=== PATIENT | female | born 1945 | race Caucasian/White ===

== ENCOUNTER 2016-10-07 12:41 | Outpatient (RCR) | payer MEDICARE, OTHER, MEDICAID ==
--- OUTSIDE RECORDS SUMMARY | 2016-07-22 09:06 | XMS REPORT | Continuity of Care Document ---
Author Author [facility] Organization [facility] Address Unknown Phone Unavailable Care Team Providers Care [place] Name Role Phone Jacques Abbasi PCP [phone] Source Comments Some departments are not documenting in the electronic medical record. If you do not see the information that you expected, contact Release of Information in the Health Information Management department at [phone] for further assistance in locating additional records.[facility] Active Allergies and Adverse Reactions Allergen Noted Date Severity Reactions Comments Sotalol 03/29/2015 Low UNKNOWN Current Medications Prescription Sig. Disp. Refills Start End Date Status Date ketoconazole (NIZORAL) 2 Apply to affected area Active % topical cream twice daily. Apply to coccyx and left upper thigh twice daily until both areas healed insulin aspart (NOVOLOG) Inject 0-12 Units into Active 100 unit/mL flexPEN area(s) as directed three times daily with meals. Inject as per sliding scale:60-150=0 [id number]=2 -049=8 -029=2 [id number]=31 [id number]=25 unitsAbove 400, call physician Menthol 5.8 mg lozg 1 Lozenge by Mucous Active Membrane route every 2 hours as needed (cough). loperamide (IMODIUM) 2 mg Take 2 mg by mouth four Active capsule times daily as needed for Diarrhea. calcium carbonate (TUMS) Take 1,000 mg by mouth as Active 500 mg (200 mg elemental Needed (indigestion). calcium) chewable tablet acetaminophen (TYLENOL) 2 tablets every 8 hours Active 325 mg tablet for arthritis pain and 1-2 tabs every 6 hours as needed gabapentin (NEURONTIN) Take 100 mg by mouth Active 100 mg capsule daily. furosemide (LASIX) 80 mg Take 80 mg by mouth Active tablet daily. loratadine (CLARITIN) 10 Take 10 mg by mouth Active mg tablet daily. amLODIPine (NORVASC) 10 Take 10 mg by mouth Active mg tablet daily. sertraline (ZOLOFT) 50 mg Take 50 mg by mouth Active tablet daily. simvastatin (ZOCOR) 20 mg Take 20 mg by mouth at Active tablet bedtime daily. cyanocobalamin(+) Take 500 mcg by mouth Active (VITAMIN B-12) 500 mcg daily. tablet Calcium-Cholecalciferol Take 1 Tab by mouth twice Active (D3) (CALCIUM 600 + D(3)) daily with meals. 600 mg(1,500mg) -200 unit tab doxazosin (CARDURA) 2 mg Take 2 mg by mouth twice Active tablet daily. lactobacillus rhamnosus Take 1 Cap by mouth twice Active GG (LACTOBACILLUS daily with meals. RHAMNOSUS (GG)) 15 billion cell cpSP ferrous sulfate 325 mg Take 325 mg by mouth Active (65 mg iron) tablet twice daily. potassium chloride SR Take 10 mEq by mouth Active (K-DUR) 10 mEq tablet twice daily. aspirin EC 81 mg tablet Take 1 Tab by mouth 90 Tab 3 04/04/20 Active daily. 15 clopiDOGrel (PLAVIX) 75 Take 1 Tab by mouth 90 Tab 3 04/04/20 Active mg tablet daily. 15 fish oil /omega-3 fatty Take 2 Caps by mouth Active acids (SEA-OMEGA) daily. 340/1000 mg capsule PEG 400-Propylene Glycol Insert or Apply 2 Drops Active (SYSTANE) 0.4-0.3 % dpet to left eye as directed as Needed. senna/docusate Take 2 Tabs by mouth 60 Tab 0 06/26/20 Active (SENOKOT-S) 8.6/50 mg twice daily. 15 tablet polyethylene glycol 3350 Take 17 g by mouth daily. 3 Bottle 3 Active (GLYCOLAX; MIRALAX) 17 15 gram/dose powder insulin aspart (NOVOLOG) Inject 6 Units into 3 box 3 06/26/20 Active 100 unit/mL flexPEN area(s) as directed three 15 times daily with meals. Take 6 units with lunch and dinner insulin detemir(+) Inject 20 Units into 10 mL 12 06/26/20 Active (LEVEMIR) 100 unit/mL area(s) as directed at 15 soln bedtime daily. carvedilol (COREG) 6.25 Take 1 Tab by mouth twice 180 Tab 3 07/31/20 Active mg tablet daily. 15 losartan-hydrochlorothiaz Take 1 Tab by mouth 90 Tab 3 11/16/19 Active chanelle (HYZAAR) 50-12.5 mg daily. 16 tablet Active Problems Problem Noted Date Chronic diastolic CHF (congestive heart failure) ([facility]) 06/26/2015 CKD (chronic kidney disease) stage 3, GFR 30-59 ml/min 06/26/2015 UTI (lower urinary tract infection) 06/21/2015 Acute diastolic HF (heart failure) ([facility]) 04/10/2015 Morbid obesity ([facility]) 04/10/2015 [id number] kidney injury (probable ATN) 04/10/2015 IDDM (insulin dependent diabetes mellitus) ([facility]) 03/29/2015 CAD (coronary artery disease) 03/29/2015 Overview: 03/30/15: Cath at [facility] - CAD. The LAD has a 90% eccentric mid vessel stenosis after the 1st septal with minimal disease elsewhere in the left coronary system. Successful intervention of the mid LAD, placing a 3.5 x 15 mm drug-eluting stent. HTN (hypertension) 03/29/2015 COPD (chronic obstructive pulmonary disease) ([facility]) 03/29/2015 Arthritis 03/29/2015 Aortic stenosis 03/28/2015 Most Recent Encounters Date Type Specialty Providers Description 07/03/2016 Telephone Cardiology Magdalena Felton, Lab Request - repeat ABDOUL ELENA 07/02/2016 Documentation Cardiology Jenn Benedict RN 07/01/2016 Hospital Cardiology Hussein Malave MD Encounter 07/01/2016 Office Visit Cardiology Louis Abbasi MD Cardiac Eval - 1 year Hussein Malave MD post op tavr f/u 07/01/2016 Hospital Cardiology Hussein Malave MD Encounter Social History Tobacco Use Types Packs/Day Years Used Date Former Smoker 1 7 Quit: 10/19/1973 Alcohol Use Drinks/Week oz/Week Comments No 0 Standard 0.0 drinks or equivalent Last Filed Vital Signs Vital Sign Reading Time Taken Blood Pressure 102/68 07/01/2016 12:52 PM CDT Pulse 56 07/01/2016 12:52 PM CDT Temperature 36.5 C (97.7 F) 06/26/2015 11:06 AM CDT Respiratory Rate - - Height 1.575 m (5' 2") 07/01/2016 12:52 PM CDT Weight 102.059 kg (225 lb) 07/01/2016 12:52 PM CDT Body Mass Index 41.14 07/01/2016 12:52 PM CDT Oxygen Saturation 97% 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 Care Health Maintenance Due Date Last Done Comments Hepatitis C Screening 1945 Physical (Comprehensive) 1954 Exam Pertussis Vaccine 1958 Tetanus Vaccine 02/05/1964 Dilated Eye Exam 1965 Foot Exam 1965 Microalbumin 1965 Breast Cancer Screening 1987 Colorectal Cancer 1997 Screening Shingles Vaccine 2007 Osteoporosis Screening 02/05/2012 Prevnar/Pneumovax (#1) 02/05/2012 Hba1c 12/19/2015 06/20/2015 Influenza Vaccine 06/19/2016 Results from Last 3 Months 2-D + DOPPLER ECHOCARDIOGRAM (07/01/2016 12:18 PM) Component Value Range BSA 2.16 m2 ECHO EF 80 % Referring Provider Louis Abbasi CV ECHO PV EDI SPECIALIST Britany LVIDD 5.4 3.9-5.3 cm LVIDS 3.7 cm IVS 1.3 0.6-0.9 cm PW 0.8 0.6-0.9 cm FS 31.48 28-44 % EF 53.52 % LA size 4.1 2.7-3.8 cm Sinus 2.8 2.1-3.5 cm LVOT diameter 1.9 cm LVOT area 2.83 cm2 LVOT peak jaime 1.3 m/s LVOT peak VTI 33.0 cm AV peak velocity 1.7 m/s Ao VTI 40.0 cm Aortic valve area= 2.33 cm2 , with a mean gradient of 6 mmHg and a peak gradient of 12 mmHg AV index ([place]) 0.76 E/A ratio 0.55 TDI e' 0.040 m/s E/E' ratio 15.00 MV Peak E Jaime PW 0.600 m/s MV Peak A Jaime 1.100 m/s LVOT stroke volume 93.39 cm3 Narrative Normal bioprosthetic aortic valve Hyperdynamic LV systolic function No pericardial effusion Otherwise very limited study CKMB (07/01/2016 11:09 AM) Component Value Range CKMB 3.0 0.6-6.3 NG/ML PLASMA FREE HEMOGLOBIN (07/01/2016 11:09 AM) Component Value Range Total Plasma Hemoglobin <30 0-40 MG/DL Specimen Blood CREATINE KINASE-CPK (07/01/2016 11:09 AM) Component Value Range Creatine Kinase 49 21-215 U/L Specimen Blood COMPREHENSIVE METABOLIC PANEL (07/01/2016 11:09 AM) Component Value Range Sodium 141 137-147 MMOL/L Potassium 4.4 3.5-5.1 MMOL/L Chloride 108 98-110 MMOL/L Glucose 179 (H) 70-100 MG/DL Blood Urea Nitrogen 70 (H) 7-25 MG/DL Creatinine 1.66 (H) 0.4-1.00 MG/DL Calcium 9.8 8.5-10.6 MG/DL Total Protein 7.1 6.0-8.0 G/DL Total Bilirubin 0.3 0.3-1.2 MG/DL Albumin 3.7 3.5-5.0 G/DL Alk Phosphatase 71 25-110 U/L AST (SGOT) 15 7-40 U/L CO2 26 21-30 MMOL/L ALT (SGPT) 11 7-56 U/L Anion Gap 7 3-12 eGFR Non 31 (L)Comment: >60 mL/min The eGFR is not validated for use in drug dosing adjustments. Continue to use estimated creatinine clearance per dosing reference text. Please contact the Clinical Pharmacist for questions. eGFR 37 (L)Comment: >60 mL/min The eGFR is not validated for use in drug dosing adjustments. Continue to use estimated creatinine clearance per dosing reference text. Please contact the Clinical Pharmacist for questions. Specimen Blood CBC (07/01/2016 11:09 AM) Component Value Range White Blood Cells 9.1 4.5-11.0 K/UL RBC 3.61 (L) 4.0-5.0 M/UL Hemoglobin 10.8 (L) 12.0-15.0 GM/DL Hematocrit 32.9 (L) 36-45 % MCV 91.0 80-100 FL MCH 29.8 26-34 PG MCHC 32.8 32.0-36.0 G/DL RDW 14.4 11-15 % Platelet Count 194 150-400 K/UL MPV 8.7 7-11 FL Specimen Blood BNP (B-TYPE NATRIURETIC PEPTI) (07/01/2016 11:09 AM) Component Value Range B Type Natriuretic 53.0 0-100 PG/ML Peptide Specimen Blood
[~2016-10-07 12:41] MED LIST: AC325T; AC325T PO; AC500T PO; ACET-819 PO; ACET325T38 PO; ACET650S15 RC; ACET650T52 PO; ALBU8.5H2 IH; AML5T PO; AMLO10TA PO; AMLO10TA2 PO; AMLO10TA82 PO; AMLO5TAB2; ASP325T; ASP325T PO; ASP325TEC PO; ASPI-84 PO; ASPI-983 PO; ATN50T; B&C/1TAB2 PO; CALC-6 PO; CALC-80 PO; CALC500T7 PO; CALC650T14 PO; CARV12.52 PO; CARV25TA; CARV25TA PO; CARV6.252; CHLO25TA22 PO; CHLO50TA2 PO; CHOL10003 PO; CHOL200035 PO; CLN.1T; CLN.2T; CLON0.3T4; CLOP75TA; CLOP75TA28 PO; CLOP75TA69 PO; CLPD75T PO; COMPAZINE; CYAN500T2 PO; DARBEPOETIN 10 MCG/0.4 ML ARANESP IJ SCH; DARBEPOETIN 25 MCG/ML (CANCER CTR) 1 ML VIAL SC SCH; DEXT15DR23 OU; DIPH1TAB45 PO; DIPH25TA82 PO; DOXA1TAB PO; DOXA2TAB2 PO; DOXY100C2 PO; DXZS2T PO; EUCA1LOZ MM; FENTANYL 50MCG; FERR27TA; FLC150T PO; FRS325T PO; FRSM20T PO; FURO20TA4; FURO40TA4 PO; FURO80TA3 PO; GABA-486 PO; GUAI-653 PO; GUAI10SY4 PO; HCT25T; HYDR50TA3 PO; IBUP-30 PO; INSASP10V; INSASP10V SC; INSASP10V SQ; INSU100C4; INSU100I14 SQ; INSU100I16 SQ; INSU100I29 SQ; INSU100I5; INSU100V16 SQ; INSU100V5 SQ; INSU3CAR; KCL10CCR PO; KCL20TCR PO; LACT1CAP45 PO; LACT1TAB6; LEVIMIR; LISI-552 PO; LISI20TA PO; LISI40TA PO; LOPE2CAP PO; LORA10TA7 PO; LOSA1TAB69 PO; LOVA20TA2; LOVA20TA2 PO; LOVA40TA2 PO; LSNP20T; LSNP20T PO; MELA5TAB12 PO; METH113C21 TP; METO100T5 PO; METO25TA PO; METO50TA7 PO; MPR22TI TP; MTF500T; MTF500T PO; MULT-963 PO; MULT-985 PO; MULT1CAP27 PO; NF-KET2% TOP; NFVALS90T; NFVALS90T PO; NST15PW TOP; OMEG1CAP51 PO; ONDN4T PO; OXYM-12 NSEACH; PERCOCET; POTA10TA36; POTA10TA36 PO; POTA99TA18 PO; PRD50T PO; PROM25SU43 RC; PROP1DRO4 OS; PROP1TAB77; RT-ALBUINH IH; SALI10LI TP; SENN-140 PO; SERT50TA2 PO; SERT50TA9 PO; SIMV20TA3 PO; SIMV40TA2; SMV20T PO; SULF1TAB35 PO; SULF1TAB38 PO; TRAM50TA2 PO; VENTOLIN IH; ZOFRAN 4 MG; [UNRECOGNIZED DRUG - CODE] PO; [UNRECOGNIZED DRUG - CODE] PO
[2016-10-07] MEDS ORDERED: DARBEPOETIN 25 MCG/ML (CANCER CTR) 1 ML VIAL SC SCH (14:00)
== END 2016-10-20 | disposition home or self-care (01) ==
LOC: ONC 12:41
PROVIDERS: ATTEND Internal Medicine Hematology & Oncology
DX: N18.3 Chronic kidney disease, stage 3 (moderate) (principal); D63.1 Anemia in chronic kidney disease; Z79.899 Other long term (current) drug therapy
CPT/HCPCS: 96372; 99213

== ENCOUNTER 2016-12-23 13:05 | Outpatient (RCR) | payer MEDICARE, OTHER, MEDICAID ==
--- OUTSIDE RECORDS SUMMARY | 2016-10-23 10:43 | XMS REPORT | Continuity of Care Document ---
Author Author [facility] Organization [facility] Address Unknown Phone Unavailable Care Team Providers Care [employer] Name Role Phone Jacques Abbasi PCP [phone] Source Comments Some departments are not documenting in the electronic medical record. If you do not see the information that you expected, contact Release of Information in the Health Information Management department at [phone] for further assistance in locating additional records.[facility] Active Allergies and Adverse Reactions Allergen [...] with meals. Inject as per sliding scale:60-150=0 -010=2 [id number]=5 -191=6 [id number]=18 -549=19 unitsAbove 400, call physician Menthol 5.8 mg [...] Date Chronic diastolic CHF (congestive heart failure) ([facility]) 06/26/2015 CKD (chronic kidney disease) stage 3, GFR 30-59 ml/min 06/26/2015 UTI (lower urinary tract infection) 06/21/2015 Acute diastolic HF (heart failure) ([facility]) 04/10/2015 Morbid obesity ([facility]) 04/10/2015 Ztpbx-qy-jgquwrq kidney injury (probable ATN) 04/10/2015 IDDM (insulin dependent diabetes mellitus) ([facility]) 03/29/2015 CAD (coronary artery disease) 03/29/2015 Overview: 03/30/15: Cath at [facility] - CAD. The LAD has a 90% eccentric mid vessel stenosis after the 1st septal with minimal disease elsewhere in the left coronary system. Successful intervention of the mid LAD, placing a 3.5 x 15 mm drug-eluting stent. 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
[~2016-12-23 13:05] MED LIST changes: -DARBEPOETIN 10 MCG/0.4 ML ARANESP IJ SCH
[2017-01-14] MEDS ORDERED: SERT25TA5 PO (09:40)
[2017-01-14] MEDS ORDERED: [UNRECOGNIZED DRUG - OTHER] TP (09:40)
[2017-01-14] MEDS ORDERED: FLUT16SP22 NS (09:40)
[2017-01-14] MEDS ORDERED: TERA2CAP4 PO (09:40)
== END 2017-01-21 | disposition home or self-care (01) ==
LOC: ONC 13:05
PROVIDERS: ATTEND Internal Medicine Hematology & Oncology
DX: N18.3 Chronic kidney disease, stage 3 (moderate) (principal); D63.1 Anemia in chronic kidney disease; Z79.899 Other long term (current) drug therapy
CPT/HCPCS: 96372; 99213

== ENCOUNTER 2017-01-14 07:05 | Day surgery (SDC) | payer MEDICARE, OTHER, MEDICAID ==
[2017-01-14] VITALS (14 sets, daily range): BP systolic 119–180; BP diastolic 47–66
[~2017-01-14] VITALS: Ht 157.5 cm; Wt 95.3 kg
[~2017-01-14 07:05] MED LIST changes: -DARBEPOETIN 25 MCG/ML (CANCER CTR) 1 ML VIAL SC SCH
[2017-01-14] MEDS ORDERED: NS IV 1000 ML 1,000 ML ONE (07:19)
[2017-01-14] MEDS ORDERED: LIDOCAINE 1% INJ 20 ML (XYLOCAINE) VIAL ONE (07:19)
[2017-01-14] MEDS ORDERED: HEParin (CATH LAB) 2,000 ML IV ONE (07:19)
[2017-01-14] MEDS ORDERED: NS IV 1000 ML 1,000 ML IV SCH (07:32)
[2017-01-14 07:43] LABS: MEAN PLATELET VOLUME 10.6 FL (7.4-10.4); RED BLOOD COUNT 3.33 10^6/uL (4.35-5.85); RED CELL DISTRIBUTION WIDTH 13.1 % (10.0-14.5); WHITE BLOOD COUNT 8.3 10^3/uL (4.3-11.0)
[2017-01-14 07:53] LABS: INR 1.1 (0.8-1.4); PROTHROMBIN TIME PATIENT 14.3 SEC (12.2-14.7)
[2017-01-14 08:02] LABS: ALBUMIN 3.5 G/DL (3.2-4.5); BILIRUBIN,TOTAL 0.4 MG/DL (0.1-1.0); CALCIUM 9.7 MG/DL (8.5-10.1); CREATININE SERUM 1.32 MG/DL (0.60-1.30); POTASSIUM 4.7 MMOL/L (3.6-5.0); TOTAL PROTEIN 6.9 G/DL (6.4-8.2)
--- NOTE | 2017-01-14 08:03 | Diagnostic Imaging Report ---
INDICATION: Coronary artery disease PA and lateral chest obtained at 7:42 a.m. and compared with 02/06/16. The heart is mildly enlarged. There is central vascular prominence without sp edema. There is no consolidation or pneumothorax or pleural fluid. There are old left-sided rib fractures. Aortic valve prosthesis is noted. IMPRESSION: Mild cardiomegaly with central vascular prominence. No sp edema or infiltrate or pleural fluid. Aortic valve prosthesis is noted. Dictated by: Dictated on workstation # [id number]
[2017-01-14] MEDS ORDERED: MIDAZOLAM 5 MG/5 ML (VERSED) VIAL ONE (08:40)
[2017-01-14] MEDS ORDERED: NITROGLYCERIN DRIP 25 MG/D5W 250 ML IV ONE (08:40)
[2017-01-14] MEDS ORDERED: fentaNYL INJECTION 100 MCG/2 ML AMP ONE (08:40)
[2017-01-14] MEDS ORDERED: HEParin 1000 UNIT/ML (10ML VIAL) FOR BOLUS ONE (09:24)
[2017-01-14] MEDS ORDERED: TERA2CAP4 PO (09:40)
[2017-01-14] MEDS ORDERED: FLUT16SP22 NS (09:40)
[2017-01-14] MEDS ORDERED: [UNRECOGNIZED DRUG - OTHER] TP (09:40)
[2017-01-14] MEDS ORDERED: SERT25TA5 PO (09:40)
[2017-01-14] MEDS ORDERED: ASPIRIN 325 MG (5 GR) TABLET ONE (10:28)
[2017-01-14] MEDS ORDERED: CLOPIDOGREL 300 MG (PLAVIX) TABLET PO ONE (10:29)
[2017-01-14] MEDS ORDERED: ACETAMINOPHEN 325 MG TABLET/CAPLET (TYLENOL) PO PRN (10:30)
[2017-01-14] MEDS ORDERED: CALCIUM CARBONATE PO PRN (10:30)
[2017-01-14] MEDS ORDERED: PEG OS PRN (10:30)
[2017-01-14] MEDS ORDERED: SENNOSIDES 8.6 MG (SENOKOT) TAB PO PRN (10:30)
[2017-01-14] MEDS ORDERED: EUCALYPTUS MM PRN (10:30)
[2017-01-14] MEDS ORDERED: PROPYLENE GLYCOL OS PRN (10:30)
[2017-01-14] MEDS ORDERED: PATIENT MAY USE OWN MEDS, ALL PO SCH (10:30)
[2017-01-14] MEDS ORDERED: [UNRECOGNIZED DRUG - OTHER] OS PRN (10:30)
[2017-01-14] MEDS ORDERED: PROMETHAZINE 25 MG (PHENERGAN) SUPP RC PRN (10:30)
[2017-01-14] MEDS ORDERED: MENTHOL MM PRN (10:30)
[2017-01-14] MEDS ORDERED: LOPERAMIDE 2 MG (IMODIUM) CAP PO PRN (10:30)
[2017-01-14] MEDS: NS IV 1000 ML 1,000 ML IV SCH ×2 (10:45→15:33)
[2017-01-14] MEDS ORDERED: FERROUS SULF 325 MG (IRON) TAB PO SCH ×2 (12:00→17:00)
[2017-01-14] MEDS: inSUlin ASPART (NovoLOG) 1 UNIT/0.01 ML (CHARGE PER UNIT) SQ SCH ×2 (12:00→16:23)
--- NOTE | 2017-01-14 12:44 | Cardiac Procedure Note-CS/ASA ---
Pre-Procedure Note Pre-Op Procedure Note H&P Reviewed The H&P was reviewed, patient examined and no changes noted. Date H&P Reviewed: Jan 14, 2017 Time H&P Reviewed: 09:00 Conscious Sedation Pre-Proced Time Reviewed: 09:00 ASA Class: 3 Airway Mallampati Classification: (chickaloon appropriate class) I. II. III, IV Lungs Heart ASA score ASA 1: a normal healthy patient ASA 2: a patient with a mild systemic disease (mid diabetes, controlled hypertension, obesity x ASA 3: a patient with a severe systemic disease that limits activity (angina , COPD, prior Myocardial infarction) ASA 4: a patient with an incapacitating disease that is a constant threat to life (CHF, renal failure) ASA 5: a moribund patient not expected to survive 24 hrs. (ruptured aneurysm) ASA 6: a declared brain patient whose organs are being harvested. For emergent operations, add the letter E after the classification Grade 3 Sedation Plan: Analgesia, Amnesia, Plan communicated to team members, Discussed options with patient/fam, Discussed risks with patient/fam Note The patient is an appropriate candidate to undergo the planned procedure, sedation, and anesthesia. The patient immediately re-assessed prior to indication. WILFRED ELENA MD Jan 14, 2017 12:44
[2017-01-14] MEDS ORDERED: CALCIUM CARBONATE 500 MG (TUMS) TAB.CHEW PO PRN (15:30)
[2017-01-14] MEDS ORDERED: CHLORASEPTIC LOZENGE MM PRN (15:45)
[2017-01-14] MEDS: CALCIUM CARB + VIT D 600 MG (CALCARB + D) TAB PO SCH (16:35)
[2017-01-14] MEDS: KCL 10 MEQ TAB (MICRO K) PO SCH (16:36)
[2017-01-14] MEDS ORDERED: NON-FORMULARY MEDICATION 1 EA EA (Dextran 70/Hypromellose (Natural Balance Tears Eye Drop) OU SCH (21:00)
[2017-01-14] MEDS ORDERED: NON-FORMULARY MEDICATION 1 EA EA (Calcium Carbonate/Vitamin D3 (Calcium 600 + Vit D 200 Ta PO SCH (21:00)
[2017-01-14] MEDS ORDERED: TERAZOSIN 2 MG (HYTRIN) CAP PO SCH (21:00)
[2017-01-14] MEDS ORDERED: inSUlin DETERMIR 1 UNIT/0.01 ML (LEVEMIR) CHARGE PER UNIT SQ SCH (21:00)
[2017-01-14] MEDS ORDERED: SIMvastatin 20 MG (ZOCOR) TAB PO SCH (21:00)
[2017-01-14] MEDS ORDERED: NON-FORMULARY MEDICATION 1 EA EA (Insulin Detemir (Levemir Flextouch) 26 UNITS) SQ SCH (21:00)
[2017-01-14] MEDS ORDERED: ARTIFICAL TEARS 0.4 ML UNIT DOSE (REFRESH PLUS) OU SCH (21:00)
[2017-01-14] MEDS ORDERED: GABAPENTIN 100 MG (NEURONTIN) CAP PO SCH (21:00)
[2017-01-14] MEDS ORDERED: NON-FORMULARY MEDICATION 1 EA EA (Potassium Chloride 10 MEQ) PO SCH (21:00)
[2017-01-14] MEDS ORDERED: CARVEDILOL 12.5 MG (COREG) TABLET PO SCH (21:00)
--- NOTE | 2017-01-14 21:23 | DISCHARGE SUMMARY ---
PROCEDURE PHYSICIAN: WILFRED ELENA DATE OF PROCEDURE: 01/14/2017 PERIPHERAL ANGIOGRAM REPORT REFERRING PHYSICIAN: Dr. Abbasi. BRIEF HISTORY: Mrs. House is a 71-year-old lady with a history of hypertension, hyperlipidemia, diabetes mellitus, having ulcer on her left foot. She had an abnormal CHRISTINE. She was scheduled for peripheral angiogram. PROCEDURE NOTE: After explaining the procedure to the patient, all pros and cons were explained. All questions were answered. The patient signed a consent, then she was placed on the cardiac catheterization laboratory. The right groin was prepped in a sterile fashion. Local anesthesia applied to the right groin. 6-Namibian sheath was placed in the right femoral artery. Runoff of the right lower extremity was done using the sheath, then I advanced a pigtail catheter; did abdominal aortogram; evaluated the bifurcation. At that time, I tried to cross over with the pigtail without success. I used a rim catheter without success. Then I used an IM curved catheter and I was able to cross over. Exchanged the catheter into a straight catheter placed in the common femoral artery and runoff of the left lower extremity was done. Common iliac artery and runoff to the left lower extremity was done, then I advanced a straight catheter to the common iliac artery. I advanced wire, then exchanged the wire and sheath into 55 mm 6-Namibian long sheath. The patient was given 5000 units of heparin. She was noted to have total occlusion of the SFA and popliteal artery. I decided to proceed with percutaneous intervention. I tried to cross the lesion with the Glidewire and a Storq wire without success. I used the mini catheter and a command wire with multiple attempts, I was able to cross the total occlusion. I advanced a mini catheter over the wire, advanced it to the posterior tibial artery. I did angiogram, it showed the catheter at the posterior tibial artery in a small branch. Pullback catheter to the tibial peroneal trunk and did angiogram through the catheter, which showed good positioning. I reintroduced the command wire and exchanged the catheter into 4 x 60 mm balloon [place] 4 x 60 mm inflated once. Repeat angiogram showed establishment of the lumen. At that point, I exchanged the balloon into Lutonix 6 x 100. I did 1 inflation for 3 minutes. Repeat angiogram showed residual lesion at the popliteal artery. I introduced Lutonix drug-coated balloon 5 x 100 to the popliteal artery and balloon inflated to its nominal position. The patient was given nitroglycerin, then angiogram showed excellent result. No residual stenosis. At that point, the wire was removed. The sheath was exchanged into short 6-Namibian sheath, then Mynx device deployed. Hemostasis achieved. FINDINGS: ANATOMY: 1. ABDOMINAL AORTOGRAM: The abdominal aortogram showed atherosclerotic disease. No dissection or aneurysm. The bifurcation appeared acute with no abnormality. 2. RIGHT LOWER EXTREMITY RUNOFF: The right lower extremity runoff showed severe stenosis at the distal SFA. Small vessel disease at the anterior tibial artery. 3. LEFT LOWER EXTREMITY RUNOFF: The left lower extremity runoff showed total occlusion of the SFA and popliteal artery. Successful balloon angioplasty, then a drug-coated balloon using Lutonix 6 x 100 and 5 x 100 with excellent results. No residual stenosis. Good runoff down to the foot. CONCLUSION: 1. Total occlusion of the left SFA and popliteal artery. Successful balloon angioplasty using drug-coated balloon using Lutonix 6 by 100 and 5 x 100 with excellent results. No residual stenosis was noted. Moderate disease distally. 2. Severe stenosis at the right SFA distally, which will be addressed at a later point. Moderate disease below the trifurcation of the right lower extremity. 3. Mild atherosclerotic plaques in the abdominal aorta and bifurcation. DISCUSSION AND RECOMMENDATION: I will continue maximizing medical therapy. Monitor the patient closely. FINAL DIAGNOSES: 1. Peripheral arterial disease. 2. Hypertension. 3. Hyperlipidemia. 4. Diabetes mellitus. 5. Foot ulcer. Job ID: [id number] Dictated Date: 01/14/2017 10:41:25 Mexican Food Cook Date: 01/14/2017 21:21:52/teena
[2017-01-15] VITALS: BP 122/42
[2017-01-15 03:50] LABS: MEAN PLATELET VOLUME 10.9 FL (7.4-10.4); RED BLOOD COUNT 2.88 10^6/uL (4.35-5.85); WHITE BLOOD COUNT 9.2 10^3/uL (4.3-11.0)
[2017-01-15 04:00] VITALS: BP 165/67
[2017-01-15 04:10] LABS: CREATININE SERUM 1.29 MG/DL (0.60-1.30); POTASSIUM 4.5 MMOL/L (3.6-5.0)
[2017-01-15] MEDS: NS IV 1000 ML 1,000 ML IV SCH (05:51)
[2017-01-15] MEDS: CALCIUM CARB + VIT D 600 MG (CALCARB + D) TAB PO SCH (06:41)
[2017-01-15] MEDS: KCL 10 MEQ TAB (MICRO K) PO SCH (06:41)
[2017-01-15] MEDS ORDERED: MULTIVIT W/MINERALS TAB (THERAGRAN M) PO SCH (07:00)
[2017-01-15] MEDS ORDERED: FUROSEMIDE 40 MG (LASIX) TAB PO SCH (07:00)
--- NOTE | 2017-01-15 07:27 | Cardiology Progress Note ---
Subjective Subjective/Events-last exam patient sitting in a chair, comfortable, denied any pain, groin is healing well. Review of Systems General: No Chills, No Night Sweats, No Fatigue, No Malaise, No Appetite, No Other HEENT: No Head Aches, No Visual Changes, No Eye Pain, No Ear Pain, No Dysphasia , No Sinus Congestion, No Post Nasal Drip, No Sore Throat, No Other Pulmonary: No Dyspnea, No Cough, No Pleuritic Chest Pain, No Other Cardiovascular: No: Chest Pain, Edema, Lt Headedness, Orthopnea, Other, Palpitations, Paroxysmal Noc. Dyspnea Objective-Cardiology Exam Last Set of Vital Signs Vital Signs 01/15/17 01/15/17 02:49 04:00 Temp 99.1 Pulse 60 Resp 20 B/P (MAP) 165/67 Pulse Ox 96 O2 Delivery Room Air O2 Flow Rate 3.00 Capillary Refill : Less Than 3 Seconds I&O Intake and Output 01/15/17 00:00 Intake Total 480 ml Output Total 1 ml Balance 479 ml Intake Oral 480 ml Output Urine/Stool Mix 1 ml # Voids 1 # Urine Diapers 1 # Bowel Movements 1 General: Alert, Oriented X3, Cooperative HEENT: Atraumatic, PERRLA Neck: Supple, No JVD, No Thyromegaly Lungs: Clear to Auscultation, Normal Air Movement Heart: Regular Rate, Normal S1, Normal S2, No Murmurs Abdomen: Normal Bowel Sounds, Soft, No Tenderness, No Hepatosplenomegaly, No Masses Extremities: No Clubbing, No Cyanosis, No Edema, Normal Pulses, No Tenderness/ Swelling Skin: No Rashes, No Breakdown, No Significant Lesion Neuro: Normal Gait, Normal Speech, Strength at 5/5 X4 Ext, Normal Tone, Sensation Intact Psych/Mental Status: Mental Status NL, Mood NL Results Lab Laboratory Tests 01/14/17 07:34 01/15/17 03:25 A/P-Cardiology Admission Diagnosis peripheral arterial disease Hypertension Hyperlipidemia Diabetes mellitus Assessment/Plan peripheral arterial disease, total occlusion of the left SFA status post intervention with drug-coated balloon with excellent results, had moderate to severe disease on the right SFA, I will continue to monitor possible intervention. Hypertension, continue current medication monitor blood pressure Hyperlipidemia, continue current medications Diabetes mellitus, Obesity, educated on weight loss Patient will be discharged home today WILFRED ELENA MD Jan 15, 2017 07:27
--- NOTE | 2017-01-15 07:29 | Discharge Inst-Post CATH ---
Discharge Inst-CATH Post Cardiac Cath D/C Inst Follow Up/Plan Appointment with Dr. Jackson's office in 2 weeks CARDIAC CATH DISCHARGE INSTRUCTIONS *Hold Metformin for 48 hours post heart cath. ACTIVITY * Go Home directly and rest. * Limit activity of the leg (or wrist if it was used) for 7 days including aerobics, swimming, jogging, bicycling, etc. * Restrict stair-climbing for 7 days if possible, if not, climb up with your non -cath leg, then bring together on the same step. * Avoid lifting, pushing, pulling or excessive movement of the affected extremity for 7 days. * Customary sexual activity may be resumed after 2 days-use caution not to use a position that strains or causes pain to the affected extremity. * No driving for 24 hours. * NO SMOKING. * Avoid straining for bowel movements for 7 days. * Gentle walking on level ground is allowed. * Returning to work will depend on the type of procedure and the results. Your doctor will discuss this with you. CALL YOUR DOCTOR FOR ANY OF THE FOLLOWING: *If bleeding from the puncture site occurs- Apply gentle pressure to site with clean cloth and call your doctor or EMS. * If a knot or lump forms under the skin, increases in size, or causes pain. * If bruising appears to be worsening or moving further down your leg instead of disappearing. * Temperature above 101 F. CARE OF YOUR GROIN INCISION; * Bruising or purple discoloration of the skin near the puncture site is common. * You may shower only, no bathtub bathing for 5 days. Be careful to avoid slipping as your leg may feel stiff. * If a closure device was used on your femoral artery, please see the attached guide regarding care of the device and your leg. * REMOVE the dressing from your groin the next day after your procedure in the shower. CARE OF YOUR WRIST INCISION; * Bruising or purple discoloration of the skin near the puncture site is common. * You may shower. * DO NOT submerge wrist. * Remove dressing in 24 hours. WILFRED JACKSON MD Jan 15, 2017 07:29
[2017-01-15 08:00] VITALS: BP 154/68
[2017-01-15] MEDS ORDERED: OMEGA 3 (FISH OIL) 1000 MG CAP PO SCH (08:00)
[2017-01-15] MEDS ORDERED: NON-FORMULARY MEDICATION 1 EA EA (Furosemide 80 MG) PO SCH (09:00)
[2017-01-15] MEDS ORDERED: CLOPIDOGREL 75 MG (PLAVIX) TABLET PO SCH ×2 (09:00)
[2017-01-15] MEDS ORDERED: LORATADINE (CLARITIN) 10 MG TAB PO SCH (09:00)
[2017-01-15] MEDS ORDERED: HYDROCHLOROTHIAZIDE 12.5 MG (HCTZ) CAP PO SCH (09:00)
[2017-01-15] MEDS ORDERED: [UNRECOGNIZED DRUG - OTHER] PO SCH (09:00)
[2017-01-15] MEDS ORDERED: amLODIPine 10 MG (NORVASC) TAB PO SCH (09:00)
[2017-01-15] MEDS ORDERED: lisINopril 20 MG (ZESTRIL) TAB PO SCH (09:00)
[2017-01-15] MEDS ORDERED: ASPIRIN E.C. 81 MG (ECOTRIN) TAB PO SCH ×2 (09:00)
[2017-01-15] MEDS ORDERED: SERTRALINE 50 MG (ZOLOFT) TABLET PO SCH (09:00)
[2017-01-15] MEDS ORDERED: NON-FORMULARY MEDICATION 1 EA EA (Sertraline HCl 25 MG) PO SCH (09:00)
[2017-01-15] MEDS ORDERED: FLUTICASONE NASAL SPRAY (FLONASE) 16 GM BTL NS SCH (09:00)
[2017-01-15] MEDS ORDERED: NON-FORMULARY MEDICATION 1 EA EA (Losartan/Hydrochlorothiazide (Losartan-Hctz 50-12.5 mg T PO SCH (09:00)
[2017-01-15] MEDS ORDERED: LOSARTAN 50 MG (COZAAR) TAB PO SCH (09:00)
[2017-01-15] MEDS ORDERED: CYANOCOBALAMIN 500 MCG TAB (VITAMIN B-12) PO SCH (09:00)
--- OUTSIDE RECORDS SUMMARY | 2017-02-01 05:51 | XMS REPORT | Continuity of Care Document ---
Author Author [facility] Organization 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 If you do not see the information that you expected, contact Release of Information in the Health Information Management department at [phone] for further assistance in locating additional records.[facility] Active Allergies and Adverse Reactions Allergen [...] with meals. Inject as per sliding scale:60-150=0 [id number]=4 bqgek140-394=0 doooj816-332=0 vumky345-358=36 zjfnu255-540=13 unitsAbove 400, call physician Menthol 5.8 mg [...] Inject 20 Units into 10 mL 12 09/08/20 Active (LEVEMIR) 100 unit/mL area(s) as directed at 15 soln bedtime daily. carvedilol (COREG) 6.25 Take 1 Tab by mouth twice 180 Tab 3 07/31/20 Active mg tablet daily. 15 losartan-hydrochlorothiaz Take 1 Tab by mouth 90 Tab 3 11/16/19 Active chanelle (HYZAAR) 50-12.5 mg daily. 16 tablet Active Problems Problem Noted Date Chronic diastolic CHF (congestive heart failure) ([facility]) 06/26/2015 CKD (chronic kidney disease) stage 3, GFR 30-59 ml/min 06/26/2015 UTI (lower urinary tract infection) 06/21/2015 Acute diastolic HF (heart failure) ([facility]) 04/10/2015 Morbid obesity ([facility]) 04/10/2015 Eybtl-vl-gkbowey kidney injury (probable ATN) 04/10/2015 IDDM (insulin dependent diabetes mellitus) ([facility]) 03/29/2015 CAD (coronary artery disease) 03/29/2015 Overview: 03/30/15: Cath at [facility] - CAD. The LAD has a 90% eccentric mid vessel stenosis after the 1st septal with minimal disease elsewhere in the left coronary system. Successful intervention of the mid LAD, placing a 3.5 x 15 mm drug-eluting stent. 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
--- OUTSIDE RECORDS SUMMARY | 2017-02-01 06:04 | XMS REPORT | Continuity of Care Document ---
Author Author [facility] Address Unknown Phone Unavailable Allergies Active Description Code Type Severity Reaction Onset Reported/Identified Relationship to Patient Clinical Status Yes SALADAL SALADAL Unknown MOOD CHANGE AND 08/22/2008 Yes butorphanol [id number] Drug Allergy Unknown N/A 09/05/2008 Yes drug pt doesn't know name of it OA N/A N/A 10/30/2009 Yes drug pt doesn't know name of it OA 10/30/2009 Yes Bactrim DS Drug Allergy N/A N/A 04/16/2011 Yes Bactrim DS Drug Allergy 04/16/2011 Yes metformin Drug Allergy N/A N/A 07/02/2011 Yes metformin Drug Allergy 07/02/2011 Yes Victoza 0.6 mg/0.1 mL (18 mg/3 mL) Pen Injector Drug Allergy N/A N/A 06/16/2012 Yes Victoza 0.6 mg/0.1 mL (18 mg/3 mL) Pen Injector Drug Allergy 06/16/2012 Yes niacin 500 mg capsule, extended release Drug Allergy N/A N/A 07/29/2012 Yes niacin 500 mg capsule, extended release Drug Allergy 07/29/2012 Yes sotalol [id number] Drug Allergy Unknown N/A 03/28/2015 Medications Problems Date Dx Coded Attending Type Code Diagnosis Diagnosed By 11/23/2008 BEATRIZ MADDEN DO 250.02 DIABETES MELLITUS POORLY CONTROLLED 11/23/2008 BEATRIZ MADDEN DO 300.00 ANXIETY 11/23/2008 BEATRIZ MADDEN DO 401.9 HYPERTENSION (SYSTEMIC) 11/23/2008 TEJAL RICHARD MD 250.02 DIABETES MELLITUS POORLY CONTROLLED 11/23/2008 TEJAL RICHARD MD 300.00 ANXIETY 11/23/2008 TEJAL RICHARD MD 401.9 HYPERTENSION (SYSTEMIC) 11/23/2008 250.02 DIABETES MELLITUS POORLY CONTROLLED 11/23/2008 300.00 ANXIETY 11/23/2008 401.9 HYPERTENSION (SYSTEMIC) 11/23/2008 250.02 DIABETES MELLITUS POORLY CONTROLLED 11/23/2008 300.00 ANXIETY 11/23/2008 401.9 HYPERTENSION (SYSTEMIC) 11/23/2008 250.02 DIABETES MELLITUS POORLY CONTROLLED 11/23/2008 300.00 ANXIETY 11/23/2008 401.9 HYPERTENSION (SYSTEMIC) 11/23/2008 BEATRIZ MADDEN DO K 250.02 DIABETES MELLITUS POORLY CONTROLLED 11/23/2008 BEATRIZ MADDEN DO K 300.00 ANXIETY 11/23/2008 BEATRIZ MADDEN DO K 401.9 HYPERTENSION (SYSTEMIC) 11/23/2008 250.02 DIABETES MELLITUS POORLY CONTROLLED 11/23/2008 300.00 ANXIETY 11/23/2008 401.9 HYPERTENSION (SYSTEMIC) 11/23/2008 250.02 DIABETES MELLITUS POORLY CONTROLLED 11/23/2008 300.00 ANXIETY 11/23/2008 401.9 HYPERTENSION (SYSTEMIC) 11/23/2008 250.02 DIABETES MELLITUS POORLY CONTROLLED 11/23/2008 300.00 ANXIETY 11/23/2008 401.9 HYPERTENSION (SYSTEMIC) 11/23/2008 TEJAL RICHARD MD 250.02 DIABETES MELLITUS POORLY CONTROLLED 11/23/2008 TEJAL RICHARD MD 300.00 ANXIETY 11/23/2008 TEJAL RICHARD MD 401.9 HYPERTENSION (SYSTEMIC) 11/23/2008 TEJAL RICHARD MD 250.02 DIABETES MELLITUS POORLY CONTROLLED 11/23/2008 TEJAL RICHARD MD 300.00 ANXIETY 11/23/2008 TEJAL RICHARD MD 401.9 HYPERTENSION (SYSTEMIC) 11/23/2008 TEJAL RICHARD MD 250.02 DIABETES MELLITUS POORLY CONTROLLED 11/23/2008 TEJAL RICHARD MD 300.00 ANXIETY 11/23/2008 TEJAL RICHARD MD 401.9 HYPERTENSION (SYSTEMIC) 02/28/2009 BEATRIZ MADDEN DO 038.11 Staphylococcus Aureus Septicemia 02/28/2009 TEJAL RICHARD MD 038.11 Staphylococcus Aureus Septicemia 02/28/2009 038.11 Staphylococcus Aureus Septicemia 02/28/2009 038.11 Staphylococcus Aureus Septicemia 02/28/2009 038.11 Staphylococcus Aureus Septicemia 02/28/2009 BEATRIZ MADDEN DO 038.11 Staphylococcus Aureus Septicemia 02/28/2009 038.11 Staphylococcus Aureus Septicemia 02/28/2009 038.11 Staphylococcus Aureus Septicemia 02/28/2009 038.11 Staphylococcus Aureus Septicemia 02/28/2009 TEJAL RICHARD MD 038.11 Staphylococcus Aureus Septicemia 02/28/2009 TEJAL RICHARD MD 038.11 Staphylococcus Aureus Septicemia 02/28/2009 TEJAL RICHARD MD 038.11 Staphylococcus Aureus Septicemia 10/30/2009 BEATRIZ MADDEN DO 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 10/30/2009 TEJAL RICHARD MD 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 10/30/2009 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 10/30/2009 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 10/30/2009 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 10/30/2009 BEATRIZ MADDEN DO 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 10/30/2009 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 10/30/2009 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 10/30/2009 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 10/30/2009 TEJAL RICHARD MD 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 10/30/2009 TEJAL RICHARD MD 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 10/30/2009 TEJAL RICHARD MD 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 11/20/2009 BEATRIZ MADDEN DO 466.0 ACUTE BRONCHITIS 11/20/2009 TEJAL RICHARD MD 466.0 ACUTE BRONCHITIS 11/20/2009 466.0 ACUTE BRONCHITIS 11/20/2009 466.0 ACUTE BRONCHITIS 11/20/2009 466.0 ACUTE BRONCHITIS 11/20/2009 BEATRIZ MADDEN DO 466.0 ACUTE BRONCHITIS 11/20/2009 466.0 ACUTE BRONCHITIS 11/20/2009 466.0 ACUTE BRONCHITIS 11/20/2009 466.0 ACUTE BRONCHITIS 11/20/2009 TEJAL RICHARD MD 466.0 ACUTE BRONCHITIS 11/20/2009 TEJAL RICHARD MD 466.0 ACUTE BRONCHITIS 11/20/2009 TEJAL RICHARD MD 466.0 ACUTE BRONCHITIS 12/10/2009 BEATRIZ MADDEN DO 486 PNEUMONITIS 12/10/2009 TEJAL RICHARD MD 486 PNEUMONITIS 12/10/2009 486 PNEUMONITIS 12/10/2009 486 PNEUMONITIS 12/10/2009 486 PNEUMONITIS 12/10/2009 BEATRIZ MADDEN DO 486 PNEUMONITIS 12/10/2009 486 PNEUMONITIS 12/10/2009 486 PNEUMONITIS 12/10/2009 486 PNEUMONITIS 12/10/2009 TEJAL RICHARD MD 486 PNEUMONITIS 12/10/2009 TEJAL RICHARD MD 486 PNEUMONITIS 12/10/2009 TEJAL RICHARD MD 486 PNEUMONITIS 12/25/2009 BEATRIZ MADDEN DO 280.9 ANEMIA HYPOCHROMIC / MICROCYTIC 12/25/2009 TEJAL RICHARD MD 280.9 ANEMIA HYPOCHROMIC / MICROCYTIC 12/25/2009 280.9 ANEMIA HYPOCHROMIC / MICROCYTIC 12/25/2009 280.9 ANEMIA HYPOCHROMIC / MICROCYTIC 12/25/2009 280.9 ANEMIA HYPOCHROMIC / MICROCYTIC 12/25/2009 BEATRIZ MADDEN DO 280.9 ANEMIA HYPOCHROMIC / MICROCYTIC 12/25/2009 280.9 ANEMIA HYPOCHROMIC / MICROCYTIC 12/25/2009 280.9 ANEMIA HYPOCHROMIC / MICROCYTIC 12/25/2009 280.9 ANEMIA HYPOCHROMIC / MICROCYTIC 12/25/2009 TEJAL RICHARD MD 280.9 ANEMIA HYPOCHROMIC / MICROCYTIC 12/25/2009 TEJAL RICHARD MD 280.9 ANEMIA HYPOCHROMIC / MICROCYTIC 12/25/2009 TEJAL RICHARD MD 280.9 ANEMIA HYPOCHROMIC / MICROCYTIC 01/07/2010 BEATRIZ MADDEN DO 786.05 Shortness Of Breath 01/07/2010 TEJAL RICHARD MD 786.05 Shortness Of Breath 01/07/2010 786.05 Shortness Of Breath 01/07/2010 786.05 Shortness Of Breath 01/07/2010 786.05 Shortness Of Breath 01/07/2010 BEATRIZ MADDEN DO 786.05 Shortness Of Breath 01/07/2010 786.05 Shortness Of Breath 01/07/2010 786.05 Shortness Of Breath 01/07/2010 786.05 Shortness Of Breath 01/07/2010 TEJAL RICHARD MD 786.05 Shortness Of Breath 01/07/2010 TEJAL RICHARD MD 786.05 Shortness Of Breath 01/07/2010 TEJAL RICHARD MD 786.05 Shortness Of Breath 01/16/2010 BEATRIZ MADDEN DO 782.3 Edema 01/16/2010 TEJAL RICHARD MD 782.3 Edema 01/16/2010 782.3 Edema 01/16/2010 782.3 Edema 01/16/2010 782.3 Edema 01/16/2010 BEATRIZ MADDEN DO 782.3 Edema 01/16/2010 782.3 Edema 01/16/2010 782.3 Edema 01/16/2010 782.3 Edema 01/16/2010 TEJAL RICHARD MD 782.3 Edema 01/16/2010 JOSE MANUEL ONEILL, TEJAL 782.3 Edema 01/16/2010 JOSE MANUEL ONEILL, TEJAL 782.3 Edema 04/16/2010 BEATRIZ MADDEN DO 792.1 Hemoccult Positive Stool 04/16/2010 BEATRIZ MADDEN DO V58.69 taking high-risk medication 04/16/2010 TEJAL RICHARD MD 792.1 Hemoccult Positive Stool 04/16/2010 TEJAL RICHARD MD V58.69 taking high-risk medication 04/16/2010 792.1 Hemoccult Positive Stool 04/16/2010 V58.69 taking high-risk medication 04/16/2010 792.1 Hemoccult Positive Stool 04/16/2010 V58.69 taking high-risk medication 04/16/2010 792.1 Hemoccult Positive Stool 04/16/2010 V58.69 Taking High-risk Medication 04/16/2010 BEATRIZ MADDEN DO 792.1 Hemoccult Positive Stool 04/16/2010 BEATRIZ MADDEN DO V58.69 Taking High-risk Medication 04/16/2010 792.1 Hemoccult Positive Stool 04/16/2010 V58.69 Taking High-risk Medication 04/16/2010 792.1 Hemoccult Positive Stool 04/16/2010 V58.69 Taking High-risk Medication 04/16/2010 792.1 Hemoccult Positive Stool 04/16/2010 V58.69 Taking High-risk Medication 04/16/2010 TEJAL RICHARD MD 792.1 Hemoccult Positive Stool 04/16/2010 TEJAL RICHARD MD V58.69 Taking High-risk Medication 04/16/2010 TEJAL RICHARD MD 792.1 Hemoccult Positive Stool 04/16/2010 TEJAL RICHARD MD V58.69 Taking High-risk Medication 04/16/2010 TEJAL RICHARD MD 792.1 Hemoccult Positive Stool 04/16/2010 TEJAL RICHARD MD V58.69 Taking High-risk Medication 06/17/2010 BEATRIZ MADDEN DO 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 06/17/2010 TEJAL RICHARD MD 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 06/17/2010 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 06/17/2010 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 06/17/2010 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 06/17/2010 BEATRIZ MADDEN DO 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 06/17/2010 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 06/17/2010 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 06/17/2010 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 06/17/2010 TEJAL RICHARD MD 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 06/17/2010 TEJAL RICHARD MD 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 06/17/2010 TEJAL RICHARD MD 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 08/05/2010 BEATRIZ MADDEN DO 465.9 Upper Respiratory Infection 08/05/2010 TEJAL RICHARD MD 465.9 Upper Respiratory Infection 08/05/2010 465.9 Upper Respiratory Infection 08/05/2010 465.9 Upper Respiratory Infection 08/05/2010 465.9 Upper Respiratory Infection 08/05/2010 BEATRIZ MADDEN DO 465.9 Upper Respiratory Infection 08/05/2010 465.9 Upper Respiratory Infection 08/05/2010 465.9 Upper Respiratory Infection 08/05/2010 465.9 Upper Respiratory Infection 08/05/2010 TEJAL RICHARD MD 465.9 Upper Respiratory Infection 08/05/2010 TEJAL RICHARD MD 465.9 Upper Respiratory Infection 08/05/2010 TEJAL RICHARD MD 465.9 Upper Respiratory Infection 08/12/2010 Ot 786.09 08/12/2010 Ot V57.89 09/04/2010 BEATRIZ MADDEN DO 780.79 feeling weak 09/04/2010 BEATRIZ MADDEN DO 780.99 Anhedonia 09/04/2010 TEJAL RICHARD MD 780.79 feeling weak 09/04/2010 TEJAL RICHARD MD 780.99 Anhedonia 09/04/2010 780.79 feeling weak 09/04/2010 780.99 Anhedonia 09/04/2010 780.79 feeling weak 09/04/2010 780.99 Anhedonia 09/04/2010 780.79 feeling weak 09/04/2010 780.99 Anhedonia 09/04/2010 BEATRIZ MADDEN DO 780.79 feeling weak 09/04/2010 BEATRIZ MADDEN DO 780.99 Anhedonia 09/04/2010 780.79 feeling weak 09/04/2010 780.99 Anhedonia 09/04/2010 780.79 feeling weak 09/04/2010 780.99 Anhedonia 09/04/2010 780.79 feeling weak 09/04/2010 780.99 Anhedonia 09/04/2010 TEJAL RICHARD MD 780.79 feeling weak 09/04/2010 TEJAL RICHARD MD 780.99 Anhedonia 09/04/2010 TEJAL RICHARD MD 780.79 feeling weak 09/04/2010 JOSE MANUEL ONEILL, TEJAL 780.99 Anhedonia 09/04/2010 TEJAL RICHARD MD 780.79 feeling weak 09/04/2010 TEJAL RICHARD MD 780.99 Anhedonia 12/16/2010 BEATRIZ MADDEN DO 682.6 Cellulitis And Abscess Of Leg Except Foot 12/16/2010 BEATRIZ MADDEN DO 787.91 Diarrhea 12/16/2010 TEJAL RICHARD MD 682.6 Cellulitis And Abscess Of Leg Except Foot 12/16/2010 TEJAL RICHARD MD 787.91 Diarrhea 12/16/2010 682.6 Cellulitis And Abscess Of Leg Except Foot 12/16/2010 787.91 Diarrhea 12/16/2010 682.6 Cellulitis And Abscess Of Leg Except Foot 12/16/2010 787.91 Diarrhea 12/16/2010 682.6 Cellulitis And Abscess Of Leg Except Foot 12/16/2010 787.91 Diarrhea 12/16/2010 BEATRIZ MADDEN DO 682.6 Cellulitis And Abscess Of Leg Except Foot 12/16/2010 BEATRIZ MADDEN DO 787.91 Diarrhea 12/16/2010 682.6 Cellulitis And Abscess Of Leg Except Foot 12/16/2010 787.91 Diarrhea 12/16/2010 682.6 Cellulitis And Abscess Of Leg Except Foot 12/16/2010 787.91 Diarrhea 12/16/2010 682.6 Cellulitis And Abscess Of Leg Except Foot 12/16/2010 787.91 Diarrhea 12/16/2010 TEJAL RICHARD MD 682.6 Cellulitis And Abscess Of Leg Except Foot 12/16/2010 TEJAL RICHARD MD 787.91 Diarrhea 12/16/2010 TEJAL RICHARD MD 682.6 Cellulitis And Abscess Of Leg Except Foot 12/16/2010 TEJAL RICHARD MD 787.91 Diarrhea 12/16/2010 TEJAL RICHARD MD 682.6 Cellulitis And Abscess Of Leg Except Foot 12/16/2010 TEJAL RICHARD MD 787.91 Diarrhea 12/21/2010 Ot 041.02 BACTERIAL INFECTION DUE TO STREPTOCOCCUS 12/21/2010 Ot 041.11 METHICILLIN SUSCEPTIBLE STAPHYLOCOCCUS A 12/21/2010 Ot 250.82 DIAB W OTH SPEC MANIFEST, TYPE II OR UNS 12/21/2010 Ot 272.4 HYPERLIPIDEMIA NEC/NOS 12/21/2010 Ot 278.00 OBESITY, NOS 12/21/2010 Ot 280.9 IRON DEFIC ANEMIA NOS 12/21/2010 Ot 311 DEPRESSIVE DISORDER NEC 12/21/2010 Ot 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 12/21/2010 Ot 397.0 TRICUSPID VALVE DISEASE 12/21/2010 Ot 401.9 HYPERTENSION NOS 12/21/2010 Ot 427.89 CARDIAC DYSRHYTHMIAS NEC 12/21/2010 Ot 428.0 CONGESTIVE HEART FAILURE NOS 12/21/2010 Ot 428.31 ACUTE DIASTOLIC HRT FAILURE 12/21/2010 Ot 459.81 VENOUS INSUFFICIENCY NOS 12/21/2010 Ot 584.9 ACUTE RENAL FAILURE, UNSPECIFIED 12/21/2010 Ot 682.6 CELLULITIS OF LEG 12/21/2010 Ot 707.10 ULCER OF LOWER LIMB NOS 12/21/2010 Ot 787.91 DIARRHEA 12/21/2010 Ot 799.02 HYPOXEMIA 12/21/2010 Ot E944.4 ADV EFF DIURETICS NEC 12/21/2010 Ot V12.04 PERSONAL HIST OF METHICILLIN RESISTANT S 12/21/2010 Ot V12.54 PERSONAL HX OF TIA, CEREBRAL INFARCTION 12/21/2010 Ot V15.82 HISTORY OF TOBACCO USE 12/21/2010 Ot V58.67 LONG-TERM (CURRENT) USE OF INSULIN 12/21/2010 Ot V85.43 BODY MASS INDEX 50.0-59.9, ADULT 12/23/2010 BEATRIZ MADDEN DO 428.0 CONGESTIVE HEART FAILURE 12/23/2010 BEATRIZ MADDEN DO 593.9 RENAL INSUFFICIENCY 12/23/2010 TEJAL RICHARD MD 428.0 CONGESTIVE HEART FAILURE 12/23/2010 TEJAL RICHARD MD 593.9 RENAL INSUFFICIENCY 12/23/2010 428.0 CONGESTIVE HEART FAILURE 12/23/2010 593.9 RENAL INSUFFICIENCY 12/23/2010 428.0 CONGESTIVE HEART FAILURE 12/23/2010 593.9 RENAL INSUFFICIENCY 12/23/2010 428.0 Congestive Heart Failure 12/23/2010 593.9 RENAL INSUFFICIENCY 12/23/2010 MADDEN DOBEATRIZ K 428.0 Congestive Heart Failure 12/23/2010 MADDEN DO, BEATRIZ K 593.9 RENAL INSUFFICIENCY 12/23/2010 428.0 Congestive Heart Failure 12/23/2010 593.9 RENAL INSUFFICIENCY 12/23/2010 428.0 Congestive Heart Failure 12/23/2010 593.9 RENAL INSUFFICIENCY 12/23/2010 428.0 Congestive Heart Failure 12/23/2010 593.9 RENAL INSUFFICIENCY 12/23/2010 JOSE MANUEL ONEILL, TEJAL 428.0 Congestive Heart Failure 12/23/2010 JOSE MANUEL ONEILL, TEJAL 593.9 RENAL INSUFFICIENCY 12/23/2010 TEJAL RICHARD MD 428.0 Congestive Heart Failure 12/23/2010 TEJAL RICHARD MD 593.9 RENAL INSUFFICIENCY 12/23/2010 TEJAL RICHARD MD 428.0 Congestive Heart Failure 12/23/2010 TEJAL RICHARD MD 593.9 RENAL INSUFFICIENCY 12/31/2010 Ot 780.79 OTH MALAISE FATIGUE 01/18/2011 Ot 112.3 CUTANEOUS CANDIDIASIS 01/18/2011 Ot 250.60 DIAB W NEURO MANIFEST, TYPE II OR UNSPEC 01/18/2011 Ot 280.9 IRON DEFIC ANEMIA NOS 01/18/2011 Ot 311 DEPRESSIVE DISORDER NEC 01/18/2011 Ot 357.2 NEUROPATHY IN DIABETES 01/18/2011 Ot 401.9 HYPERTENSION NOS 01/18/2011 Ot 424.1 AORTIC VALVE DISORDER 01/18/2011 Ot 427.89 CARDIAC DYSRHYTHMIAS NEC 01/18/2011 Ot 428.0 CONGESTIVE HEART FAILURE NOS 01/18/2011 Ot 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 01/18/2011 Ot 438.20 LATE EFF-CEREBR DIS,HEMIPLEGIA AFFECTING 01/18/2011 Ot 459.81 VENOUS INSUFFICIENCY NOS 01/18/2011 Ot 682.6 CELLULITIS OF LEG 01/18/2011 Ot 707.10 ULCER OF LOWER LIMB NOS 01/18/2011 Ot 787.91 DIARRHEA 01/18/2011 Ot 799.02 HYPOXEMIA 01/18/2011 Ot V46.2 SUPPLEMENTAL OXYGEN 01/18/2011 Ot V57.1 PHYSICAL THERAPY NEC 01/18/2011 Ot V57.21 ENCOUNTER FOR OCCUPATIONAL THERAPY 01/18/2011 Ot V58.67 LONG-TERM (CURRENT) USE OF INSULIN 02/27/2011 BEATRIZ MADDEN DO 268.9 VITAMIN D DEFICIENCY 02/27/2011 TEJAL RICHARD MD 268.9 VITAMIN D DEFICIENCY 02/27/2011 268.9 VITAMIN D DEFICIENCY 02/27/2011 268.9 VITAMIN D DEFICIENCY 02/27/2011 268.9 VITAMIN D DEFICIENCY 02/27/2011 BEATRIZ MADDEN DO 268.9 VITAMIN D DEFICIENCY 02/27/2011 268.9 VITAMIN D DEFICIENCY 02/27/2011 268.9 VITAMIN D DEFICIENCY 02/27/2011 268.9 VITAMIN D DEFICIENCY 02/27/2011 TEJAL RICHARD MD 268.9 VITAMIN D DEFICIENCY 02/27/2011 TEJAL RICHARD MD 268.9 VITAMIN D DEFICIENCY 02/27/2011 TEJAL RICHARD MD 268.9 VITAMIN D DEFICIENCY 03/23/2011 Ot 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 03/23/2011 Ot 782.3 EDEMA 07/01/2011 Ot 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 07/01/2011 Ot 782.3 EDEMA 07/02/2011 BEATRIZ MADDEN DO 272.4 HYPERLIPIDEMIA 07/02/2011 BEATRIZ MADDEN DO V04.81 Vaccines Prophylactic Need Against Influenza 07/02/2011 TEJAL RICHARD MD 272.4 HYPERLIPIDEMIA 07/02/2011 TEJAL RICHARD MD V04.81 Vaccines Prophylactic Need Against Influenza 07/02/2011 272.4 HYPERLIPIDEMIA 07/02/2011 V04.81 Vaccines Prophylactic Need Against Influenza 07/02/2011 272.4 HYPERLIPIDEMIA 07/02/2011 V04.81 Vaccines Prophylactic Need Against Influenza 07/02/2011 272.4 HYPERLIPIDEMIA 07/02/2011 V04.81 Vaccines Prophylactic Need Against Influenza 07/02/2011 BEATRIZ MADDEN DO 272.4 HYPERLIPIDEMIA 07/02/2011 BEATRIZ MADDEN DO V04.81 Vaccines Prophylactic Need Against Influenza 07/02/2011 272.4 HYPERLIPIDEMIA 07/02/2011 V04.81 Vaccines Prophylactic Need Against Influenza 07/02/2011 272.4 HYPERLIPIDEMIA 07/02/2011 V04.81 Vaccines Prophylactic Need Against Influenza 07/02/2011 272.4 HYPERLIPIDEMIA 07/02/2011 V04.81 Vaccines Prophylactic Need Against Influenza 07/02/2011 TEJAL RICHARD MD 272.4 HYPERLIPIDEMIA 07/02/2011 TEJAL RICHARD MD V04.81 Vaccines Prophylactic Need Against Influenza 07/02/2011 TEJAL RICHARD MD 272.4 HYPERLIPIDEMIA 07/02/2011 TEJAL RICHARD MD V04.81 Vaccines Prophylactic Need Against Influenza 07/02/2011 TEJAL RICHARD MD 272.4 HYPERLIPIDEMIA 07/02/2011 TEJAL RICHARD MD V04.81 Vaccines Prophylactic Need Against Influenza 08/09/2011 Ot 250.00 DIAB ANGEL WO COMPL, TYPE II OR UNSPEC TY 08/09/2011 Ot 272.4 HYPERLIPIDEMIA NEC/NOS 08/09/2011 Ot 276.51 DEHYDRATION 08/09/2011 Ot 276.8 HYPOPOTASSEMIA 08/09/2011 Ot 278.01 MORBID OBESITY 08/09/2011 Ot 285.9 ANEMIA NOS 08/09/2011 Ot 311 DEPRESSIVE DISORDER NEC 08/09/2011 Ot 401.9 HYPERTENSION NOS 08/09/2011 Ot 728.88 RHABDOMYOLYSIS 08/09/2011 Ot 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 08/09/2011 Ot 780.79 OTH MALAISE FATIGUE 08/09/2011 Ot 787.91 DIARRHEA 08/09/2011 Ot E849.0 ACCIDENT IN HOME 08/09/2011 Ot E888.9 FALL NOS 08/09/2011 Ot V12.04 PERSONAL HIST OF METHICILLIN RESISTANT S 08/09/2011 Ot V12.54 PERSONAL HX OF TIA, CEREBRAL INFARCTION 08/09/2011 Ot V15.82 HISTORY OF TOBACCO USE 08/09/2011 Ot V85.41 BODY MASS INDEX 40.0-44.9, ADULT 04/05/2012 BEATRIZ MADDEN DO 466.0 Acute Bronchitis 04/05/2012 BEATRIZ MADDEN DO 786.05 Shortness Of Breath 04/05/2012 TEJAL RICHARD MD 466.0 Acute Bronchitis 04/05/2012 TEJAL RICHARD MD 786.05 Shortness Of Breath 04/05/2012 466.0 Acute Bronchitis 04/05/2012 786.05 Shortness Of Breath 04/05/2012 466.0 Acute Bronchitis 04/05/2012 786.05 Shortness Of Breath 04/05/2012 466.0 Acute Bronchitis 04/05/2012 786.05 Shortness Of Breath 04/05/2012 BEATRIZ MADDEN DO 466.0 Acute Bronchitis 04/05/2012 BEATRIZ MADDEN DO 786.05 Shortness Of Breath 04/05/2012 466.0 Acute Bronchitis 04/05/2012 786.05 Shortness Of Breath 04/05/2012 466.0 Acute Bronchitis 04/05/2012 786.05 Shortness Of Breath 04/05/2012 466.0 Acute Bronchitis 04/05/2012 786.05 Shortness Of Breath 04/05/2012 TEJAL RICHARD MD 466.0 Acute Bronchitis 04/05/2012 TEJAL RICHARD MD 786.05 Shortness Of Breath 04/05/2012 JOSE MANUEL ONEILL, TEJAL 466.0 Acute Bronchitis 04/05/2012 TEJAL RICHARD MD 786.05 Shortness Of Breath 04/05/2012 JOSE MANUEL ONEILL, TEJAL 466.0 Acute Bronchitis 04/05/2012 TEJAL RICHARD MD 786.05 Shortness Of Breath 04/29/2012 BEATRIZ MADDEN DO 250.00 DIABETES MELLITUS TYPE 2 04/29/2012 TEJAL RICHARD MD 250.00 DIABETES MELLITUS TYPE 2 04/29/2012 250.00 DIABETES MELLITUS TYPE 2 04/29/2012 250.00 DIABETES MELLITUS TYPE 2 04/29/2012 250.00 Diabetes Mellitus Type 2 04/29/2012 BEATRIZ MADDEN DO 250.00 Diabetes Mellitus Type 2 04/29/2012 250.00 Diabetes Mellitus Type 2 04/29/2012 250.00 Diabetes Mellitus Type 2 04/29/2012 250.00 Diabetes Mellitus Type 2 04/29/2012 TEJAL RICHARD MD 250.00 Diabetes Mellitus Type 2 04/29/2012 TEJAL RICHARD MD 250.00 Diabetes Mellitus Type 2 04/29/2012 TEJAL RICHARD MD 250.00 Diabetes Mellitus Type 2 06/16/2012 BEATRIZ MADDEN DO 285.9 ANEMIA 06/16/2012 ETJAL RICHARD MD 285.9 ANEMIA 06/16/2012 285.9 ANEMIA 06/16/2012 285.9 ANEMIA 06/16/2012 285.9 ANEMIA 06/16/2012 BEATRIZ MADDEN DO 285.9 ANEMIA 06/16/2012 285.9 ANEMIA 06/16/2012 285.9 ANEMIA 06/16/2012 285.9 ANEMIA 06/16/2012 TEJAL RICHARD MD 285.9 ANEMIA 06/16/2012 TEJAL RICHARD MD 285.9 ANEMIA 06/16/2012 TEJAL RICHARD MD 285.9 ANEMIA 07/29/2012 MADDEN DO BEATRIZ K 786.09 DYSPNEA 07/29/2012 MADDEN NANCY WELLSA K 786.2 COUGH 07/29/2012 MADDEN NANCY WELLSA K 799.02 HYPOXEMIA 07/29/2012 TEJAL RICHARD MD 786.09 DYSPNEA 07/29/2012 TEJAL RICHARD MD 786.2 COUGH 07/29/2012 TEJAL RICHARD MD 799.02 HYPOXEMIA 07/29/2012 786.09 DYSPNEA 07/29/2012 786.2 COUGH 07/29/2012 799.02 HYPOXEMIA 07/29/2012 786.09 DYSPNEA 07/29/2012 786.2 COUGH 07/29/2012 799.02 HYPOXEMIA 07/29/2012 786.09 Dyspnea 07/29/2012 786.2 Cough 07/29/2012 799.02 Hypoxemia 07/29/2012 BEATRIZ MADDEN DO K 786.09 Dyspnea 07/29/2012 BEATRIZ MADDEN DO 786.2 Cough 07/29/2012 MADDEN NANCY WELLSA K 799.02 Hypoxemia 07/29/2012 786.09 Dyspnea 07/29/2012 786.2 Cough 07/29/2012 799.02 Hypoxemia 07/29/2012 786.09 Dyspnea 07/29/2012 786.2 Cough 07/29/2012 799.02 Hypoxemia 07/29/2012 786.09 Dyspnea 07/29/2012 786.2 Cough 07/29/2012 799.02 Hypoxemia 07/29/2012 TEJAL RICHARD MD 786.09 Dyspnea 07/29/2012 TEJAL RICHARD MD 786.2 Cough 07/29/2012 TEJAL RICHARD MD 799.02 Hypoxemia 07/29/2012 TEJAL RICHARD MD 786.09 Dyspnea 07/29/2012 TEJAL RICHARD MD 786.2 Cough 07/29/2012 TEJAL RICHARD MD 799.02 Hypoxemia 07/29/2012 TEJAL RICHARD MD 786.09 Dyspnea 07/29/2012 TEJAL RICHARD MD 786.2 Cough 07/29/2012 TEJAL RICHARD MD 799.02 Hypoxemia 08/11/2012 Ot 250.02 DIAB ANGEL WO COMPL, TYPE II OR UNSPEC TY 08/11/2012 Ot 272.4 HYPERLIPIDEMIA NEC/NOS 08/11/2012 Ot 278.00 OBESITY, NOS 08/11/2012 Ot 285.9 ANEMIA NOS 08/11/2012 Ot 311 DEPRESSIVE DISORDER NEC 08/11/2012 Ot 401.9 HYPERTENSION NOS 08/11/2012 Ot 429.9 HEART DISEASE NOS 08/11/2012 Ot 780.79 OTH MALAISE FATIGUE 08/11/2012 Ot 785.2 CARDIAC MURMURS NEC 08/11/2012 Ot 786.09 RESPIRATORY ABNORM NEC 08/11/2012 Ot V12.54 PERSONAL HX OF TIA, CEREBRAL INFARCTION 08/11/2012 Ot V58.67 LONG-TERM (CURRENT) USE OF INSULIN 08/11/2012 Ot V85.42 BODY MASS INDEX 45.0-49.9, ADULT 10/10/2012 Ot 250.00 DIAB ANGEL WO COMPL, TYPE II OR UNSPEC TY 10/10/2012 Ot 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 10/10/2012 Ot 682.6 CELLULITIS OF LEG 10/10/2012 Ot 729.81 SWELLING OF LIMB 10/22/2012 Ot 250.00 DIAB ANGEL WO COMPL, TYPE II OR UNSPEC TY 10/22/2012 Ot 285.29 ANEMIA OF OTHER CHRONIC DISEASE 10/22/2012 Ot 401.9 HYPERTENSION NOS 10/22/2012 Ot 428.0 CONGESTIVE HEART FAILURE NOS 10/22/2012 Ot 437.9 CEREBROVASC DISEASE NOS 10/22/2012 Ot 459.81 VENOUS INSUFFICIENCY NOS 10/22/2012 Ot 707.15 ULCER OF OTHER PART OF FOOT 10/22/2012 Ot 780.79 OTH MALAISE FATIGUE 10/22/2012 Ot V15.88 HISTORY OF FALL 10/26/2012 211.3 colon polyp 10/26/2012 535.50 GASTRITIS UNSPEC 10/26/2012 211.3 colon polyp 10/26/2012 535.50 GASTRITIS UNSPEC 10/26/2012 211.3 Colon Polyp 10/26/2012 535.50 Gastritis Unspec 10/26/2012 BEATRIZ MADDEN DO 211.3 Colon Polyp 10/26/2012 BEATRIZ MADDEN DO 535.50 Gastritis Unspec 10/26/2012 211.3 Colon Polyp 10/26/2012 535.50 Gastritis Unspec 10/26/2012 211.3 Colon Polyp 10/26/2012 535.50 Gastritis Unspec 10/26/2012 211.3 Colon Polyp 10/26/2012 535.50 Gastritis Unspec 10/26/2012 JOSE MANUEL ONEILL, TEJAL 211.3 Colon Polyp 10/26/2012 JOSE MANUEL ONEILL, TEJAL 535.50 Gastritis Unspec 10/26/2012 JOSE MANUEL ONEILL, TEJAL 211.3 Colon Polyp 10/26/2012 JOSE MANUEL ONEILL, TEJAL 535.50 Gastritis Unspec 10/26/2012 JOSE MANUEL ONEILL, TEJAL 211.3 Colon Polyp 10/26/2012 TEJAL RICHARD MD 535.50 Gastritis Unspec 11/18/2012 Ot 110.1 DERMATOPHYTOSIS OF NAIL 11/18/2012 Ot 111.9 DERMATOMYCOSIS NOS 11/18/2012 Ot 211.3 BENIGN NEOPLASM LG BOWEL 11/18/2012 Ot 211.4 BENIGN NEOPL RECTUM/ANUS 11/18/2012 Ot 250.00 DIAB ANGEL WO COMPL, TYPE II OR UNSPEC TY 11/18/2012 Ot 272.4 HYPERLIPIDEMIA NEC/NOS 11/18/2012 Ot 273.8 DIS PLAS PROTEIN MET NEC 11/18/2012 Ot 275.41 HYPOCALCEMIA 11/18/2012 Ot 278.00 OBESITY, NOS 11/18/2012 Ot 280.0 CHR BLOOD LOSS ANEMIA 11/18/2012 Ot 403.90 HYPTNSV CHR KID DIS, UNSPEC, W CHR KD ST 11/18/2012 Ot 428.0 CONGESTIVE HEART FAILURE NOS 11/18/2012 Ot 428.31 ACUTE DIASTOLIC HRT FAILURE 11/18/2012 Ot 438.89 OTH LATE EFFECT-CEREBROVASCULAR DISEASE 11/18/2012 Ot 459.81 VENOUS INSUFFICIENCY NOS 11/18/2012 Ot 535.50 UNSP GASTRITIS GASTRODUODENITIS W/O ME 11/18/2012 Ot 553.3 DIAPHRAGMATIC HERNIA 11/18/2012 Ot 585.3 CHRONIC KIDNEY DISEASE, STAGE III (MODER 11/18/2012 Ot 707.10 ULCER OF LOWER LIMB NOS 11/18/2012 Ot 781.3 LACK OF COORDINATION 11/18/2012 Ot 786.09 RESPIRATORY ABNORM NEC 11/18/2012 Ot V15.88 HISTORY OF FALL 11/18/2012 Ot V46.2 SUPPLEMENTAL OXYGEN 11/18/2012 Ot V57.1 PHYSICAL THERAPY NEC 11/18/2012 Ot V57.21 ENCOUNTER FOR OCCUPATIONAL THERAPY 11/18/2012 Ot V85.43 BODY MASS INDEX 50.0-59.9, ADULT 11/23/2012 780.79 fatigue 11/23/2012 780.79 Fatigue 11/23/2012 BEATRIZ MADDEN DO 780.79 Fatigue 11/23/2012 780.79 Fatigue 11/23/2012 780.79 Fatigue 11/23/2012 780.79 Fatigue 11/23/2012 TEJAL RICHARD MD 780.79 Fatigue 11/23/2012 TEJAL RICHARD MD 780.79 Fatigue 11/23/2012 TEJAL RICHARD MD 780.79 Fatigue 12/03/2012 Ot 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 01/13/2013 250.00 DIABETES MELLITUS POORLY CONTROLLED 01/13/2013 428.32 CONGESTIVE HEART FAILURE DIASTOLIC CHRONIC 01/13/2013 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 01/13/2013 799.02 HYPOXIA 01/13/2013 250.00 DIABETES MELLITUS POORLY CONTROLLED 01/13/2013 428.32 CONGESTIVE HEART FAILURE DIASTOLIC CHRONIC 01/13/2013 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 01/13/2013 799.02 HYPOXIA 01/13/2013 250.00 DIABETES MELLITUS POORLY CONTROLLED 01/13/2013 428.32 CONGESTIVE HEART FAILURE DIASTOLIC CHRONIC 01/13/2013 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 01/13/2013 799.02 HYPOXIA 01/13/2013 TEJAL RICHARD MD 250.00 DIABETES MELLITUS POORLY CONTROLLED 01/13/2013 TEJAL RCIHARD MD 428.32 CONGESTIVE HEART FAILURE DIASTOLIC CHRONIC 01/13/2013 TEJAL RICHARD MD 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 01/13/2013 TEJAL RICHARD MD 799.02 HYPOXIA 01/13/2013 TEJAL RICHARD MD 250.00 DIABETES MELLITUS POORLY CONTROLLED 01/13/2013 TEJAL RICHARD MD 428.32 CONGESTIVE HEART FAILURE DIASTOLIC CHRONIC 01/13/2013 TEJAL RICHARD MD 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 01/13/2013 TEJAL RICHARD MD 799.02 HYPOXIA 01/13/2013 TEJAL RICHARD MD 250.00 DIABETES MELLITUS POORLY CONTROLLED 01/13/2013 TEJAL RICHARD MD 428.32 CONGESTIVE HEART FAILURE DIASTOLIC CHRONIC 01/13/2013 TEJAL RICHARD MD 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 01/13/2013 TEJAL RICHARD MD 799.02 HYPOXIA 02/17/2013 Ot 709.8 SKIN DISORDERS NEC 02/17/2013 Ot 782.3 EDEMA 04/01/2013 TEJAL RICHARD MD Ot 041.3 KLEBSIELLA PNEUMONIAE 04/01/2013 TEJAL RICHARD MD Ot 250.02 DIAB ANGEL WO COMPL, TYPE II OR UNSPEC TY 04/01/2013 TEJAL RICHARD MD Ot 272.4 HYPERLIPIDEMIA NEC/NOS 04/01/2013 TEJAL RICHARD MD Ot 285.9 ANEMIA NOS 04/01/2013 TEJAL RICHARD MD Ot 403.90 HYPTNSV CHR KID DIS, UNSPEC, W CHR KD ST 04/01/2013 TEJAL RICHARD MD Ot 414.01 CORONARY ATHEROSCLEROSIS OF [place] CORON 04/01/2013 TEJAL RICHARD MD Ot 428.0 CONGESTIVE HEART FAILURE NOS 04/01/2013 TEJAL RICHARD MD Ot 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 04/01/2013 TEJAL RICHARD MD Ot 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 04/01/2013 TEJAL RICHARD MD Ot 585.9 CHRONIC KIDNEY DISEASE, UNSPECIFIED 04/01/2013 TEJAL RICHARD MD Ot 599.0 URIN TRACT INFECTION NOS 04/01/2013 TEJAL RICHARD MD Ot 715.36 LOC OSTEOARTH NOS-L/LEG 04/01/2013 TEJAL RICHARD MD Ot V15.88 HISTORY OF FALL 05/29/2013 NAVYA BELL Ot 285.21 ANEMIA IN CHRONIC KIDNEY DISEASE 05/29/2013 NAVYA BELL Ot 585.3 CHRONIC KIDNEY DISEASE, STAGE III (MODER 06/02/2013 459.81 VENOUS (PERIPHERAL) INSUFFICIENCY UNSPECIFIED 06/02/2013 459.81 VENOUS (PERIPHERAL) INSUFFICIENCY UNSPECIFIED 06/02/2013 TEJAL RICHARD MD 459.81 VENOUS (PERIPHERAL) INSUFFICIENCY UNSPECIFIED 06/02/2013 TEJAL RICHARD MD 459.81 VENOUS (PERIPHERAL) INSUFFICIENCY UNSPECIFIED 06/02/2013 TEJAL RICHARD MD 459.81 VENOUS (PERIPHERAL) INSUFFICIENCY UNSPECIFIED 06/23/2013 311 DEPRESSIVE DISORDER NOT ELSEWHERE CLASSIFIED 06/23/2013 715.96 OSTEOARTHROSIS UNSPECIFIED WHETHER GENERALIZED OR LOCALIZED INVOLVING LOWER LEG 06/23/2013 TEJAL RICHARD MD 311 DEPRESSIVE DISORDER NOT ELSEWHERE CLASSIFIED 06/23/2013 TEJAL RICHARD MD 715.96 OSTEOARTHROSIS UNSPECIFIED WHETHER GENERALIZED OR LOCALIZED INVOLVING LOWER LEG 06/23/2013 TEJAL RICHARD MD 311 DEPRESSIVE DISORDER NOT ELSEWHERE CLASSIFIED 06/23/2013 TEJAL RICHARD MD 715.96 OSTEOARTHROSIS UNSPECIFIED WHETHER GENERALIZED OR LOCALIZED INVOLVING LOWER LEG 06/23/2013 TEJAL RICHARD MD 311 DEPRESSIVE DISORDER NOT ELSEWHERE CLASSIFIED 06/23/2013 TEJAL RICHARD MD 715.96 OSTEOARTHROSIS UNSPECIFIED WHETHER GENERALIZED OR LOCALIZED INVOLVING LOWER LEG 08/29/2013 ARABELLA, BOBAN N Ot 285.21 ANEMIA IN CHRONIC KIDNEY DISEASE 08/29/2013 ARABELLA BOBAN N Ot 585.3 CHRONIC KIDNEY DISEASE, STAGE III (MODER 08/29/2013 ARABELLA, BOBAN N Ot V58.69 OTH MED,LT,CURRENT USE 10/20/2013 TEJAL RICHARD MD 692.9 CONTACT DERMATITIS AND OTHER ECZEMA UNSPECIFIED CAUSE 10/20/2013 TEJAL RICHARD MD 692.9 CONTACT DERMATITIS AND OTHER ECZEMA UNSPECIFIED CAUSE 11/28/2013 ARABELLA, BOBAN N Ot 285.21 ANEMIA IN CHRONIC KIDNEY DISEASE 11/28/2013 ARABELLA BOBAN N Ot 585.3 CHRONIC KIDNEY DISEASE, STAGE III (MODER 11/28/2013 ARABELLA, BOBAN N Ot V58.69 OTH MED,LT,CURRENT USE 02/27/2014 ARABELLA, BOBAN N Ot 285.21 ANEMIA IN CHRONIC KIDNEY DISEASE 02/27/2014 ARABELLA, BOBAN N Ot 585.3 CHRONIC KIDNEY DISEASE, STAGE III (MODER 02/27/2014 ARABELLA, BOBAN N Ot V58.69 OTH MED,LT,CURRENT USE 05/29/2014 ARABELLA, BOBAN N Ot 285.21 ANEMIA IN CHRONIC KIDNEY DISEASE 05/29/2014 ARABELLA, BOBAN N Ot 585.3 CHRONIC KIDNEY DISEASE, STAGE III (MODER 05/29/2014 ARABELLA, BOBAN N Ot V58.69 OTH MED,LT,CURRENT USE 08/28/2014 ARABELLA, BOBAN N Ot 285.21 ANEMIA IN CHRONIC KIDNEY DISEASE 08/28/2014 ARABELLA, BOBAN N Ot 585.3 CHRONIC KIDNEY DISEASE, STAGE III (MODER 08/28/2014 ARABELLA, BOBAN N Ot V58.69 OTH MED,LT,CURRENT USE 08/30/2014 ARABELLA, BOBAN N Ot 285.21 08/30/2014 ARABELLA, BOBAN N Ot 585.3 08/30/2014 ARABELLA, BOBAN N Ot V58.69 09/01/2014 SIDNEY GEGE S CLINIC MANAGER Ot 285.21 09/01/2014 AISHA LITTLEWILLIAM S CLINIC MANAGER Ot 585.3 09/01/2014 GEGE LITTLE S CLINIC MANAGER Ot V12.54 09/01/2014 SIDNEY GEGE S CLINIC MANAGER Ot V58.61 09/01/2014 AISHA LITTLEWILLIAM S CLINIC MANAGER Ot V58.63 09/01/2014 AISHA LITTLEWILLIAM S CLINIC MANAGER Ot V58.66 09/01/2014 SIDNEY GEGE S CLINIC MANAGER Ot V58.69 09/01/2014 ULICES ONEILL, BASHAR J Ot 396.3 09/01/2014 ULICES ONEILL, WILFRED J Ot 397.0 09/01/2014 ULICES ONEILL, BASHAR J Ot 401.9 09/01/2014 ULICES ONEILL, BASHAR J Ot 414.00 09/01/2014 ULICES ONEILL, BASHAR J Ot 428.0 09/01/2014 ULICES ONEILL, BASHAR J Ot 429.3 10/03/2014 ULICES ONEILL, BASHAR J Ot 396.3 10/03/2014 ULICES ONEILL, BASHAR J Ot 397.0 10/03/2014 ULICES ONEILL, BASHAR J Ot 401.9 10/03/2014 ULICES ONEILL, BASHAR J Ot 414.00 10/03/2014 ULICES ONEILL, BASHAR J Ot 428.0 10/03/2014 ULICES ONEILL, BASHAR J Ot 429.3 10/23/2014 ARABELLANAVYA N Ot 285.21 10/23/2014 NAVYA BELL Ot 585.3 10/23/2014 ARABELLANAVYA Ot V58.69 10/25/2014 GEGE LITTLE CLINIC MANAGER Ot 285.21 10/25/2014 GEGE LITTLE S CLINIC MANAGER Ot 585.3 10/25/2014 GEGE LITTLE S CLINIC MANAGER Ot V12.54 10/25/2014 GEGE LITTLE S CLINIC MANAGER Ot V58.61 10/25/2014 GEGE LITTLE S CLINIC MANAGER Ot V58.63 10/25/2014 GEGE LITTLE S CLINIC MANAGER Ot V58.66 10/25/2014 GEGE LITTLE S CLINIC MANAGER Ot V58.69 11/13/2014 GEGE LITTLE S CLINIC MANAGER Ot 285.21 11/13/2014 LITTLE GEGE S CLINIC MANAGER Ot 585.3 11/13/2014 SIDNEY AISHAAH S CLINIC MANAGER Ot V12.54 11/13/2014 LITTLE GEGE S CLINIC MANAGER Ot V58.61 11/13/2014 SIDNEY AISHAAH S CLINIC MANAGER Ot V58.63 11/13/2014 LITTLE GEGE S CLINIC MANAGER Ot V58.66 11/13/2014 LITTLE GEGE S CLINIC MANAGER Ot V58.69 11/13/2014 NAVYA BELL N Ot 285.21 11/13/2014 ARABELLA BOBPATRICIA N Ot 585.3 11/13/2014 ARABELLA BOBPATRICIA N Ot V58.69 11/13/2014 SIDNEY GEGE S CLINIC MANAGER Ot 285.21 11/13/2014 SIDNEY GEGE S CLINIC MANAGER Ot 585.3 11/13/2014 SIDNEY GEGE S CLINIC MANAGER Ot V12.54 11/13/2014 SIDNEY GGEE S CLINIC MANAGER Ot V58.61 11/13/2014 LITTLE GEGE S CLINIC MANAGER Ot V58.63 11/13/2014 LITTEL GEGE S CLINIC MANAGER Ot V58.66 11/13/2014 SIDNEY GEGE S CLINIC MANAGER Ot V58.69 11/13/2014 ARABELLA BOBPATRICIA N Ot 285.21 11/13/2014 NAVYA BELL N Ot 585.3 11/13/2014 NAVYA BELL N Ot V58.69 11/27/2014 ARABELLA NAVYA N Ot 285.21 ANEMIA IN CHRONIC KIDNEY DISEASE 11/27/2014 ARABELLA BOBPATRICIA N Ot 585.3 CHRONIC KIDNEY DISEASE, STAGE III (MODER 11/27/2014 NAVYA BELL N Ot V58.69 OTH MED,LT,CURRENT USE 11/27/2014 ARABELLA BOBAN N Ot 285.21 11/27/2014 ARABELLA BOBPATRICIA N Ot 585.3 11/27/2014 ARABELLA, BOBAN N Ot V58.69 11/27/2014 LITTLE GEGE S CLINIC MANAGER Ot 285.21 11/27/2014 LITTLE GEGE S CLINIC MANAGER Ot 585.3 11/27/2014 SIDNEY GEGE S CLINIC MANAGER Ot V12.54 11/27/2014 LITTLE, GEGE S CLINIC MANAGER Ot V58.61 11/27/2014 LITTLE, GEGE S CLINIC MANAGER Ot V58.63 11/27/2014 LITTLE, GEGE S CLINIC MANAGER Ot V58.66 11/27/2014 LITTLE, GEGE S CLINIC MANAGER Ot V58.69 11/27/2014 ARABELLA, BOBAN N Ot 285.21 11/27/2014 ARABELLA, BOBAN N Ot 585.3 11/27/2014 ARABELLA, BOBAN N Ot V58.69 11/28/2014 ARABELLA, BOBAN N Ot 285.21 11/28/2014 ARABELLA, BOBAN N Ot 585.3 11/28/2014 ARABELLA, BOBAN N Ot V58.69 11/28/2014 ARABELLA, BOBAN N Ot 285.21 11/28/2014 ARABELLA, BOBAN N Ot 585.3 11/28/2014 ARABELLA, BOBAN N Ot V58.69 11/28/2014 ARABELLA, BOBAN N Ot 285.21 11/28/2014 ARABELLA, BOBAN N Ot 585.3 11/28/2014 ARABELLA, BOBAN N Ot V58.69 11/28/2014 ARABELLA, BOBAN N Ot 285.21 11/28/2014 ARABELLA, BOBAN N Ot 585.3 11/28/2014 ARABELLA, BOBAN N Ot V58.69 11/29/2014 ARABELLA, BOBAN N Ot 285.21 11/29/2014 ARABELLA, BOBAN N Ot 585.3 11/29/2014 ARABELLA, BOBAN N Ot V58.69 01/16/2015 LITTLEGEGE Knowles S CLINIC MANAGER Ot 285.21 01/16/2015 LITTLEGEGE S CLINIC MANAGER Ot 585.3 01/16/2015 LITTLE GEGE S CLINIC MANAGER Ot V12.54 01/16/2015 LITTLE, GEGE S CLINIC MANAGER Ot V58.61 01/16/2015 LITTLE, GEGE S CLINIC MANAGER Ot V58.63 01/16/2015 LITTLE, GEGE S CLINIC MANAGER Ot V58.66 01/16/2015 LITTLE, GEGE S CLINIC MANAGER Ot V58.69 01/16/2015 LITTLE GEGE S CLINIC MANAGER Ot 285.21 01/16/2015 GEGE LITTLE CLINIC MANAGER Ot 585.3 01/16/2015 GEGE LITTLE CLINIC MANAGER Ot V12.54 01/16/2015 GEGE LITTLE CLINIC MANAGER Ot V58.61 01/16/2015 GEGE LITTLE CLINIC MANAGER Ot V58.63 01/16/2015 GEGE LITTLE CLINIC MANAGER Ot V58.66 01/16/2015 GEGE LITTLE CLINIC MANAGER Ot V58.69 02/26/2015 NAVYA BELL N Ot 285.21 ANEMIA IN CHRONIC KIDNEY DISEASE 02/26/2015 ARABELLA, BOBAN N Ot 585.3 CHRONIC KIDNEY DISEASE, STAGE III (MODER 02/26/2015 ARABELLANAVYA FELTON N Ot V58.69 OT MED,LT,CURRENT USE 02/27/2015 ARABELLANAVYA FELTON N Ot 285.21 02/27/2015 ARABELLA, BOBAN N Ot 585.3 02/27/2015 ARABELLA, BOBAN N Ot V58.69 02/27/2015 ARABELLA, BOBAN N Ot 285.21 02/27/2015 ARABELLA, BOBAN N Ot 585.3 02/27/2015 ARABELLA, BOBAN N Ot V58.69 02/27/2015 ARABELLA, BOBAN N Ot 285.21 02/27/2015 ARABELLA, BOBAN N Ot 585.3 02/27/2015 ARABELLA, BOBAN N Ot V58.69 02/28/2015 ARABELLA, BOBAN N Ot 285.21 02/28/2015 ARABELLA, BOBAN N Ot 585.3 02/28/2015 ARABELLA, BOBAN N Ot V58.69 03/26/2015 Ot 241.0 03/26/2015 Ot 786.09 03/26/2015 Ot V57.89 03/26/2015 Ot 241.0 03/26/2015 Ot 250.00 03/26/2015 Ot 285.9 03/26/2015 Ot 428.0 03/26/2015 Ot 459.81 03/26/2015 Ot 709.8 03/26/2015 Ot 782.3 03/26/2015 LITTLEGEGE CLINIC MANAGER Ot 285.9 03/26/2015 LITTLEGEGE Knowles CLINIC MANAGER Ot 285.21 03/26/2015 GEGE LITTLE CLINIC MANAGER Ot 585.3 03/26/2015 LITTLEGEGE Knowles S CLINIC MANAGER Ot V12.54 03/26/2015 LITTLEGEGE Knowles S CLINIC MANAGER Ot V58.63 03/26/2015 LITTLEGEGE S CLINIC MANAGER Ot V58.66 03/26/2015 LITTLEGEGE Knowles S CLINIC MANAGER Ot V58.69 03/26/2015 LITTLEGEGE Knowles S CLINIC MANAGER Ot 285.21 03/26/2015 GEGE LITTLE S CLINIC MANAGER Ot 585.3 03/26/2015 LITTLEGEGE S CLINIC MANAGER Ot V12.54 03/26/2015 LITTLEGEGE S CLINIC MANAGER Ot V58.63 03/26/2015 LITTLEGEGE S CLINIC MANAGER Ot V58.66 03/26/2015 LITTLEGEGE S CLINIC MANAGER Ot V58.69 03/26/2015 LITTLEGEGE S CLINIC MANAGER Ot 285.21 03/26/2015 LITTLEGEGE Knowles S CLINIC MANAGER Ot 585.3 03/26/2015 GEGE LITTLE S CLINIC MANAGER Ot V12.54 03/26/2015 GEGE LITTLE S CLINIC MANAGER Ot V58.63 03/26/2015 GEGE LITTLE S CLINIC MANAGER Ot V58.66 03/26/2015 GEGE LITTLE S CLINIC MANAGER Ot V58.69 03/26/2015 ULICES ONEILL, WILFRED Garcia Ot 397.0 03/26/2015 ULICES ONEILL, WILFRED Garcia Ot 401.9 03/26/2015 ULICES ONEILL, WILFRED Garcia Ot 414.00 03/26/2015 ULICES ONEILL, WILFRED Garcia Ot 424.0 03/26/2015 ULICES ONEILL, WILFRED Garcia Ot 427.89 03/26/2015 ULICES ONIELL, WILFRED Garcia Ot 428.0 03/26/2015 ULICES ONEILL, WILFRED Garcia Ot 746.4 03/26/2015 LITTLEGEGE Knowles S CLINIC MANAGER Ot 285.21 03/26/2015 LITTLEGEGE Knowles S CLINIC MANAGER Ot 585.3 03/26/2015 LITTLEGEGE S CLINIC MANAGER Ot V12.54 03/26/2015 LITTLEGEGE S CLINIC MANAGER Ot V58.63 03/26/2015 LITTLEGEGE S CLINIC MANAGER Ot V58.66 03/26/2015 GEGE LITTLE S CLINIC MANAGER Ot V58.69 03/26/2015 LITTLEGEGE Knowles S CLINIC MANAGER Ot 285.21 03/26/2015 LITTLEGEGE Knowles S CLINIC MANAGER Ot 585.3 03/26/2015 GEGE LITTLE S CLINIC MANAGER Ot V12.54 03/26/2015 LITTLEGEGE S CLINIC MANAGER Ot V58.63 03/26/2015 LITTLEGEGE S CLINIC MANAGER Ot V58.66 03/26/2015 LITTLEGEGE S CLINIC MANAGER Ot V58.69 03/26/2015 LITTLEGEGE Knowles S CLINIC MANAGER Ot 285.21 03/26/2015 LITTLEGEGE Knowles S CLINIC MANAGER Ot 585.3 03/26/2015 LITTLEGEGE S CLINIC MANAGER Ot V12.54 03/26/2015 LITTLEGEGE S CLINIC MANAGER Ot V58.69 03/26/2015 LITTLEGEGE S CLINIC MANAGER Ot 285.21 03/26/2015 LITTLEGEGE Knowles S CLINIC MANAGER Ot 585.3 03/26/2015 LITTLEGEGE Knowles S CLINIC MANAGER Ot V12.54 03/26/2015 LITTLEGEGE Knowles S CLINIC MANAGER Ot V58.61 03/26/2015 GEGE LITTLE S CLINIC MANAGER Ot V58.63 03/26/2015 GEGE LITTLE S CLINIC MANAGER Ot V58.66 03/26/2015 LITTLEGEGE Knowles S CLINIC MANAGER Ot V58.69 03/26/2015 ULICES ONEILL, WILFRED Garcia Ot 396.3 03/26/2015 ULICES ONEILL, WILFRED Garcia Ot 397.0 03/26/2015 ULICES ONEILL, WILFRED Garcia Ot 401.9 03/26/2015 ULICES ONEILL, WILFRED Garcia Ot 414.00 03/26/2015 ULICES ONEILL, WILFRED Garcia Ot 428.0 03/26/2015 ULICES ONEILL, WILFRED Garcia Ot 429.3 03/26/2015 LITTLEGEGE Knowles S CLINIC MANAGER Ot 285.21 03/26/2015 LITTLEGEGE Knowles S CLINIC MANAGER Ot 585.3 03/26/2015 LITTLEGEGE S CLINIC MANAGER Ot V12.54 03/26/2015 LITTLE GEGE S CLINIC MANAGER Ot V58.61 03/26/2015 LITTLE, HILAH S CLINIC MANAGER Ot V58.63 03/26/2015 GEGE LITTLE CLINIC MANAGER Ot V58.66 03/26/2015 GEGE LITTLE CLINIC MANAGER Ot V58.69 03/26/2015 GEGE LITTLE CLINIC MANAGER Ot 285.21 03/26/2015 GEGE LITTLE CLINIC MANAGER Ot 496 03/26/2015 GEGE LITTLE CLINIC MANAGER Ot 585.3 03/26/2015 GEGE LITTLE CLINIC MANAGER Ot V12.54 03/26/2015 GEGE LITTLE CLINIC MANAGER Ot V46.2 03/26/2015 GEGE LITTLE CLINIC MANAGER Ot V58.63 03/26/2015 GEGE LITTLE CLINIC MANAGER Ot V58.66 03/26/2015 GEGE LITTLE CLINIC MANAGER Ot V58.69 03/26/2015 LES BELLPATRICIA N Ot 285.21 03/26/2015 NAVYA BELL N Ot 585.3 03/26/2015 ARABELLA LESPATRICIA N Ot V58.69 03/28/2015 Ot 786.09 03/28/2015 Ot V57.89 03/28/2015 Ot 709.8 03/28/2015 Ot 782.3 03/28/2015 WILFRED ELENA MD Ot 250.60 DIAB W NEURO MANIFEST, TYPE II OR UNSPEC 03/28/2015 WILFRED ELENA MD Ot 272.4 HYPERLIPIDEMIA NEC/NOS 03/28/2015 WILFRED ELENA MD Ot 278.01 MORBID OBESITY 03/28/2015 WILFRED ELENA MD Ot 357.2 NEUROPATHY IN DIABETES 03/28/2015 WILFRED ELENA MD Ot 403.90 HYPTNSV CHR KID DIS, UNSPEC, W CHR KD ST 03/28/2015 WILFRED ELENA MD Ot 414.01 CORONARY ATHEROSCLEROSIS OF [place] CORON 03/28/2015 WILFRED ELENA MD Ot 416.8 CHR PULMON HEART DIS NEC 03/28/2015 WIFLRED ELENA MD Ot 424.1 AORTIC VALVE DISORDER 03/28/2015 WILFRED ELENA MD Ot 428.0 CONGESTIVE HEART FAILURE NOS 03/28/2015 WILFRED ELENA MD Ot 428.32 CHRONIC DIASTOLIC HRT FAILURE 03/28/2015 WILFRED ELENA MD Ot 496 CHR AIRWAY OBSTRUCT NEC 03/28/2015 WILFRED ELENA MD Ot 585.3 CHRONIC KIDNEY DISEASE, STAGE III (MODER 03/28/2015 WILFRED ELENA MD Ot V12.54 PERSONAL HX OF TIA, CEREBRAL INFARCTION 03/28/2015 WILFRED ELENA MD Ot V58.67 LONG-TERM (CURRENT) USE OF INSULIN 03/28/2015 WILFRED ELENA MD Ot V58.69 OTH MED,LT,CURRENT USE 03/28/2015 WILFRED ELENA MD Ot V85.41 BODY MASS INDEX 40.0-44.9, ADULT 03/28/2015 Ot 786.09 03/28/2015 Ot V57.89 03/28/2015 Ot 709.8 03/28/2015 Ot 782.3 03/30/2015 GEGE LITTLE CLINIC MANAGER Ot 285.21 03/30/2015 GEGE LITTLE CLINIC MANAGER Ot 496 03/30/2015 GEGE LITTLE CLINIC MANAGER Ot 585.3 03/30/2015 GEGE LITTLE CLINIC MANAGER Ot V12.54 03/30/2015 GEGE LITTLE CLINIC MANAGER Ot V46.2 03/30/2015 GEGE LITTLE CLINIC MANAGER Ot V58.63 03/30/2015 GEGE LITTLE CLINIC MANAGER Ot V58.66 03/30/2015 GEGE LITTLE CLINIC MANAGER Ot V58.69 04/04/2015 WILFRED ELENA MD Ot 272.4 04/04/2015 WILFRED ELENA MD Ot 401.9 04/04/2015 WILFRED ELENA MD Ot 414.01 04/04/2015 WILFRED ELENA MD Ot 424.1 04/09/2015 Ot 241.0 04/09/2015 Ot 786.09 04/09/2015 Ot V57.89 04/09/2015 Ot 241.0 04/09/2015 Ot 250.00 04/09/2015 Ot 285.9 04/09/2015 Ot 428.0 04/09/2015 Ot 459.81 04/09/2015 Ot 709.8 04/09/2015 Ot 782.3 04/09/2015 GEGE LITTLE CLINIC MANAGER Ot 285.9 04/09/2015 GEGE LITTLE CLINIC MANAGER Ot 285.21 04/09/2015 LITTLEGEGE Knowles S CLINIC MANAGER Ot 585.3 04/09/2015 LITTLEGEGE Knowles S CLINIC MANAGER Ot V12.54 04/09/2015 GEGE LITTLE S CLINIC MANAGER Ot V58.63 04/09/2015 GEGE LITTLE S CLINIC MANAGER Ot V58.66 04/09/2015 LITTLEGEGE Knowles S CLINIC MANAGER Ot V58.69 04/09/2015 LITTLEGEGE Knowles S CLINIC MANAGER Ot 285.21 04/09/2015 GEGE LITTLE S CLINIC MANAGER Ot 585.3 04/09/2015 LITTLEGEGE Knowles S CLINIC MANAGER Ot V12.54 04/09/2015 LITTLEGEGE Knowles S CLINIC MANAGER Ot V58.63 04/09/2015 LITTLEGEGE Knowles S CLINIC MANAGER Ot V58.66 04/09/2015 LITTLEGEGE Knowles S CLINIC MANAGER Ot V58.69 04/09/2015 LITTLEGEGE Knowles S CLINIC MANAGER Ot 285.21 04/09/2015 LITTLEGEGE Knowles S CLINIC MANAGER Ot 585.3 04/09/2015 LITTLEGEGE Knowles S CLINIC MANAGER Ot V12.54 04/09/2015 LITTLEGEGE Knowles S CLINIC MANAGER Ot V58.63 04/09/2015 LITTLEGEGE Knowles S CLINIC MANAGER Ot V58.66 04/09/2015 LITTLEGEGE Knowles S CLINIC MANAGER Ot V58.69 04/09/2015 ULICES ONEILL, WILFRED Garcia Ot 397.0 04/09/2015 ULICES ONEILL, WILFRED Garcia Ot 401.9 04/09/2015 ULICES ONEILL, WILFRED Garcia Ot 414.00 04/09/2015 ULICES ONEILL, WILFRED Garcia Ot 424.0 04/09/2015 ULICES ONEILL, WILFRED Garcia Ot 427.89 04/09/2015 ULICES ONEILL, WILFRED Garcia Ot 428.0 04/09/2015 ULICES ONEILL, WILFRED Garcia Ot 746.4 04/09/2015 LITTLEGEGE Knowles S CLINIC MANAGER Ot 285.21 04/09/2015 LITTLEGEGE Knowles S CLINIC MANAGER Ot 585.3 04/09/2015 LITTLEGEGE S CLINIC MANAGER Ot V12.54 04/09/2015 SIDNEYGEGE S CLINIC MANAGER Ot V58.63 04/09/2015 LITTLEGEGE Knowles S CLINIC MANAGER Ot V58.66 04/09/2015 LITTLEGEGE Knowles S CLINIC MANAGER Ot V58.69 04/09/2015 LITTLEGEGE Knowles S CLINIC MANAGER Ot 285.21 04/09/2015 LITTLEGEGE Knowles S CLINIC MANAGER Ot 585.3 04/09/2015 LITTLEGEGE Knowles S CLINIC MANAGER Ot V12.54 04/09/2015 LITTLEGEGE S CLINIC MANAGER Ot V58.63 04/09/2015 LITTLEGEGE Knowles S CLINIC MANAGER Ot V58.66 04/09/2015 GEGE LITTLE S CLINIC MANAGER Ot V58.69 04/09/2015 LITTLEGEGE S CLINIC MANAGER Ot 285.21 04/09/2015 LITTLEGEGE S CLINIC MANAGER Ot 585.3 04/09/2015 LITTLEGEGE S CLINIC MANAGER Ot V12.54 04/09/2015 LITTLEGEGE S CLINIC MANAGER Ot V58.69 04/09/2015 SIDNEYGEGE S CLINIC MANAGER Ot 285.21 04/09/2015 LITTLEGEGE Knowles S CLINIC MANAGER Ot 585.3 04/09/2015 LITTLEGEGE Knowles S CLINIC MANAGER Ot V12.54 04/09/2015 LITTLEGEGE Knowles S CLINIC MANAGER Ot V58.61 04/09/2015 LITTLEGEGE Knowles S CLINIC MANAGER Ot V58.63 04/09/2015 LITTLEGEGE Knowles S CLINIC MANAGER Ot V58.66 04/09/2015 LITTLEGEGE Knowles S CLINIC MANAGER Ot V58.69 04/09/2015 ULICES ONEILL, WILFRED Garcia Ot 396.3 04/09/2015 ULICES ONEILL, WILFRED Garcia Ot 397.0 04/09/2015 ULICES ONEILL, WILFRED Garcia Ot 401.9 04/09/2015 ULICES ONEILL, WILFRED Garcia Ot 414.00 04/09/2015 ULICES ONEILL, WILFRED Garcia Ot 428.0 04/09/2015 ULICES ONEILL, WILFRED Garcia Ot 429.3 04/09/2015 LITTLEGEGE S CLINIC MANAGER Ot 285.21 04/09/2015 SIDNEYGEGE S CLINIC MANAGER Ot 585.3 04/09/2015 SIDNEY GEGE S CLINIC MANAGER Ot V12.54 04/09/2015 SIDNEYGEGE S CLINIC MANAGER Ot V58.61 04/09/2015 GEGE LITTLE CLINIC MANAGER Ot V58.63 04/09/2015 GEGE LITTLE S CLINIC MANAGER Ot V58.66 04/09/2015 GEGE LITTLE S CLINIC MANAGER Ot V58.69 04/09/2015 GEGE LITTLE S CLINIC MANAGER Ot 285.21 04/09/2015 GEGE LITTLE S CLINIC MANAGER Ot 496 04/09/2015 GEGE LITTLE S CLINIC MANAGER Ot 585.3 04/09/2015 GGEE LITTLE S CLINIC MANAGER Ot V12.54 04/09/2015 GEGE LITTLE S CLINIC MANAGER Ot V46.2 04/09/2015 GEGE LITTLE S CLINIC MANAGER Ot V58.63 04/09/2015 GEGE LITTLE S CLINIC MANAGER Ot V58.66 04/09/2015 GEGE LITTLE S CLINIC MANAGER Ot V58.69 04/09/2015 NAVYA BELL N Ot 285.21 04/09/2015 NAVYA BELL N Ot 585.3 04/09/2015 NAVYA BELL N Ot V58.69 04/09/2015 WILFRED ELENA MD Ot 414.00 04/09/2015 WILFRED ELENA MD Ot 424.1 04/09/2015 WILFRED ELENA MD Ot 428.0 04/09/2015 WILFRED ELENA MD Ot 433.10 04/09/2015 WILFRED ELENA MD Ot 272.4 04/09/2015 WILFRED ELENA MD Ot 401.9 04/09/2015 WILFRED ELENA MD Ot 414.01 04/09/2015 WILFRED ELENA MD Ot 424.1 04/16/2015 WILFRED ELENA MD Ot 414.00 04/16/2015 WILFRED ELENA MD Ot 424.1 04/16/2015 WILFRED ELENA MD Ot 428.0 04/16/2015 WILFRED ELENA MD Ot 433.10 04/19/2015 WILFRED ELENA MD Ot 272.4 04/19/2015 WILFRED ELENA MD Ot 401.9 04/19/2015 WILFRED ELENA MD Ot 414.01 04/19/2015 WILFRED ELENA MD Ot 424.1 05/01/2015 ULICES ONEILL, BASHAR J Ot 414.00 05/01/2015 ULICES ONEILL, BASHAR J Ot 424.1 05/01/2015 ULICES ONEILL, BASHAR J Ot 428.0 05/01/2015 ULICES ONEILL, BASHAR J Ot 433.10 05/01/2015 ULICES ONEILL, BASHAR J Ot 414.00 05/01/2015 ULICES ONEILL, BASHAR J Ot 424.1 05/01/2015 ULICES ONEILL, BASHAR J Ot 428.0 05/01/2015 ULICES ONEILL, BASHAR J Ot 433.10 05/11/2015 ULICES ONEILL, BASHAR J Ot 272.4 05/11/2015 ULICES ONEILL, BASHAR J Ot 401.9 05/11/2015 ULICES ONEILL, BASHAR J Ot 414.01 05/11/2015 ULICES ONEILL, BASHAR J Ot 424.1 05/11/2015 ULICES ONEILL, BASHAR J Ot 272.4 05/11/2015 ULICES ONEILL, BASHAR J Ot 401.9 05/11/2015 ULICES ONEILL, BASHAR J Ot 414.01 05/11/2015 ULICES ONEILL, BASHAR J Ot 424.1 05/11/2015 ULICES ONEILL, BASHAR J Ot 272.4 05/11/2015 ULICES ONEILL, BASHAR J Ot 401.9 05/11/2015 ULICES ONEILL, BASHAR J Ot 414.01 05/11/2015 ULICES ONEILL, BASHAR J Ot 424.1 05/17/2015 GEGE LITTLE CLINIC MANAGER Ot 285.21 05/17/2015 GEGE LITTLE CLINIC MANAGER Ot 496 05/17/2015 GEGE LITTLE CLINIC MANAGER Ot 585.3 05/17/2015 GEGE LITTLE CLINIC MANAGER Ot V12.54 05/17/2015 GEGE LITTLE CLINIC MANAGER Ot V46.2 05/17/2015 GEGE LITTLE CLINIC MANAGER Ot V58.63 05/17/2015 GEGE LITTLE CLINIC MANAGER Ot V58.66 05/17/2015 GEGE LITTLE CLINIC MANAGER Ot V58.69 05/28/2015 NAVYA BELL Ot 285.21 ANEMIA IN CHRONIC KIDNEY DISEASE 05/28/2015 NAVYA BELL Ot 585.3 CHRONIC KIDNEY DISEASE, STAGE III (MODER 05/28/2015 NAVYA BELL Ot V58.69 OTH MED,LT,CURRENT USE 05/29/2015 NAVYA BELL N Ot 285.21 05/29/2015 NAVYA BELL N Ot 585.3 05/29/2015 NAVYA BELL N Ot V58.69 05/30/2015 NAVYA BELL N Ot 285.21 05/30/2015 NAVYA BELL N Ot 585.3 05/30/2015 NAVYA BELL N Ot V58.69 06/06/2015 NAVYA BELL N Ot 285.21 06/06/2015 NAVYA BELL N Ot 585.3 06/06/2015 NAVYA BELL N Ot V58.69 06/06/2015 GEGE LITTLE CLINIC MANAGER Ot 285.21 06/06/2015 GEGE LITTLE CLINIC MANAGER Ot 496 06/06/2015 GEGE LITTLE S CLINIC MANAGER Ot 585.3 06/06/2015 GEGE LITTLE CLINIC MANAGER Ot V12.54 06/06/2015 GEGE LITTLE S CLINIC MANAGER Ot V46.2 06/06/2015 GEGE LITTLE S CLINIC MANAGER Ot V58.63 06/06/2015 GEGE LITTLE S CLINIC MANAGER Ot V58.66 06/06/2015 GEGE LITTLE S CLINIC MANAGER Ot V58.69 06/12/2015 NAVYA BELL N Ot 285.21 06/12/2015 NAVYA BELL N Ot 585.3 06/12/2015 NAVYA BELL N Ot V58.69 06/18/2015 Ot 241.0 06/18/2015 Ot 786.09 06/18/2015 Ot V57.89 06/18/2015 Ot 241.0 06/18/2015 Ot 250.00 06/18/2015 Ot 285.9 06/18/2015 Ot 428.0 06/18/2015 Ot 459.81 06/18/2015 Ot 709.8 06/18/2015 Ot 782.3 06/18/2015 GEGE LITTLE CLINIC MANAGER Ot 285.9 06/18/2015 GEGE LITTLE CLINIC MANAGER Ot 285.21 06/18/2015 GEGE LITTLE CLINIC MANAGER Ot 585.3 06/18/2015 LITTLEGEGE Knowles CLINIC MANAGER Ot V12.54 06/18/2015 LITTLEGEGE Knowles S CLINIC MANAGER Ot V58.63 06/18/2015 GEGE LITTLE S CLINIC MANAGER Ot V58.66 06/18/2015 GEGE LITTLE S CLINIC MANAGER Ot V58.69 06/18/2015 GEGE LITTLE S CLINIC MANAGER Ot 285.21 06/18/2015 LITTLEGEGE Knowles S CLINIC MANAGER Ot 585.3 06/18/2015 GEGE LITTLE S CLINIC MANAGER Ot V12.54 06/18/2015 GEGE LITTLE S CLINIC MANAGER Ot V58.63 06/18/2015 LITTLEGEGE Knowles S CLINIC MANAGER Ot V58.66 06/18/2015 GEGE LITTLE S CLINIC MANAGER Ot V58.69 06/18/2015 LITLTEGEGE Knowles S CLINIC MANAGER Ot 285.21 06/18/2015 LITTLEGEGE Knowles S CLINIC MANAGER Ot 585.3 06/18/2015 LITTLEGEGE Knowles S CLINIC MANAGER Ot V12.54 06/18/2015 LITTLEGEGE Knowles S CLINIC MANAGER Ot V58.63 06/18/2015 GEGE LITTLE S CLINIC MANAGER Ot V58.66 06/18/2015 LITTLEGEGE Knowles S CLINIC MANAGER Ot V58.69 06/18/2015 ULICES ONEILL, WILFRED Garcia Ot 397.0 06/18/2015 ULICES ONEILL, WILFRED Garcia Ot 401.9 06/18/2015 ULICES ONEILL, WILFRED Garcia Ot 414.00 06/18/2015 ULICES ONEILL, WILFRED Garcia Ot 424.0 06/18/2015 ULICES ONEILL, WILFRED Garcia Ot 427.89 06/18/2015 ULICES ONEILL, WILFRED Garcia Ot 428.0 06/18/2015 ULICES ONEILL, WILFRED Garcia Ot 746.4 06/18/2015 LITTLEGEGE Knowles S CLINIC MANAGER Ot 285.21 06/18/2015 LITTLEGEGE Knowles S CLINIC MANAGER Ot 585.3 06/18/2015 LITTLEGEGE Knowles S CLINIC MANAGER Ot V12.54 06/18/2015 LITTLEGEGE S CLINIC MANAGER Ot V58.63 06/18/2015 SIDNEY GEGE S CLINIC MANAGER Ot V58.66 06/18/2015 LITTLEGEGE Knowles S CLINIC MANAGER Ot V58.69 06/18/2015 GEGE LITTLE S CLINIC MANAGER Ot 285.21 06/18/2015 GEGE LITTLE S CLINIC MANAGER Ot 585.3 06/18/2015 GEGE LITTLE S CLINIC MANAGER Ot V12.54 06/18/2015 GEGE LITTLE S CLINIC MANAGER Ot V58.63 06/18/2015 GEGE LITTLE S CLINIC MANAGER Ot V58.66 06/18/2015 GEGE LITTLE S CLINIC MANAGER Ot V58.69 06/18/2015 GEGE LITTLE S CLINIC MANAGER Ot 285.21 06/18/2015 GEGE LITTLE S CLINIC MANAGER Ot 585.3 06/18/2015 GEGE LITTLE S CLINIC MANAGER Ot V12.54 06/18/2015 GEGE LITTLE S CLINIC MANAGER Ot V58.69 06/18/2015 LITTLEGEGE Knowles S CLINIC MANAGER Ot 285.21 06/18/2015 LITTLEGEGE Knowles S CLINIC MANAGER Ot 585.3 06/18/2015 LITTLEGEGE Knowles S CLINIC MANAGER Ot V12.54 06/18/2015 GEGE LITTLE S CLINIC MANAGER Ot V58.61 06/18/2015 LITTLEGEGE Knowles S CLINIC MANAGER Ot V58.63 06/18/2015 GEGE LITTLE S CLINIC MANAGER Ot V58.66 06/18/2015 GEGE LITTLE S CLINIC MANAGER Ot V58.69 06/18/2015 ULICES ONEILL, WILFRED Garcia Ot 396.3 06/18/2015 ULICES ONEILL, WILFRED Garcia Ot 397.0 06/18/2015 ULICES ONEILL, WILFRED Garcia Ot 401.9 06/18/2015 ULICES ONEILL, WILFRED Garcia Ot 414.00 06/18/2015 ULICES ONEILL, WILFRED Garcia Ot 428.0 06/18/2015 ULICES ONEILL, WILFRED Garcia Ot 429.3 06/18/2015 LITTLEGEGE Knowles S CLINIC MANAGER Ot 285.21 06/18/2015 LITTLEGEGE Knowles S CLINIC MANAGER Ot 585.3 06/18/2015 LITTLEGEGE S CLINIC MANAGER Ot V12.54 06/18/2015 SIDNEYGEGE S CLINIC MANAGER Ot V58.61 06/18/2015 LITTLEGEGE S CLINIC MANAGER Ot V58.63 06/18/2015 GEGE LITTLE S CLINIC MANAGER Ot V58.66 06/18/2015 GEGE LITTLE S CLINIC MANAGER Ot V58.69 06/18/2015 GEGE LITTLE S CLINIC MANAGER Ot 285.21 06/18/2015 GEGE LITTLE S CLINIC MANAGER Ot 496 06/18/2015 GEGE LITTLE S CLINIC MANAGER Ot 585.3 06/18/2015 GEGE LITTLE S CLINIC MANAGER Ot V12.54 06/18/2015 GEGE LITTLE S CLINIC MANAGER Ot V46.2 06/18/2015 GEGE LITTLE S CLINIC MANAGER Ot V58.63 06/18/2015 LITTLEGEGE Knowles S CLINIC MANAGER Ot V58.66 06/18/2015 LITTLEGEGE Knowles S CLINIC MANAGER Ot V58.69 06/18/2015 ULICES ONEILL, WILFRED J Ot 414.00 06/18/2015 ULICES ONEILL, WILFRED J Ot 424.1 06/18/2015 ULICES ONEILL, WILFRED J Ot 428.0 06/18/2015 ULICES ONEILL, WILFRED J Ot 433.10 06/18/2015 ULICES ONEILL, WILFRED J Ot 272.4 06/18/2015 ULICES ONEILL, WILFRED J Ot 401.9 06/18/2015 ULICES ONEILL, BASHAR J Ot 414.01 06/18/2015 ULICES ONEILL, WILFRED J Ot 424.1 06/18/2015 LITTLEGEGE Knowles S CLINIC MANAGER Ot 285.21 06/18/2015 LITTLEGEGE Knowles S CLINIC MANAGER Ot 496 06/18/2015 LITTLEGEGE Knowles S CLINIC MANAGER Ot 585.3 06/18/2015 LITTLEGEGE Knowles S CLINIC MANAGER Ot V12.54 06/18/2015 LITTLEGEGE Knowles S CLINIC MANAGER Ot V46.2 06/18/2015 GEGE LITTLE S CLINIC MANAGER Ot V58.63 06/18/2015 GEGE LITTLE S CLINIC MANAGER Ot V58.66 06/18/2015 LITTLEGEGE Knowles S CLINIC MANAGER Ot V58.69 06/18/2015 NAVYA BELL N Ot 285.21 06/18/2015 NAVYA BELL N Ot 585.3 06/18/2015 NAVYA BELL N Ot V58.69 06/18/2015 LITTLE, HILAH S CLINIC MANAGER Ot 285.21 06/18/2015 LITTLEGEGE Knowles S CLINIC MANAGER Ot 496 06/18/2015 LITTLEGEGE S CLINIC MANAGER Ot 585.3 06/18/2015 LITTLEGEGE Knowles S CLINIC MANAGER Ot V12.54 06/18/2015 LITTLEGEGE S CLINIC MANAGER Ot V46.2 06/18/2015 LITTLEGEGE S CLINIC MANAGER Ot V58.63 06/18/2015 LITTLEGEGE S CLINIC MANAGER Ot V58.66 06/18/2015 LITTLEAISHA S CLINIC MANAGER Ot V58.69 06/18/2015 LITTLEAISHA S CLINIC MANAGER Ot 285.21 06/18/2015 LITTLEGEGE S CLINIC MANAGER Ot 496 06/18/2015 LITTLEGEGE S CLINIC MANAGER Ot 585.3 06/18/2015 LITTLEAISHA S CLINIC MANAGER Ot V12.54 06/18/2015 LITTLEGEGE S CLINIC MANAGER Ot V46.2 06/18/2015 LITTLEAISHA S CLINIC MANAGER Ot V58.63 06/18/2015 LITTLE, HIL S CLINIC MANAGER Ot V58.66 06/18/2015 LITTLE, HIL S CLINIC MANAGER Ot V58.69 07/13/2015 LITTLEGEGE Knowles S CLINIC MANAGER Ot 285.21 07/13/2015 LITTLEGEGE Knowles S CLINIC MANAGER Ot 496 07/13/2015 LITTLEGEGE S CLINIC MANAGER Ot 585.3 07/13/2015 LITTLEGEGE S CLINIC MANAGER Ot V12.54 07/13/2015 LITTLEGEGE Knowles S CLINIC MANAGER Ot V46.2 07/13/2015 LITTLE, [facility] S CLINIC MANAGER Ot V58.63 07/13/2015 LITTLE, HIL S CLINIC MANAGER Ot V58.66 07/13/2015 LITTLE [facility] S CLINIC MANAGER Ot V58.69 07/13/2015 LITTLE [facility] S CLINIC MANAGER Ot 285.21 07/13/2015 LITTLEAISHA S CLINIC MANAGER Ot 496 07/13/2015 LITTLEGEGE S CLINIC MANAGER Ot 585.3 07/13/2015 LITTLE, GEGE S CLINIC MANAGER Ot V12.54 07/13/2015 LITTLE AISHA S CLINIC MANAGER Ot V46.2 07/13/2015 LITTLEGEGE Knowles CLINIC MANAGER Ot V58.63 07/13/2015 LITTLEGEGE S CLINIC MANAGER Ot V58.66 07/13/2015 LITTLEGEGE S CLINIC MANAGER Ot V58.69 07/13/2015 LITTLEGEGE Knowles S CLINIC MANAGER Ot 285.21 07/13/2015 LITTLEGEGE Knowles S CLINIC MANAGER Ot 496 07/13/2015 SIDNEYGEGE S CLINIC MANAGER Ot 585.3 07/13/2015 SIDNEYGEGE S CLINIC MANAGER Ot V12.54 07/13/2015 LITTLEGEGE S CLINIC MANAGER Ot V46.2 07/13/2015 SIDNEYGEGE S CLINIC MANAGER Ot V58.63 07/13/2015 SIDNEYGEGE S CLINIC MANAGER Ot V58.66 07/13/2015 SIDNEYGEGE CLINIC MANAGER Ot V58.69 07/18/2015 NAVYA BELL Ot 285.21 ANEMIA IN CHRONIC KIDNEY DISEASE 07/18/2015 NAVYA BELL Ot 585.3 CHRONIC KIDNEY DISEASE, STAGE III (MODER 07/18/2015 NAVYA BELL Ot V58.69 OT MED,LT,CURRENT USE 08/28/2015 Ot 241.0 08/28/2015 Ot 786.09 08/28/2015 Ot V57.89 08/28/2015 Ot 241.0 08/28/2015 Ot 250.00 08/28/2015 Ot 285.9 08/28/2015 Ot 428.0 08/28/2015 Ot 459.81 08/28/2015 Ot 709.8 08/28/2015 Ot 782.3 08/28/2015 LITTLEGEGE Knowles CLINIC MANAGER Ot 285.9 08/28/2015 SIDNEYGEGE CLINIC MANAGER Ot 285.21 08/28/2015 LITTLEGEGE S CLINIC MANAGER Ot 585.3 08/28/2015 SIDNEYGEGE S CLINIC MANAGER Ot V12.54 08/28/2015 SIDNEYGEGE S CLINIC MANAGER Ot V58.63 08/28/2015 SIDNEYGEGE S CLINIC MANAGER Ot V58.66 08/28/2015 SIDNEYGEGE S CLINIC MANAGER Ot V58.69 08/28/2015 SIDNEY GEGE S CLINIC MANAGER Ot 285.21 08/28/2015 SIDNEY AISHAAH S CLINIC MANAGER Ot 585.3 08/28/2015 LITTLEGEGE Knowles S CLINIC MANAGER Ot V12.54 08/28/2015 GEGE LITTLE S CLINIC MANAGER Ot V58.63 08/28/2015 GEGE LITTLE S CLINIC MANAGER Ot V58.66 08/28/2015 LITTLEGEGE Knowles S CLINIC MANAGER Ot V58.69 08/28/2015 LITTLEGEGE Knowles S CLINIC MANAGER Ot 285.21 08/28/2015 LITTLEGEGE Knowles S CLINIC MANAGER Ot 585.3 08/28/2015 LITTLEGEGE Knowles S CLINIC MANAGER Ot V12.54 08/28/2015 LITTLEGEGE S CLINIC MANAGER Ot V58.63 08/28/2015 LITTLEGEGE S CLINIC MANAGER Ot V58.66 08/28/2015 LITTLEGEGE S CLINIC MANAGER Ot V58.69 08/28/2015 ULICES ONEILL, WILFRED Garcia Ot 397.0 08/28/2015 ULICES ONEILL, WILFRED J Ot 401.9 08/28/2015 ULICES ONEILL, WILFRED J Ot 414.00 08/28/2015 ULICES ONEILL, WILFRED J Ot 424.0 08/28/2015 ULICES ONEILL, WILFRED J Ot 427.89 08/28/2015 ULICES ONEILL, WILFRED J Ot 428.0 08/28/2015 ULICES ONEILL, WILFRED J Ot 746.4 08/28/2015 LITTLEGEGE Knowles S CLINIC MANAGER Ot 285.21 08/28/2015 LITTLE GEGE S CLINIC MANAGER Ot 585.3 08/28/2015 SIDNEY GEGE S CLINIC MANAGER Ot V12.54 08/28/2015 LITTLEGEGE Knowles S CLINIC MANAGER Ot V58.63 08/28/2015 LITTLEGEGE Knowles S CLINIC MANAGER Ot V58.66 08/28/2015 LITTLEGEGE S CLINIC MANAGER Ot V58.69 08/28/2015 LITTLEGEGE Knowles S CLINIC MANAGER Ot 285.21 08/28/2015 LITTLEGEGE Knowles S CLINIC MANAGER Ot 585.3 08/28/2015 SIDNEY GEGE S CLINIC MANAGER Ot V12.54 08/28/2015 SIDNEY GEGE S CLINIC MANAGER Ot V58.63 08/28/2015 SIDNEY GEGE S CLINIC MANAGER Ot V58.66 08/28/2015 LITTLEGEGE Knowles S CLINIC MANAGER Ot V58.69 08/28/2015 LITTLEGEGE Knowles S CLINIC MANAGER Ot 285.21 08/28/2015 LITTLEGEGE Knowles S CLINIC MANAGER Ot 585.3 08/28/2015 GEGE LITTLE S CLINIC MANAGER Ot V12.54 08/28/2015 LITTLEGEGE S CLINIC MANAGER Ot V58.69 08/28/2015 LITTLEGEGE S CLINIC MANAGER Ot 285.21 08/28/2015 LITTLEGEGE Knowles S CLINIC MANAGER Ot 585.3 08/28/2015 LITTLEGEGE Knowles S CLINIC MANAGER Ot V12.54 08/28/2015 LITTLEGEGE S CLINIC MANAGER Ot V58.61 08/28/2015 LITTLEGEGE S CLINIC MANAGER Ot V58.63 08/28/2015 LITTLEGEGE S CLINIC MANAGER Ot V58.66 08/28/2015 SIDNEY GEGE S CLINIC MANAGER Ot V58.69 08/28/2015 ULICES ONEILL, WILFRED J Ot 396.3 08/28/2015 ULICES ONEILL, WILFRED J Ot 397.0 08/28/2015 ULICES ONEILL, WILFRED Garcia Ot 401.9 08/28/2015 ULICES ONEILL, WILFRED Garcia Ot 414.00 08/28/2015 ULICES ONEILL, WILFRED J Ot 428.0 08/28/2015 ULICES ONEILL, WILFRED J Ot 429.3 08/28/2015 LITTLEGEGE Knowles S CLINIC MANAGER Ot 285.21 08/28/2015 LITTLE GEGE S CLINIC MANAGER Ot 585.3 08/28/2015 SIDNEY GEGE S CLINIC MANAGER Ot V12.54 08/28/2015 LITTLEGEGE Knowles S CLINIC MANAGER Ot V58.61 08/28/2015 LITTLEGEGE S CLINIC MANAGER Ot V58.63 08/28/2015 LITTLEGEGE S CLINIC MANAGER Ot V58.66 08/28/2015 LITTLEGEGE S CLINIC MANAGER Ot V58.69 08/28/2015 LITTLEGEGE Knowles S CLINIC MANAGER Ot 285.21 08/28/2015 SIDNEY GEGE S CLINIC MANAGER Ot 496 08/28/2015 SIDNEY GEGE S CLINIC MANAGER Ot 585.3 08/28/2015 SIDNEY GEGE S CLINIC MANAGER Ot V12.54 08/28/2015 LITTLEGEGE Knowles S CLINIC MANAGER Ot V46.2 08/28/2015 LITTLEGEGE Knowles S CLINIC MANAGER Ot V58.63 08/28/2015 LITTLEGEGE Knowles S CLINIC MANAGER Ot V58.66 08/28/2015 LITTLEGEGE Knowles S CLINIC MANAGER Ot V58.69 08/28/2015 ULICES ONEILL, WILFRED J Ot 414.00 08/28/2015 ULICES ONEILL, WILFRED J Ot 424.1 08/28/2015 ULICES ONEILL, BASHAR J Ot 428.0 08/28/2015 ULICES ONEILL, WILFRED J Ot 433.10 08/28/2015 ULICES ONEILL, WILFRED J Ot 272.4 08/28/2015 ULICES ONEILL, WILFRED J Ot 401.9 08/28/2015 ULICES ONEILL, JAMEELHAR J Ot 414.01 08/28/2015 ULICES ONEILL, WILFRED J Ot 424.1 08/28/2015 SIDNEY GEGE S CLINIC MANAGER Ot 285.21 08/28/2015 LITTLEGEGE Knowles S CLINIC MANAGER Ot 496 08/28/2015 LITTLEGEGE Knowles S CLINIC MANAGER Ot 585.3 08/28/2015 LITTLEGEGE Knowles S CLINIC MANAGER Ot D63.1 08/28/2015 LITTLEGEGE Knowles S CLINIC MANAGER Ot J44.9 08/28/2015 LITTLEGEGE Knowles S CLINIC MANAGER Ot N18.3 08/28/2015 LITTLEGEGE Knowles S CLINIC MANAGER Ot V12.54 08/28/2015 LITTLEGEGE Knowles S CLINIC MANAGER Ot V46.2 08/28/2015 LITTLEGEGE Knowles S CLINIC MANAGER Ot V58.63 08/28/2015 GEGE LITTLE S CLINIC MANAGER Ot V58.66 08/28/2015 LITTLEGEGE Knowles S CLINIC MANAGER Ot V58.69 08/28/2015 SIDNEY GEGE S CLINIC MANAGER Ot Z79.02 08/28/2015 SIDNEY GEGE S CLINIC MANAGER Ot Z79.82 08/28/2015 LITTLEGEGE S CLINIC MANAGER Ot Z86.73 08/28/2015 SIDNEY GEGE S CLINIC MANAGER Ot Z99.81 08/28/2015 NAVYA BELL Ot 285.21 08/28/2015 NAVYA BELL Ot 585.3 08/28/2015 NAVYA BELL Ot V58.69 08/28/2015 KIARA ACEVES MD, Ot A41.51 SEPSIS DUE TO ESCHERICHIA COLI [E. COLI] 08/28/2015 KIARA ACEVES MD, Ot A41.9 08/28/2015 KIARA ACEVES MD, Ot B96.20 08/28/2015 KIARA ACEVES MD, Ot D63.8 ANEMIA IN OTHER CHRONIC DISEASES CLASSIF 08/28/2015 KIARA ACEVES MD, Ot E11.21 TYPE 2 DIABETES MELLITUS WITH DIABETIC N 08/28/2015 KIARA ACEVES MD, Ot E78.5 HYPERLIPIDEMIA, UNSPECIFIED 08/28/2015 KIARA ACEVES MD, Ot I10 08/28/2015 KIARA ACEVES MD, Ot I12.9 HYPERTENSIVE CHRONIC KIDNEY DISEASE W ST 08/28/2015 KIARA ACEVES MD, Ot I25.10 ATHSCL HEART DISEASE OF [place] CORONARY 08/28/2015 KIARA ACEVES MD, Ot I25.5 ISCHEMIC CARDIOMYOPATHY 08/28/2015 KIARA ACEVES MD, Ot I27.2 OTHER SECONDARY PULMONARY HYPERTENSION 08/28/2015 KIARA ACEVES MD, Ot I87.2 VENOUS INSUFFICIENCY (CHRONIC) (PERIPHER 08/28/2015 KIARA ACEVES MD, Ot L03.011 CELLULITIS OF RIGHT FINGER 08/28/2015 KIARA ACEVES MD, Ot N17.9 ACUTE KIDNEY FAILURE, UNSPECIFIED 08/28/2015 KIARA ACEVES MD, Ot N18.3 CHRONIC KIDNEY DISEASE, STAGE 3 (MODERAT 08/28/2015 KIARA ACEVES MD, Ot N39.0 URINARY TRACT INFECTION, SITE NOT SPECIF 08/28/2015 KIARA ACEVES MD, Ot R65.20 SEVERE SEPSIS WITHOUT SEPTIC SHOCK 08/28/2015 KIARA ACEVES MD, Ot Z79.4 LONG-TERM (CURRENT) USE OF INSULIN 08/28/2015 KIARA ACEVES MD, Ot Z87.891 PERSONAL HISTORY OF NICOTINE DEPENDENCE 08/28/2015 KIARA ACEVES MD, Ot Z95.2 PRESENCE OF PROSTHETIC HEART VALVE 09/18/2015 NAVYA BELL Ot 285.21 09/18/2015 NAVYA BELL Ot 585.3 09/18/2015 NAVYA BELL Ot V58.69 09/26/2015 GEGE LITTLE Ot D63.1 09/26/2015 GEGE LITTLE CLINIC MANAGER Ot J44.9 09/26/2015 GEGE LITTLE CLINIC MANAGER Ot N18.3 09/26/2015 GEGE LITTLE CLINIC MANAGER Ot Z79.02 09/26/2015 GEGE LITTLE CLINIC MANAGER Ot Z79.82 09/26/2015 GEGE LITTLE CLINIC MANAGER Ot Z79.899 09/26/2015 GEGE LITTLE CLINIC MANAGER Ot Z86.73 09/26/2015 GEGE LITTLE CLINIC MANAGER Ot Z95.2 09/26/2015 GEGE LITTLE CLINIC MANAGER Ot Z99.81 10/02/2015 Ot 241.0 10/02/2015 Ot 786.09 10/02/2015 Ot V57.89 10/02/2015 Ot 241.0 10/02/2015 Ot 250.00 10/02/2015 Ot 285.9 10/02/2015 Ot 428.0 10/02/2015 Ot 459.81 10/02/2015 Ot 709.8 10/02/2015 Ot 782.3 10/02/2015 GEGE LITTLE CLINIC MANAGER Ot 285.9 10/02/2015 LITTLEGEGE Knowles CLINIC MANAGER Ot 285.21 10/02/2015 LITTLEGEGE Knowles CLINIC MANAGER Ot 585.3 10/02/2015 LITTLEGEGE Knowles S CLINIC MANAGER Ot V12.54 10/02/2015 LITTLEGEGE Knowles S CLINIC MANAGER Ot V58.63 10/02/2015 LITTLEGEGE Knowles S CLINIC MANAGER Ot V58.66 10/02/2015 LITTLEGEGE Knowles S CLINIC MANAGER Ot V58.69 10/02/2015 LITTLEGEGE Knowles S CLINIC MANAGER Ot 285.21 10/02/2015 LITTLEGEGE Knowles CLINIC MANAGER Ot 585.3 10/02/2015 LITTLEGEGE Knowels S CLINIC MANAGER Ot V12.54 10/02/2015 LITTLEGEGE Knowles S CLINIC MANAGER Ot V58.63 10/02/2015 LITTLEGEGE S CLINIC MANAGER Ot V58.66 10/02/2015 LITTLEGEGE S CLINIC MANAGER Ot V58.69 10/02/2015 LITTLEGEGE S CLINIC MANAGER Ot 285.21 10/02/2015 SIDNEYGEGE S CLINIC MANAGER Ot 585.3 10/02/2015 LITTLEGEGE Knowles S CLINIC MANAGER Ot V12.54 10/02/2015 LITTLEGEGE S CLINIC MANAGER Ot V58.63 10/02/2015 LITTLEGEGE S CLINIC MANAGER Ot V58.66 10/02/2015 LITTLEGEGE S CLINIC MANAGER Ot V58.69 10/02/2015 ULICES ONEILL, JAMEELHAR J Ot 397.0 10/02/2015 ULICES ONEILL, WILFRED J Ot 401.9 10/02/2015 ULICES ONEILL, BASHAR J Ot 414.00 10/02/2015 ULICES ONEILL, BASHAR J Ot 424.0 10/02/2015 ULICES ONEILL, WILFRED J Ot 427.89 10/02/2015 ULICES ONEILL, WILFRED J Ot 428.0 10/02/2015 ULICES ONEILL, WILFRED J Ot 746.4 10/02/2015 LITTLEGEGE Knowles S CLINIC MANAGER Ot 285.21 10/02/2015 SIDNEY GEGE S CLINIC MANAGER Ot 585.3 10/02/2015 SIDNEY GEGE S CLINIC MANAGER Ot V12.54 10/02/2015 LITTLEGEGE Knowles S CLINIC MANAGER Ot V58.63 10/02/2015 LITTLEGEGE S CLINIC MANAGER Ot V58.66 10/02/2015 LITTLE, GEGE S CLINIC MANAGER Ot V58.69 10/02/2015 LITTLEGEGE Konwles S CLINIC MANAGER Ot 285.21 10/02/2015 LITTLEGEGE S CLINIC MANAGER Ot 585.3 10/02/2015 LITTLE, GEGE S CLINIC MANAGER Ot V12.54 10/02/2015 LITTLE AISHAAH S CLINIC MANAGER Ot V58.63 10/02/2015 LITTLE AISHAAH S CLINIC MANAGER Ot V58.66 10/02/2015 LITTLE GEGE S CLINIC MANAGER Ot V58.69 10/02/2015 LITTLE AISHAAH S CLINIC MANAGER Ot 285.21 10/02/2015 LITTLE AISHAAH S CLINIC MANAGER Ot 585.3 10/02/2015 LITTLE AISHAAH S CLINIC MANAGER Ot V12.54 10/02/2015 LITTLE, GEGE S CLINIC MANAGER Ot V58.69 10/02/2015 LITTLE, GEGE S CLINIC MANAGER Ot 285.21 10/02/2015 LITTLE, AISHAAH S CLINIC MANAGER Ot 585.3 10/02/2015 LITTLEGEGE Knowles S CLINIC MANAGER Ot V12.54 10/02/2015 LITTLEGEGE Knowles S CLINIC MANAGER Ot V58.61 10/02/2015 LITTLE, AISHAAH S CLINIC MANAGER Ot V58.63 10/02/2015 LITTLEAISHAAH S CLINIC MANAGER Ot V58.66 10/02/2015 GEGE LITTLE S CLINIC MANAGER Ot V58.69 10/02/2015 ULICES ONEILL, WILFRED Garcia Ot 396.3 10/02/2015 ULICES ONEILL, WILFRED Garcia Ot 397.0 10/02/2015 ULICES ONEILL, WILFRED Garcia Ot 401.9 10/02/2015 ULICES ONEILL, WILFRED Garcia Ot 414.00 10/02/2015 ULICES ONEILL, WILFRED Garcia Ot 428.0 10/02/2015 ULICES ONEILL, WILFRED Garcia Ot 429.3 10/02/2015 LITTLEGEGE Knowles S CLINIC MANAGER Ot 285.21 10/02/2015 LITTLEGEGE Knowles S CLINIC MANAGER Ot 585.3 10/02/2015 GEGE LITTLE S CLINIC MANAGER Ot V12.54 10/02/2015 LITTLEGEGE Knowles S CLINIC MANAGER Ot V58.61 10/02/2015 LITTLEAISHAAH S CLINIC MANAGER Ot V58.63 10/02/2015 LITTLEAISHAAH S CLINIC MANAGER Ot V58.66 10/02/2015 LITTLEAISHAAH S CLINIC MANAGER Ot V58.69 10/02/2015 LITTLEGEGE Knowles S CLINIC MANAGER Ot 285.21 10/02/2015 LITTLEGEGE S CLINIC MANAGER Ot 496 10/02/2015 LITTLE, AISHAAH S CLINIC MANAGER Ot 585.3 10/02/2015 LITTLE, AISHAAH S CLINIC MANAGER Ot V12.54 10/02/2015 LITTLEAISHAAH S CLINIC MANAGER Ot V46.2 10/02/2015 LITTLEAISHAAH S CLINIC MANAGER Ot V58.63 10/02/2015 LITTLE, HILAH S CLINIC MANAGER Ot V58.66 10/02/2015 LITTLE, AISHAAH S CLINIC MANAGER Ot V58.69 10/02/2015 ULICES ONEILL, WILFRED Garcia Ot 414.00 10/02/2015 ULICES ONEILL, WILFRED Garcia Ot 424.1 10/02/2015 ULICES ONEILL, WILFRED Garcia Ot 428.0 10/02/2015 ULICES ONEILL, WILFRED Garcia Ot 433.10 10/02/2015 ULICES ONEILL, WILFRED Garcia Ot 272.4 10/02/2015 ULICES ONEILL, WILFRED Garcia Ot 401.9 10/02/2015 ULICES ONEILL, WILFRED J Ot 414.01 10/02/2015 ULICES ONEILL, WILFRED Garcia Ot 424.1 10/02/2015 LITTLEGEGE Knowles S CLINIC MANAGER Ot 285.21 10/02/2015 SIDNEY GEGE S CLINIC MANAGER Ot 496 10/02/2015 LITTLEGEGE Knowles S CLINIC MANAGER Ot 585.3 10/02/2015 LITTLEGEGE Knowles S CLINIC MANAGER Ot D63.1 10/02/2015 SIDNEY GEGE S CLINIC MANAGER Ot J44.9 10/02/2015 GEGE LITTLE S CLINIC MANAGER Ot N18.3 10/02/2015 LITTLEGEGE Knowles S CLINIC MANAGER Ot V12.54 10/02/2015 LITTLE GEGE S CLINIC MANAGER Ot V46.2 10/02/2015 LITTLEGEGE Knowles S CLINIC MANAGER Ot V58.63 10/02/2015 LITTLEGEGE Knowles S CLINIC MANAGER Ot V58.66 10/02/2015 LITTLEGEGE Knowles S CLINIC MANAGER Ot V58.69 10/02/2015 LITTLEGEGE Knowles S CLINIC MANAGER Ot Z79.02 10/02/2015 LITTLEGEGE Knowles S CLINIC MANAGER Ot Z79.82 10/02/2015 LITTLEGEGE Knowles S CLINIC MANAGER Ot Z86.73 10/02/2015 LITTLE GEGE S CLINIC MANAGER Ot Z99.81 10/02/2015 ARABELLA BOBAN N Ot D63.1 10/02/2015 ARABELLA, BOBAN N Ot N18.3 10/02/2015 ARABELLA, BOBAN N Ot Z79.899 10/02/2015 SIDNEY GEGE S CLINIC MANAGER Ot D63.1 10/02/2015 SIDNEY GEGE S CLINIC MANAGER Ot J44.9 10/02/2015 LITTLE GEGE S CLINIC MANAGER Ot N18.3 10/02/2015 LITTLE, GEGE S CLINIC MANAGER Ot Z79.02 10/02/2015 SIDNEY GEGE S CLINIC MANAGER Ot Z79.82 10/02/2015 LITTLE, GEGE S CLINIC MANAGER Ot Z79.899 10/02/2015 LITTLEGEGE S CLINIC MANAGER Ot Z86.73 10/02/2015 LITTLEGEGE S CLINIC MANAGER Ot Z95.2 10/02/2015 LITTLEGEGE S CLINIC MANAGER Ot Z99.81 10/04/2015 LITTLEGEGE S CLINIC MANAGER Ot D63.1 10/04/2015 SIDNEY GEGE S CLINIC MANAGER Ot J44.9 10/04/2015 SIDNEY GEGE S CLINIC MANAGER Ot N18.3 10/04/2015 SIDNEY GEGE S CLINIC MANAGER Ot Z79.02 10/04/2015 SIDNEY GEGE S CLINIC MANAGER Ot Z79.82 10/04/2015 SIDNEY GEGE S CLINIC MANAGER Ot Z79.899 10/04/2015 SIDNEY GEGE S CLINIC MANAGER Ot Z86.73 10/04/2015 SIDNEY GEGE S CLINIC MANAGER Ot Z95.2 10/04/2015 SIDNEY GEGE S CLINIC MANAGER Ot Z99.81 10/17/2015 SIDNEY GEGE S CLINIC MANAGER Ot D63.1 10/17/2015 SIDNEY GEGE S CLINIC MANAGER Ot J44.9 10/17/2015 SIDNEY GEGE S CLINIC MANAGER Ot N18.3 10/17/2015 SIDNEY GEGE S CLINIC MANAGER Ot Z79.02 10/17/2015 SIDNEY GEGE S CLINIC MANAGER Ot Z79.82 10/17/2015 SIDNEY GEGE S CLINIC MANAGER Ot Z79.899 10/17/2015 SIDNEY GEGE S CLINIC MANAGER Ot Z86.73 10/17/2015 SIDNEY GEGE S CLINIC MANAGER Ot Z95.2 10/17/2015 SIDNEY GEGE S CLINIC MANAGER Ot Z99.81 10/17/2015 SIDNEY GEGE S CLINIC MANAGER Ot D63.1 10/17/2015 SIDNEY GEGE S CLINIC MANAGER Ot J44.9 10/17/2015 SIDNEY GEGE S CLINIC MANAGER Ot N18.3 10/17/2015 SIDNEY GEGE S CLINIC MANAGER Ot Z79.02 10/17/2015 SIDNEY GEGE S CLINIC MANAGER Ot Z79.82 10/17/2015 SIDNEY GEGE S CLINIC MANAGER Ot Z79.899 10/17/2015 LITTLEGEGE Knowles CLINIC MANAGER Ot Z86.73 10/17/2015 SIDNEYGEGE CLINIC MANAGER Ot Z95.2 10/17/2015 LITTLEGEGE Knowles CLINIC MANAGER Ot Z99.81 10/22/2015 NAVYA BELL Ot D63.1 ANEMIA IN CHRONIC KIDNEY DISEASE 10/22/2015 NAVYA BELL N Ot N18.3 CHRONIC KIDNEY DISEASE, STAGE 3 (MODERAT 10/22/2015 NAVYA BELL N Ot Z79.899 OTHER LONG-TERM (CURRENT) DRUG THERAPY 10/24/2015 NAVYA BELL N Ot 285.21 10/24/2015 NAVYA BELL N Ot 585.3 10/24/2015 NAVYA BELL N Ot D63.1 10/24/2015 NAVYA BELL N Ot N18.3 10/24/2015 NAVYA BELL N Ot V58.69 10/24/2015 NAVYA BELL N Ot Z79.899 10/24/2015 SIDNEYGEGE CLINIC MANAGER Ot D63.1 10/24/2015 SIDNEY GEGE Knowles CLINIC MANAGER Ot J44.9 10/24/2015 SIDNEYGEGE CLINIC MANAGER Ot N18.3 10/24/2015 SIDNEY GEGE Knowles CLINIC MANAGER Ot Z79.02 10/24/2015 SIDNEY GEGE S CLINIC MANAGER Ot Z79.82 10/24/2015 SIDNEYGEGE S CLINIC MANAGER Ot Z79.899 10/24/2015 SIDNEY GEGE S CLINIC MANAGER Ot Z86.73 10/24/2015 SIDNEY GEGE S CLINIC MANAGER Ot Z95.2 10/24/2015 SIDNEY GEGE Knowles CLINIC MANAGER Ot Z99.81 10/25/2015 FELIX BARAKAT Ot E78.2 10/25/2015 TAVO CRUZ, FELIX Mar Ot I10 10/25/2015 TAVO CRUZ, FELIX Mar Ot I25.10 11/06/2015 TAVO CRUZ, FELIX Mar Ot E78.2 11/06/2015 TAVO CRUZ, FELIX Mar Ot I10 11/06/2015 TAVO CRUZ, FELIX Mar Ot I25.10 11/14/2015 FELIX BARAKAT Ot E78.2 11/14/2015 FELIX BARAKAT Ot I10 11/14/2015 FELIX BARAKAT Ot I25.10 11/20/2015 SIDNEY GEGE S CLINIC MANAGER Ot D63.1 11/20/2015 SIDNEY GEGE S CLINIC MANAGER Ot J44.9 11/20/2015 SIDNEY GEGE S CLINIC MANAGER Ot N18.3 11/20/2015 SIDNEY GEGE S CLINIC MANAGER Ot Z79.02 11/20/2015 LITTLE, GEGE S CLINIC MANAGER Ot Z79.82 11/20/2015 LITTLE, GEGE S CLINIC MANAGER Ot Z79.899 11/20/2015 SIDNEY GEGE S CLINIC MANAGER Ot Z86.73 11/20/2015 SDINEY GEGE S CLINIC MANAGER Ot Z95.2 11/20/2015 SIDNEY GEGE S CLINIC MANAGER Ot Z99.81 11/30/2015 SIDNEY GEGE S CLINIC MANAGER Ot D63.1 11/30/2015 SIDNEY GEGE S CLINIC MANAGER Ot J44.9 11/30/2015 SIDNEY GEGE S CLINIC MANAGER Ot N18.3 11/30/2015 SIDNEY GEGE S CLINIC MANAGER Ot Z79.02 11/30/2015 SIDNEY GEGE S CLINIC MANAGER Ot Z79.82 11/30/2015 SIDNEY GEGE S CLINIC MANAGER Ot Z79.899 11/30/2015 LITTLE, GEGE S CLINIC MANAGER Ot Z86.73 11/30/2015 SIDNEY GEGE S CLINIC MANAGER Ot Z95.2 11/30/2015 SIDNEY AISHAAH S CLINIC MANAGER Ot Z99.81 12/12/2015 SIDNEY GEGE S CLINIC MANAGER Ot D63.1 12/12/2015 SIDNEY GEGE S CLINIC MANAGER Ot J44.9 12/12/2015 SIDNEY GEGE S CLINIC MANAGER Ot N18.3 12/12/2015 LITTLE AISHAAH S CLINIC MANAGER Ot Z79.02 12/12/2015 LITTLE GEGE S CLINIC MANAGER Ot Z79.82 12/12/2015 SIDNEY GEGE S CLINIC MANAGER Ot Z79.899 12/12/2015 LITTLE, GEGE S CLINIC MANAGER Ot Z86.73 12/12/2015 SIDNEYGEGE S CLINIC MANAGER Ot Z95.2 12/12/2015 SIDNEY GEGE S CLINIC MANAGER Ot Z99.81 12/12/2015 SIDNEYGEGE S CLINIC MANAGER Ot D63.1 12/12/2015 SIDNEYGEGE S CLINIC MANAGER Ot J44.9 12/12/2015 SIDNEY GEGE S CLINIC MANAGER Ot N18.3 12/12/2015 SIDNEY GEGE S CLINIC MANAGER Ot Z79.02 12/12/2015 SIDNEY GEGE S CLINIC MANAGER Ot Z79.82 12/12/2015 SIDNEY GEGE S CLINIC MANAGER Ot Z79.899 12/12/2015 SIDNEY GEGE S CLINIC MANAGER Ot Z86.73 12/12/2015 SIDNEY GEGE S CLINIC MANAGER Ot Z95.2 12/12/2015 SIDNEY GEGE S CLINIC MANAGER Ot Z99.81 12/28/2015 SIDNEY GEGE S CLINIC MANAGER Ot D63.1 12/28/2015 SIDNEY GEGE S CLINIC MANAGER Ot J44.9 12/28/2015 SIDNEY GEGE S CLINIC MANAGER Ot N18.3 12/28/2015 SIDNEY GEGE S CLINIC MANAGER Ot Z79.02 12/28/2015 SIDNEY GEGE S CLINIC MANAGER Ot Z79.82 12/28/2015 SIDNEY GEGE S CLINIC MANAGER Ot Z79.899 12/28/2015 SIDNEY GEGE S CLINIC MANAGER Ot Z86.73 12/28/2015 SIDNEY GEGE S CLINIC MANAGER Ot Z95.2 12/28/2015 SIDNEY GEGE S CLINIC MANAGER Ot Z99.81 01/15/2016 SIDNEY GEGE S CLINIC MANAGER Ot D63.1 01/15/2016 SIDNEY GEGE S CLINIC MANAGER Ot J44.9 01/15/2016 SIDNEY GEGE S CLINIC MANAGER Ot N18.3 01/15/2016 SIDNEY GEGE S CLINIC MANAGER Ot Z79.02 01/15/2016 SIDNEY GEGE S CLINIC MANAGER Ot Z79.82 01/15/2016 SIDNEY GEGE S CLINIC MANAGER Ot Z79.899 01/15/2016 SIDNEY GEGE S CLINIC MANAGER Ot Z86.73 01/15/2016 GEGE LITTLE CLINIC MANAGER Ot Z95.2 01/15/2016 GEGE LITTLE CLINIC MANAGER Ot Z99.81 01/21/2016 NAVYA BELL Ot D63.1 ANEMIA IN CHRONIC KIDNEY DISEASE 01/21/2016 NAVYA BELL N Ot N18.3 CHRONIC KIDNEY DISEASE, STAGE 3 (MODERAT 01/21/2016 NAVYA BELL N Ot Z79.899 OTHER LONG-TERM (CURRENT) DRUG THERAPY 01/22/2016 NAVYA BELL N Ot D63.1 01/22/2016 NAVYA BELL N Ot N18.3 01/22/2016 NAVYA BELL N Ot Z79.899 01/23/2016 NAVYA BELL Ot D63.1 01/23/2016 NAVYA BELL N Ot N18.3 01/23/2016 NAVYA BELL N Ot Z79.899 01/24/2016 WILFRED ELENA MD Ot E78.2 01/24/2016 WILFRED ELENA MD Ot I10 01/24/2016 WILFRED ELENA MD Ot I25.10 01/24/2016 WILFRED ELENA MD Ot I65.23 01/24/2016 WILFRED ELENA MD Ot R06.02 01/25/2016 GEGE LITTLE CLINIC MANAGER Ot D63.1 01/25/2016 GEGE LITTLE CLINIC MANAGER Ot J44.9 01/25/2016 GEGE LITTLE CLINIC MANAGER Ot N18.3 01/25/2016 GEGE LITTLE CLINIC MANAGER Ot Z79.02 01/25/2016 GEGE LITTLE CLINIC MANAGER Ot Z79.82 01/25/2016 GEGE LITTLE CLINIC MANAGER Ot Z79.899 01/25/2016 GEGE LITTLE CLINIC MANAGER Ot Z86.73 01/25/2016 GEGE LITTLE CLINIC MANAGER Ot Z95.2 01/25/2016 GEGE LITTLE CLINIC MANAGER Ot Z99.81 02/06/2016 WILFRED ELENA MD Ot E11.40 TYPE 2 DIABETES MELLITUS WITH DIABETIC N 02/06/2016 WILFRED ELENA MD Ot E66.01 MORBID (SEVERE) OBESITY DUE TO EXCESS CA 02/06/2016 WILFRED ELENA MD, Ot I13.0 HYP HRT CHR KDNY DIS W HRT FAIL AND ST 02/06/2016 WILFRED ELENA MD, Ot I25.10 ATHSCL HEART DISEASE OF [place] CORONARY 02/06/2016 WILFRED ELENA MD, Ot I27.2 OTHER SECONDARY PULMONARY HYPERTENSION 02/06/2016 WILFRED ELENA MD Ot I35.8 OTHER NONRHEUMATIC AORTIC VALVE DISORDER 02/06/2016 WILFRED ELENA MD, Ot I50.32 CHRONIC DIASTOLIC (CONGESTIVE) HEART MARCELLA 02/06/2016 WILFRED ELENA MD, Ot J44.9 CHRONIC OBSTRUCTIVE PULMONARY DISEASE, U 02/06/2016 WILFRED ELENA MD, Ot N18.9 CHRONIC KIDNEY DISEASE, UNSPECIFIED 02/06/2016 WILFRED ELENA MD Ot R26.81 UNSTEADINESS ON FEET 02/06/2016 WILFRED ELENA MD, Ot R94.39 ABNORMAL RESULT OF OTHER CARDIOVASCULAR 02/06/2016 WILFRED ELENA MD Ot Z68.41 BODY MASS INDEX (BMI) 40.0-44.9, ADULT 02/06/2016 WILFRED ELENA MD Ot Z79.4 FRONT DESK HOST (CURRENT) USE OF INSULIN 02/06/2016 WILFRED ELENA MD, Ot Z79.899 OTHER LONG-TERM (CURRENT) DRUG THERAPY 02/06/2016 WILFRED ELENA MD, Ot Z86.73 PRSNL HX OF TIA (TIA), AND CEREB INFRC W 02/06/2016 WILFRED ELENA MD Ot Z95.2 PRESENCE OF PROSTHETIC HEART VALVE 02/06/2016 WILFRED ELENA MD Ot Z95.5 PRESENCE OF CORONARY ANGIOPLASTY IMPLANT 02/07/2016 GEGE LITTLE Ot D63.1 ANEMIA IN CHRONIC KIDNEY DISEASE 02/07/2016 GEGE LITTLE Ot J44.9 CHRONIC OBSTRUCTIVE PULMONARY DISEASE, U 02/07/2016 GEGE LITTLE Ot N18.3 CHRONIC KIDNEY DISEASE, STAGE 3 ( MODERAT 02/07/2016 GEGE LITTLE Ot Z79.02 LONG-TERM (CURRENT) USE OF ANTITHROMBOTI 02/07/2016 GEGE LITTLE Ot Z79.82 LONG-TERM (CURRENT) USE OF ASPIRIN 02/07/2016 GEGE LITTLE CLINIC MANAGER Ot Z79.899 OTHER LONG-TERM (CURRENT) DRUG THERAPY 02/07/2016 AISHA LITTLEWILLIAM S CLINIC MANAGER Ot Z86.73 PRSNL HX OF TIA (TIA), AND CEREB INFRC W 02/07/2016 LITTLEGEGE Knowles S CLINIC MANAGER Ot Z95.2 PRESENCE OF PROSTHETIC HEART VALVE 02/07/2016 AISHA LITTLEWILLIAM S CLINIC MANAGER Ot Z99.81 DEPENDENCE ON SUPPLEMENTAL OXYGEN 02/07/2016 AISHA LITTLEWILLIAM S CLINIC MANAGER Ot D63.1 ANEMIA IN CHRONIC KIDNEY DISEASE 02/07/2016 GEGE LITTLE CLINIC MANAGER Ot J44.9 CHRONIC OBSTRUCTIVE PULMONARY DISEASE, U 02/07/2016 GEGE LITTLE CLINIC MANAGER Ot N18.3 CHRONIC KIDNEY DISEASE, STAGE 3 ( MODERAT 02/07/2016 GEGE LITTLE CLINIC MANAGER Ot Z79.02 FRONT DESK HOST (CURRENT) USE OF ANTITHROMBOTI 02/07/2016 GEGE LITTLE S CLINIC MANAGER Ot Z79.82 LONG-TERM (CURRENT) USE OF ASPIRIN 02/07/2016 GEGE LITTLE S CLINIC MANAGER Ot Z79.899 OTHER FRONT DESK HOST (CURRENT) DRUG THERAPY 02/07/2016 GEGE LITTLE S CLINIC MANAGER Ot Z86.73 PRSNL HX OF TIA (TIA), AND CEREB INFRC W 02/07/2016 AISHA LITTLEWILLIAM S CLINIC MANAGER Ot Z95.2 PRESENCE OF PROSTHETIC HEART VALVE 02/07/2016 GEGE LITTLE CLINIC MANAGER Ot Z99.81 DEPENDENCE ON SUPPLEMENTAL OXYGEN 02/07/2016 GEGE LITTLE CLINIC MANAGER Ot D63.1 ANEMIA IN CHRONIC KIDNEY DISEASE 02/07/2016 GEGE LITTLE CLINIC MANAGER Ot J44.9 CHRONIC OBSTRUCTIVE PULMONARY DISEASE, U 02/07/2016 GEGE LITTLE CLINIC MANAGER Ot N18.3 CHRONIC KIDNEY DISEASE, STAGE 3 ( MODERAT 02/07/2016 GEGE LITTLE S CLINIC MANAGER Ot Z79.02 FRONT DESK HOST (CURRENT) USE OF ANTITHROMBOTI 02/07/2016 GEGE LITTLE S CLINIC MANAGER Ot Z79.82 FRONT DESK HOST (CURRENT) USE OF ASPIRIN 02/07/2016 GEGE LITTLE S CLINIC MANAGER Ot Z79.899 OTHER FRONT DESK HOST (CURRENT) DRUG THERAPY 02/07/2016 GEGE LITTLE CLINIC MANAGER Ot Z86.73 PRSNL HX OF TIA (TIA), AND CEREB INFRC W 02/07/2016 LITTLE, AISHAWILLIAM Knowles PANCHO Ot Z95.2 PRESENCE OF PROSTHETIC HEART VALVE 02/07/2016 GEGE LITTLE Benson PANCHO Ot Z99.81 DEPENDENCE ON SUPPLEMENTAL OXYGEN 02/12/2016 WILFRED ELENA MD, Ot E78.2 MIXED HYPERLIPIDEMIA 02/12/2016 WILFRED ELENA MD Ot I10 ESSENTIAL (PRIMARY) HYPERTENSION 02/12/2016 WILFRED ELENA MD, Ot I25.10 ATHSCL HEART DISEASE OF [place] CORONARY 02/12/2016 WILFRED ELENA MD, Ot I65.23 OCCLUSION AND STENOSIS OF [place] 02/12/2016 WILFRED ELENA MD Ot R06.02 SHORTNESS OF BREATH 02/18/2016 WILFRED ELENA MD Ot E11.40 TYPE 2 DIABETES MELLITUS WITH DIABETIC N 02/18/2016 WILFRED ELENA MD Ot E66.01 MORBID (SEVERE) OBESITY DUE TO EXCESS CA 02/18/2016 WILFRED ELENA MD Ot I13.0 HYP HRT CHR KD[place] DIS W HRT FAIL AND ST 02/18/2016 WILFRED ELENA MD, Ot I25.10 ATHSCL HEART DISEASE OF [place] CORONARY 02/18/2016 WILFRED ELENA MD, Ot I27.2 OTHER SECONDARY PULMONARY HYPERTENSION 02/18/2016 WILFRED ELENA MD Ot I35.8 OTHER NONRHEUMATIC AORTIC VALVE DISORDER 02/18/2016 WILFRED ELENA MD Ot I50.32 CHRONIC DIASTOLIC (CONGESTIVE) HEART [place] 02/18/2016 WILFRED ELENA MD, Ot J44.9 CHRONIC OBSTRUCTIVE PULMONARY DISEASE, U 02/18/2016 WILFRED ELENA MD, Ot N18.9 CHRONIC KIDNEY DISEASE, UNSPECIFIED 02/18/2016 WILFRED ELENA MD Ot R26.81 UNSTEADINESS ON FEET 02/18/2016 WILFRED ELENA MD, Ot R94.39 ABNORMAL RESULT OF OTHER CARDIOVASCULAR 02/18/2016 WILFRED ELENA MD, Ot Z68.41 BODY MASS INDEX (BMI) 40.0-44.9, ADULT 02/18/2016 WILFRED ELENA MD, Ot Z79.4 LONG-TERM (CURRENT) USE OF INSULIN 02/18/2016 WILFRED ELENA MD Ot Z79.899 OTHER LONG-TERM (CURRENT) DRUG THERAPY 02/18/2016 WILFRED ELENA MD Ot Z86.73 PRSNL HX OF TIA (TIA), AND CEREB INFRC W 02/18/2016 WILFRED ELENA MD Ot Z95.2 PRESENCE OF PROSTHETIC HEART VALVE 02/18/2016 WILFRED ELENA MD Ot Z95.5 PRESENCE OF CORONARY ANGIOPLASTY IMPLANT 02/20/2016 GEGE LITTLE Ot D63.1 ANEMIA IN CHRONIC KIDNEY DISEASE 02/20/2016 GEGE LITTLE Ot J44.9 CHRONIC OBSTRUCTIVE PULMONARY DISEASE, U 02/20/2016 GEGE LITTLE Ot N18.3 CHRONIC KIDNEY DISEASE, STAGE 3 ( MODERAT 02/20/2016 GEGE LITTLE Ot Z79.02 FRONT DESK HOST (CURRENT) USE OF ANTITHROMBOTI 02/20/2016 GEGE LITTLEP Ot Z79.82 FRONT DESK HOST (CURRENT) USE OF ASPIRIN 02/20/2016 GEGE LITTLE Ot Z79.899 OTHER FRONT DESK HOST (CURRENT) DRUG THERAPY 02/20/2016 GEGE LITTEL Ot Z86.73 PRSNL HX OF TIA (TIA), AND CEREB INFRC W 02/20/2016 GEGE LITTLE Ot Z95.2 PRESENCE OF PROSTHETIC HEART VALVE 02/20/2016 GEGE LITTLE Ot Z99.81 DEPENDENCE ON SUPPLEMENTAL OXYGEN 02/22/2016 WILFRED ELENA MD Ot E78.2 MIXED HYPERLIPIDEMIA 02/22/2016 WILFRED ELENA MD Ot I10 ESSENTIAL (PRIMARY) HYPERTENSION 02/22/2016 WILFRED ELENA MD Ot I25.10 ATHSCL HEART DISEASE OF [place] CORONARY 02/22/2016 WILFRED ELENA MD Ot I65.23 OCCLUSION AND STENOSIS OF [place] 02/22/2016 WILFRED ELENA MD Ot R06.02 SHORTNESS OF BREATH 03/06/2016 WILFRED ELENA MD Ot E78.2 MIXED HYPERLIPIDEMIA 03/06/2016 WILFRED ELENA MD Ot I10 ESSENTIAL (PRIMARY) HYPERTENSION 03/06/2016 WILFRED ELENA MD Ot I25.10 ATHSCL HEART DISEASE OF [place] CORONARY 03/06/2016 WILFRED ELENA MD Ot I65.23 OCCLUSION AND STENOSIS OF [place] 03/06/2016 WILFRED ELENA MD Ot R06.02 SHORTNESS OF BREATH 03/06/2016 WILFRED ELENA MD Ot E78.2 MIXED HYPERLIPIDEMIA 03/06/2016 WILFRED ELENA MD Ot I10 ESSENTIAL (PRIMARY) HYPERTENSION 03/06/2016 WILFRED ELENA MD Ot I25.10 ATHSCL HEART DISEASE OF [place] CORONARY 03/06/2016 WILFRED ELENA MD Ot I65.23 OCCLUSION AND STENOSIS OF [place] 03/06/2016 WILFRED ELENA MD Ot R06.02 SHORTNESS OF BREATH 03/10/2016 NAVYA BELL Ot D63.1 ANEMIA IN CHRONIC KIDNEY DISEASE 03/10/2016 NAVYA BELL Ot N18.3 CHRONIC KIDNEY DISEASE, STAGE 3 (MODERAT 03/10/2016 NAVYA BELL Ot Z79.899 OTHER FRONT DESK HOST (CURRENT) DRUG THERAPY 03/11/2016 Ot 241.0 NONTOX UNINODULAR GOITER 03/11/2016 Ot 250.00 DIAB ANGEL WO COMPL, TYPE II OR UNSPEC TY 03/11/2016 Ot 285.9 ANEMIA NOS 03/11/2016 Ot 428.0 CONGESTIVE HEART FAILURE NOS 03/11/2016 Ot 459.81 VENOUS INSUFFICIENCY NOS 03/11/2016 Ot 709.8 SKIN DISORDERS NEC 03/11/2016 Ot 782.3 EDEMA 03/11/2016 GEGE LITTLEP Ot 285.9 ANEMIA NOS 03/11/2016 GEGE LITTLEP Ot 285.21 ANEMIA IN CHRONIC KIDNEY DISEASE 03/11/2016 GEGE LITTLEP Ot 585.3 CHRONIC KIDNEY DISEASE, STAGE III ( MODER 03/11/2016 GEGE LITTLE Ot V12.54 PERSONAL HX OF TIA, CEREBRAL INFARCTION 03/11/2016 GEGE LITTLE Ot V58.63 LONG-TERM(CURRENT)USE OF ANTIPLATELET/ AN 03/11/2016 GEGE LITTLE Ot V58.66 LONG-TERM (CURRENT) USE OF ASPIRIN 03/11/2016 GEGE LITTLE Ot V58.69 OTH MED,LT,CURRENT USE 03/11/2016 LITTLE, HILAH S CLINIC MANAGER Ot 285.21 ANEMIA IN CHRONIC KIDNEY DISEASE 03/11/2016 GEGE LITTLE CLINIC MANAGER Ot 585.3 CHRONIC KIDNEY DISEASE, STAGE III ( MODER 03/11/2016 GEGE LITTLE CLINIC MANAGER Ot V12.54 PERSONAL HX OF TIA, CEREBRAL INFARCTION 03/11/2016 GEGE LITTLE CLINIC MANAGER Ot V58.63 LONG-TERM(CURRENT)USE OF ANTIPLATELET/ AN 03/11/2016 GEGE LITTLE CLINIC MANAGER Ot V58.66 LONG-TERM (CURRENT) USE OF ASPIRIN 03/11/2016 GEGE LITTLE CLINIC MANAGER Ot V58.69 OTH MED,LT,CURRENT USE 03/11/2016 GEGE LITTLE CLINIC MANAGER Ot 285.21 ANEMIA IN CHRONIC KIDNEY DISEASE 03/11/2016 GEGE LITTLE CLINIC MANAGER Ot 585.3 CHRONIC KIDNEY DISEASE, STAGE III ( MODER 03/11/2016 GEGE LITTLE CLINIC MANAGER Ot V12.54 PERSONAL HX OF TIA, CEREBRAL INFARCTION 03/11/2016 GEGE LITTLE CLINIC MANAGER Ot V58.63 LONG-TERM(CURRENT)USE OF ANTIPLATELET/ AN 03/11/2016 GEGE LITTLE CLINIC MANAGER Ot V58.66 LONG-TERM (CURRENT) USE OF ASPIRIN 03/11/2016 GEGE LITTLE CLINIC MANAGER Ot V58.69 OTH MED,LT,CURRENT USE 03/11/2016 WILFRED ELENA MD Ot 397.0 TRICUSPID VALVE DISEASE 03/11/2016 WILFRED ELENA MD Ot 401.9 HYPERTENSION NOS 03/11/2016 WILFRED ELENA MD Ot 414.00 CORON ATHEROSCLER NOS TYPE VESSEL, NATIV 03/11/2016 WILFRED ELENA MD Ot 424.0 MITRAL VALVE DISORDER 03/11/2016 WILFRED ELENA MD Ot 427.89 CARDIAC DYSRHYTHMIAS NEC 03/11/2016 WILFRED ELENA MD Ot 428.0 CONGESTIVE HEART FAILURE NOS 03/11/2016 WILFRED ELENA MD Ot 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 03/11/2016 GEGE LITTLE CLINIC MANAGER Ot 285.21 ANEMIA IN CHRONIC KIDNEY DISEASE 03/11/2016 GEGE LITTLE CLINIC MANAGER Ot 585.3 CHRONIC KIDNEY DISEASE, STAGE III ( MODER 03/11/2016 GEGE LITTLE CLINIC MANAGER Ot V12.54 PERSONAL HX OF TIA, CEREBRAL INFARCTION 03/11/2016 GEGE LITTLE CLINIC MANAGER Ot V58.63 LONG-TERM(CURRENT)USE OF ANTIPLATELET/ AN 03/11/2016 GEGE LITTLE CLINIC MANAGER Ot V58.66 LONG-TERM (CURRENT) USE OF ASPIRIN 03/11/2016 GEGE LITTLE CLINIC MANAGER Ot V58.69 OTH MED,LT,CURRENT USE 03/11/2016 GEGE LITTLE CLINIC MANAGER Ot 285.21 ANEMIA IN CHRONIC KIDNEY DISEASE 03/11/2016 GEGE LITTLE CLINIC MANAGER Ot 585.3 CHRONIC KIDNEY DISEASE, STAGE III ( MODER 03/11/2016 GEGE LITTLE CLINIC MANAGER Ot V12.54 PERSONAL HX OF TIA, CEREBRAL INFARCTION 03/11/2016 GEGE LITTLE CLINIC MANAGER Ot V58.63 LONG-TERM(CURRENT)USE OF ANTIPLATELET/ AN 03/11/2016 GEGE LITTLE CLINIC MANAGER Ot V58.66 LONG-TERM (CURRENT) USE OF ASPIRIN 03/11/2016 GEGE LITTLE CLINIC MANAGER Ot V58.69 OTH MED,LT,CURRENT USE 03/11/2016 GEGE LITTLE CLINIC MANAGER Ot 285.21 ANEMIA IN CHRONIC KIDNEY DISEASE 03/11/2016 GEGE LITTLE CLINIC MANAGER Ot 585.3 CHRONIC KIDNEY DISEASE, STAGE III ( MODER 03/11/2016 GEGE LITTLE CLINIC MANAGER Ot V12.54 PERSONAL HX OF TIA, CEREBRAL INFARCTION 03/11/2016 GEGE LITTLE CLINIC MANAGER Ot V58.69 OTH MED,LT,CURRENT USE 03/11/2016 GEGE LITTLE CLINIC MANAGER Ot 285.21 ANEMIA IN CHRONIC KIDNEY DISEASE 03/11/2016 GEGE LITTLE CLINIC MANAGER Ot 585.3 CHRONIC KIDNEY DISEASE, STAGE III ( MODER 03/11/2016 GEGE LITTLE CLINIC MANAGER Ot V12.54 PERSONAL HX OF TIA, CEREBRAL INFARCTION 03/11/2016 GEGE LITTLE CLINIC MANAGER Ot V58.61 ANTICOAGULANTS,LT,CURRENT USE 03/11/2016 GEGE LITTLE CLINIC MANAGER Ot V58.63 LONG-TERM(CURRENT)USE OF ANTIPLATELET/ AN 03/11/2016 GEGE LITTLE CLINIC MANAGER Ot V58.66 LONG-TERM (CURRENT) USE OF ASPIRIN 03/11/2016 GEGE LITTLEP Ot V58.69 OTH MED,LT,CURRENT USE 03/11/2016 WILFRED ELENA MD Ot 396.3 MITRAL/AORTIC XENIA INSUFF 03/11/2016 WILFRED ELENA MD Ot 397.0 TRICUSPID VALVE DISEASE 03/11/2016 WILFRED ELENA MD Ot 401.9 HYPERTENSION NOS 03/11/2016 WILFRED ELENA MD Ot 414.00 CORON ATHEROSCLER NOS TYPE VESSEL, NATIV 03/11/2016 WILFRED ELENA MD Ot 428.0 CONGESTIVE HEART FAILURE NOS 03/11/2016 WILFRED ELENA MD Ot 429.3 CARDIOMEGALY 03/11/2016 GEGE LITTLEP Ot 285.21 ANEMIA IN CHRONIC KIDNEY DISEASE 03/11/2016 GEGE LITTLEP Ot 585.3 CHRONIC KIDNEY DISEASE, STAGE III ( MODER 03/11/2016 GEGE LITTLEP Ot V12.54 PERSONAL HX OF TIA, CEREBRAL INFARCTION 03/11/2016 GEGE LITTLEP Ot V58.61 ANTICOAGULANTS,LT,CURRENT USE 03/11/2016 GEGE LITTLE CLINIC MANAGER Ot V58.63 LONG-TERM(CURRENT)USE OF ANTIPLATELET/ AN 03/11/2016 GEGE LITTLE CLINIC MANAGER Ot V58.66 LONG-TERM (CURRENT) USE OF ASPIRIN 03/11/2016 GEGE LITTLEP Ot V58.69 OTH MED,LT,CURRENT USE 03/11/2016 GEGE LITTLE CLINIC MANAGER Ot 285.21 ANEMIA IN CHRONIC KIDNEY DISEASE 03/11/2016 GEGE LITTLE CLINIC MANAGER Ot 496 CHR AIRWAY OBSTRUCT NEC 03/11/2016 GEGE LITTLE CLINIC MANAGER Ot 585.3 CHRONIC KIDNEY DISEASE, STAGE III ( MODER 03/11/2016 GEGE LITTLE CLINIC MANAGER Ot V12.54 PERSONAL HX OF TIA, CEREBRAL INFARCTION 03/11/2016 GEGE LITTLEP Ot V46.2 SUPPLEMENTAL OXYGEN 03/11/2016 GEGE LITTLE CLINIC MANAGER Ot V58.63 LONG-TERM(CURRENT)USE OF ANTIPLATELET/ AN 03/11/2016 GEGE LITTLE CLINIC MANAGER Ot V58.66 LONG-TERM (CURRENT) USE OF ASPIRIN 03/11/2016 GEGE LITTLE Ot V58.69 OTH MED,LT,CURRENT USE 03/11/2016 WILFRED ELENA MD Ot 414.00 CORON ATHEROSCLER NOS TYPE VESSEL, NATIV 03/11/2016 WILFRED ELENA MD Ot 424.1 AORTIC VALVE DISORDER 03/11/2016 WILFRED ELENA MD Ot 428.0 CONGESTIVE HEART FAILURE NOS 03/11/2016 WILFRED ELENA MD Ot 433.10 CAROTID ARTERY OCCLUSION W O CEREBRAL IN 03/11/2016 WILFRED ELENA MD Ot 272.4 HYPERLIPIDEMIA NEC/NOS 03/11/2016 WILFRED ELENA MD Ot 401.9 HYPERTENSION NOS 03/11/2016 WILFRED ELENA MD Ot 414.01 CORONARY ATHEROSCLEROSIS OF [place] CORON 03/11/2016 WILFRED ELENA MD Ot 424.1 AORTIC VALVE DISORDER 03/11/2016 GEGE LITTLEP Ot 285.21 ANEMIA IN CHRONIC KIDNEY DISEASE 03/11/2016 GEGE LITTLEP Ot 496 CHR AIRWAY OBSTRUCT NEC 03/11/2016 GEGE LITTLEP Ot 585.3 CHRONIC KIDNEY DISEASE, STAGE III ( MODER 03/11/2016 GEGE LITTLE Ot D63.1 ANEMIA IN CHRONIC KIDNEY DISEASE 03/11/2016 GEGE LITTLEP Ot J44.9 CHRONIC OBSTRUCTIVE PULMONARY DISEASE, U 03/11/2016 GEGE LITTLEP Ot N18.3 CHRONIC KIDNEY DISEASE, STAGE 3 ( MODERAT 03/11/2016 GEGE LITTLEP Ot V12.54 PERSONAL HX OF TIA, CEREBRAL INFARCTION 03/11/2016 GEGE LITTLEP Ot V46.2 SUPPLEMENTAL OXYGEN 03/11/2016 GEGE LITTLEP Ot V58.63 LONG-TERM(CURRENT)USE OF ANTIPLATELET/ AN 03/11/2016 GEGE LITTLE Ot V58.66 LONG-TERM (CURRENT) USE OF ASPIRIN 03/11/2016 GEGE LITTLE Ot V58.69 OTH MED,LT,CURRENT USE 03/11/2016 GEGE LITTLEP Ot Z79.02 LONG-TERM (CURRENT) USE OF ANTITHROMBOTI 03/11/2016 SIDNEY GEGE Knowles CLINIC MANAGER Ot Z79.82 LONG-TERM (CURRENT) USE OF ASPIRIN 03/11/2016 SIDNEY GEGE Knowles CLINIC MANAGER Ot Z86.73 PRSNL HX OF TIA (TIA), AND CEREB INFRC W 03/11/2016 LITTLEGEGE Knowles CLINIC MANAGER Ot Z99.81 DEPENDENCE ON SUPPLEMENTAL OXYGEN 03/11/2016 AISHA LITTLEWILLIAM Knowles CLINIC MANAGER Ot D63.1 ANEMIA IN CHRONIC KIDNEY DISEASE 03/11/2016 GEGE LITTLE CLINIC MANAGER Ot J44.9 CHRONIC OBSTRUCTIVE PULMONARY DISEASE, U 03/11/2016 SIDNEY GEGE Knowles CLINIC MANAGER Ot N18.3 CHRONIC KIDNEY DISEASE, STAGE 3 ( MODERAT 03/11/2016 GEGE LITTLE CLINIC MANAGER Ot Z79.02 FRONT DESK HOST (CURRENT) USE OF ANTITHROMBOTI 03/11/2016 GEGE LITTLE CLINIC MANAGER Ot Z79.82 LONG-TERM (CURRENT) USE OF ASPIRIN 03/11/2016 AISHA LITTLEWILLIAM Knowles CLINIC MANAGER Ot Z79.899 OTHER LONG-TERM (CURRENT) DRUG THERAPY 03/11/2016 SIDNEY GEGE Knowles CLINIC MANAGER Ot Z86.73 PRSNL HX OF TIA (TIA), AND CEREB INFRC W 03/11/2016 SIDNEY GEGE Knowles CLINIC MANAGER Ot Z95.2 PRESENCE OF PROSTHETIC HEART VALVE 03/11/2016 AISHA LITTLEWILLIAM Knowles CLINIC MANAGER Ot Z99.81 DEPENDENCE ON SUPPLEMENTAL OXYGEN 03/11/2016 FELIX BARAKAT Ot E78.2 MIXED HYPERLIPIDEMIA 03/11/2016 FELIX BARAKAT Ot I10 ESSENTIAL (PRIMARY) HYPERTENSION 03/11/2016 FELIX BARAKAT Ot I25.10 ATHSCL HEART DISEASE OF [place] CORONARY 03/11/2016 AISHA LITTLEWILLIAM Knowles CLINIC MANAGER Ot D63.1 ANEMIA IN CHRONIC KIDNEY DISEASE 03/11/2016 GEGE LITTLE CLINIC MANAGER Ot J44.9 CHRONIC OBSTRUCTIVE PULMONARY DISEASE, U 03/11/2016 AISHA LITTLEWILLIAM Knowles CLINIC MANAGER Ot N18.3 CHRONIC KIDNEY DISEASE, STAGE 3 ( MODERAT 03/11/2016 GEGE LITTLE CLINIC MANAGER Ot Z79.02 FRONT DESK HOST (CURRENT) USE OF ANTITHROMBOTI 03/11/2016 GEGE LITTLE CLINIC MANAGER Ot Z79.82 LONG-TERM (CURRENT) USE OF ASPIRIN 03/11/2016 GEGE LITTLE CLINIC MANAGER Ot Z79.899 OTHER FRONT DESK HOST (CURRENT) DRUG THERAPY 03/11/2016 GEGE LITTLE CLINIC MANAGER Ot Z86.73 PRSNL HX OF TIA (TIA), AND CEREB INFRC W 03/11/2016 LITTLEGEGE Knowles CLINIC MANAGER Ot Z95.2 PRESENCE OF PROSTHETIC HEART VALVE 03/11/2016 LITTLEGEGE Knowles CLINIC MANAGER Ot Z99.81 DEPENDENCE ON SUPPLEMENTAL OXYGEN 03/11/2016 GEGE LITTLE CLINIC MANAGER Ot D63.1 ANEMIA IN CHRONIC KIDNEY DISEASE 03/11/2016 LITTLEGEGE Knowles CLINIC MANAGER Ot J44.9 CHRONIC OBSTRUCTIVE PULMONARY DISEASE, U 03/11/2016 GEGE LITTLE CLINIC MANAGER Ot N18.3 CHRONIC KIDNEY DISEASE, STAGE 3 ( MODERAT 03/11/2016 LITTLEGEGE Knowles CLINIC MANAGER Ot Z79.02 FRONT DESK HOST (CURRENT) USE OF ANTITHROMBOTI 03/11/2016 LITTLEGEGE Knowles CLINIC MANAGER Ot Z79.82 FRONT DESK HOST (CURRENT) USE OF ASPIRIN 03/11/2016 GEEG LITTLE CLINIC MANAGER Ot Z79.899 OTHER LONG-TERM (CURRENT) DRUG THERAPY 03/11/2016 GEGE LITTLE CLINIC MANAGER Ot Z86.73 PRSNL HX OF TIA (TIA), AND CEREB INFRC W 03/11/2016 GEGE LITTLE CLINIC MANAGER Ot Z95.2 PRESENCE OF PROSTHETIC HEART VALVE 03/11/2016 GEGE LITTLE CLINIC MANAGER Ot Z99.81 DEPENDENCE ON SUPPLEMENTAL OXYGEN 03/11/2016 WILFRED ELENA MD Ot E78.2 MIXED HYPERLIPIDEMIA 03/11/2016 WILFRED ELENA MD Ot I10 ESSENTIAL (PRIMARY) HYPERTENSION 03/11/2016 WILFRED ELENA MD Ot I25.10 ATHSCL HEART DISEASE OF [place] CORONARY 03/11/2016 WILFRED ELENA MD Ot I65.23 OCCLUSION AND STENOSIS OF BILATERAL [place] 03/11/2016 WILFRED ELENA MD Ot R06.02 SHORTNESS OF BREATH 03/11/2016 NAVYA BELL Ot D63.1 ANEMIA IN CHRONIC KIDNEY DISEASE 03/11/2016 NAVYA BELL Ot N18.3 CHRONIC KIDNEY DISEASE, STAGE 3 (MODERAT 03/11/2016 NAVYA BELL Ot Z79.899 OTHER LONG-TERM (CURRENT) DRUG THERAPY 03/11/2016 LITTLEGEGE Knowles S CLINIC MANAGER Ot D63.1 ANEMIA IN CHRONIC KIDNEY DISEASE 03/11/2016 GEGE LITTLE S CLINIC MANAGER Ot J44.9 CHRONIC OBSTRUCTIVE PULMONARY DISEASE, U 03/11/2016 GEGE LITTLE S CLINIC MANAGER Ot N18.3 CHRONIC KIDNEY DISEASE, STAGE 3 ( MODERAT 03/11/2016 LITTLEGEGE S CLINIC MANAGER Ot Z79.02 FRONT DESK HOST (CURRENT) USE OF ANTITHROMBOTI 03/11/2016 LITTLEAISHAAH S CLINIC MANAGER Ot Z79.82 LONG-TERM (CURRENT) USE OF ASPIRIN 03/11/2016 LITTLE, HILAH S CLINIC MANAGER Ot Z79.899 OTHER FRONT DESK HOST (CURRENT) DRUG THERAPY 03/11/2016 LITTLE, AISHAAH S CLINIC MANAGER Ot Z86.73 PRSNL HX OF TIA (TIA), AND CEREB INFRC W 03/11/2016 LITTLE, HILAH S CLINIC MANAGER Ot Z95.2 PRESENCE OF PROSTHETIC HEART VALVE 03/11/2016 LITTLE, HILAH S CLINIC MANAGER Ot Z99.81 DEPENDENCE ON SUPPLEMENTAL OXYGEN 03/11/2016 LITTLEGEGE S CLINIC MANAGER Ot D63.1 ANEMIA IN CHRONIC KIDNEY DISEASE 03/11/2016 LITTLEGEGE Knowles S CLINIC MANAGER Ot J44.9 CHRONIC OBSTRUCTIVE PULMONARY DISEASE, U 03/11/2016 GEGE LITTLE S CLINIC MANAGER Ot N18.3 CHRONIC KIDNEY DISEASE, STAGE 3 ( MODERAT 03/11/2016 LITTLEGEGE S CLINIC MANAGER Ot Z79.02 LONG-TERM (CURRENT) USE OF ANTITHROMBOTI 03/11/2016 LITTLE HILAH S CLINIC MANAGER Ot Z79.82 FRONT DESK HOST (CURRENT) USE OF ASPIRIN 03/11/2016 LITTLE, HILAH S CLINIC MANAGER Ot Z79.899 OTHER FRONT DESK HOST (CURRENT) DRUG THERAPY 03/11/2016 LITTLE, HILAH S CLINIC MANAGER Ot Z86.73 PRSNL HX OF TIA (TIA), AND CEREB INFRC W 03/11/2016 LITTLE, HILAH S CLINIC MANAGER Ot Z95.2 PRESENCE OF PROSTHETIC HEART VALVE 03/11/2016 LITTLE, HILAH S CLINIC MANAGER Ot Z99.81 DEPENDENCE ON SUPPLEMENTAL OXYGEN 03/18/2016 NAVYA BELL Ot D63.1 ANEMIA IN CHRONIC KIDNEY DISEASE 03/18/2016 NAVYA BELL N Ot N18.3 CHRONIC KIDNEY DISEASE, STAGE 3 (MODERAT 03/18/2016 NAVYA BELL N Ot Z79.899 OTHER FRONT DESK HOST (CURRENT) DRUG THERAPY 03/18/2016 NAVYA BELL Ot D63.1 ANEMIA IN CHRONIC KIDNEY DISEASE 03/18/2016 NAVYA BELL N Ot N18.3 CHRONIC KIDNEY DISEASE, STAGE 3 (MODERAT 03/18/2016 NAVYA BELL N Ot Z79.899 OTHER LONG-TERM (CURRENT) DRUG THERAPY 03/20/2016 GEGE LITTLE CLINIC MANAGER Ot D63.1 ANEMIA IN CHRONIC KIDNEY DISEASE 03/20/2016 GEGE LITTLEP Ot J44.9 CHRONIC OBSTRUCTIVE PULMONARY DISEASE, U 03/20/2016 GEGE LITTLEP Ot N18.3 CHRONIC KIDNEY DISEASE, STAGE 3 ( MODERAT 03/20/2016 GEGE LITTLEP Ot Z79.02 FRONT DESK HOST (CURRENT) USE OF ANTITHROMBOTI 03/20/2016 GEGE LITTLE CLINIC MANAGER Ot Z79.82 LONG-TERM (CURRENT) USE OF ASPIRIN 03/20/2016 GEGE LITTLEP Ot Z79.899 OTHER LONG-TERM (CURRENT) DRUG THERAPY 03/20/2016 GEGE LITTLE CLINIC MANAGER Ot Z86.73 PRSNL HX OF TIA (TIA), AND CEREB INFRC W 03/20/2016 GEGE LITTLEP Ot Z95.2 PRESENCE OF PROSTHETIC HEART VALVE 03/20/2016 GEGE LITTLE CLINIC MANAGER Ot Z99.81 DEPENDENCE ON SUPPLEMENTAL OXYGEN 03/25/2016 GEGE LITTLEP Ot D63.1 ANEMIA IN CHRONIC KIDNEY DISEASE 03/25/2016 GEGE LITTLEP Ot J44.9 CHRONIC OBSTRUCTIVE PULMONARY DISEASE, U 03/25/2016 GEGE LITTLE CLINIC MANAGER Ot N18.3 CHRONIC KIDNEY DISEASE, STAGE 3 ( MODERAT 03/25/2016 GEGE LITTLE CLINIC MANAGER Ot Z79.02 LONG-TERM (CURRENT) USE OF ANTITHROMBOTI 03/25/2016 GEGE LITTLE CLINIC MANAGER Ot Z79.82 LONG-TERM (CURRENT) USE OF ASPIRIN 03/25/2016 GEGE LITTLE CLINIC MANAGER Ot Z79.899 OTHER FRONT DESK HOST (CURRENT) DRUG THERAPY 03/25/2016 GEGE LITTLE CLINIC MANAGER Ot Z86.73 PRSNL HX OF TIA (TIA), AND CEREB INFRC W 03/25/2016 GEGE LITTLE CLINIC MANAGER Ot Z95.2 PRESENCE OF PROSTHETIC HEART VALVE 03/25/2016 GEGE LITTLE CLINIC MANAGER Ot Z99.81 DEPENDENCE ON SUPPLEMENTAL OXYGEN 03/25/2016 FELIX BARAKAT Ot E78.2 MIXED HYPERLIPIDEMIA 03/25/2016 FELIX BARAKAT Ot I10 ESSENTIAL (PRIMARY) HYPERTENSION 03/25/2016 FELIX BARAKAT Ot I25.10 ATHSCL HEART DISEASE OF [place] CORONARY 03/25/2016 GEGE LITTLEP Ot D63.1 ANEMIA IN CHRONIC KIDNEY DISEASE 03/25/2016 GEGE LITTLEP Ot J44.9 CHRONIC OBSTRUCTIVE PULMONARY DISEASE, U 03/25/2016 GEGE LITTLEP Ot N18.3 CHRONIC KIDNEY DISEASE, STAGE 3 ( MODERAT 03/25/2016 GEGE LITTLEP Ot Z79.02 FRONT DESK HOST (CURRENT) USE OF ANTITHROMBOTI 03/25/2016 GEGE LITTLEP Ot Z79.82 LONG-TERM (CURRENT) USE OF ASPIRIN 03/25/2016 GEGE LITTLE CLINIC MANAGER Ot Z79.899 OTHER FRONT DESK HOST (CURRENT) DRUG THERAPY 03/25/2016 GEGE LITTLEP Ot Z86.73 PRSNL HX OF TIA (TIA), AND CEREB INFRC W 03/25/2016 GEGE LITTLE CLINIC MANAGER Ot Z95.2 PRESENCE OF PROSTHETIC HEART VALVE 03/25/2016 GEGE LITTLE CLINIC MANAGER Ot Z99.81 DEPENDENCE ON SUPPLEMENTAL OXYGEN 03/25/2016 GEGE LITTLE CLINIC MANAGER Ot D63.1 ANEMIA IN CHRONIC KIDNEY DISEASE 03/25/2016 GEGE LITTLE CLINIC MANAGER Ot J44.9 CHRONIC OBSTRUCTIVE PULMONARY DISEASE, U 03/25/2016 GEGE LITTLE CLINIC MANAGER Ot N18.3 CHRONIC KIDNEY DISEASE, STAGE 3 ( MODERAT 03/25/2016 GEGE LITTLE CLINIC MANAGER Ot Z79.02 LONG-TERM (CURRENT) USE OF ANTITHROMBOTI 03/25/2016 GEGE LITTLE CLINIC MANAGER Ot Z79.82 LONG-TERM (CURRENT) USE OF ASPIRIN 03/25/2016 GEGE LITTLE CLINIC MANAGER Ot Z79.899 OTHER LONG-TERM (CURRENT) DRUG THERAPY 03/25/2016 GEGE LITTLEP Ot Z86.73 PRSNL HX OF TIA (TIA), AND CEREB INFRC W 03/25/2016 GEGE LITTLEP Ot Z95.2 PRESENCE OF PROSTHETIC HEART VALVE 03/25/2016 GEGE LITTLEP Ot Z99.81 DEPENDENCE ON SUPPLEMENTAL OXYGEN 03/25/2016 WILFRED ELENA MD Ot E78.2 MIXED HYPERLIPIDEMIA 03/25/2016 WILFRED ELENA MD Ot I10 ESSENTIAL (PRIMARY) HYPERTENSION 03/25/2016 WILFRED ELENA MD Ot I25.10 ATHSCL HEART DISEASE OF [place] CORONARY 03/25/2016 WILFRED ELENA MD Ot I65.23 OCCLUSION AND STENOSIS OF [place] 03/25/2016 WILFRED ELENA MD Ot R06.02 SHORTNESS OF BREATH 03/25/2016 NAVYA BELL Ot D63.1 ANEMIA IN CHRONIC KIDNEY DISEASE 03/25/2016 NAVYA BELL Ot N18.3 CHRONIC KIDNEY DISEASE, STAGE 3 (MODERAT 03/25/2016 NAVYA BELL Ot Z79.899 OTHER LONG-TERM (CURRENT) DRUG THERAPY 03/25/2016 GEGE LITTLEP Ot D63.1 ANEMIA IN CHRONIC KIDNEY DISEASE 03/25/2016 GEGE LITTLEP Ot J44.9 CHRONIC OBSTRUCTIVE PULMONARY DISEASE, U 03/25/2016 GEGE LITTLE CLINIC MANAGER Ot N18.3 CHRONIC KIDNEY DISEASE, STAGE 3 ( MODERAT 03/25/2016 GEGE LITTLE CLINIC MANAGER Ot Z79.02 FRONT DESK HOST (CURRENT) USE OF ANTITHROMBOTI 03/25/2016 GEGE LITTLE CLINIC MANAGER Ot Z79.82 LONG-TERM (CURRENT) USE OF ASPIRIN 03/25/2016 GEGE LITTLE CLINIC MANAGER Ot Z79.899 OTHER LONG-TERM (CURRENT) DRUG THERAPY 03/25/2016 GEGE LITTLE CLINIC MANAGER Ot Z86.73 PRSNL HX OF TIA (TIA), AND CEREB INFRC W 03/25/2016 GEGE LITTLE S CLINIC MANAGER Ot Z95.2 PRESENCE OF PROSTHETIC HEART VALVE 03/25/2016 GEGE LITTLE CLINIC MANAGER Ot Z99.81 DEPENDENCE ON SUPPLEMENTAL OXYGEN 03/25/2016 FELIX BARAKAT Ot E78.2 MIXED HYPERLIPIDEMIA 03/25/2016 FELIX BARAKAT Ot I10 ESSENTIAL (PRIMARY) HYPERTENSION 03/25/2016 FELIX BARAKAT Ot I25.10 ATHSCL HEART DISEASE OF [place] CORONARY 03/25/2016 GEGE LITTLE CLINIC MANAGER Ot D63.1 ANEMIA IN CHRONIC KIDNEY DISEASE 03/25/2016 GEGE LITTLE CLINIC MANAGER Ot J44.9 CHRONIC OBSTRUCTIVE PULMONARY DISEASE, U 03/25/2016 GEGE LITTLE CLINIC MANAGER Ot N18.3 CHRONIC KIDNEY DISEASE, STAGE 3 ( MODERAT 03/25/2016 GEGE LITTLE CLINIC MANAGER Ot Z79.02 FRONT DESK HOST (CURRENT) USE OF ANTITHROMBOTI 03/25/2016 GEGE LITTLE S CLINIC MANAGER Ot Z79.82 FRONT DESK HOST (CURRENT) USE OF ASPIRIN 03/25/2016 GEGE LITTLE S CLINIC MANAGER Ot Z79.899 OTHER FRONT DESK HOST (CURRENT) DRUG THERAPY 03/25/2016 GEGE LITTLE CLINIC MANAGER Ot Z86.73 PRSNL HX OF TIA (TIA), AND CEREB INFRC W 03/25/2016 GEGE LITTLE S CLINIC MANAGER Ot Z95.2 PRESENCE OF PROSTHETIC HEART VALVE 03/25/2016 GEGE LITTLE CLINIC MANAGER Ot Z99.81 DEPENDENCE ON SUPPLEMENTAL OXYGEN 03/25/2016 GEGE LITTLE CLINIC MANAGER Ot D63.1 ANEMIA IN CHRONIC KIDNEY DISEASE 03/25/2016 GEGE LITTLE S CLINIC MANAGER Ot J44.9 CHRONIC OBSTRUCTIVE PULMONARY DISEASE, U 03/25/2016 GEGE LITTLE S CLINIC MANAGER Ot N18.3 CHRONIC KIDNEY DISEASE, STAGE 3 ( MODERAT 03/25/2016 GEGE LITTLE S CLINIC MANAGER Ot Z79.02 FRONT DESK HOST (CURRENT) USE OF ANTITHROMBOTI 03/25/2016 GEGE LITTLE S CLINIC MANAGER Ot Z79.82 FRONT DESK HOST (CURRENT) USE OF ASPIRIN 03/25/2016 GEGE LITTLE S CLINIC MANAGER Ot Z79.899 OTHER FRONT DESK HOST (CURRENT) DRUG THERAPY 03/25/2016 GEGE LITTLEP Ot Z86.73 PRSNL HX OF TIA (TIA), AND CEREB INFRC W 03/25/2016 GEGE LITTLEP Ot Z95.2 PRESENCE OF PROSTHETIC HEART VALVE 03/25/2016 GEGE LITTLEP Ot Z99.81 DEPENDENCE ON SUPPLEMENTAL OXYGEN 03/25/2016 WILFRED ELENA MD Ot E78.2 MIXED HYPERLIPIDEMIA 03/25/2016 WILFRED ELENA MD Ot I10 ESSENTIAL (PRIMARY) HYPERTENSION 03/25/2016 WILFRED ELENA MD, Ot I25.10 ATHSCL HEART DISEASE OF [place] CORONARY 03/25/2016 WILFRED ELENA MD Ot I65.23 OCCLUSION AND STENOSIS OF [place] 03/25/2016 WILFRED ELENA MD Ot R06.02 SHORTNESS OF BREATH 03/25/2016 NAVYA BELL Ot D63.1 ANEMIA IN CHRONIC KIDNEY DISEASE 03/25/2016 NAVYA BELL Ot N18.3 CHRONIC KIDNEY DISEASE, STAGE 3 (MODERAT 03/25/2016 ARABELLANAVYA FELTON Ot Z79.899 OTHER LONG-TERM (CURRENT) DRUG THERAPY 03/25/2016 GEGE LITTLE Ot D63.1 ANEMIA IN CHRONIC KIDNEY DISEASE 03/25/2016 GEGE LITTLEP Ot J44.9 CHRONIC OBSTRUCTIVE PULMONARY DISEASE, U 03/25/2016 GEGE LITTLE CLINIC MANAGER Ot N18.3 CHRONIC KIDNEY DISEASE, STAGE 3 ( MODERAT 03/25/2016 GEGE LITTLE CLINIC MANAGER Ot Z79.02 FRONT DESK HOST (CURRENT) USE OF ANTITHROMBOTI 03/25/2016 GEGE LITTLE CLINIC MANAGER Ot Z79.82 LONG-TERM (CURRENT) USE OF ASPIRIN 03/25/2016 GEGE LITTLE CLINIC MANAGER Ot Z79.899 OTHER LONG-TERM (CURRENT) DRUG THERAPY 03/25/2016 GEGE LITTLE CLINIC MANAGER Ot Z86.73 PRSNL HX OF TIA (TIA), AND CEREB INFRC W 03/25/2016 GEGE LITTLEP Ot Z95.2 PRESENCE OF PROSTHETIC HEART VALVE 03/25/2016 GEGE LITTLEP Ot Z99.81 DEPENDENCE ON SUPPLEMENTAL OXYGEN 03/25/2016 FELIX BARAKAT Ot E78.2 MIXED HYPERLIPIDEMIA 03/25/2016 FELIX BARAKAT Ot I10 ESSENTIAL (PRIMARY) HYPERTENSION 03/25/2016 FELIX BARAKAT Ot I25.10 ATHSCL HEART DISEASE OF [place] CORONARY 03/25/2016 GEGE LITTLE CLINIC MANAGER Ot D63.1 ANEMIA IN CHRONIC KIDNEY DISEASE 03/25/2016 GEGE LITTLE CLINIC MANAGER Ot J44.9 CHRONIC OBSTRUCTIVE PULMONARY DISEASE, U 03/25/2016 GEGE LITTLE CLINIC MANAGER Ot N18.3 CHRONIC KIDNEY DISEASE, STAGE 3 ( MODERAT 03/25/2016 GEGE LITTLE S CLINIC MANAGER Ot Z79.02 LONG-TERM (CURRENT) USE OF ANTITHROMBOTI 03/25/2016 GEGE LITTLE S CLINIC MANAGER Ot Z79.82 LONG-TERM (CURRENT) USE OF ASPIRIN 03/25/2016 GEGE LITTLE S CLINIC MANAGER Ot Z79.899 OTHER LONG-TERM (CURRENT) DRUG THERAPY 03/25/2016 LITTLEGEGE Knowles S CLINIC MANAGER Ot Z86.73 PRSNL HX OF TIA (TIA), AND CEREB INFRC W 03/25/2016 AISHA LITTLEWILLIAM S CLINIC MANAGER Ot Z95.2 PRESENCE OF PROSTHETIC HEART VALVE 03/25/2016 GEGE LITTLE CLINIC MANAGER Ot Z99.81 DEPENDENCE ON SUPPLEMENTAL OXYGEN 03/25/2016 GEGE LITTLE CLINIC MANAGER Ot D63.1 ANEMIA IN CHRONIC KIDNEY DISEASE 03/25/2016 GEGE LITTLE CLINIC MANAGER Ot J44.9 CHRONIC OBSTRUCTIVE PULMONARY DISEASE, U 03/25/2016 GEGE LITTLE S CLINIC MANAGER Ot N18.3 CHRONIC KIDNEY DISEASE, STAGE 3 ( MODERAT 03/25/2016 GEGE LITTLE S CLINIC MANAGER Ot Z79.02 FRONT DESK HOST (CURRENT) USE OF ANTITHROMBOTI 03/25/2016 AISHA LITTLEAH S CLINIC MANAGER Ot Z79.82 LONG-TERM (CURRENT) USE OF ASPIRIN 03/25/2016 LITTLEAISHAAH S CLINIC MANAGER Ot Z79.899 OTHER LONG-TERM (CURRENT) DRUG THERAPY 03/25/2016 LITTLEGEGE S CLINIC MANAGER Ot Z86.73 PRSNL HX OF TIA (TIA), AND CEREB INFRC W 03/25/2016 GEGE LITTLE Ot Z95.2 PRESENCE OF PROSTHETIC HEART VALVE 03/25/2016 GEGE LITTLE Ot Z99.81 DEPENDENCE ON SUPPLEMENTAL OXYGEN 03/25/2016 WILFRED ELENA MD Ot E78.2 MIXED HYPERLIPIDEMIA 03/25/2016 WILFRED ELENA MD Ot I10 ESSENTIAL (PRIMARY) HYPERTENSION 03/25/2016 WILFRED ELENA MD, Ot I25.10 ATHSCL HEART DISEASE OF [place] CORONARY 03/25/2016 WILFRED ELENA MD Ot I65.23 OCCLUSION AND STENOSIS OF [place] 03/25/2016 WILFRED ELENA MD Ot R06.02 SHORTNESS OF BREATH 03/25/2016 NAVYA BELL Ot D63.1 ANEMIA IN CHRONIC KIDNEY DISEASE 03/25/2016 ARABELLANAVYA N Ot N18.3 CHRONIC KIDNEY DISEASE, STAGE 3 (MODERAT 03/25/2016 ARABELLANAVYA N Ot Z79.899 OTHER LONG-TERM (CURRENT) DRUG THERAPY 04/01/2016 ARABELLANAVYA N Ot D63.1 ANEMIA IN CHRONIC KIDNEY DISEASE 04/01/2016 ARABELLANAVYA N Ot N18.3 CHRONIC KIDNEY DISEASE, STAGE 3 (MODERAT 04/01/2016 ARABELLA BOBAN N Ot Z79.899 OTHER LONG-TERM (CURRENT) DRUG THERAPY 04/16/2016 ARABELLANAVYA N Ot D63.1 ANEMIA IN CHRONIC KIDNEY DISEASE 04/16/2016 ARABELLANAVYA N Ot N18.3 CHRONIC KIDNEY DISEASE, STAGE 3 (MODERAT 04/16/2016 ARABELLALESAN N Ot Z79.899 OTHER FRONT DESK HOST (CURRENT) DRUG THERAPY 04/16/2016 GEGE ILTTLE CLINIC MANAGER Ot D63.1 ANEMIA IN CHRONIC KIDNEY DISEASE 04/16/2016 GEGE LITTLEP Ot J44.9 CHRONIC OBSTRUCTIVE PULMONARY DISEASE, U 04/16/2016 GEGE LITTLEP Ot N18.3 CHRONIC KIDNEY DISEASE, STAGE 3 ( MODERAT 04/16/2016 GEGE LITTLEP Ot Z79.02 FRONT DESK HOST (CURRENT) USE OF ANTITHROMBOTI 04/16/2016 GEGE LITTLEP Ot Z79.82 FRONT DESK HOST (CURRENT) USE OF ASPIRIN 04/16/2016 GEGE LITTLE CLINIC MANAGER Ot Z79.899 OTHER FRONT DESK HOST (CURRENT) DRUG THERAPY 04/16/2016 LITTLEGEGE Knowles CLINIC MANAGER Ot Z86.73 PRSNL HX OF TIA (TIA), AND CEREB INFRC W 04/16/2016 LITTLEGEGE Knowles S CLINIC MANAGER Ot Z95.2 PRESENCE OF PROSTHETIC HEART VALVE 04/16/2016 LITTLEGEGE Knowles S CLINIC MANAGER Ot Z99.81 DEPENDENCE ON SUPPLEMENTAL OXYGEN 04/16/2016 NAVYA BELL N Ot D63.1 ANEMIA IN CHRONIC KIDNEY DISEASE 04/16/2016 NAVYA BELL N Ot N18.3 CHRONIC KIDNEY DISEASE, STAGE 3 (MODERAT 04/16/2016 ARABELLANAVYA FELTON N Ot Z79.899 OTHER LONG-TERM (CURRENT) DRUG THERAPY 04/16/2016 SIDNEY GEGE S CLINIC MANAGER Ot D63.1 ANEMIA IN CHRONIC KIDNEY DISEASE 04/16/2016 AISHA LITTLEWILLIAM Benson CLINIC MANAGER Ot J44.9 CHRONIC OBSTRUCTIVE PULMONARY DISEASE, U 04/16/2016 AISHA LITTLEWILLIAM S CLINIC MANAGER Ot N18.3 CHRONIC KIDNEY DISEASE, STAGE 3 ( MODERAT 04/16/2016 LITTLE GEGE Knowles CLINIC MANAGER Ot Z79.02 LONG-TERM (CURRENT) USE OF ANTITHROMBOTI 04/16/2016 SIDNEY GEGE S CLINIC MANAGER Ot Z79.82 FRONT DESK HOST (CURRENT) USE OF ASPIRIN 04/16/2016 LITTLEGEGE Knowles S CLINIC MANAGER Ot Z79.899 OTHER LONG-TERM (CURRENT) DRUG THERAPY 04/16/2016 LITTLE GEGE S CLINIC MANAGER Ot Z86.73 PRSNL HX OF TIA (TIA), AND CEREB INFRC W 04/16/2016 LITTLE GEGE S CLINIC MANAGER Ot Z95.2 PRESENCE OF PROSTHETIC HEART VALVE 04/16/2016 SIDNEY GEGE S CLINIC MANAGER Ot Z99.81 DEPENDENCE ON SUPPLEMENTAL OXYGEN 04/21/2016 NAVYA BELL N Ot D63.1 ANEMIA IN CHRONIC KIDNEY DISEASE 04/21/2016 NAVYA BELL N Ot N18.3 CHRONIC KIDNEY DISEASE, STAGE 3 (MODERAT 04/21/2016 ARABELLANAVYA FELTON N Ot Z79.899 OTHER FRONT DESK HOST (CURRENT) DRUG THERAPY 04/24/2016 NAVYA BELL N Ot D63.1 ANEMIA IN CHRONIC KIDNEY DISEASE 04/24/2016 ARABELLA, BOBAN N Ot N18.3 CHRONIC KIDNEY DISEASE, STAGE 3 (MODERAT 04/24/2016 ARABELLA, BOBAN N Ot Z79.899 OTHER FRONT DESK HOST (CURRENT) DRUG THERAPY 07/01/2016 ARABELLA, BOBAN N Ot D63.1 ANEMIA IN CHRONIC KIDNEY DISEASE 07/01/2016 ARABELLA, BOBAN N Ot N18.3 CHRONIC KIDNEY DISEASE, STAGE 3 (MODERAT 07/01/2016 ARABELLA, BOBAN N Ot Z79.899 OTHER FRONT DESK HOST (CURRENT) DRUG THERAPY 07/07/2016 ARABELLA, BOBAN N Ot D63.1 ANEMIA IN CHRONIC KIDNEY DISEASE 07/07/2016 ARABELLA, BOBAN N Ot N18.3 CHRONIC KIDNEY DISEASE, STAGE 3 (MODERAT 07/07/2016 ARABELLA, BOBAN N Ot Z79.899 OTHER LONG-TERM (CURRENT) DRUG THERAPY 07/08/2016 GEGE LITTLEP Ot D64.9 ANEMIA, UNSPECIFIED 07/21/2016 ARABELLA, BOBAN N Ot D63.1 ANEMIA IN CHRONIC KIDNEY DISEASE 07/21/2016 ARABELLA, BOBAN N Ot N18.3 CHRONIC KIDNEY DISEASE, STAGE 3 (MODERAT 07/21/2016 ARABELLA, BOBAN N Ot Z79.899 OTHER FRONT DESK HOST (CURRENT) DRUG THERAPY 07/22/2016 ARABELLA, BOBAN N Ot D63.1 ANEMIA IN CHRONIC KIDNEY DISEASE 07/22/2016 ARABELLA, BOBAN N Ot N18.3 CHRONIC KIDNEY DISEASE, STAGE 3 (MODERAT 07/22/2016 ARABELLA, BOBAN N Ot Z79.899 OTHER LONG-TERM (CURRENT) DRUG THERAPY 07/22/2016 GEGE LITTLEP Ot D64.9 ANEMIA, UNSPECIFIED 07/23/2016 ARABELLA, BOBAN N Ot D63.1 ANEMIA IN CHRONIC KIDNEY DISEASE 07/23/2016 ARABELLA, BOBAN N Ot N18.3 CHRONIC KIDNEY DISEASE, STAGE 3 (MODERAT 07/23/2016 ARABELLA, BOBAN N Ot Z79.899 OTHER FRONT DESK HOST (CURRENT) DRUG THERAPY 07/24/2016 GEGE LITTLEP Ot D64.9 ANEMIA, UNSPECIFIED 08/15/2016 GEGE LITTLE Ot D63.1 ANEMIA IN CHRONIC KIDNEY DISEASE 08/15/2016 GEGE LITTLEP Ot J44.9 CHRONIC OBSTRUCTIVE PULMONARY DISEASE, U 08/15/2016 GEGE LITTLE CLINIC MANAGER Ot N18.3 CHRONIC KIDNEY DISEASE, STAGE 3 ( MODERAT 08/15/2016 GEGE LITTLE Ot Z79.02 LONG-TERM (CURRENT) USE OF ANTITHROMBOTI 08/15/2016 GEGE LITTLE CLINIC MANAGER Ot Z79.82 LONG-TERM (CURRENT) USE OF ASPIRIN 08/15/2016 GEGE LITTLEP Ot Z79.899 OTHER LONG-TERM (CURRENT) DRUG THERAPY 08/15/2016 GEGE LITTLEP Ot Z86.73 PRSNL HX OF TIA (TIA), AND CEREB INFRC W 08/15/2016 GEGE LITTLEP Ot Z95.2 PRESENCE OF PROSTHETIC HEART VALVE 08/15/2016 GEGE LITTLEP Ot Z99.81 DEPENDENCE ON SUPPLEMENTAL OXYGEN 08/15/2016 FELIX BARAKAT Ot E78.2 MIXED HYPERLIPIDEMIA 08/15/2016 FELIX BARAKAT Ot I10 ESSENTIAL (PRIMARY) HYPERTENSION 08/15/2016 FELIX BARAKAT Ot I25.10 ATHSCL HEART DISEASE OF [place] CORONARY 08/15/2016 GEGE LITTLE Ot D63.1 ANEMIA IN CHRONIC KIDNEY DISEASE 08/15/2016 GEGE LITTLE Ot J44.9 CHRONIC OBSTRUCTIVE PULMONARY DISEASE, U 08/15/2016 GEGE LITTLEP Ot N18.3 CHRONIC KIDNEY DISEASE, STAGE 3 ( MODERAT 08/15/2016 GEGE LITTLEP Ot Z79.02 FRONT DESK HOST (CURRENT) USE OF ANTITHROMBOTI 08/15/2016 GEGE LITTLEP Ot Z79.82 LONG-TERM (CURRENT) USE OF ASPIRIN 08/15/2016 GEGE LITTLEP Ot Z79.899 OTHER LONG-TERM (CURRENT) DRUG THERAPY 08/15/2016 GEGE LITTLE CLINIC MANAGER Ot Z86.73 PRSNL HX OF TIA (TIA), AND CEREB INFRC W 08/15/2016 GEGE LITTLE CLINIC MANAGER Ot Z95.2 PRESENCE OF PROSTHETIC HEART VALVE 08/15/2016 GEGE LITTLE CLINIC MANAGER Ot Z99.81 DEPENDENCE ON SUPPLEMENTAL OXYGEN 08/15/2016 GEGE LITTLEP Ot D63.1 ANEMIA IN CHRONIC KIDNEY DISEASE 08/15/2016 GEGE LITTLEP Ot J44.9 CHRONIC OBSTRUCTIVE PULMONARY DISEASE, U 08/15/2016 GEGE LITTLEP Ot N18.3 CHRONIC KIDNEY DISEASE, STAGE 3 ( MODERAT 08/15/2016 GEGE LITTLEP Ot Z79.02 FRONT DESK HOST (CURRENT) USE OF ANTITHROMBOTI 08/15/2016 GEGE LITTLEP Ot Z79.82 LONG-TERM (CURRENT) USE OF ASPIRIN 08/15/2016 GEGE LITTLEP Ot Z79.899 OTHER FRONT DESK HOST (CURRENT) DRUG THERAPY 08/15/2016 GEGE LITTLE Ot Z86.73 PRSNL HX OF TIA (TIA), AND CEREB INFRC W 08/15/2016 GEGE LITTLEP Ot Z95.2 PRESENCE OF PROSTHETIC HEART VALVE 08/15/2016 GEGE LITTLEP Ot Z99.81 DEPENDENCE ON SUPPLEMENTAL OXYGEN 08/15/2016 WILFRED ELENA MD Ot E78.2 MIXED HYPERLIPIDEMIA 08/15/2016 WILFRED ELENA MD Ot I10 ESSENTIAL (PRIMARY) HYPERTENSION 08/15/2016 WILFRED ELENA MD Ot I25.10 ATHSCL HEART DISEASE OF [place] CORONARY 08/15/2016 WILFRED ELENA MD Ot I65.23 OCCLUSION AND STENOSIS OF [place] 08/15/2016 WILFRED ELENA MD Ot R06.02 SHORTNESS OF BREATH 08/15/2016 GEGE LITTLE Ot D63.1 ANEMIA IN CHRONIC KIDNEY DISEASE 08/15/2016 GEGE LITTLE Ot J44.9 CHRONIC OBSTRUCTIVE PULMONARY DISEASE, U 08/15/2016 GEGE LITTLE Ot N18.3 CHRONIC KIDNEY DISEASE, STAGE 3 ( MODERAT 08/15/2016 GEGE LITTLE Ot Z79.02 LONG-TERM (CURRENT) USE OF ANTITHROMBOTI 08/15/2016 GEGE LITTLEP Ot Z79.82 FRONT DESK HOST (CURRENT) USE OF ASPIRIN 08/15/2016 GEGE LITTLEP Ot Z79.899 OTHER LONG-TERM (CURRENT) DRUG THERAPY 08/15/2016 AISHA LITTLEWILLIAM Knowles CLINIC MANAGER Ot Z86.73 PRSNL HX OF TIA (TIA), AND CEREB INFRC W 08/15/2016 AISHA LITTLEWILLIAM Benson CLINIC MANAGER Ot Z95.2 PRESENCE OF PROSTHETIC HEART VALVE 08/15/2016 AISHA LITTLEWILLIAM Knowles CLINIC MANAGER Ot Z99.81 DEPENDENCE ON SUPPLEMENTAL OXYGEN 08/15/2016 GEGE LITTLE CLINIC MANAGER Ot D64.9 ANEMIA, UNSPECIFIED 08/15/2016 ARABELLANAVYA FELTON N Ot D63.1 ANEMIA IN CHRONIC KIDNEY DISEASE 08/15/2016 ARABELLANAVYA FELTON N Ot N18.3 CHRONIC KIDNEY DISEASE, STAGE 3 (MODERAT 08/15/2016 ARABELLANAVYA FELTON N Ot Z79.899 OTHER LONG-TERM (CURRENT) DRUG THERAPY 09/16/2016 ARABELLANAVYA FELTON N Ot D63.1 ANEMIA IN CHRONIC KIDNEY DISEASE 09/16/2016 ARABELLANAVYA FELTON N Ot N18.3 CHRONIC KIDNEY DISEASE, STAGE 3 (MODERAT 09/16/2016 ARABELLANAVYA FELTON N Ot Z79.899 OTHER LONG-TERM (CURRENT) DRUG THERAPY 09/17/2016 AISHA LITTLEWILLIAM Benson CLINIC MANAGER Ot 285.21 ANEMIA IN CHRONIC KIDNEY DISEASE 09/17/2016 GEGE LITTLE CLINIC MANAGER Ot 585.3 CHRONIC KIDNEY DISEASE, STAGE III ( MODER 09/17/2016 GEGE LITTLE CLINIC MANAGER Ot V12.54 PERSONAL HX OF TIA, CEREBRAL INFARCTION 09/17/2016 GEGE LITTLE CLINIC MANAGER Ot V58.61 ANTICOAGULANTS,LT,CURRENT USE 09/17/2016 GEGE LITTLE CLINIC MANAGER Ot V58.63 LONG-TERM(CURRENT)USE OF ANTIPLATELET/ AN 09/17/2016 AISHA LITTLEWILLIAM Benson CLINIC MANAGER Ot V58.66 LONG-TERM (CURRENT) USE OF ASPIRIN 09/17/2016 GEGE LITTLE CLINIC MANAGER Ot V58.69 OTH MED,LT,CURRENT USE 09/19/2016 NAVYA BELL N Ot D63.1 ANEMIA IN CHRONIC KIDNEY DISEASE 09/19/2016 ARABELLANAVYA FELTON N Ot N18.3 CHRONIC KIDNEY DISEASE, STAGE 3 (MODERAT 09/19/2016 NAVYA BELL N Ot Z79.899 OTHER FRONT DESK HOST (CURRENT) DRUG THERAPY 09/30/2016 NAVYA BELL N Ot D63.1 ANEMIA IN CHRONIC KIDNEY DISEASE 09/30/2016 NAVYA BELL Leeanna Ot N18.3 CHRONIC KIDNEY DISEASE, STAGE 3 (MODERAT 09/30/2016 NAVYA BELL Leeanna Ot Z79.899 OTHER FRONT DESK HOST (CURRENT) DRUG THERAPY 10/01/2016 GEGE LITTLE Ot D63.1 ANEMIA IN CHRONIC KIDNEY DISEASE 10/01/2016 GEGE LITTLEP Ot J44.9 CHRONIC OBSTRUCTIVE PULMONARY DISEASE, U 10/01/2016 GEGE LITTLE CLINIC MANAGER Ot N18.3 CHRONIC KIDNEY DISEASE, STAGE 3 ( MODERAT 10/01/2016 GEGE LITTLEP Ot Z79.02 FRONT DESK HOST (CURRENT) USE OF ANTITHROMBOTI 10/01/2016 GEGE LITTLEP Ot Z79.82 FRONT DESK HOST (CURRENT) USE OF ASPIRIN 10/01/2016 GEGE LITTLEP Ot Z79.899 OTHER LONG-TERM (CURRENT) DRUG THERAPY 10/01/2016 GEGE LITTLEP Ot Z86.73 PRSNL HX OF TIA (TIA), AND CEREB INFRC W 10/01/2016 GEGE LITTLEP Ot Z95.2 PRESENCE OF PROSTHETIC HEART VALVE 10/01/2016 GEGE LITTLEP Ot Z99.81 DEPENDENCE ON SUPPLEMENTAL OXYGEN 10/01/2016 FELIX BARAKAT Ot E78.2 MIXED HYPERLIPIDEMIA 10/01/2016 FELIX BARAKAT Ot I10 ESSENTIAL (PRIMARY) HYPERTENSION 10/01/2016 FELIX BARAKAT Ot I25.10 ATHSCL HEART DISEASE OF [place] CORONARY 10/01/2016 GEGE LITTLEP Ot D63.1 ANEMIA IN CHRONIC KIDNEY DISEASE 10/01/2016 GEGE LITTLEP Ot J44.9 CHRONIC OBSTRUCTIVE PULMONARY DISEASE, U 10/01/2016 GEGE LITTLEP Ot N18.3 CHRONIC KIDNEY DISEASE, STAGE 3 ( MODERAT 10/01/2016 GEGE LITTLEP Ot Z79.02 FRONT DESK HOST (CURRENT) USE OF ANTITHROMBOTI 10/01/2016 GEGE LITTLE CLINIC MANAGER Ot Z79.82 LONG-TERM (CURRENT) USE OF ASPIRIN 10/01/2016 LITTLEGEGE Knowles CLINIC MANAGER Ot Z79.899 OTHER FRONT DESK HOST (CURRENT) DRUG THERAPY 10/01/2016 GEGE LITTLE CLINIC MANAGER Ot Z86.73 PRSNL HX OF TIA (TIA), AND CEREB INFRC W 10/01/2016 GEGE LITTLE CLINIC MANAGER Ot Z95.2 PRESENCE OF PROSTHETIC HEART VALVE 10/01/2016 LITTLE GEGE Knowles CLINIC MANAGER Ot Z99.81 DEPENDENCE ON SUPPLEMENTAL OXYGEN 10/01/2016 AISHA LITTLEWILLIAM Benson SPANGLERP Ot D63.1 ANEMIA IN CHRONIC KIDNEY DISEASE 10/01/2016 GEGE LITTLEP Ot J44.9 CHRONIC OBSTRUCTIVE PULMONARY DISEASE, U 10/01/2016 AISHA LITTLEWILLIAM Benson SPANGLERP Ot N18.3 CHRONIC KIDNEY DISEASE, STAGE 3 ( MODERAT 10/01/2016 SIDNEY GEGE Knowles CLINIC MANAGER Ot Z79.02 FRONT DESK HOST (CURRENT) USE OF ANTITHROMBOTI 10/01/2016 AISHA LITTLEWILLIAM Knowles CLINIC MANAGER Ot Z79.82 LONG-TERM (CURRENT) USE OF ASPIRIN 10/01/2016 SIDNEY GEGE Knowles CLINIC MANAGER Ot Z79.899 OTHER LONG-TERM (CURRENT) DRUG THERAPY 10/01/2016 LITTLE GEGE Knowles CLINIC MANAGER Ot Z86.73 PRSNL HX OF TIA (TIA), AND CEREB INFRC W 10/01/2016 LITTLE GEGE Knowles CLINIC MANAGER Ot Z95.2 PRESENCE OF PROSTHETIC HEART VALVE 10/01/2016 AISHA LITTLEWILLIAM Knowles CLINIC MANAGER Ot Z99.81 DEPENDENCE ON SUPPLEMENTAL OXYGEN 10/01/2016 WILFRED ELENA MD Ot E78.2 MIXED HYPERLIPIDEMIA 10/01/2016 WILFRED ELENA MD Ot I10 ESSENTIAL (PRIMARY) HYPERTENSION 10/01/2016 WILFRED ELENA MD Ot I25.10 ATHSCL HEART DISEASE OF [place] CORONARY 10/01/2016 WILFRED ELENA MD Ot I65.23 OCCLUSION AND STENOSIS OF [place] 10/01/2016 WILFRED ELENA MD Ot R06.02 SHORTNESS OF BREATH 10/01/2016 GEGE LITTLEP Ot D63.1 ANEMIA IN CHRONIC KIDNEY DISEASE 10/01/2016 GEGE LITTLEP Ot J44.9 CHRONIC OBSTRUCTIVE PULMONARY DISEASE, U 10/01/2016 GEGE LITTLEP Ot N18.3 CHRONIC KIDNEY DISEASE, STAGE 3 ( MODERAT 10/01/2016 GEGE LITTLE PANCHO Ot Z79.02 LONG-TERM (CURRENT) USE OF ANTITHROMBOTI 10/01/2016 LITTLEGEGE Knowles CLINIC MANAGER Ot Z79.82 FRONT DESK HOST (CURRENT) USE OF ASPIRIN 10/01/2016 LITTLEGEGE Knowles CLINIC MANAGER Ot Z79.899 OTHER FRONT DESK HOST (CURRENT) DRUG THERAPY 10/01/2016 LITTLE, AISHAWILLIAM Knowles CLINIC MANAGER Ot Z86.73 PRSNL HX OF TIA (TIA), AND CEREB INFRC W 10/01/2016 LITTLE AISHAWILLIAM Knowles CLINIC MANAGER Ot Z95.2 PRESENCE OF PROSTHETIC HEART VALVE 10/01/2016 AISHA LITTLEWILLIAM Knowles PANCHO Ot Z99.81 DEPENDENCE ON SUPPLEMENTAL OXYGEN 10/01/2016 SIDNEY AISHAWILLIAM Knowles CLINIC MANAGER Ot D64.9 ANEMIA, UNSPECIFIED 10/01/2016 NAVYA BELL Ot D63.1 ANEMIA IN CHRONIC KIDNEY DISEASE 10/01/2016 NAVYA BELL Ot N18.3 CHRONIC KIDNEY DISEASE, STAGE 3 (MODERAT 10/01/2016 NAVYA BELL Ot Z79.899 OTHER LONG-TERM (CURRENT) DRUG THERAPY 10/02/2016 FELIX BARAKAT Ot I10 ESSENTIAL (PRIMARY) HYPERTENSION 10/02/2016 FELIX BARAKAT Ot I25.10 ATHSCL HEART DISEASE OF [place] CORONARY 10/02/2016 FELIX BARAKAT Ot 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 AORTIC (VALVE) STENOSIS 10/02/2016 FELIX BARAKAT Ot I65.23 OCCLUSION AND STENOSIS OF [place] 10/02/2016 FELIX BARAKAT Ot I10 ESSENTIAL (PRIMARY) HYPERTENSION 10/02/2016 FELIX BARAKAT Ot I25.10 ATHSCL HEART DISEASE OF [place] CORONARY 10/02/2016 FELIX BARAKAT Ot 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 AORTIC (VALVE) STENOSIS 10/02/2016 FELIX BARAKAT Ot I65.23 OCCLUSION AND STENOSIS OF [place]AL [place] 10/20/2016 NAVYA BELL Ot D63.1 ANEMIA IN CHRONIC KIDNEY DISEASE 10/20/2016 NAVYA BELL N Ot N18.3 CHRONIC KIDNEY DISEASE, STAGE 3 (MODERAT 10/20/2016 NAVYA BELL N Ot Z79.899 OTHER LONG-TERM (CURRENT) DRUG THERAPY 10/21/2016 NAVYA BELL N Ot D63.1 ANEMIA IN CHRONIC KIDNEY DISEASE 10/21/2016 ARABELLANAVYA FELTON N Ot N18.3 CHRONIC KIDNEY DISEASE, STAGE 3 (MODERAT 10/21/2016 NAVYA BELL N Ot Z79.899 OTHER FRONT DESK HOST (CURRENT) DRUG THERAPY 10/24/2016 NAVYA BELL N Ot D63.1 ANEMIA IN CHRONIC KIDNEY DISEASE 10/24/2016 ARABELLANAVYA FELTON N Ot N18.3 CHRONIC KIDNEY DISEASE, STAGE 3 (MODERAT 10/24/2016 NAVYA BELL N Ot Z79.899 OTHER LONG-TERM (CURRENT) DRUG THERAPY 10/27/2016 FELIX BARAKAT Ot I10 ESSENTIAL (PRIMARY) HYPERTENSION 10/27/2016 FELIX BARAKAT Ot I25.10 ATHSCL HEART DISEASE OF [place] CORONARY 10/27/2016 FELIX BARAKAT Ot 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 AORTIC (VALVE) STENOSIS 10/27/2016 FELIX BARAKAT Ot I65.23 OCCLUSION AND STENOSIS OF [place] 10/27/2016 FELIX BARAKAT Ot I10 ESSENTIAL (PRIMARY) HYPERTENSION 10/27/2016 FELIX BARAKAT Ot I25.10 ATHSCL HEART DISEASE OF [place] CORONARY 10/27/2016 FELIX BARAKAT Ot 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 AORTIC (VALVE) STENOSIS 10/27/2016 FELIX BARAKAT Ot I65.23 OCCLUSION AND STENOSIS OF [place] 11/05/2016 FELIX BARAKAT Ot I10 ESSENTIAL (PRIMARY) HYPERTENSION 11/05/2016 FELIX BARAKAT Ot I25.10 ATHSCL HEART DISEASE OF [place] CORONARY 11/05/2016 FELIX BARAKAT Ot 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 AORTIC (VALVE) STENOSIS 11/05/2016 FELIX BARAKAT Ot I65.23 OCCLUSION AND STENOSIS OF [place] 12/11/2016 ARABELLA, BOBAN N Ot D63.1 ANEMIA IN CHRONIC KIDNEY DISEASE 12/11/2016 ARABELLA, BOBAN N Ot N18.3 CHRONIC KIDNEY DISEASE, STAGE 3 (MODERAT 12/11/2016 ARABELLA, BOBAN N Ot Z79.899 OTHER LONG-TERM (CURRENT) DRUG THERAPY 12/31/2016 ARABELLA, BOBAN N Ot D63.1 ANEMIA IN CHRONIC KIDNEY DISEASE 12/31/2016 ARABELLA, BOBAN N Ot N18.3 CHRONIC KIDNEY DISEASE, STAGE 3 (MODERAT 12/31/2016 ARABELLA, BOBAN N Ot Z79.899 OTHER FRONT DESK HOST (CURRENT) DRUG THERAPY 01/01/2017 ARABELLA, BOBAN N Ot D63.1 ANEMIA IN CHRONIC KIDNEY DISEASE 01/01/2017 ARABELLA, BOBAN N Ot N18.3 CHRONIC KIDNEY DISEASE, STAGE 3 (MODERAT 01/01/2017 ARABELLA, BOBAN N Ot Z79.899 OTHER LONG-TERM (CURRENT) DRUG THERAPY 01/01/2017 ARABELLA, BOBAN N Ot D63.1 ANEMIA IN CHRONIC KIDNEY DISEASE 01/01/2017 ARABELLA, BOBAN N Ot N18.3 CHRONIC KIDNEY DISEASE, STAGE 3 (MODERAT 01/01/2017 ARABELLA, BOBAN N Ot Z79.899 OTHER LONG-TERM (CURRENT) DRUG THERAPY 01/01/2017 ARABELLA, BOBAN N Ot D63.1 ANEMIA IN CHRONIC KIDNEY DISEASE 01/01/2017 ARABELLA, BOBAN N Ot N18.3 CHRONIC KIDNEY DISEASE, STAGE 3 (MODERAT 01/01/2017 ARABELLA, BOBAN N Ot Z79.899 OTHER FRONT DESK HOST (CURRENT) DRUG THERAPY 01/21/2017 ARABELLA, BOBAN N Ot D63.1 ANEMIA IN CHRONIC KIDNEY DISEASE 01/21/2017 ARABELLA, BOBAN N Ot N18.3 CHRONIC KIDNEY DISEASE, STAGE 3 (MODERAT 01/21/2017 ARABELLA, BOBAN N Ot Z79.899 OTHER LONG-TERM (CURRENT) DRUG THERAPY 01/21/2017 WILFRED ELENA MD Ot E11.40 TYPE 2 DIABETES MELLITUS WITH DIABETIC N 01/21/2017 WILFRED ELENA MD Ot E11.621 TYPE 2 DIABETES MELLITUS WITH FOOT ULCER 01/21/2017 WILFRED ELENA MD Ot E66.9 OBESITY, UNSPECIFIED 01/21/2017 WILFRED ELENA MD, Ot E78.5 HYPERLIPIDEMIA, UNSPECIFIED 01/21/2017 WILFRED ELENA MD, Ot I10 ESSENTIAL (PRIMARY) HYPERTENSION 01/21/2017 WILFRED ELENA MD, Ot I50.32 CHRONIC DIASTOLIC (CONGESTIVE) HEART [place] 01/21/2017 WILFRED ELENA MD, Ot I70.0 ATHEROSCLEROSIS OF [place] 01/21/2017 WILFRED ELENA MD, Ot I70.203 UNSP ATHSCL [place] ARTERIES OF EXTREMITI 01/21/2017 WILFRED ELENA MD, Ot 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 01/21/2017 WILFRED ELENA MD, Ot J44.9 CHRONIC OBSTRUCTIVE PULMONARY DISEASE, U 01/21/2017 WILFRED ELENA MD, Ot L97.529 NON-PRESSURE CHRONIC ULCER OTH PRT LEFT 01/21/2017 WILFRED ELENA MD, Ot Z68.38 BODY MASS INDEX (BMI) 38.0-38.9, ADULT 01/21/2017 WILFRED ELENA MD, Ot Z79.4 LONG-TERM (CURRENT) USE OF INSULIN 01/21/2017 WILFRED ELENA MD, Ot Z79.899 OTHER FRONT DESK HOST (CURRENT) DRUG THERAPY 01/21/2017 WILFRED ELENA MD, Ot Z95.2 PRESENCE OF PROSTHETIC HEART VALVE 01/22/2017 NAVYA BELL Ot D63.1 ANEMIA IN CHRONIC KIDNEY DISEASE 01/22/2017 NAVYA BELL Ot N18.3 CHRONIC KIDNEY DISEASE, STAGE 3 (MODERAT 01/22/2017 NAVYA BELL Ot Z79.899 OTHER LONG-TERM (CURRENT) DRUG THERAPY Procedures Code Description [place] [address] EGD 10/26/2012 G0121 COLONOSCOPY, SCREENING 10/26/2012 45.13 11/08/2012 45.42 11/08/2012 48.36 11/08/2012 86.27 11/09/2012 72555 ROUTINE VENIPUNCTURE 11/23/2012 69405 CBC 11/23/2012 19021 CMP 11/24/2012 23279 BNP 11/24/2012 11177 CBC 11/24/2012 34077 ECHO 2D 2012 88.56 03/27/2013 81.92 03/31/2013 99.23 03/31/2013 Results Test Result Range Automated blood complete blood count (hemogram) panel - 01/14/17 07:34 Blood leukocytes automated count (number/volume) 8.3 10*3/ uL 4.3-11.0 Blood erythrocytes automated count (number/volume) 3.33 10*6 /uL 4.35-5.85 Venous blood hemoglobin measurement (mass/volume) 10.1 g/dL 11.5-16.0 Blood hematocrit (volume fraction) 32 % 35-52 Automated erythrocyte mean corpuscular volume 95 [foz_us] 80-99 Automated erythrocyte mean corpuscular hemoglobin (mass per erythrocyte) 30 pg 25-34 Automated erythrocyte mean corpuscular hemoglobin concentration measurement ( mass/volume) 32 g/dL 32-36 Automated erythrocyte distribution width ratio 13.1 % 10.0-14.5 Automated blood platelet count (count/volume) 181 10*3/uL 130-400 Automated blood platelet mean volume measurement 10.6 [foz_ us] 7.4-10.4 PT panel in platelet poor plasma by coagulation assay - 01/14/17 07:34 Prothrombin time (PT) in platelet poor plasma by coagulation assay 14.3 s 12.2-14.7 INR in platelet poor plasma or blood by coagulation assay 1.1 0.8-1.4 Activated partial thromboplastin time (aPTT) in platelet poor plasma bycoagulation assay - 01/14/17 07:34 Activated partial thromboplastin time (aPTT) in platelet poor plasma bycoagulation assay 31 s 24-35 Comprehensive metabolic panel - 01/14/17 07:34 Serum or plasma sodium measurement (moles/volume) 142 mmol/ L 135-145 Serum or plasma potassium measurement (moles/volume) 4.7 mmol/L 3.6-5.0 Serum or plasma chloride measurement (moles/volume) 111 mmol /L 98-107 Carbon dioxide 23 mmol/L 21-32 Serum or plasma anion gap determination (moles/volume) 8 mmol/L 5-14 Serum or plasma urea nitrogen measurement (mass/volume) 59 mg/dL 7-18 Serum or plasma creatinine measurement (mass/volume) 1.32 mg /dL 0.60-1.30 Serum or plasma urea nitrogen/creatinine mass ratio 45 NRG Serum or plasma creatinine measurement with calculation of estimated glomerular filtration rate 40 NRG Serum or plasma glucose measurement (mass/volume) 105 mg/dL 70-105 Serum or plasma calcium measurement (mass/volume) 9.7 mg/dL 8.5-10.1 Serum or plasma total bilirubin measurement (mass/volume) 0.4 mg/dL 0.1-1.0 Serum or plasma alkaline phosphatase measurement (enzymatic activity/volume) 72 U/L 40-136 Serum or plasma aspartate aminotransferase measurement (enzymatic activity/ volume) 17 U/L 5-34 Serum or plasma alanine aminotransferase measurement (enzymatic activity/volume ) 14 U/L 0-55 Serum or plasma protein measurement (mass/volume) 6.9 g/dL 6.4-8.2 Serum or plasma albumin measurement (mass/volume) 3.5 g/dL 3.2-4.5 Lipid 1996 panel - 01/14/17 07:34 Serum or plasma triglyceride measurement (mass/volume) 81 mg /dL <150 Serum or plasma cholesterol measurement (mass/volume) 94 mg/ dL < 200 Serum or plasma cholesterol in HDL measurement (mass/volume) 27 mg/dL 40-60 Cholesterol in LDL [mass/volume] in serum or plasma by direct assay 42 mg/dL 1-129 Serum or plasma cholesterol in VLDL measurement (mass/volume) 16 mg/dL 5-40 Methicillin resistant Staphylococcus aureus (MRSA) screening culture - 07:34 Methicillin resistant Staphylococcus aureus (MRSA) screening culture NEG NRG Capillary blood glucose measurement by glucometer (mass/volume) - 01/14/17 14: 08 Capillary blood glucose measurement by glucometer (mass/volume) 99 mg/dL 70-110 Automated blood complete blood count (hemogram) panel - 01/15/17 03:25 Blood leukocytes automated count (number/volume) 9.2 10*3/ uL 4.3-11.0 Blood erythrocytes automated count (number/volume) 2.88 10*6 /uL 4.35-5.85 Venous blood hemoglobin measurement (mass/volume) 8.7 g/dL 11.5-16.0 Blood hematocrit (volume fraction) 27 % 35-52 Automated erythrocyte mean corpuscular volume 95 [foz_us] 80-99 Automated erythrocyte mean corpuscular hemoglobin (mass per erythrocyte) 30 pg 25-34 Automated erythrocyte mean corpuscular hemoglobin concentration measurement ( mass/volume) 32 g/dL 32-36 Automated erythrocyte distribution width ratio 13.0 % 10.0-14.5 Automated blood platelet count (count/volume) 153 10*3/uL 130-400 Automated blood platelet mean volume measurement 10.9 [foz_ us] 7.4-10.4 Whole blood basic metabolic panel - 01/15/17 03:25 Serum or plasma sodium measurement (moles/volume) 141 mmol/ L 135-145 Serum or plasma potassium measurement (moles/volume) 4.5 mmol/L 3.6-5.0 Serum or plasma chloride measurement (moles/volume) 113 mmol /L 98-107 Carbon dioxide 21 mmol/L 21-32 Serum or plasma anion gap determination (moles/volume) 7 mmol/L 5-14 Serum or plasma urea nitrogen measurement (mass/volume) 56 mg/dL 7-18 Serum or plasma creatinine measurement (mass/volume) 1.29 mg /dL 0.60-1.30 Serum or plasma urea nitrogen/creatinine mass ratio 43 NRG Serum or plasma creatinine measurement with calculation of estimated glomerular filtration rate 41 NRG Serum or plasma glucose measurement (mass/volume) 129 mg/dL 70-105 Serum or plasma calcium measurement (mass/volume) 9.0 mg/dL 8.5-10.1 Encounters ACCT No. Visit Date/Time Discharge Status Pt. Type Provider Facility Loc./Unit Complaint [id number] 12/22/2013 14:59:00 12/22/2013 23: 59:59 CLS Outpatient TEJAL RICHARD MD [id number] 10/20/2013 14:56:00 10/20/2013 23: 59:59 CLS Outpatient TEJAL RICHARD MD [id number] 08/25/2013 15:05:00 08/25/2013 23: 59:59 CLS Outpatient TEJAL RICHARD MD [id number] 12/02/2012 15:21:00 12/02/2012 23: 59:59 CLS Outpatient [id number] 11/23/2012 10:50:00 11/23/2012 23: 59:59 CLS Outpatient [id number] 11/23/2012 10:50:00 11/23/2012 23: 59:59 CLS Outpatient BEATRIZ MADDEN DO [id number] 11/16/2012 11:09:00 11/16/2012 23: 59:59 CLS Outpatient [id number] 08/31/2012 12:33:00 08/31/2012 23: 59:59 [place] [id number] 07/29/2012 14:51:00 07/29/2012 23: 59:59 CLS Outpatient BEATRIZ MADDEN DO [id number] 06/23/2013 14:03:00 Document Registration [id number] 06/02/2013 15:00:00 Document Registration [id number] 01/13/2013 08:46:00 Document Registration
== END 2017-01-15 10:10 | disposition home or self-care (01) ==
LOC: DELPENDDIS → CATH 07:05 → ICU 10:45 → CATH 01-15 10:10
PROVIDERS: ATTEND Internal Medicine Cardiovascular Disease
DX: L97.529 Non-pressure chronic ulcer of other part of left foot with unspecified severity (principal); I70.203 Unspecified atherosclerosis of native arteries of extremities, bilateral legs; E11.621 Type 2 diabetes mellitus with foot ulcer; I70.92 Chronic total occlusion of artery of the extremities; I70.0 Atherosclerosis of aorta; I10 Essential (primary) hypertension; E11.40 Type 2 diabetes mellitus with diabetic neuropathy, unspecified; I50.32 Chronic diastolic (congestive) heart failure; J44.9 Chronic obstructive pulmonary disease, unspecified; E78.5 Hyperlipidemia, unspecified; E66.9 Obesity, unspecified; Z68.38 Body mass index [BMI] 38.0-38.9, adult; Z79.899 Other long term (current) drug therapy; Z79.4 Long term (current) use of insulin; Z95.2 Presence of prosthetic heart valve
CPT/HCPCS: 36247; 36415; 37224; 71010; 75625; 75716; 75774; 80048; 80053; 80061; 82962; 85027; 85347; 85610; 85730; 87081; 93005

== ENCOUNTER 2017-02-02 07:51 | Day surgery (SDC) | payer MEDICARE, OTHER, MEDICAID ==
[2017-02-02] VITALS (13 sets, daily range): BP systolic 120–166; BP diastolic 49–82
[~2017-02-02] VITALS: Ht 157.5 cm; Wt 97.5 kg
[~2017-02-02 07:51] MED LIST changes: +FLUT16SP22 NS; +SERT25TA5 PO; +TERA2CAP4 PO; +[UNRECOGNIZED DRUG - OTHER] TP
[2017-02-02] MEDS ORDERED: HEParin (CATH LAB) 2,000 ML IV ONE (08:02)
[2017-02-02] MEDS ORDERED: LIDOCAINE 1% INJ 20 ML (XYLOCAINE) VIAL ONE (08:02)
[2017-02-02] MEDS ORDERED: NS IV 1000 ML 1,000 ML ONE ×2 (08:02→09:38)
[2017-02-02 08:27] LABS: MEAN PLATELET VOLUME 10.6 FL (7.4-10.4); RED BLOOD COUNT 3.2 10^6/uL (4.35-5.85); RED CELL DISTRIBUTION WIDTH 13.6 % (10.0-14.5); WHITE BLOOD COUNT 9.3 10^3/uL (4.3-11.0)
[2017-02-02] MEDS ORDERED: NS IV 1000 ML 1,000 ML IV SCH (08:30)
[2017-02-02 08:37] LABS: INR 1.2 (0.8-1.4); PROTHROMBIN TIME PATIENT 14.4 SEC (12.2-14.7)
[2017-02-02 08:47] LABS: ALBUMIN 3.7 G/DL (3.2-4.5); BILIRUBIN,TOTAL 0.3 MG/DL (0.1-1.0); CALCIUM 9.9 MG/DL (8.5-10.1); CREATININE SERUM 1.54 MG/DL (0.60-1.30); POTASSIUM 4.7 MMOL/L (3.6-5.0)
--- NOTE | 2017-02-02 08:53 | Cardiac Procedure Note-CS/ASA ---
Pre-Procedure Note Pre-Op Procedure Note H&P Reviewed The H&P was reviewed, patient examined and no changes noted. Date H&P Reviewed: Feb 02, 2017 Time H&P Reviewed: 08:53 Conscious Sedation Pre-Proced Time Reviewed: 08:53 ASA Class: 3 Airway Mallampati Classification: ([place] appropriate class) I. II. III, IV Lungs Heart ASA score ASA 1: a normal healthy patient ASA 2: a patient with a mild systemic disease (mid diabetes, controlled hypertension, obesity x ASA 3: a patient with a severe systemic disease that limits activity (angina , COPD, prior Myocardial infarction) ASA 4: a patient with an incapacitating disease that is a constant threat to life (CHF, renal failure) ASA 5: a moribund patient not expected to survive 24 hrs. (ruptured aneurysm) ASA 6: a declared brain patient whose organs are being harvested. For emergent operations, add the letter E after the classification Grade 3 Sedation Plan: Analgesia, Amnesia, Plan communicated to team members, Discussed options with patient/fam, Discussed risks with patient/fam Note The patient is an appropriate candidate to undergo the planned procedure, sedation, and anesthesia. The patient immediately re-assessed prior to indication. WILFRED ELENA MD Feb 02, 2017 08:53
--- NOTE | 2017-02-02 09:19 | Diagnostic Imaging Report ---
EXAMINATION: Portable upright radiograph of the chest. INDICATION: Preoperative evaluation. Nonhealing ulcer. COMPARISON: 01/14/2017. FINDINGS: The cardiac size is moderately enlarged. There is suggestion of aortic valve replacement. There is minimal prominence of the interstitial thickening, suggestive of slight vascular congestion or scarring. The exam is similar to 01/14/2017. No effusion or pneumothorax. IMPRESSION: Cardiomegaly with prominence of the interstitial markings which could relate to minimal vascular congestion or scarring. Dictated by: Dictated on workstation # [id number]
[2017-02-02] MEDS ORDERED: CALC-938 PO (10:11)
[2017-02-02] MEDS ORDERED: NEOM28.44 TP (10:11)
[2017-02-02] MEDS ORDERED: MIDAZOLAM 5 MG/5 ML (VERSED) VIAL ONE (10:49)
[2017-02-02] MEDS ORDERED: fentaNYL INJECTION 100 MCG/2 ML AMP ONE (10:49)
[2017-02-02] MEDS ORDERED: HEParin 1000 UNIT/ML (10ML VIAL) FOR BOLUS ONE (11:23)
[2017-02-02] MEDS ORDERED: NITROGLYCERIN DRIP 25 MG/D5W 250 ML IV ONE (11:23)
[2017-02-02] MEDS ORDERED: CLOPIDOGREL 300 MG (PLAVIX) TABLET PO ONE (11:56)
[2017-02-02] MEDS ORDERED: ASPIRIN 81 MG CHEW (CHILDREN'S ASA) ONE (11:56)
[2017-02-02] MEDS ORDERED: PATIENT MAY USE OWN MEDS, ALL PO SCH (12:00)
[2017-02-02] MEDS ORDERED: SENNOSIDES 8.6 MG (SENOKOT) TAB PO PRN (12:00)
[2017-02-02] MEDS ORDERED: ACETAMINOPHEN 325 MG TABLET/CAPLET (TYLENOL) PO PRN (12:00)
[2017-02-02] MEDS ORDERED: LOPERAMIDE 2 MG (IMODIUM) CAP PO PRN (12:00)
[2017-02-02] MEDS ORDERED: PROMETHAZINE 25 MG (PHENERGAN) SUPP RC PRN (12:00)
[2017-02-02] MEDS: FERROUS SULF 325 MG (IRON) TAB PO SCH ×2 (12:30→21:39)
[2017-02-02] MEDS: inSUlin ASPART (NovoLOG) 1 UNIT/0.01 ML (CHARGE PER UNIT) SQ SCH ×3 (12:30→21:46)
[2017-02-02] MEDS: NS IV 1000 ML 1,000 ML IV SCH ×2 (13:00→23:45)
--- NOTE | 2017-02-02 13:35 | DISCHARGE SUMMARY ---
PROCEDURE PHYSICIAN: WILFRED ELENA DATE OF PROCEDURE: 02/02/2017 PERIPHERAL ANGIOGRAM REPORT REFERRING PHYSICIAN: Dr. Abbasi BRIEF HISTORY: Mrs. House is a 71-year-old lady with a history of nonhealing foot ulcer on her left leg. She underwent angiogram on January 15, 2017, which showed total occlusion of the SFA. Successful balloon angioplasty using a drug-coated balloon with no complication. The patient started complaining of her right leg pain and had new ulcer on her right leg. She was noted to have severe disease on her right SFA and popliteal artery and it was felt that her ABIs were normal. I did not consider intervention at that point. The patient returned for angiogram with plan for possible intervention on the right SFA. PROCEDURE NOTE: After explaining the procedure to the patient, all pros and cons were explained. All questions were answered. The patient was placed on the cardiac catheterization laboratory. Left groin was prepped in standard fashion. Local anesthesia applied to the left groin. 6-Peruvian sheath was placed in the left femoral artery. Runoff of the left lower extremity was done. Then I used crossover catheter and advanced a Storq wire, placed across rim catheter in the common iliac artery and did runoff of the right lower extremity. Then I advanced the wire to the distal SFA and advanced straight catheter to the proximal SFA and runoff of the right lower extremity was done. The patient appeared to have severe stenosis in the right SFA. I proceeded with advancement of the straight catheter across the lesion and parked it in the distal popliteal artery. Then the wire was removed and I then measured the pressure in the distal popliteal artery, which was 57/41. Then I removed the catheter, exchanged it over a 6-Peruvian sheath and placed it in the proximal right SFA and the pressure was 125/57. 65 mmHg gradient across the lesion. The patient was given 6000 units of heparin. I advanced Lutonix balloon 6.0 x 100, inflated it to the distal SFA and popliteal artery and inflated to its nominal size at 7 atmospheres for 3 minutes. After deflation the patient was given nitroglycerin then angiogram showed excellent results. No residual stenosis. There is mild disease at the distal popliteal artery. Severe disease at the anterior tibial artery, which was not treated due to the fact that the patient had rapid flow down to the ankle. Then the sheath was exchanged into short 6-Peruvian sheath again, and I introduced pigtail catheter over the wire to the abdominal aorta. Abdominal aortogram and evaluation of the bifurcation was done. At the end of the procedure, sheath was removed. Mynx device deployed. Hemostasis achieved. FINDINGS: HEMODYNAMICS: Abdominal aorta pressure was 130/50. Right proximal SFA 125/47, mean of 70. Right popliteal artery was 57/41 with mean of 48. ANATOMY: 1. LEFT LOWER EXTREMITY RUNOFF: The left lower extremity runoff showed mild disease in the left distal SFA. Excellent flow down to the leg. Moderate disease below the trifurcation. 2. RIGHT LOWER EXTREMITY: The right lower extremity runoff showed severe disease at the distal SFA with 65 mmHg gradient. 90% stenosis. Successful balloon angioplasty using Lutonix balloon 6.0 x 100, inflated for 3 minutes with excellent results. The anterior tibial artery has severe disease. Still has good flow down to the ankle. 3. ABDOMINAL AORTOGRAM: Abdominal aortogram bifurcation is normal. No dissection, no abnormality was noted. CONCLUSION: 1. Severe stenosis at the left distal SFA with a 65 mmHg gradient. Successful balloon angioplasty using drug-coated balloon Lutonix 6.0 x 100 with excellent results. No residual stenosis. 2. The anterior tibial artery has severe disease at its proximal portion. That was not treated due to the fact that the patient has excellent brisk flow and I am assuming that she has adequate blood supply to her foot. 3. Left lower extremity has mild to moderate disease at the distal SFA at the point where she had total occlusion previously. Moderate disease below the knee. 4. Normal abdominal aorta and aortic bifurcation. DISCUSSION AND RECOMMENDATION: I will continue maximizing medical therapy. Continue to monitor closely. Repeat CHRISTINE in 3 to 6 months. FINAL DIAGNOSES: 1. Nonhealing foot ulcer. 2. Peripheral arterial disease. 3. Claudication. 4. Hypertension. 5. Hyperlipidemia. 6. Diabetes mellitus. Job ID: [id number] Dictated Date: 02/02/2017 12:08:15 [employer] Date: 02/02/2017 13:34:42/ilcolin
[2017-02-02] MEDS ORDERED: inSUlin ASPART (NovoLOG) 1 UNIT/0.01 ML (CHARGE PER UNIT) SQ SCH (16:00)
[2017-02-02] MEDS ORDERED: ARTIFICAL TEARS 0.4 ML UNIT DOSE (REFRESH PLUS) OU PRN (16:15)
[2017-02-02] MEDS ORDERED: KCL 10 MEQ TAB (MICRO K) PO SCH (17:00)
[2017-02-02] MEDS ORDERED: inSUlin DETERMIR 1 UNIT/0.01 ML (LEVEMIR) CHARGE PER UNIT SQ SCH (21:00)
[2017-02-02] MEDS ORDERED: SIMvastatin 20 MG (ZOCOR) TAB PO SCH (21:00)
[2017-02-02] MEDS: ARTIFICAL TEARS 0.4 ML UNIT DOSE (REFRESH PLUS) OU SCH (21:35)
[2017-02-02] MEDS: GABAPENTIN 100 MG (NEURONTIN) CAP PO SCH (21:36)
[2017-02-02] MEDS: CARVEDILOL 12.5 MG (COREG) TABLET PO SCH (21:36)
[2017-02-02] MEDS: TERAZOSIN 2 MG (HYTRIN) CAP PO SCH (21:37)
[2017-02-02] MEDS: LACTOBACILLUS Acidoph/Bulgar (LACTINEX/FLORANEX) TAB PO SCH (21:47)
[2017-02-03 00:39] VITALS: BP 121/59
[2017-02-03 04:31] VITALS: BP 151/63
[2017-02-03 05:11] LABS: MEAN PLATELET VOLUME 10.8 FL (7.4-10.4); RED BLOOD COUNT 2.98 10^6/uL (4.35-5.85); RED CELL DISTRIBUTION WIDTH 13.7 % (10.0-14.5); WHITE BLOOD COUNT 10.5 10^3/uL (4.3-11.0)
[2017-02-03] MEDS: inSUlin ASPART (NovoLOG) 1 UNIT/0.01 ML (CHARGE PER UNIT) SQ SCH ×2 (05:57→11:09)
[2017-02-03 06:26] LABS: CALCIUM 9.4 MG/DL (8.5-10.1); CREATININE SERUM 1.22 MG/DL (0.60-1.30); POTASSIUM 4.4 MMOL/L (3.6-5.0)
[2017-02-03] MEDS ORDERED: FUROSEMIDE 80 MG PO SCH (07:00)
[2017-02-03] MEDS ORDERED: KCL 10 MEQ TAB (MICRO K) PO SCH (07:00)
[2017-02-03 08:00] VITALS: BP 143/76
[2017-02-03] MEDS: LACTOBACILLUS Acidoph/Bulgar (LACTINEX/FLORANEX) TAB PO SCH (08:14)
[2017-02-03] MEDS: CARVEDILOL 12.5 MG (COREG) TABLET PO SCH (08:15)
[2017-02-03] MEDS: TERAZOSIN 2 MG (HYTRIN) CAP PO SCH (08:16)
[2017-02-03] MEDS: GABAPENTIN 100 MG (NEURONTIN) CAP PO SCH (08:16)
[2017-02-03] MEDS: ARTIFICAL TEARS 0.4 ML UNIT DOSE (REFRESH PLUS) OU SCH (08:24)
--- NOTE | 2017-02-03 08:27 | Discharge Inst-Post CATH ---
Discharge Inst-CATH Post Cardiac Cath D/C Inst Follow Up/Plan Appointment with Dr Jackson's office in 2-4 weeks CARDIAC CATH DISCHARGE INSTRUCTIONS *Hold Metformin for 48 hours post heart cath. ACTIVITY * Go Home directly and rest. * Limit activity of the leg (or wrist if it was used) for 7 days including aerobics, swimming, jogging, bicycling, etc. * Restrict stair-climbing for 7 days if possible, if not, climb up with your non -cath leg, then bring together on the same step. * Avoid lifting, pushing, pulling or excessive movement of the affected extremity for 7 days. * Customary sexual activity may be resumed after 2 days-use caution not to use a position that strains or causes pain to the affected extremity. * No driving for 24 hours. * NO SMOKING. * Avoid straining for bowel movements for 7 days. * Gentle walking on level ground is allowed. * Returning to work will depend on the type of procedure and the results. Your doctor will discuss this with you. CALL YOUR DOCTOR FOR ANY OF THE FOLLOWING: *If bleeding from the puncture site occurs- Apply gentle pressure to site with clean cloth and call your doctor or EMS. * If a knot or lump forms under the skin, increases in size, or causes pain. * If bruising appears to be worsening or moving further down your leg instead of disappearing. * Temperature above 101 F. CARE OF YOUR GROIN INCISION; * Bruising or purple discoloration of the skin near the puncture site is common. * You may shower only, no bathtub bathing for 5 days. Be careful to avoid slipping as your leg may feel stiff. * If a closure device was used on your femoral artery, please see the attached guide regarding care of the device and your leg. * REMOVE the dressing from your groin the next day after your procedure in the shower. CARE OF YOUR WRIST INCISION; * Bruising or purple discoloration of the skin near the puncture site is common. * You may shower. * DO NOT submerge wrist. * Remove dressing in 24 hours. WILFRED JACKSON MD Feb 03, 2017 08:27
--- NOTE | 2017-02-03 08:29 | Cardiology Progress Note ---
Subjective Subjective/Events-last exam Patient is in bed, feeling better, groin is healing well. No new complaint. Review of Systems General: No Chills, No Night Sweats, No Fatigue, No Malaise, No Appetite, No Other HEENT: No Head Aches, No Visual Changes, No Eye Pain, No Ear Pain, No Dysphasia , No Sinus Congestion, No Post Nasal Drip, No Sore Throat, No Other Pulmonary: No Dyspnea, No Cough, No Pleuritic Chest Pain, No Other Cardiovascular: No: Chest Pain, Edema, Lt Headedness, Orthopnea, Other, Palpitations, Paroxysmal Noc. Dyspnea Objective-Cardiology Exam Last Set of Vital Signs Vital Signs 02/03/17 04:31 Temp 98.5 Pulse 68 Resp 20 B/P (MAP) 151/63 Pulse Ox 96 O2 Delivery Room Air Capillary Refill : Less Than 3 Seconds I&O Intake and Output 02/03/17 00:00 Intake Total 1350 ml Output Total 550 ml Balance 800 ml Intake Oral 350 ml IV Total 1000 ml Output Urine Total 550 ml # Bowel Movements 1 General: Alert, Oriented X3, Cooperative HEENT: Atraumatic, PERRLA Neck: Supple, No JVD, No Thyromegaly Lungs: Clear to Auscultation, Normal Air Movement Heart: Regular Rate, Normal S1, Normal S2, No Murmurs Abdomen: Normal Bowel Sounds, Soft, No Tenderness, No Hepatosplenomegaly, No Masses Extremities: No Clubbing, No Cyanosis, No Edema, Normal Pulses, No Tenderness/ Swelling Skin: No Rashes, No Breakdown, No Significant Lesion Neuro: Normal Gait, Normal Speech, Strength at 5/5 X4 Ext, Normal Tone, Sensation Intact Psych/Mental Status: Mental Status NL, Mood NL Results Lab Laboratory Tests 02/03/17 04:23 A/P-Cardiology Admission Diagnosis peripheral arterial disease Hypertension Hyperlipidemia Nonhealing foot ulcer Peripheral arterial disease Assessment/Plan peripheral arterial disease status post balloon angioplasty to the right SFA with excellent results. Groin is healing well, feeling better neck Hypertension, controlled, continue current medications Hyperlipidemia, continue current medications Nonhealing foot ulcer status post intervention on the lower extremity Diabetes mellitus followed and managed by primary care physician WILFRED ELENA MD Feb 03, 2017 08:28
[2017-02-03] MEDS ORDERED: OMEGA 3 (FISH OIL) 1000 MG CAP PO SCH (09:00)
[2017-02-03] MEDS ORDERED: CYANOCOBALAMIN 500 MCG TAB (VITAMIN B-12) PO SCH (09:00)
[2017-02-03] MEDS ORDERED: LORATADINE (CLARITIN) 10 MG TAB PO SCH (09:00)
[2017-02-03] MEDS ORDERED: SERTRALINE 25MG TABLET PO SCH (09:00)
[2017-02-03] MEDS ORDERED: CLOPIDOGREL 75 MG (PLAVIX) TABLET PO SCH (09:00)
[2017-02-03] MEDS ORDERED: ASPIRIN E.C. 81 MG (ECOTRIN) TAB PO SCH (09:00)
[2017-02-03] MEDS ORDERED: FLUTICASONE NASAL SPRAY (FLONASE) 16 GM BTL NS SCH (09:00)
[2017-02-03] MEDS ORDERED: amLODIPine 10 MG (NORVASC) TAB PO SCH (09:00)
[2017-02-03] MEDS ORDERED: lisINopril 20 MG (ZESTRIL) TAB PO SCH (09:00)
[2017-02-03] MEDS: FERROUS SULF 325 MG (IRON) TAB PO SCH (11:09)
[2017-02-03 12:16] VITALS: BP 143/76
== END 2017-02-03 11:58 ==
LOC: CATH 07:51 → ICU 12:20 → 4TH 23:06 → CATH 02-03 11:58
PROVIDERS: ATTEND Internal Medicine Cardiovascular Disease
DX: L97.529 Non-pressure chronic ulcer of other part of left foot with unspecified severity (principal); I70.213 Atherosclerosis of native arteries of extremities with intermittent claudication, bilateral legs; E11.621 Type 2 diabetes mellitus with foot ulcer; I25.10 Atherosclerotic heart disease of native coronary artery without angina pectoris; I50.32 Chronic diastolic (congestive) heart failure; Z86.73 Personal history of transient ischemic attack (TIA), and cerebral infarction without residual deficits; J44.9 Chronic obstructive pulmonary disease, unspecified; E11.40 Type 2 diabetes mellitus with diabetic neuropathy, unspecified; E11.22 Type 2 diabetes mellitus with diabetic chronic kidney disease; E78.5 Hyperlipidemia, unspecified; N18.3 Chronic kidney disease, stage 3 (moderate); I12.9 Hypertensive chronic kidney disease with stage 1 through stage 4 chronic kidney disease, or unspecified chronic kidney disease; Z79.4 Long term (current) use of insulin; Z79.899 Other long term (current) drug therapy; Z95.5 Presence of coronary angioplasty implant and graft; Z79.02 Long term (current) use of antithrombotics/antiplatelets; Z95.820 Peripheral vascular angioplasty status with implants and grafts
CPT/HCPCS: 36247; 36415; 37224; 71010; 75625; 75716; 80048; 80053; 82962; 85027; 85347; 85610; 85730; 87081

== ENCOUNTER → 2017-02-07 | Outpatient (CLI) | payer MEDICARE, OTHER, MEDICAID ==
[~2017-02-07] MED LIST changes: +CALC-938 PO; +NEOM28.44 TP
== END ==
PROVIDERS: ATTEND Internal Medicine
DX: Z11.2 Encounter for screening for other bacterial diseases (principal)
CPT/HCPCS: 87081

== ENCOUNTER 2017-04-14 11:06 | Outpatient (RCR) | payer MEDICARE, OTHER, MEDICAID ==
[~2017-04-14 11:06] MED LIST changes: +DARBEPOETIN 25 MCG/ML (CANCER CTR) 1 ML VIAL SC SCH; +LOSA1TAB20 PO; -LOSA1TAB69 PO
== END 2017-04-27 | disposition home or self-care (01) ==
LOC: ONC 11:06
PROVIDERS: ATTEND Internal Medicine Hematology & Oncology
DX: Z79.899 Other long term (current) drug therapy; D63.1 Anemia in chronic kidney disease; N18.3 Chronic kidney disease, stage 3 (moderate)
CPT/HCPCS: 96372; 99213

== ENCOUNTER 2017-05-12 08:13 | Outpatient (RCR) | payer MEDICARE, OTHER, MEDICAID ==
[~2017-05-12 08:13] MED LIST changes: -DARBEPOETIN 25 MCG/ML (CANCER CTR) 1 ML VIAL SC SCH
== END 2017-05-12 16:00 | disposition home or self-care (01) ==
LOC: WOUNDCARE 08:13
PROVIDERS: ATTEND Nurse Practitioner
DX: E11.621 Type 2 diabetes mellitus with foot ulcer (principal); L97.522 Non-pressure chronic ulcer of other part of left foot with fat layer exposed; L97.511 Non-pressure chronic ulcer of other part of right foot limited to breakdown of skin
CPT/HCPCS: 11042; 99212

== ENCOUNTER 2017-07-07 12:03 | Outpatient (RCR) | payer MEDICARE, OTHER, MEDICAID ==
[~2017-07-07 12:03] MED LIST changes: +DARBEPOETIN 10 MCG/0.4 ML ARANESP IJ SCH; +DARBEPOETIN 25 MCG/ML (CANCER CTR) 1 ML VIAL SC SCH; -LOSA1TAB20 PO; +LOSA1TAB69 PO
== END 2017-07-18 | disposition home or self-care (01) ==
LOC: ONC 12:03
PROVIDERS: ATTEND Internal Medicine Hematology & Oncology
DX: N18.3 Chronic kidney disease, stage 3 (moderate) (principal); D63.1 Anemia in chronic kidney disease; Z79.899 Other long term (current) drug therapy
CPT/HCPCS: 96372

== ENCOUNTER → 2017-08-04 | Outpatient (CLI) | payer MEDICARE, OTHER, MEDICAID ==
[~2017-08-04] MED LIST changes: -DARBEPOETIN 10 MCG/0.4 ML ARANESP IJ SCH; -DARBEPOETIN 25 MCG/ML (CANCER CTR) 1 ML VIAL SC SCH
== END ==
LOC: PREOP 07-20 05:40
PROVIDERS: ATTEND Surgery
DX: Z01.818 Encounter for other preprocedural examination (principal); K92.1 Melena

== ENCOUNTER 2017-08-07 09:37 | Day surgery (SDC) | payer MEDICARE, OTHER, MEDICAID ==
[~2017-08-07] VITALS: Ht 157.5 cm; Wt 97.5 kg
--- OUTSIDE RECORDS SUMMARY | 2017-08-07 09:41 | XMS REPORT | Clinical Summary ---
Author Author [facility] Organization [facility] Address Unknown Phone Unavailable Care Team Providers Care Circulation Librarian Name Role Phone PCP Unavailable Source Comments Some departments are not documenting in the electronic medical record. If you do not see the information that you expected, contact Release of Information in the Health Information Management department at [phone] for further assistance in locating additional records.[facility] Allergies Active Allergy Reactions Severity Noted Date Comments Sotalol UNKNOWN Low 03/29/2015 Current Medications Prescription Sig. Disp. Refills Start End Date Status Date ketoconazole (NIZORAL) 2 Apply to affected area Active % topical cream twice daily. Apply to coccyx and left upper thigh twice daily until both areas healed insulin aspart (NOVOLOG) Inject 0-12 Units into Active 100 unit/mL flexPEN area(s) as directed three times daily with meals. Inject as per sliding scale:60-150=0 [id number]=1 tjnky880-373=9 mappm112-052=4 qojpr744-232=17 -444=37 unitsAbove 400, call physician Menthol 5.8 mg [...] Active (SENOKOT-S) 8.6/50 mg twice daily. 15 tabletIndications: Aortic stenosis, Aortic valve stenosis, IDDM (insulin dependent diabetes mellitus) ([facility]), Essential hypertension, Chronic obstructive pulmonary disease, unspecified copd, unspecified chronic bronchitis type, Morbid obesity ([facility]), UTI (lower urinary tract infection), Chronic diastolic CHF (congestive heart failure) ([facility]), CKD (chronic kidney disease) stage 3, GFR 30-59 ml/min, Coronary artery disease involving [place] coronary artery of [place] heart without angina pectoris, Arthritis, Acute diastolic HF (heart failure) ([facility]), Huqeh-fu-mcyevpw kidney injury (HCC) polyethylene glycol 3350 Take 17 g by mouth daily. 3 Bottle 3 Active (GLYCOLAX; MIRALAX) 17 15 gram/dose powderIndications: Aortic stenosis, Aortic valve stenosis, IDDM (insulin dependent diabetes mellitus) ([facility]), Essential hypertension, Chronic obstructive pulmonary disease, unspecified copd, unspecified chronic bronchitis type, Morbid obesity ([facility]), UTI (lower urinary tract infection), Chronic diastolic CHF (congestive heart failure) ([facility]), CKD (chronic kidney disease) stage 3, GFR 30-59 ml/min, Coronary artery disease involving [place] coronary artery of [place] heart without angina pectoris, Arthritis, Acute diastolic HF (heart failure) ([facility]), Ddwyp-ru-cmsdszg kidney injury (HCC) insulin aspart (NOVOLOG) Inject 6 Units into 3 box 3 06/26/20 Active 100 unit/mL area(s) as directed three 15 flexPENIndications: times daily with meals. Aortic stenosis, Aortic Take 6 units with lunch valve stenosis, IDDM and dinner (insulin dependent diabetes mellitus) ([facility]), Essential hypertension, Chronic obstructive pulmonary disease, unspecified copd, unspecified chronic bronchitis type, Morbid obesity ([facility]), UTI (lower urinary tract infection), Chronic diastolic CHF (congestive heart failure) ([facility]), CKD (chronic kidney disease) stage 3, GFR 30-59 ml/min, Coronary artery disease involving [place] coronary artery of [place] heart without angina pectoris, Arthritis, Acute diastolic HF (heart failure) ([facility]), Cfhkz-fa-hrvjdaz kidney injury ([facility]) insulin detemir(+) Inject 20 Units into 10 mL 12 06/26/20 Active (LEVEMIR) 100 unit/mL area(s) as directed at 15 solnIndications: Aortic bedtime daily. stenosis, Aortic valve stenosis, IDDM (insulin dependent diabetes mellitus) ([facility]), Essential hypertension, Chronic obstructive pulmonary disease, unspecified copd, unspecified chronic bronchitis type, Morbid obesity ([facility]), UTI (lower urinary tract infection), Chronic diastolic CHF (congestive heart failure) ([facility]), CKD (chronic kidney disease) stage 3, GFR 30-59 ml/min, Coronary artery disease involving [place] coronary artery of [place] heart without angina pectoris, Arthritis, Acute diastolic HF (heart failure) ([facility]), Bxgqt-wy-iyjrejq kidney injury ([facility]) carvedilol (COREG) 6.25 Take 1 Tab by mouth twice 180 Tab 3 07/31/20 Active mg tablet daily. 15 losartan-hydrochlorothiaz Take 1 Tab by mouth 90 Tab 3 11/16/19 Active chanelle (HYZAAR) 50-12.5 mg daily. 16 tabletIndications: Aortic stenosis Active Problems Problem Noted Date Chronic diastolic CHF (congestive heart failure) ([facility]) 06/26/2015 CKD (chronic kidney disease) stage 3, GFR 30-59 ml/min 06/26/2015 UTI (lower urinary tract infection) 06/21/2015 Acute diastolic HF (heart failure) ([facility]) 04/10/2015 Morbid obesity ([facility]) 04/10/2015 Ssgfc-mf-hafsowj kidney injury (probable ATN) 04/10/2015 IDDM (insulin dependent diabetes mellitus) ([facility]) 03/29/2015 CAD (coronary artery disease) 03/29/2015 Overview: 03/30/15: Cath at [facility] - CAD. The LAD has a 90% eccentric mid vessel stenosis after the 1st septal with minimal disease elsewhere in the left coronary system. Successful intervention of the mid LAD, placing a 3.5 x 15 mm drug-eluting stent. HTN (hypertension) 03/29/2015 COPD (chronic obstructive pulmonary disease) ([facility]) 03/29/2015 Arthritis 03/29/2015 Aortic stenosis 03/28/2015 Family History Relation Name Status Comments Father accident (Age 55) Mother DM, HTN (Age 72) Social History Tobacco Use Types Packs/Day Years Used Date Former Smoker 1 7 Quit: 10/19/1973 Alcohol Use Drinks/Week oz/Week Comments No 0 Standard 0.0 drinks or equivalent Sex Assigned at Date Recorded Not on file Last Filed Vital Signs Vital Sign Reading Time Taken Blood Pressure 102/68 07/01/2016 12:52 PM CDT Pulse 56 07/01/2016 12:52 PM CDT Temperature 36.5 C (97.7 F) 06/26/2015 11:06 AM CDT Respiratory Rate - - Oxygen Saturation 97% 11/16/2015 11:22 AM CAD APPLICATION SUPPORT SPECIALIST Inhaled Oxygen - - Concentration Weight 102.1 kg (225 lb) 07/01/2016 12:52 PM CDT Height 157.5 cm (5' 2") 07/01/2016 12:52 PM CDT Body Mass Index 41.15 07/01/2016 12:52 PM CDT Plan of Treatment Health Maintenance Due Date Last Done Comments HEPATITIS C SCREENING 1947 PHYSICAL (COMPREHENSIVE) 1954 EXAM PERTUSSIS VACCINE 1958 TETANUS VACCINE 02/05/1964 DILATED EYE EXAM 1965 FOOT EXAM 1965 MICROALBUMIN 1965 BREAST CANCER SCREENING 1987 COLORECTAL CANCER 1997 SCREENING SHINGLES VACCINE 2007 OSTEOPOROSIS SCREENING 02/05/2012 PREVNAR/PNEUMOVAX (#1) 02/05/2012 HBA1C 12/19/2015 06/20/2015 INFLUENZA VACCINE 05/19/2017 Results Not on filefrom Last 3 Months
[2017-08-07] MEDS ORDERED: NS IV 500 ML 500 ML ONE (09:57)
[2017-08-07 10:00] VITALS: BP 182/64
[2017-08-07] MEDS ORDERED: LIDOCAINE JELLY 2% (XYLOCAINE) 5 ML TUBE MM PRN (10:00)
[2017-08-07] MEDS ORDERED: LIDOCAINE JELLY 2% (XYLOCAINE) 5 ML TUBE ONE (10:05)
[2017-08-07] MEDS ORDERED: fentaNYL INJECTION 100 MCG/2 ML AMP ONE (10:05)
[2017-08-07] MEDS ORDERED: MIDAZOLAM 2 MG/2 ML (VERSED) VIAL ONE ×2 (10:05)
[2017-08-07] MEDS ORDERED: NS IV 500 ML 500 ML IV PRN (10:15)
[2017-08-07] MEDS: fentaNYL INJECTION 100 MCG/2 ML AMP IVP PRN ×2 (11:05→11:15)
[2017-08-07] MEDS: MIDAZOLAM 2 MG/2 ML (VERSED) VIAL IVP PRN ×3 (11:07→11:29)
--- NOTE | 2017-08-07 11:07 | Conscious Sedation/ASA ---
Conscious Sedation Pre-Proced Time Reviewed: 10:30 ASA Class: 3 Airway Mallampati Classification: (mechoopda appropriate class) I. II. III, IV Lungs Heart ASA score ASA 1: a normal healthy patient ASA 2: a patient with a mild systemic disease (mid diabetes, controlled hypertension, obesity ASA 3: a patient with a severe systemic disease that limits activity (angina , COPD, prior Myocardial infarction) ASA 4: a patient with an incapacitating disease that is a constant threat to life (CHF, renal failure) ASA 5: a moribund patient not expected to survive 24 hrs. (ruptured aneurysm) ASA 6: a declared brain patient whose organs are being harvested. For emergent operations, add the letter E after the classification Grade 3 Sedation Plan: Analgesia, Amnesia, Plan communicated to team members, Discussed options with patient/fam, Discussed risks with patient/fam Note The patient is an appropriate candidate to undergo the planned procedure, sedation, and anesthesia. The patient immediately re-assessed prior to indication. PER WITT MD Aug 07, 2017 11:07 am
--- NOTE | 2017-08-07 11:08 | Progress Note-Pre Operative ---
Pre-Operative Progress Note H&P Reviewed The H&P was reviewed, patient examined and no changes noted. Date Seen by Provider: Aug 07, 2017 Time Seen by Provider: 10:30 Date H&P Reviewed: Aug 07, 2017 Time H&P Reviewed: 10:30 Pre-Operative Diagnosis: rectal bleed PER WITT MD Aug 07, 2017 11:08 am
[2017-08-07] MEDS ORDERED: ONDANSETRON 4 MG/2 ML (SDV) Z0FRAN IV PRN (11:15)
[2017-08-07] MEDS ORDERED: HYDROcodone/APAP 5 MG/325 MG (LORTAB) TAB PO PRN (11:15)
[2017-08-07] MEDS ORDERED: ACETAMINOPHEN 325 MG TABLET/CAPLET (TYLENOL) PO PRN (11:15)
[2017-08-07] MEDS ORDERED: morphine INJ 10 MG/ML 1ML (SYR OR VIAL) IV PRN (11:15)
[2017-08-07 11:55] VITALS: BP 152/67
[2017-08-07 12:25] VITALS: BP 152/67
--- NOTE | 2017-08-07 12:27 | Progress Note-Post Operative ---
Post-Operative Progess Note Surgeon (s)/Tub Attendant (s) Surgeon PER WITT MD Tub Attendant: none Pre-Operative Diagnosis rectal bleed Post-Operative Diagnosis chronic stage 2 ext and int hemorrhoids. Procedure & Operative Findings Date of Procedure 08/07/17 Procedure Performed/Findings Colonoscopy Anesthesia Type CS Estimated Blood Loss Estimated blood loss (mL): minimal Specimens/Packing Specimens Removed none PER WITT MD Aug 07, 2017 12:27 pm
--- NOTE | 2017-08-07 12:30 | Discharge Inst-Surgical ---
D/C Lap Instructions-MIRYAM Follow Up 5 years or PRN Activity as tolerated High Fiber Diet 25g or more per day Avoid Alcohol, Caffeine, Spicy [place] and Acid foods. Drink 64 fluid oz or more of fluids per day. Symptoms to Report: Fever over 101 degree F, Nausea/Vomiting If any problems/questions: Contact your physician or go to Emergency Room PER WITT MD Aug 07, 2017 12:30 pm
[2017-08-07 13:00] VITALS: BP 152/67
--- NOTE | 2017-08-07 20:24 | OPERATIVE REPORT ---
DATE OF SERVICE: 08/07/2017 ATTENDING PRIMARY CARE PHYSICIAN: Dr. Ibis Abbasi. PREOPERATIVE DIAGNOSIS: Rectal bleed. POSTOPERATIVE DIAGNOSES: Chronic stage II external and internal hemorrhoids. There was a poor colonic prep, however, there is no identifiable bleeding sources as well as no polyps or any neoplasms identified. PROCEDURE: Colonoscopy. SURGEON: Dr. Witt. ANESTHESIA: Conscious sedation. ESTIMATED BLOOD LOSS: Minimal. FINDINGS: Chronic stage II external and internal hemorrhoids. There was a poor colonic prep throughout the colon and rectum; however, with copious irrigation, we were able to complete the colonoscopy with no identifiable bleeding sources, no old or new blood as well as no polyps or any neoplasms identified. DISPOSITION: The patient tolerated the procedure well. The patient is 72-year-old female who was admitted with a history of rectal bleeding. She has a number of different medical problems including insulin-dependent diabetes, coronary artery disease as well as aortic insufficiency. She underwent a transaortic valve replacement as well as cardiac catheterization and stent placement. She has been on aspirin and Plavix since that time. She has had episodes of rectal bleeding. She is wheelchair bound with poor ambulatory status. She reported having a colonoscopy before in the past approximately 5 years ago and does not remember anything significant. She also does not report any family history of colon cancer. The patient was brought to the endoscopy suite, laid in the left lateral decubitus position. After adequate IV pain and sedative medications and conscious sedation anesthesia, a digital rectal examination was performed. Chronic stage II external and internal hemorrhoids were identified, which were not actively edematous or inflamed and no bleeding. Normal sphincter tone was felt and there were no palpable masses. The endoscope was then intubated to the anus and the rectum and gently insufflated. Immediately, there was a liquid semi-solid stools throughout the colon and rectum. This was irrigated with power irrigation throughout the process of the colonoscopy. We advanced the scope through the valves of Le in the rectum with no polyps or any neoplasms identified. We then proceeded through the sigmoid colon where no significant diverticulosis identified. The endoscope was then advanced to the remainder of the descending, transverse, and ascending colon of the cecum. Throughout these segments, there were no bleeding sources identified as well as no old or new blood identified within the colonic lumen. There were also no polyps or any neoplasms identified. The endoscope was then slowly withdrawn taking a second look and suctioning residual air with no additional findings. The patient tolerated the procedure well. We will have her continue with medical management and proceed with a high fiber diet with at least 30 grams of fiber per day as well as significant amounts of water to promote soft stools on a daily basis. At this time, we feel that her rectal bleeding was most likely due to the internal hemorrhoidal cushions being irritated by constipation as well as being on aspirin and Plavix. We will recommend a followup colonoscopy in approximately 5 years; however, sooner if any problems arise. Job ID: [id number] DocumentID: [id number] Dictated Date: 08/07/2017 12:34:37 Strip Cutting Machine Operator Date: 08/07/2017 20:23:51 Dictated By: PER WITT MD
== END 2017-08-07 13:00 | disposition home or self-care (01) ==
LOC: ENDO 09:37
PROVIDERS: ATTEND Surgery
DX: K64.1 Second degree hemorrhoids (principal); K62.5 Hemorrhage of anus and rectum; I25.10 Atherosclerotic heart disease of native coronary artery without angina pectoris; I10 Essential (primary) hypertension; E78.00 Pure hypercholesterolemia, unspecified; E11.9 Type 2 diabetes mellitus without complications; Z79.899 Other long term (current) drug therapy; Z79.82 Long term (current) use of aspirin; Z95.5 Presence of coronary angioplasty implant and graft

== ENCOUNTER 2017-08-14 10:23 | Outpatient (RCR) | payer MEDICARE, OTHER, MEDICAID ==
[~2017-08-14 10:23] MED LIST changes: +DARBEPOETIN 25 MCG/ML (CANCER CTR) 1 ML VIAL SC SCH
[2017-08-14] MEDS ORDERED: DARBEPOETIN 40 MCG/1 ML ARANESP IJ SCH (11:30)
== END 2017-08-14 16:14 | disposition home or self-care (01) ==
LOC: ONC 10:23
PROVIDERS: ATTEND Internal Medicine Hematology & Oncology
DX: N18.3 Chronic kidney disease, stage 3 (moderate) (principal); D63.1 Anemia in chronic kidney disease; Z79.899 Other long term (current) drug therapy
CPT/HCPCS: 96372

== ENCOUNTER 2017-09-30 09:14 | Outpatient (RCR) | payer MEDICARE, OTHER, MEDICAID ==
[~2017-09-30 09:14] MED LIST changes: -DARBEPOETIN 25 MCG/ML (CANCER CTR) 1 ML VIAL SC SCH; +DARBEPOETIN 40 MCG/ML (ARANESP) 1 ML VIAL SC SCH; +LOSA1TAB20 PO; -LOSA1TAB69 PO
== END 2017-10-02 14:02 | disposition home or self-care (01) ==
LOC: ONC 09:14
PROVIDERS: ATTEND Internal Medicine Hematology & Oncology
DX: N18.3 Chronic kidney disease, stage 3 (moderate) (principal); D63.1 Anemia in chronic kidney disease; Z79.899 Other long term (current) drug therapy
CPT/HCPCS: 96372

== ENCOUNTER → 2017-11-25 | Outpatient (CLI) | payer MEDICARE, OTHER, MEDICAID ==
[~2017-11-25] MED LIST changes: -DARBEPOETIN 40 MCG/ML (ARANESP) 1 ML VIAL SC SCH; +REGADENOSON 0.4 MG/5 ML SYR (LEXISCAN) IV ONE
[2017-11-25] MEDS: CATHETER FLUSH 10 ML SYR IV PRN ×2 (08:11→09:59)
[2017-11-25 09:59] VITALS: BP 139/58
--- NOTE | 2017-11-25 14:10 | STRESS TEST ---
DATE OF SERVICE: 11/25/2017 LEXISCAN MYOVIEW STRESS TEST REPORT Baseline heart rate is 63. Baseline blood pressure is 155/69. Baseline EKG, sinus rhythm with left bundle branch block. SUMMARY: The patient was injected with 10.78 mCi of technetium-99 Myoview and the resting images were obtained. Then, the patient received 0.4 mg of Lexiscan followed by 30.1 mCi of technetium-99 Myoview. Throughout the test, there were no EKG changes. The patient's arm was down during acquiring of the images. The resting and stress images were reviewed and compared in the short axis, horizontal long axis, and vertical long axis views. Extracardiac attenuation affecting the quality of the images was noted. Overall, there is mild decreased uptake at the base of the anterolateral and inferolateral wall with no significant ischemia. SSS is 2, SDS 1, TID value 1.15. On the gated images, the left ventricle appeared to be normal size with normal contractility, calculated ejection fraction of 59%. CONCLUSION: 1. The patient tolerated Lexiscan well. 2. Baseline left bundle branch block persisted throughout test. 3. Extracardiac attenuation with no significant ischemia or infarction on SPECT images. 4. Normal left ventricular size with normal contractility. Calculated ejection fraction 59%. Job ID: [id number] DocumentID: [id number] Dictated Date: 11/25/2017 13:53:54 Physical Sciences Instructor Date: 11/25/2017 14:09:19 Dictated By: WILFRED ELENA MD
== END ==
LOC: CARD 07:48
PROVIDERS: ATTEND Physician Assistant
DX: I25.10 Atherosclerotic heart disease of native coronary artery without angina pectoris (principal); I65.23 Occlusion and stenosis of bilateral carotid arteries; I10 Essential (primary) hypertension; Q25.3 Supravalvular aortic stenosis
CPT/HCPCS: 78452; 93017

== ENCOUNTER → 2017-11-26 | Outpatient (CLI) | payer MEDICARE, OTHER, MEDICAID ==
[~2017-11-26] MED LIST changes: -REGADENOSON 0.4 MG/5 ML SYR (LEXISCAN) IV ONE
== END ==
LOC: CARD 09:49
PROVIDERS: ATTEND Physician Assistant
DX: Q25.3 Supravalvular aortic stenosis (principal); I25.10 Atherosclerotic heart disease of native coronary artery without angina pectoris; I65.23 Occlusion and stenosis of bilateral carotid arteries; I10 Essential (primary) hypertension
CPT/HCPCS: 93306

== ENCOUNTER → 2017-12-04 | Outpatient (CLI) | payer MEDICARE, OTHER, MEDICAID | LOC: RAD 09:52 | PROVIDERS: ATTEND Orthopaedic Surgery | DX: Z53.8 Procedure and treatment not carried out for other reasons (principal); M75.101 Unspecified rotator cuff tear or rupture of right shoulder, not specified as traumatic ==

== ENCOUNTER → 2017-12-21 | Outpatient (CLI) | payer MEDICARE, OTHER, MEDICAID ==
--- NOTE | 2017-12-21 15:00 | Diagnostic Imaging Report ---
EXAM: 1. CT right shoulder without contrast. DATE: December 21, 2017. INDICATION: 72-year-old female, shoulder pain for 6 weeks. No known recent injury. COMPARISON: None. TECHNIQUE: Axial CT images of the right shoulder were obtained. Coronal and sagittal reformats were provided. FINDINGS: RIGHT SHOULDER. The right humeral head is superiorly subluxed and directly abuts the undersurface of the acromion. There is remodeling of the undersurface of the acromion. There is a subcortical fracture involving the superior and posterior aspect of the humeral head seen best on coronal image 24 and sagittal image 23. There is severe glenohumeral joint space loss with yjvp-xs-rrzz articulation. The humeral head is anteriorly subluxed. There are subchondral cystic changes in the glenoid and humeral head. There are osteophytes arising from the inferior glenoid. There are limitations on CT for evaluation of glenohumeral joint effusion. There is likely at least a small amount of glenohumeral joint fluid present. There is an ossification which is in the region of the axillary pouch on coronal image 18 although not definitely intra-articular in location. This measures 8 x 8 mm in size on coronal image 18. There is remodeling of the inferior glenoid. There are areas of probable chondrocalcinosis. There is no pronounced widening of the acromioclavicular joint. There are severe acromioclavicular degenerative changes with osteophytes extending approximately 4 mm below the joint margin. There is no os acromiale. There is a chronic-appearing deformity of the right fourth rib. There is no identified acute fracture. There is severe fatty atrophy of the supraspinatus, infraspinatus, and subscapularis muscles. There is fluid in the subacromial subdeltoid bursa. There is respiratory motion artifact. The lungs are not particularly well evaluated on this study. IMPRESSION: RIGHT SHOULDER. 1. End-stage glenohumeral arthritis. 2. The superior humeral head is superiorly subluxed and directly abuts the undersurface of the acromion with bone remodeling. This is compatible with a chronic full-thickness rotator cuff tendon tear. Severe fatty atrophy of the supraspinatus, infraspinatus, and subscapularis muscles. 3. Severe acromioclavicular degenerative changes with 4 mm undersurface osteophytes. 4. Fluid in the subacromial subdeltoid bursa compatible with full-thickness rotator cuff tendon tear, bursitis, and/or recent injection. Dictated by: Dictated on workstation # [id number]
== END ==
LOC: RAD 14:10
PROVIDERS: ATTEND Orthopaedic Surgery
DX: S43.001A Unspecified subluxation of right shoulder joint, initial encounter (principal); M19.011 Primary osteoarthritis, right shoulder; M62.511 Muscle wasting and atrophy, not elsewhere classified, right shoulder; M25.711 Osteophyte, right shoulder

== ENCOUNTER 2017-12-29 10:39 | Outpatient (RCR) | payer MEDICARE, OTHER, MEDICAID ==
[2017-10-06 10:20] LABS: BASOPHILS % (AUTO) 0 % (0-10); EOSINOPHILS # (AUTO) 0.3 10^3/uL (0.0-0.3); EOSINOPHILS % (AUTO) 3 % (0-10); HEMATOCRIT 31 % (35-52); HEMOGLOBIN 9.7 G/DL (11.5-16.0); LYMPHOCYTES # (AUTO) 1.1 X 10^3 (1.0-4.0); LYMPHOCYTES % (AUTO) 14 % (12-44); MEAN CORPUSCULAR HEMOGLOBIN 31 PG (25-34); MEAN CORPUSCULAR HGB CONC 31 G/DL (32-36); MEAN CORPUSCULAR VOLUME 100 FL (80-99); MEAN PLATELET VOLUME 11.5 FL (7.4-10.4); MONOCYTES # (AUTO) 0.8 X 10^3 (0.0-1.0); MONOCYTES % (AUTO) 10 % (0-12); NEUTROPHILS # (AUTO) 5.7 X 10^3 (1.8-7.8); NEUTROPHILS % (AUTO) 73 % (42-75); PLATELET COUNT 170 10^3/uL (130-400); RED CELL DISTRIBUTION WIDTH 15.1 % (10.0-14.5); WHITE BLOOD COUNT 7.8 10^3/uL (4.3-11.0)
[2017-10-06 10:36] LABS: CALCIUM 10.6 MG/DL (8.5-10.1); CREATININE SERUM 1.73 MG/DL (0.60-1.30); POTASSIUM 4.8 MMOL/L (3.6-5.0)
[2017-10-06 10:37] LABS: ALBUMIN 3.8 GM/DL (3.2-4.5); BILIRUBIN,TOTAL 0.2 MG/DL (0.1-1.0); TOTAL PROTEIN 6.8 GM/DL (6.4-8.2)
[2017-12-16 15:33] LABS: BASOPHILS % (AUTO) 0 % (0-10); EOSINOPHILS # (AUTO) 0.3 10^3/uL (0.0-0.3); EOSINOPHILS % (AUTO) 4 % (0-10); HEMATOCRIT 28 % (35-52); HEMOGLOBIN 9.2 G/DL (11.5-16.0); LYMPHOCYTES # (AUTO) 1.1 X 10^3 (1.0-4.0); LYMPHOCYTES % (AUTO) 14 % (12-44); MEAN CORPUSCULAR HEMOGLOBIN 33 PG (25-34); MEAN CORPUSCULAR HGB CONC 32 G/DL (32-36); MEAN CORPUSCULAR VOLUME 100 FL (80-99); MONOCYTES # (AUTO) 0.7 X 10^3 (0.0-1.0); MONOCYTES % (AUTO) 9 % (0-12); NEUTROPHILS # (AUTO) 5.9 X 10^3 (1.8-7.8); NEUTROPHILS % (AUTO) 73 % (42-75); PLATELET COUNT 130 10^3/uL (130-400); RED BLOOD COUNT 2.83 10^6/uL (4.35-5.85); RED CELL DISTRIBUTION WIDTH 15.8 % (10.0-14.5)
[2017-12-16 16:06] LABS: ALBUMIN 3.9 GM/DL (3.2-4.5); BILIRUBIN,TOTAL 0.3 MG/DL (0.1-1.0); CALCIUM 9.6 MG/DL (8.5-10.1); CREATININE SERUM 2.4 MG/DL (0.60-1.30); TOTAL PROTEIN 6.9 GM/DL (6.4-8.2)
[~2017-12-29 10:39] MED LIST changes: +DARBEPOETIN 40 MCG/ML (ARANESP) 1 ML VIAL SC SCH
== END 2018-01-04 | disposition home or self-care (01) ==
LOC: ONC 10:39
PROVIDERS: ATTEND Internal Medicine Hematology & Oncology
DX: N18.3 Chronic kidney disease, stage 3 (moderate) (principal); D63.1 Anemia in chronic kidney disease; I13.0 Hypertensive heart and chronic kidney disease with heart failure and stage 1 through stage 4 chronic kidney disease, or unspecified chronic kidney disease; I50.9 Heart failure, unspecified; I25.10 Atherosclerotic heart disease of native coronary artery without angina pectoris; E11.40 Type 2 diabetes mellitus with diabetic neuropathy, unspecified; E78.5 Hyperlipidemia, unspecified; I73.9 Peripheral vascular disease, unspecified; E66.01 Morbid (severe) obesity due to excess calories; Z68.41 Body mass index [BMI] 40.0-44.9, adult; Z86.73 Personal history of transient ischemic attack (TIA), and cerebral infarction without residual deficits; Z79.4 Long term (current) use of insulin; Z79.82 Long term (current) use of aspirin; Z79.899 Other long term (current) drug therapy
CPT/HCPCS: 36415; 80053; 82607; 82728; 82746; 85025; 96372; 99213

== ENCOUNTER → 2018-01-05 | Outpatient (CLI) | payer MEDICARE, OTHER, MEDICAID ==
[~2018-01-05] MED LIST changes: -DARBEPOETIN 40 MCG/ML (ARANESP) 1 ML VIAL SC SCH
== END ==
LOC: WOUNDCARE 10:01
PROVIDERS: ATTEND Nurse Practitioner
DX: E11.622 Type 2 diabetes mellitus with other skin ulcer (principal); L89.322 Pressure ulcer of left buttock, stage 2
CPT/HCPCS: 11042

== ENCOUNTER → 2018-01-14 | Outpatient (CLI) | payer MEDICARE, OTHER, MEDICAID | LOC: WOUNDCARE 14:50 | PROVIDERS: ATTEND Nurse Practitioner | DX: E11.622 Type 2 diabetes mellitus with other skin ulcer (principal); L89.322 Pressure ulcer of left buttock, stage 2 | CPT/HCPCS: 99212 ==

== ENCOUNTER 2018-03-23 10:51 | Outpatient (RCR) | payer MEDICARE, OTHER, MEDICAID ==
[2018-03-09 09:54] LABS: BASOPHILS % (AUTO) 0 % (0-10); EOSINOPHILS # (AUTO) 0.2 10^3/uL (0.0-0.3); EOSINOPHILS % (AUTO) 3 % (0-10); HEMATOCRIT 30 % (35-52); HEMOGLOBIN 9.3 G/DL (11.5-16.0); LYMPHOCYTES % (AUTO) 16 % (12-44); MEAN CORPUSCULAR HEMOGLOBIN 33 PG (25-34); MEAN CORPUSCULAR HGB CONC 32 G/DL (32-36); MEAN CORPUSCULAR VOLUME 106 FL (80-99); MEAN PLATELET VOLUME 10.6 FL (7.4-10.4); MONOCYTES # (AUTO) 0.4 X 10^3 (0.0-1.0); MONOCYTES % (AUTO) 7 % (0-12); NEUTROPHILS # (AUTO) 4.7 X 10^3 (1.8-7.8); NEUTROPHILS % (AUTO) 74 % (42-75); PLATELET COUNT 143 10^3/uL (130-400); RED BLOOD COUNT 2.79 10^6/uL (4.35-5.85); RED CELL DISTRIBUTION WIDTH 14.6 % (10.0-14.5); WHITE BLOOD COUNT 6.3 10^3/uL (4.3-11.0)
[~2018-03-23 10:51] MED LIST changes: +DARBEPOETIN 40 MCG/ML (ARANESP) 1 ML VIAL SC SCH
[2018-04-09] MEDS ORDERED: ACET-168 PO (10:38)
[2018-04-09] MEDS ORDERED: LACT1CAP8 PO (10:38)
[2018-04-09] MEDS ORDERED: DIPH25TA65 PO (10:38)
[2018-04-09] MEDS ORDERED: FERR-65 PO (10:38)
[2018-04-09] MEDS ORDERED: ALLO100T PO (10:38)
[2018-04-09] MEDS ORDERED: FOLI1TAB24 PO (10:38)
[2018-04-09] MEDS ORDERED: LOPE2TAB34 PO (10:38)
[2018-04-09] MEDS ORDERED: INSU100V16 SQ (10:38)
[2018-04-09] MEDS ORDERED: EUCA50OI5 TP (10:38)
[2018-04-09] MEDS ORDERED: GUAI118S37 PO (10:38)
[2018-04-09] MEDS ORDERED: OMG1KC PO (10:38)
[2018-04-09] MEDS ORDERED: ONDN4T PO (10:38)
[2018-04-09] MEDS ORDERED: TRAM-42 PO (11:04)
[2018-04-09] MEDS ORDERED: CEFD300C3 PO ×2 (11:09→11:10)
[2018-04-14] MEDS ORDERED: NF-FOSFPKT PO (08:50)
[2018-04-14] MEDS ORDERED: DEXT15DR23 OP (08:53)
[2018-04-14] MEDS ORDERED: TRAM50TA2 PO (08:57)
[2018-04-15] MEDS ORDERED: NF-FOSFPKT PO (10:16)
[2018-04-15] MEDS ORDERED: FENT1PAT57 TD (10:16)
[2018-04-15] MEDS ORDERED: ACHD5005 PO (10:16)
== END 2018-05-11 | disposition home or self-care (01) ==
LOC: ONC 10:51
PROVIDERS: ATTEND Internal Medicine Hematology & Oncology
DX: N18.3 Chronic kidney disease, stage 3 (moderate) (principal); D63.1 Anemia in chronic kidney disease; Z79.899 Other long term (current) drug therapy
CPT/HCPCS: 85025; 96372

== ENCOUNTER → 2018-04-05 | Outpatient (CLI) | payer MEDICARE, OTHER, MEDICAID ==
[~2018-04-05] MED LIST changes: +ACET-168 PO; +ALLO100T PO; +CEFD300C3 PO; -DARBEPOETIN 40 MCG/ML (ARANESP) 1 ML VIAL SC SCH; +DIPH25TA65 PO; +EUCA50OI5 TP; +FERR-65 PO; +FOLI1TAB24 PO; +GUAI118S37 PO; +LACT1CAP8 PO; +LOPE2TAB34 PO; +OMG1KC PO; +TRAM-42 PO
--- NOTE | 2018-04-05 10:29 | Diagnostic Imaging Report ---
INDICATION: Chronic kidney disease and hypertension. TECHNIQUE: Multiple Real-time grayscale images of the pelvis including the urinary bladder were performed. FINDINGS: The prevoid bladder volume is calculated to be 558 mL. No post void residual volume is seen. No bladder wall thickening or mass is identified. IMPRESSION: Unremarkable bladder ultrasound. Dictated by: Dictated on workstation # [id number]
--- NOTE | 2018-04-05 10:33 | Diagnostic Imaging Report ---
INDICATION: Chronic kidney disease, hypertension. PROCEDURE: US Renal Bilateral. TECHNIQUE: Multiple Real-time grayscale images were obtained over the kidneys in various projections bilaterally. FINDINGS: The right kidney measures 12.2 x 5.8 x 5.9 cm and the left is 12.5 x 6.9 x 7.0 cm. The cortical thickness and echogenicity appear normal. No calculi are seen. There is no hydronephrosis. The renal Doppler evaluation is somewhat limited due to patient body habitus and overlying bowel gas. The aorta was not visible; therefore, the renal artery to aorta ratios could not be obtained. The proximal right renal artery was obscured. The proximal and mid left renal artery were obscured. There is some asymmetry in the main renal artery velocities, right being greater than left. The mid right renal artery velocity is 152 cm/s and the distal left renal artery velocity is 66 cm/s; however, no abnormal waveforms are identified. No perinephric fluid collection is seen. The bladder is unremarkable. IMPRESSION: Very limited renal Doppler evaluation due to patient body habitus and bowel gas. No significant abnormality is seen although there is some asymmetry in renal artery velocities as described. If there is continued concern for renal artery stenosis, CT angiography could be performed if the patient is able to receive IV contrast. Consideration could be given to performance of an MRA of the renal arteries as well. Dictated by: Dictated on workstation # [id number]
== END ==
LOC: RAD 08:17
PROVIDERS: ATTEND Internal Medicine Nephrology
DX: N28.0 Ischemia and infarction of kidney (principal); I12.9 Hypertensive chronic kidney disease with stage 1 through stage 4 chronic kidney disease, or unspecified chronic kidney disease; N18.4 Chronic kidney disease, stage 4 (severe); D64.9 Anemia, unspecified
CPT/HCPCS: 76857; 93975

== ENCOUNTER 2018-04-08 19:59 | Inpatient (IN) | payer MEDICARE, OTHER, MEDICAID ==
[~2018-04-08] VITALS: Ht 157.5 cm; Wt 102.1 kg
[~2018-04-08 19:59] MED LIST changes: -ACET-168 PO; -ALLO100T PO; -CEFD300C3 PO; -DIPH25TA65 PO; -EUCA50OI5 TP; -FERR-65 PO; -FOLI1TAB24 PO; -GUAI118S37 PO; -LACT1CAP8 PO; -LOPE2TAB34 PO; -OMG1KC PO; -TRAM-42 PO
[2018-04-08] MEDS ORDERED: NS IV 500 ML 500 ML IV ONE (20:08)
--- NOTE | 2018-04-08 20:17 | ED Fall/Injury ---
General Chief Complaint: Trauma-Non Activation Stated Complaint: FALL YESTERDAY Nursing Triage Note: Patient reports that she fell out of bed about 0100 this morning. patient states that she felt a pop in her R leg. patient states that staff at senior care put her back in bed and she continued to have pain. patient states that she had a portable x-ray about 1500 today. Source: patient, EMS, senior care records Exam Limitations: no limitations History of Present Illness Date Seen by Provider: Apr 08, 2018 Time Seen by Provider: 20:00 Initial Comments The patient presents to the ER by EMS with chief complaint that she had a fall getting out of bed this morning on her own approximately 1:30. She did not strike her head nor lose consciousness she says but she did have some pain in her right leg just above her knee. She had an x-ray done by portable and it was red around 5:00 this afternoon demonstrating a distal femur fracture that is minimally displaced and impacted. She has no history of fracture to her right leg or surgery to her knee. She is accompanied with her senior care records and the x-ray report. She also has her med list and she has Plavix as well as diabetes, hypertension, hypercholesterolemia etc. she quit smoking about 40 years ago but the past 5 days she said she's had a little bit of productive cough. Allergies and Home Medications Allergies Coded Allergies: butorphanol (Verified Allergy, Unknown, 09/05/08) sotalol (Unverified Allergy, Unknown, 03/28/15) Home Medications Acetaminophen 325 Mg Tablet, 650 MG PO Q6H PRN for PAIN/TEMP, (Reported) TAKES 2 (325MG) TABLETS Acetaminophen 650 Mg Supp.rect, 650 MG RC Q6H PRN for TEMPERATURE, (Reported) Amlodipine Besylate 10 Mg Tablet, 10 MG PO DAILY, (Reported) Aspirin 81 Mg Tablet.dr, 81 MG PO DAILY, (Reported) B&C/FA/Zinc/Copper Oxide/Vit E 1 Each Tablet, 1 TAB PO DAILY, (Reported) Calcium Carbonate 300 Mg Tab.chew, 1,500 MG PO PRN PRN for HEARTBURN, (Reported) Calcium Carbonate/Vitamin D3 1 Each Tablet, 1 TAB PO BID, (Reported) Carvedilol 12.5 Mg Tablet, 12.5 MG PO BID, (Reported) Clopidogrel Bisulfate 75 Mg Tablet, 75 MG PO DAILY, (Reported) Cyanocobalamin (Vitamin B-12) 500 Mcg Tablet, 500 MCG PO DAILY, (Reported) Dextran 70/Hypromellose 15 Ml Drops, 1 DROP OU BID, (Reported) Eucalyptus/Menthol 1 Alesha Lozenge, 1 ALESHA MM EVERY 2 HOURS PRN for COUGH, ( Reported) Ferrous Sulfate 325 Mg Tablet, 325 MG PO 1200,2100, (Reported) Fluticasone Propionate 16 Gm [place].susp, 2 SPRAYS NS DAILY, (Reported) Furosemide 80 Mg Tablet, 80 MG PO DAILY, (Reported) Gabapentin 100 Mg Capsule, 100 MG PO BID, (Reported) Insulin Aspart 10 Unit/0.1 Ml Susp, SQ SLIDING/SCALE, (Reported) BELOW 60 CALL PHYSICIAN 60-150 = 0 UNITS 151-200 = 4 UNITS 201-250 = 6 UNITS 251-300 = 8 UNITS 301-350 = 10 UNITS 351-400 = 12 UNITS ABOVE 400 CALL PHYSICIAN Insulin Aspart 100 Unit/1 Ml Susp, 6 UNITS SQ 1200,1700, (Reported) Insulin Detemir 100 Unit/1 Ml Insuln.pen, 26 UNITS SQ HS, (Reported) Lactobacillus Acidophilus 1 Each Capsule, 1 CAP PO BID, (Reported) Lisinopril 20 Mg Tablet, 20 MG PO DAILY, (Reported) Loperamide Hcl 2 Mg Capsule, 2 MG PO Q6H PRN for DIARRHEA, (Reported) Loratadine 10 Mg Tablet, 10 MG PO DAILY, (Reported) Losartan/Hydrochlorothiazide 1 Each Tablet, 1 TAB PO DAILY, (Reported) Multivitamin with Minerals 1 Each Tablet, 1 TAB PO DAILY, (Reported) Neomycn/Baci Zn/Pmyx Bs/Pramox 28.4 Gm Oint...g., TP DAILY, (Reported) APPLY TO LEFT 3RD TOE [place]-3 Fatty Acids/Fish Oil 1 Each Capsule, 2,000 MG PO DAILY, (Reported) TAKE 2 (1000 MG) TABLETS DAILY Potassium Chloride 10 Meq Tab.er.prt, 10 MEQ PO BID, (Reported) Promethazine HCl 25 Mg Supp.rect, 25 MG RC Q6H PRN for NAUSEA/VOMITING, ( Reported) Propylene Glycol/Peg 400 1 Each [place], 2 DROPS OS PRN PRN for SUBCONJUNCTIVAL HEMATOMA, (Reported) Sennosides 8.6 Mg Tablet, 8.6 MG PO Q8H PRN for CONSTIPATION, (Reported) Sertraline HCl 25 Mg Tablet, 25 MG PO DAILY, (Reported) Simvastatin 20 Mg Tablet, 20 MG PO HS, (Reported) Terazosin HCl 2 Mg Capsule, 2 MG PO BID, (Reported) [A&D Oint] , TP HS, (Reported) APPLY TO BOTH FEET Patient Home Medication List Home Medication List Reviewed: Yes Review of Systems Constitutional: No chills, No diaphoresis, No malaise Eyes: Denies Blindness, Denies Blurred Vision Ears, Nose, Mouth, Throat: denies ear pain, denies ear discharge Respiratory: cough; No orthopnea; phlegm; No short of breath, No wheezing Cardiovascular: No chest pain, No edema, No palpitations Gastrointestinal: No abdominal pain, No constipation, No diarrhea, No nausea Genitourinary: No discharge, No dysuria Musculoskeletal: No back pain; joint pain (right knee) Skin: No pruritus, No rash Psychiatric/Neurological: Denies Headache, Denies Numbness, Denies Paresthesia Past Xlkgjcf-Ldygxs-Lhjkde Hx Patient Social History Alcohol Use: Denies Use Recreational Drug Use: No Smoking Status: Former Smoker Type Used: Cigarettes Former Smoker, Quit: Feb 02, 1973 Recent Foreign Travel: No Contact w/Someone Who Travel: No Recent Infectious Disease Expo: No Recent Hopitalizations: No Immunizations Up To Date Date of Pneumonia Vaccine: Aug 16, 2013 Date of Influenza Vaccine: Jul 27, 2017 Seasonal Allergies Seasonal Allergies: Yes Past Medical History Surgeries: Yes (AORTIC VALVE REPLACEMENT 06/2015,L ELBOW FX/REPAIR, DEBRIDEMENTS FOR MRSA) Cardiac, Hysterectomy, Orthopedic, Tonsillectomy, Valve Replacement Respiratory: No Pneumonia, COPD Currently Using CPAP: No Currently Using BIPAP: No Cardiac: Yes Cardiomyopathy, Chronic Edema/Swelling, Coronary Artery Disease, Heart Murmur, High Cholesterol, Hypertension, Peripheral Vascular, Valvular Heart Disease Neurological: Yes Neuropathy, Stroke, TIA Reproductive Disorders: No (total HYSTERECTOMY) 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 PAIN) Arthritis Endocrine: Yes (OBESITY) Diabetes, Insulin dep Cancer: No Psychosocial: Yes Anxiety, Depression Integumentary: Yes (MRSA/CELLULITIS/STASIS ULCERS RIGHT LEG > LEFT ) Recent Skin Changes Blood Disorders: Yes (HYPOPROLIFERATIVE ANEMIA) Adverse Reaction/Blood Tranf: No Physical Exam Vital Signs Vital Signs - First Documented 04/08/18 20:11 Temp 98.2 Pulse 69 Resp 18 B/P (MAP) 112/74 (87) Pulse Ox 90 O2 Delivery Room Air Capillary Refill : Less Than 3 Seconds General Appearance: WD/WN, mild distress HEENT: PERRL/EOMI, pharynx normal Neck: non-tender, normal inspection Cardiovascular: normal peripheral pulses, regular rate, rhythm Respiratory: chest non-tender, lungs clear, normal breath sounds, no respiratory distress, no accessory muscle use Peripheral Pulses: 2+ Dorsalis Pedis (R), 2+ Left Dors-Pedis (L) Gastrointestinal: normal bowel sounds, non tender, soft Extremities: normal capillary refill, other (external rotation and loss of range of motion to the right leg secondary to pain. She is able to move her foot and ankle and toes on the right side and has full sensation with only minimal swelling and deformity above the right knee. Distal tendons appear to be intact.) Neurologic/Psychiatric: no motor/sensory deficits, alert, normal mood/affect, oriented x 3 Skin: normal color, warm/dry [place] Coma Score Best Eye Response: (4) Open Spontaneously Best Verbal Response: (5) Oriented Best Motor Response: (6) Obeys Commands [place] Total: 15 Progress/Results/Core Measures Results/Orders Lab Results Laboratory Tests Test 04/08/18 20:08 04/08/18 20:15 Range/Units White Blood Count 11.5 H 4.3-11.0 10^3/uL Red Blood Count 2.31 L 4.35-5.85 10^6/uL Hemoglobin 7.7 L 11.5-16.0 G/DL Hematocrit 24 L 35-52 % Mean Corpuscular Volume 104 H 80-99 FL Mean Corpuscular Hemoglobin 33 25-34 PG Mean Corpuscular Hemoglobin Concent 32 32-36 G/DL Red Cell Distribution Width 14.5 10.0-14.5 % Platelet Count 155 130-400 10^3/uL Mean Platelet Volume 11.2 H 7.4-10.4 FL Neutrophils (%) (Auto) 86 H 42-75 % Lymphocytes (%) (Auto) 7 L 12-44 % Monocytes (%) (Auto) 6 0-12 % Eosinophils (%) (Auto) 0 0-10 % Basophils (%) (Auto) 0 0-10 % Neutrophils # (Auto) 9.9 H 1.8-7.8 X 10^3 Lymphocytes # (Auto) 0.8 L 1.0-4.0 X 10^3 Monocytes # (Auto) 0.7 0.0-1.0 X 10^3 Eosinophils # (Auto) 0.0 0.0-0.3 10^3/uL Basophils # (Auto) 0.0 0.0-0.1 10^3/uL Neutrophils % (Manual) 91 % Lymphocytes % (Manual) 4 % Monocytes % (Manual) 5 % Eosinophils % (Manual) 0 % Basophils % (Manual) 0 % Band Neutrophils 0 % Macrocytosis SLIGHT Sodium Level 137 135-145 MMOL/L Potassium Level 6.3 H 3.6-5.0 MMOL/L Chloride Level 114 H 98-107 MMOL/L Carbon Dioxide Level 11 L 21-32 MMOL/L Anion Gap 12 5-14 MMOL/L Blood Urea Nitrogen 117 *H 7-18 MG/DL Creatinine 2.48 H 0.60-1.30 MG/DL Estimat Glomerular Filtration Rate 19 BUN/Creatinine Ratio 47 Glucose Level 138 H 70-105 MG/DL Calcium Level 9.8 8.5-10.1 MG/DL Total Bilirubin 0.2 0.1-1.0 MG/DL Aspartate Amino Transf (AST/SGOT) 36 H 5-34 U/L Alanine Aminotransferase (ALT/SGPT) 13 0-55 U/L Alkaline Phosphatase 56 40-136 U/L Total Protein 6.7 6.4-8.2 GM/DL Albumin 3.6 3.2-4.5 GM/DL Urine Color YELLOW Urine Clarity CLEAR Urine pH 5 5-9 Urine Specific [place] 1.020 1.016-1.022 Urine Protein NEGATIVE NEGATIVE Urine Glucose (UA) NEGATIVE NEGATIVE Urine Ketones NEGATIVE NEGATIVE Urine Nitrite NEGATIVE NEGATIVE Urine Bilirubin NEGATIVE NEGATIVE Urine Urobilinogen NORMAL NORMAL MG/DL Urine Leukocyte Esterase 3+ H NEGATIVE Urine RBC (Auto) NEGATIVE NEGATIVE Urine RBC NONE /HPF Urine WBC 10-25 H /HPF Urine Crystals NONE /LPF Urine Bacteria LARGE H /HPF Urine Casts NONE /LPF Urine Mucus NEGATIVE /LPF Urine Culture Indicated YES My Orders Orders - BALDOMERO,ZENON J Chest 1 View, Ap/Pa Only (04/08/18 20:08) Cbc With Automated Diff (04/08/18 20:08) Comprehensive Metabolic Panel (04/08/18 20:08) Ua Culture If Indicated (04/08/18 20:08) Saline Lock/Iv-Start (04/08/18 20:08) Ns Iv 500 Ml (Sodium Chloride 0.9%) (04/08/18 20:08) Catheter(Urinary) Insert & Ass 03,15 (04/08/18 20:08) Ct Head/Cervical Spine Wo (04/08/18 20:17) Femur, Right, 2 Views (04/08/18 20:17) Manual Differential (04/08/18 20:08) Urine Culture (04/08/18 20:15) Ns Iv 1000 Ml (Sodium Chloride 0.9%) (04/08/18 21:00) Knee, Right, 2 Views (04/08/18 ) Fentanyl Injection (Sublimaze Injection (04/08/18 21:15) Ceftriaxone Injection (Rocephin Injectio (04/08/18 21:30) Vital Signs: Special (Order) (04/08/18 21:23) Consent-Obtain Consent For (04/08/18 21:23) Monitor S/S Transfusion Reacti (04/08/18 21:23) Type And Screen (04/08/18 21:23) Red Cells Leukocytes Reduced (04/08/18 21:23) Medications Given in ED Current Medications Medications Dose Ordered Sig/Danisha Route Start Time Stop Time Status Last Admin Dose Admin Ceftriaxone Sodium 1000 mg/ Sodium Chloride 50 ml @ 100 mls/hr ONCE ONCE IV 04/08/18 21:30 04/08/18 21:59 DC 04/08/18 21:50 100 MLS/HR Fentanyl Citrate 50 mcg ONCE ONCE IVP 04/08/18 21:15 04/08/18 21:16 DC 04/08/18 21:30 50 MCG Sodium Chloride 500 ml @ 0 mls/hr Q0M ONCE IV 04/08/18 20:08 04/08/18 20:11 DC 04/08/18 20:17 0 MLS/HR Sodium Chloride 1,000 ml @ 500 mls/hr Q2H ONCE IV 04/08/18 21:00 04/08/18 22:59 04/08/18 21:05 500 MLS/HR Vital Signs/I&O 04/08/18 20:11 Temp 98.2 Pulse 69 Resp 18 B/P (MAP) 112/74 (87) Pulse Ox 90 O2 Delivery Room Air Blood Pressure Mean: 87 Progress Progress Note : Time: 20:21 Progress Note Plan to obtain a CT scan of her head and neck since she had a fall unwitnessed. We'll then get a x-ray of her right leg. Get some basic labs, 1 view chest x- ray and inserted a Mcghee catheter and get a urinalysis. She's not having any wheezing right now. No breathing treatment be necessary. Bronchitis versus pneumonia versus URI might of contributed to the fall. Diagnostic Imaging Diagonstic Imaging: Xray Plain Films/CT/US/NM/MRI: chest (one view) Comments [facility] [place] [place] [id number] PT STATUS: REG ER : 1945 PHYSICIAN: ZENON ALEXANDRE MD ADMIT DATE: 04/08/18/ER Draft Date of Exam:04/08/18 CHEST 1 VIEW, AP/PA ONLY INDICATION: Fall. AP view of the chest is obtained with comparison made study of 02/02/2017. FINDINGS: Heart size and pulmonary vascularity are at the upper limits of normal. Aortic valve prosthesis is noted. There is no evidence of pneumothorax, consolidation or other significant change. IMPRESSION: Stable appearance of the chest without new abnormality detected. Dictated on workstation # [id number] Dict: 04/08/182103 Trans: 04/08/182105 [id number] Interpreted by: CUBA MERAZ MD Electronically signed by: Reviewed: Reviewed by Me Diagonstic Imaging: Xray Plain Films/CT/US/NM/MRI: femur (right), knee (r) Comments [facility] [place], [place] [facility] [id number] PT STATUS: REG ER : 1945 PHYSICIAN: ZENON ALEXANDRE MD ADMIT DATE: 04/08/18/ER Draft Date of Exam:04/08/18 FEMUR, RIGHT, 2 VIEWS INDICATION: Fall with right leg pain. FINDINGS: AP and lateral views of the right femur reveal comminuted fracture in the distal shaft of the right femur. This does extend into the joint space. There is extensive degenerative change of the knee joint as well. This limits evaluation. There is degenerative change at the level of the right hip and greater trochanter as well without additional fracture line appreciated. IMPRESSION: Comminuted intra-articular fracture of the distal right femur. Dedicated views of the knee would be useful for further clarification. There are probable degenerative findings at the greater trochanter without additional femoral fracture appreciated. Dictated on workstation # [id number] Dict: 04/08/182104 Trans: 04/08/182108 [id number] Interpreted by: CUBA MERAZ MD Electronically signed by: [facility] [place] NAME: TOMÁS VELEZ [facility] REC#: [id number] PT STATUS: REG ER : 1945 PHYSICIAN: ZENON ALEXANDRE MD ADMIT DATE: 04/08/18/ER Draft Date of Exam:04/08/18 KNEE, RIGHT, 2 VIEWS INDICATION: Fall with right knee pain and decreased range of motion. FINDINGS: There is marked degenerative change at the level of the knee joint. In addition, there is a mildly angulated fracture of the distal shaft of the femur which appears to extend into the intercondylar region and likely involves the articular surface. There is knee joint hematoma as well. IMPRESSION: Comminuted distal femoral fracture involving the distal diaphysis with extension to the intercondylar notch. In addition, there is advanced osteoarthritis involving the right knee which does limit evaluation. Dictated on workstation # [id number] Dict: 04/08/182105 Trans: 04/08/182108 [facility] [id number] Interpreted by: CUBA MERAZ MD Electronically signed by: Reviewed: Reviewed by Pa Diagonstic Imaging: CT (without contrast) Plain Films/CT/US/NM/MRI: c-spine, head Comments [facility] [place] [place] NAME: TOMÁS VELEZ [facility] REC#: [id number] PT STATUS: REG ER : 1945 PHYSICIAN: ZENON ALEXANDRE MD ADMIT DATE: 04/08/18/ER Draft Date of Exam:04/08/18 CT HEAD/CERVICAL SPINE WO PROCEDURE: CT head and CT cervical spine without contrast. TECHNIQUE: Multiple contiguous axial images were obtained through the brain and cervical spine without the use of intravenous contrast. Sagittal and coronal reformations through the cervical spine were then performed. INDICATION: Fall with head injury COMPARISON is made to study of 03/25/2013. CT HEAD: The ventricles and sulci remain diffusely prominent. There is low-density within the deep white matter of both hemispheres with probable old lacunar infarct in the left basal ganglia. No hemorrhage is identified. There is no evidence of an acute infarct. Calvarium is intact and the visualized paranasal sinuses are clear. IMPRESSION: Stable senescent findings in the brain without CT evidence of acute intracranial abnormality. CT CERVICAL SPINE: Cervical spinal curvature and alignment are unremarkable. Anterior osteophytes are seen throughout the cervical spine with calcification at the transverse ligament at C1 level. There is mild diffuse degenerative facet arthropathy. No acute fracture or malalignment is identified. There is no evidence of paraspinous hematoma in the cervical region. IMPRESSION: Cervical spondylosis without CT evidence of acute cervical spinal abnormality. Dictated on workstation # [id number] Dict: 04/08/182100 Trans: 04/08/182105 [facility] [id number] Interpreted by: CUBA MERAZ MD Electronically signed by: Reviewed: Reviewed by Me Consults : Consulting Physician: TOMI CANSECO DO Departure Communication (Admissions) Time/Spoke to Admitting Phy: 21:53 Discussed case lab imaging and plans with Dr. Durán. She agrees with IV fluids , Rocephin, agrees to consult in the morning on the patient. We discussed the dehydration, plan to transfuse and pain and nausea management. Time/Spoke to Consulting Phy: 21:35 Left voicemail [phone]: Discussed case lab imaging findings and plan with Dr. Canseco. Impression Primary Impression: Femur fracture, right Qualified Codes: S72.401A - Unspecified fracture of lower end of right femur, initial encounter for closed fracture Additional Impressions: Fall Qualified Codes: W19.XXXA - Unspecified fall, initial encounter UTI (urinary tract infection) Qualified Codes: N30.00 - Acute cystitis without hematuria Anemia, macrocytic Chronic kidney disease Qualified Codes: N18.4 - Chronic kidney disease, stage 4 (severe) Dehydration Disposition: ADMITTED INPATIENT Condition: Stable Admissions Decision to Admit Reason: Admit from ER (General) Decision to Admit/Date: Apr 08, 2018 Time/Decision to Admit Time: 20:23 Departure-Patient Inst. Referrals: KIARA ACEVES MD (PCP/Family) Primary Care Physician Copy Copies To 1: TOMI CANSECO DO; KIARA ACEVES MD, TITUS J Apr 08, 2018 20:17
[2018-04-08 20:22] LABS: BASOPHILS % (AUTO) 0 % (0-10); EOSINOPHILS % (AUTO) 0 % (0-10); HEMATOCRIT 24 % (35-52); HEMOGLOBIN 7.7 G/DL (11.5-16.0); LYMPHOCYTES # (AUTO) 0.8 X 10^3 (1.0-4.0); LYMPHOCYTES % (AUTO) 7 % (12-44); MEAN CORPUSCULAR HEMOGLOBIN 33 PG (25-34); MEAN CORPUSCULAR HGB CONC 32 G/DL (32-36); MEAN CORPUSCULAR VOLUME 104 FL (80-99); MEAN PLATELET VOLUME 11.2 FL (7.4-10.4); MONOCYTES # (AUTO) 0.7 X 10^3 (0.0-1.0); MONOCYTES % (AUTO) 6 % (0-12); NEUTROPHILS # (AUTO) 9.9 X 10^3 (1.8-7.8); NEUTROPHILS % (AUTO) 86 % (42-75); PLATELET COUNT 155 10^3/uL (130-400); RED BLOOD COUNT 2.31 10^6/uL (4.35-5.85); RED CELL DISTRIBUTION WIDTH 14.5 % (10.0-14.5); WHITE BLOOD COUNT 11.5 10^3/uL (4.3-11.0)
[2018-04-08 20:23] LABS: BILIRUBIN,URINE NEGATIVE (NEGATIVE); CLARITY,URINE CLEAR; COLOR,URINE YELLOW; GLUCOSE, URINE (UA) NEGATIVE (NEGATIVE); KETONES,URINE NEGATIVE (NEGATIVE); LEUKOCYTE ESTERASE ,URINE 3+ (NEGATIVE); NITRITE,URINE NEGATIVE (NEGATIVE); PH,URINE 5 (5-9); PROTEIN,URINE NEGATIVE (NEGATIVE); UROBILINOGEN,URINE NORMAL (NORMAL)
[2018-04-08 20:41] LABS: BAND NEUTROPHILS 0 %; LYMPHOCYTES % (MANUAL) 4 %; NEUTROPHILS % (MANUAL) 91 %
[2018-04-08 20:42] LABS: ALBUMIN 3.6 GM/DL (3.2-4.5); BASOPHILS % (MANUAL) 0 %; BILIRUBIN,TOTAL 0.2 MG/DL (0.1-1.0); CALCIUM 9.8 MG/DL (8.5-10.1); CREATININE SERUM 2.48 MG/DL (0.60-1.30); EOSINOPHILS % (MANUAL) 0 %; MONOCYTES % (MANUAL) 5 %; POTASSIUM 6.3 MMOL/L (3.6-5.0); TOTAL PROTEIN 6.7 GM/DL (6.4-8.2)
[2018-04-08 20:44] LABS: BACTERIA,URINE LARGE /HPF
[2018-04-08] MEDS ORDERED: NS IV 1000 ML 1,000 ML IV ONE (21:00)
--- NOTE | 2018-04-08 21:07 | Diagnostic Imaging Report ---
INDICATION: Fall. AP view of the chest is obtained with comparison made study of 02/02/2017. FINDINGS: Heart size and pulmonary vascularity are at the upper limits of normal. Aortic valve prosthesis is noted. There is no evidence of pneumothorax, consolidation or other significant change. IMPRESSION: Stable appearance of the chest without new abnormality detected. Dictated by: Dictated on workstation # [id number]
--- NOTE | 2018-04-08 21:07 | Diagnostic Imaging Report ---
PROCEDURE: CT head and CT cervical spine without contrast. TECHNIQUE: Multiple contiguous axial images were obtained through the brain and cervical spine without the use of intravenous contrast. Sagittal and coronal reformations through the cervical spine were then performed. INDICATION: Fall with head injury COMPARISON is made to study of 03/25/2013. CT HEAD: The ventricles and sulci remain diffusely prominent. There is low-density within the deep white matter of both hemispheres with probable old lacunar infarct in the left basal ganglia. No hemorrhage is identified. There is no evidence of an acute infarct. Calvarium is intact and the visualized paranasal sinuses are clear. IMPRESSION: Stable senescent findings in the brain without CT evidence of acute intracranial abnormality. CT CERVICAL SPINE: Cervical spinal curvature and alignment are unremarkable. Anterior osteophytes are seen throughout the cervical spine with calcification at the transverse ligament at C1 level. There is mild diffuse degenerative facet arthropathy. No acute fracture or malalignment is identified. There is no evidence of paraspinous hematoma in the cervical region. IMPRESSION: Cervical spondylosis without CT evidence of acute cervical spinal abnormality. Dictated by: Dictated on workstation # [id number]
--- NOTE | 2018-04-08 21:10 | Diagnostic Imaging Report ---
INDICATION: Fall with right knee pain and decreased range of motion. FINDINGS: There is marked degenerative change at the level of the knee joint. In addition, there is a mildly angulated fracture of the distal shaft of the femur which appears to extend into the intercondylar region and likely involves the articular surface. There is knee joint hematoma as well. IMPRESSION: Comminuted distal femoral fracture involving the distal diaphysis with extension to the intercondylar notch. In addition, there is advanced osteoarthritis involving the right knee which does limit evaluation. Dictated by: Dictated on workstation # [id number]
--- NOTE | 2018-04-08 21:10 | Diagnostic Imaging Report ---
INDICATION: Fall with right leg pain. FINDINGS: AP and lateral views of the right femur reveal comminuted fracture in the distal shaft of the right femur. This does extend into the joint space. There is extensive degenerative change of the knee joint as well. This limits evaluation. There is degenerative change at the level of the right hip and greater trochanter as well without additional fracture line appreciated. IMPRESSION: Comminuted intra-articular fracture of the distal right femur. Dedicated views of the knee would be useful for further clarification. There are probable degenerative findings at the greater trochanter without additional femoral fracture appreciated. Dictated by: Dictated on workstation # [id number]
[2018-04-08] MEDS ORDERED: fentaNYL INJECTION 100 MCG/2 ML AMP IVP ONE (21:15)
[2018-04-08] MEDS ORDERED: cefTRIAXone INJECTION 1,000 MG in NS (IVPB) 50 ML IV ONE (21:30)
[2018-04-08] MEDS ORDERED: ONDANSETRON 4 MG/2 ML (SDV) Z0FRAN IV PRN (23:45)
[2018-04-08] MEDS ORDERED: ACETAMINOPHEN 500 MG TAB (TYLENOL) PO PRN (23:45)
[2018-04-09] VITALS (11 sets, daily range): BP systolic 102–173; BP diastolic 54–72
[2018-04-09] MEDS ORDERED: NS IV 500 ML 500 ML ONE (00:45)
[2018-04-09] MEDS: fentaNYL INJECTION 100 MCG/2 ML AMP IV PRN ×3 (00:48→09:36)
[2018-04-09] MEDS: inSUlin ASPART (NovoLOG) 1 UNIT/0.01 ML (CHARGE PER UNIT) SC SCH ×2 (06:38→12:11)
--- NOTE | 2018-04-09 07:13 | Consultation ---
History of Present Illness History of Present Illness Patient Consulted On(johanna/time) 04/09/18 07:04 Date Seen by Provider: Apr 09, 2018 Time Seen by Provider: 07:06 Reason for Visit: fall on 04/07/2018 History of Present Illness Fell at [facility] on 04/08/2018 at 0130 in the night. Patient was evaluated, xrays were obtained and she was transfered to the ER. Dr. Canseco was consulted for a supracondylar fracture of the right distal femur. Allergies and Home Medications Allergies Coded Allergies: butorphanol (Verified Allergy, Unknown, 09/05/08) sotalol (Unverified Allergy, Unknown, 03/28/15) Home Medications Acetaminophen 325 Mg Tablet, 650 MG PO Q6H PRN for PAIN/TEMP, (Reported) TAKES 2 (325MG) TABLETS Acetaminophen 650 Mg Supp.rect, 650 MG RC Q6H PRN for TEMPERATURE, (Reported) Amlodipine Besylate 10 Mg Tablet, 10 MG PO DAILY, (Reported) Aspirin 81 Mg Tablet.dr, 81 MG PO DAILY, (Reported) B&C/FA/Zinc/Copper Oxide/Vit E 1 Each Tablet, 1 TAB PO DAILY, (Reported) Calcium Carbonate 300 Mg Tab.chew, 1,500 MG PO PRN PRN for HEARTBURN, (Reported) Calcium Carbonate/Vitamin D3 1 Each Tablet, 1 TAB PO BID, (Reported) Carvedilol 12.5 Mg Tablet, 12.5 MG PO BID, (Reported) Clopidogrel Bisulfate 75 Mg Tablet, 75 MG PO DAILY, (Reported) Cyanocobalamin (Vitamin B-12) 500 Mcg Tablet, 500 MCG PO DAILY, (Reported) Dextran 70/Hypromellose 15 Ml Drops, 1 DROP OU BID, (Reported) Eucalyptus/Menthol 1 Alesha Lozenge, 1 ALESHA MM EVERY 2 HOURS PRN for COUGH, ( Reported) Ferrous Sulfate 325 Mg Tablet, 325 MG PO 1200,2100, (Reported) Fluticasone Propionate 16 Gm Anabel.susp, 2 SPRAYS NS DAILY, (Reported) Furosemide 80 Mg Tablet, 80 MG PO DAILY, (Reported) Gabapentin 100 Mg Capsule, 100 MG PO BID, (Reported) Insulin Aspart 10 Unit/0.1 Ml Susp, SQ SLIDING/SCALE, (Reported) BELOW 60 CALL PHYSICIAN 60-150 = 0 UNITS 151-200 = 4 UNITS 201-250 = 6 UNITS 251-300 = 8 UNITS 301-350 = 10 UNITS 351-400 = 12 UNITS ABOVE 400 CALL PHYSICIAN Insulin Aspart 100 Unit/1 Ml Susp, 6 UNITS SQ 1200,1700, (Reported) Insulin Detemir 100 Unit/1 Ml Insuln.pen, 26 UNITS SQ HS, (Reported) Lactobacillus Acidophilus 1 Each Capsule, 1 CAP PO BID, (Reported) Lisinopril 20 Mg Tablet, 20 MG PO DAILY, (Reported) Loperamide Hcl 2 Mg Capsule, 2 MG PO Q6H PRN for DIARRHEA, (Reported) Loratadine 10 Mg Tablet, 10 MG PO DAILY, (Reported) Losartan/Hydrochlorothiazide 1 Each Tablet, 1 TAB PO DAILY, (Reported) Multivitamin with Minerals 1 Each Tablet, 1 TAB PO DAILY, (Reported) Neomycn/Baci Zn/Pmyx Bs/Pramox 28.4 Gm Oint...g., TP DAILY, (Reported) APPLY TO LEFT 3RD TOE [place]-3 Fatty Acids/Fish Oil 1 Each Capsule, 2,000 MG PO DAILY, (Reported) TAKE 2 (1000 MG) TABLETS DAILY Potassium Chloride 10 Meq Tab.er.prt, 10 MEQ PO BID, (Reported) Promethazine HCl 25 Mg Supp.rect, 25 MG RC Q6H PRN for NAUSEA/VOMITING, ( Reported) Propylene Glycol/Peg 400 1 Each Droperette, 2 DROPS OS PRN PRN for SUBCONJUNCTIVAL HEMATOMA, (Reported) Sennosides 8.6 Mg Tablet, 8.6 MG PO Q8H PRN for CONSTIPATION, (Reported) Sertraline HCl 25 Mg Tablet, 25 MG PO DAILY, (Reported) Simvastatin 20 Mg Tablet, 20 MG PO HS, (Reported) Terazosin HCl 2 Mg Capsule, 2 MG PO BID, (Reported) [A&D Oint] , TP HS, (Reported) APPLY TO BOTH FEET Patient Home Medication List Home Medication List Reviewed: Yes Past Brqmpfq-Nxrhov-Bliycu Hx Patient Social History Alcohol Use: Occasionally Uses Number of Drinks Today: 0 Alcohol Beverage of Choice: Wine Recreational Drug Use: No Smoking Status: Former Smoker Type Used: Cigarettes Former Smoker, Quit: Feb 02, 1973 Recent Foreign Travel: No Contact w/Someone Who Travel: No Recent Infectious Disease Expo: No Recent Hopitalizations: No Physical Abuse: No Sexual Abuse: No Immunizations Up To Date PED Vaccines UTD: No Date of Pneumonia Vaccine: Aug 16, 2013 Date of Influenza Vaccine: Jul 27, 2017 Seasonal Allergies Seasonal Allergies: No Past Medical History Surgeries: Yes Cardiac, Hysterectomy, Orthopedic, Tonsillectomy, Valve Replacement Respiratory: No Pneumonia, COPD Currently Using CPAP: No Currently Using BIPAP: No Cardiac: Yes Cardiomyopathy, Chronic Edema/Swelling, Coronary Artery Disease, Heart Murmur, High Cholesterol, Hypertension, Peripheral Vascular, Valvular Heart Disease Neurological: Yes Neuropathy, Stroke, TIA Reproductive Disorders: No (total HYSTERECTOMY) Female Reproductive Disorders: Denies 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 Review of Systems-General Constitutional: no symptoms reported Respiratory: no symptoms reported Cardiovascular: no symptoms reported Gastrointestinal: no symptoms reported : No Musculoskeletal: back pain, joint pain, joint swelling, muscle pain, muscle stiffness Skin: no symptoms reported Psychiatric/Neurological: No Symptoms Reported Physical Exam-General Problems Physical Exam Vital Signs Vital Signs - First Documented 04/08/18 04/08/18 20:11 22:30 Temp 98.2 Pulse 69 Resp 18 B/P (MAP) 112/74 (87) Pulse Ox 90 O2 Delivery Room Air O2 Flow Rate 2.00 Capillary Refill : Less Than 3 SecondsLess Than 3 Seconds General Appearance: no apparent distress HEENT: PERRL/EOMI Neck: non-tender Respiratory: no respiratory distress, no accessory muscle use Cardiovascular: regular rate, rhythm Gastrointestinal: non tender, soft Extremities: no pedal edema, no calf tenderness, other (signs of bilateral venous insufficiency. 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 She may potentially benefit from external fixator but with her very soft appearing bone she would likely loosen hardware and have issues with infection and repeat surgeries. I spoke with Dr. Canseco and we reviewed her case. At this point she was placed in knee immobilizer, Knee was reduced at bedside into extension. if her overall health improves over next week or 2 then we could discuss possible external fixation of femur although she would be high risk for complications. She has been nonweight bearing on right leg for at least a year. Admission Status: Inpatient Order (span 2 midnights) Reason for Inpatient Admission: Hyperkalemia, anemia, fall, supra/intercondylar fracture right femur, debility, self care deficit Clinical Quality Measures DVT/VTE Risk/Contraindication: Risk Factor Score Per Nursin RFS Level Per Nursing on Admit: 4+=Very High MELINDA MARQUEZ APRN Apr 09, 2018 7:13 am
[2018-04-09] MEDS: 1/2 NS IV SOLUTION 1,000 ML IV SCH ×2 (07:21→10:29)
[2018-04-09 07:39] LABS: BASOPHILS % (AUTO) 0 % (0-10); EOSINOPHILS # (AUTO) 0.1 10^3/uL (0.0-0.3); EOSINOPHILS % (AUTO) 1 % (0-10); HEMATOCRIT 29 % (35-52); HEMOGLOBIN 9.7 G/DL (11.5-16.0); LYMPHOCYTES % (AUTO) 8 % (12-44); MEAN CORPUSCULAR HEMOGLOBIN 33 PG (25-34); MEAN CORPUSCULAR HGB CONC 33 G/DL (32-36); MEAN CORPUSCULAR VOLUME 99 FL (80-99); MEAN PLATELET VOLUME 11.1 FL (7.4-10.4); MONOCYTES % (AUTO) 8 % (0-12); NEUTROPHILS % (AUTO) 83 % (42-75); PLATELET COUNT 129 10^3/uL (130-400); RED BLOOD COUNT 2.94 10^6/uL (4.35-5.85); RED CELL DISTRIBUTION WIDTH 15.9 % (10.0-14.5); WHITE BLOOD COUNT 12.1 10^3/uL (4.3-11.0)
[2018-04-09 07:56] LABS: CALCIUM 9.7 MG/DL (8.5-10.1); CREATININE SERUM 2.25 MG/DL (0.60-1.30); MAGNESIUM 2.7 MG/DL (1.8-2.4); POTASSIUM 5.4 MMOL/L (3.6-5.0)
[2018-04-09] MEDS ORDERED: OMG1KC PO (10:38)
[2018-04-09] MEDS ORDERED: ACET-168 PO (10:38)
[2018-04-09] MEDS ORDERED: ALLO100T PO (10:38)
[2018-04-09] MEDS ORDERED: ONDN4T PO (10:38)
[2018-04-09] MEDS ORDERED: FERR-65 PO (10:38)
[2018-04-09] MEDS ORDERED: GUAI118S37 PO (10:38)
[2018-04-09] MEDS ORDERED: FOLI1TAB24 PO (10:38)
[2018-04-09] MEDS ORDERED: INSU100V16 SQ (10:38)
[2018-04-09] MEDS ORDERED: DIPH25TA65 PO (10:38)
[2018-04-09] MEDS ORDERED: LOPE2TAB34 PO (10:38)
[2018-04-09] MEDS ORDERED: LACT1CAP8 PO (10:38)
[2018-04-09] MEDS ORDERED: EUCA50OI5 TP (10:38)
[2018-04-09] MEDS ORDERED: INSULIN VIAL ASPART for PUMP 100 UNIT/ML VIAL SQ SCH ×2 (11:00→12:00)
[2018-04-09] MEDS ORDERED: CALCIUM CARBONATE 1500 MG PO PRN (11:00)
[2018-04-09] MEDS ORDERED: ACETAMINOPHEN 325 MG TABLET PO PRN (11:00)
[2018-04-09] MEDS ORDERED: SENNOSIDES 8.6 MG (SENOKOT) TAB PO PRN (11:00)
[2018-04-09] MEDS ORDERED: TRAM-42 PO (11:04)
[2018-04-09] MEDS ORDERED: CEFD300C3 PO ×2 (11:09→11:10)
--- NOTE | 2018-04-09 11:23 | Physical Therapy Ortho Eval ---
PT Orthopedic Evaluation Type of Surgery right distal femur fracture/non surgical with knee immobilizer in place Prior Level of Function Current Living Status: nonambulatory PLOF/utilizes power chair for mobility Subjective Subjective Patient is very lethargic. Entry Into Home: Level Entry Objective Objective right knee immobilized Motor Control severely diminished coordination and mobility ROM ROM: WFL, except focal deficit left LE WFL/right LE immobilized Strength extreme weakness total body Transfer Transfers (B, C, W/C) (FIM): 1 Patient will require Jensen lift transfers for comfort and safety due to patient' s inability to actively participate with therapy at this time. Gait nonambulatory PLOF and is NWB right LE currently Right Lower Extremity: Right Weight Bearing Status RLE: Non Weight Bearing Left Lower Extremity: Left Weight Bearing Status LLE: Weight Bearing/Tolerated Treatment Rendered evaluation only and will transfer back to [place] on this date per physician report Assessment/Goals Goal Time Frame: 1 Visit Plan Treatment Plan: Discharge PT/Family Agrees to Plan: Yes Time Time In: 1010 Time Out: 1025 Total Billed Treatment Time: 15 Billed Treatment Time 1 visit EVModC 15 min No CONSTANTINE STRAUSS PT Apr 09, 2018 11:23
--- NOTE | 2018-04-09 11:24 | Short Stay Summary-Hospitalist ---
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 Mcdonald in [place] and peripheral vascular disease along with CAD and congestive heart failure managed by Dr. Jackson who presented to the ER with complaints of right leg pain after falling out of her power chair. She sustained a distal femur fracture which was assessed by or so and considering her severe comorbidities and renal failure and heart failure she was not deemed a surgical candidate and could possibly be reevaluated for that in 6 weeks. Given the fact of the very end-stage processes the patient has the only acute issue I can actually modify his the UTI of which she has received Rocephin and will be discharged on Ceftin ear but I did have a long conversation with her daughter and her primary care provider regarding the end-stage processes of her illnesses and will be moved back over to the alf and closely monitored remains immobilized with the right leg immobilizer and will have close follow- up with primary care provider and Dr. Jackson. She did receive 2 units of packed red blood cells while hospitalized here and will be encouraged to take by mouth intake but it appears that the renal failure is worsening rapidly and she is not deemed a dialysis candidate. She is DO NOT RESUSCITATE and considering the poor quality of life palliative care nurse did evaluate her and talked her daughter about the end stages of life. Source: patient, family, RN/MD Exam Limitations: clinical condition Date Seen 04/09/18 Time Seen by Provider: 10:00 Attending Physician Louis bAbasi MD PCP Louis Abbasi MD Referring Physician TOMI VAZQUEZ DO Date of Admission Apr 08, 2018 at 22:18 Home Medications & Allergies Home Medications Reviewed patient Home Medication Reconciliation performed by pharmacy medication reconciliations fire control technician and/or nursing. Patients Allergies have been reviewed. Allergies Allergies Coded Allergies butorphanol (Verified Allergy, Unknown, 09/05/08) sotalol (Unverified Allergy, Unknown, 03/28/15) Past Adwwfpf-Gtujku-Jtvias Hx Past Med/Social Hx: Reviewed Nursing Past Med/Soc Hx, Reviewed and Corrections made Patient Social History Marrital Status: single Alcohol Use: Occasionally Uses Number of Drinks Today: 0 Alcohol Beverage of Choice: Wine Recreational Drug Use: No Smoking Status: Former Smoker Former Smoker, Quit: Feb 02, 1973 Type Used: Cigarettes Physical Abuse Screen: No Sexual Abuse: No Recent Foreign Travel: No Contact w/other who traveled: No Recent Hopitalizations: No Recent Infectious Disease Expo: No Immunizations Up To Date Pediatric: No Date of Pneumonia Vaccine: Aug 16, 2013 Date of Influenza Vaccine: Jul 27, 2017 Seasonal Allergies Seasonal Allergies: No Past Medical History Surgeries: Cardiac, Hysterectomy, Orthopedic, Tonsillectomy, Valve Replacement Currently Using CPAP: No Currently Using BIPAP: No Cardiac: Cardiomyopathy, Chronic Edema/Swelling, Coronary Artery Disease, Heart Murmur, High Cholesterol, Hypertension, Peripheral Vascular, Valvular Heart Disease Neurological: Neuropathy, Stroke, TIA Reproductive: No (total HYSTERECTOMY) Sexually Transmitted Disease: No HIV/AIDS: No Female Reproductive Disorders: Denies Hysterectomy Genitourinary: Renal Failure Gastrointestinal: Gastroesophageal Reflux, Polyps Musculoskeletal: Arthritis, Fractures Endocrine: Diabetes, Insulin dep Are Your Blood Sugars Over 250: Yes HEENT: Cataract Loss of Vision: Denies Hearing Impairment: Denies Psychosocial: Anxiety, Depression Skin/Integumentary: Recent Skin Changes History of Blood Disorders: Yes Adverse Reaction to Blood [place]: No Family History Patient reports no known family medical history. Review of Systems Constitutional: see HPI, weakness EENTM: no symptoms reported Respiratory: cough Cardiovascular: no symptoms reported Gastrointestinal: no symptoms reported Genitourinary: no symptoms reported Musculoskeletal: joint pain Skin: no symptoms reported Psychiatric/Neurological: No Symptoms Reported All Other Systems Reviewed Negative Unless Noted: Yes Physical Exam Physical Exam Vital Signs Vital Signs - First Documented 04/08/18 04/08/18 20:11 22:30 Temp 98.2 Pulse 69 Resp 18 B/P (MAP) 112/74 (87) Pulse Ox 90 O2 Delivery Room Air O2 Flow Rate 2.00 Capillary Refill : Less Than 3 SecondsLess Than 3 Seconds General Appearance: No Apparent Distress, WD/WN, Chronically ill, Obese Eyes: Bilateral Eye Normal Inspection, Bilateral Eye PERRL HEENT: PERRL/EOMI, Normal ENT Inspection, Pharynx Normal Neck: Full Range of Motion, Normal Inspection, Non Tender, Supple, Carotid Bruit Respiratory: No Accessory Muscle Use, No Respiratory Distress, Crackles Cardiovascular: Regular Rate, Rhythm, No Edema, Systolic Murmur Gastrointestinal: Normal Bowel Sounds, No Organomegaly, No Pulsatile Mass, Non Tender, Soft Back: Normal Inspection, No CVA Tenderness, No Vertebral Tenderness Extremity: Normal Capillary Refill, Normal Inspection, Normal Range of Motion, Non Tender, No Calf Tenderness, No Pedal Edema Neurologic/Psychiatric: Alert, No Motor/Sensory Deficits, Normal Mood/Affect, Other (subtle confusion) Skin: Normal Color, Warm/Dry Lymphatic: No Adenopathy Results Results/Procedures Labs Laboratory Tests 04/08/18 20:08 04/09/18 07:08 Patient resulted labs reviewed. Short Stay Diagnosis Discharge Diagnosis-Short Stay Admission Diagnosis Assessment: Right distal fracture not a surgical candidate Stage IV renal failure worsening Acute UTI Congestive heart failure CAD Peripheral vascular disease COPD Final Discharge Diagnosis Assessment: Right distal fracture not a surgical candidate Stage IV renal failure worsening Acute UTI Congestive heart failure CAD Peripheral vascular disease COPD Conclusion Plan Plan: Discharge back to medical [place] with outpatient physical therapy Immobile right leg Very complex medical issues needs hospice talk by primary care provider Treat UTI Diagnosis/Problems Diagnosis/Problems (1) Closed fracture of right distal femur Status: Acute Qualifiers: Qualified Codes: S72.401A - Unspecified fracture of lower end of right femur , initial encounter for closed fracture (2) Decreased ambulation status Status: Chronic (3) Renal failure Status: Chronic Qualifiers: Qualified Codes: N18.5 - Chronic kidney disease, stage 5 (4) CHF (congestive heart failure) Status: Chronic Qualifiers: Qualified Codes: I50.9 - Heart failure, unspecified (5) CAD (coronary artery disease) Status: Chronic Qualifiers: Qualified Codes: I25.10 - Atherosclerotic heart disease of [place] coronary artery without angina pectoris (6) Anemia Status: Chronic Qualifiers: Qualified Codes: D50.9 - Iron deficiency anemia, unspecified (7) Transfusion of blood during current hospitalisation Status: Acute (8) UTI (urinary tract infection) Status: Acute Qualifiers: Qualified Codes: N30.00 - Acute cystitis without hematuria (9) Poor prognosis Status: Chronic (10) IDDM (insulin dependent diabetes mellitus) Status: Chronic Clinical Quality Measures DVT/VTE Risk/Contraindication: Risk Factor Score Per Nursin RFS Level Per Nursing on Admit: 4+=Very High ALYSE MCADAMS DO Apr 09, 2018 11:24
[2018-04-09] MEDS ORDERED: ONDANSETRON 4 MG/2 ML (SDV) Z0FRAN IV PRN (11:45)
[2018-04-09] MEDS ORDERED: guaiFENesin/DM (ROBITUSSIN DM) 10 ML UDC PO PRN (11:45)
[2018-04-09] MEDS ORDERED: LOPERAMIDE 2 MG (IMODIUM) CAP PO PRN (11:45)
[2018-04-09] MEDS ORDERED: ONDANSETRON 4 MG (ZOFRAN) ORAL DISSOLVE TAB PO PRN (11:45)
[2018-04-09] MEDS ORDERED: ACETAMINOPHEN 500 MG TAB (TYLENOL) PO SCH (13:00)
[2018-04-09] MEDS ORDERED: diphenhydrAMINE 25 MG TAB (BENADRYL) PO SCH ×2 (19:00)
[2018-04-09] MEDS ORDERED: inSUlin DETERMIR 1 UNIT/0.01 ML (LEVEMIR) CHARGE PER UNIT SQ SCH ×2 (21:00)
[2018-04-09] MEDS ORDERED: SIMvastatin 20 MG (ZOCOR) TAB PO SCH (21:00)
[2018-04-09] MEDS ORDERED: LACTOBACILLUS Acidoph/Bulgar (LACTINEX/FLORANEX) TAB PO SCH (21:00)
[2018-04-09] MEDS ORDERED: ARTIFICAL TEARS 0.4 ML UNIT DOSE (REFRESH PLUS) OU SCH (21:00)
[2018-04-09] MEDS ORDERED: cefTRIAXone 1 GM/NS 50 ML IVPB IV SCH ×2 (21:00)
[2018-04-09] MEDS ORDERED: CARVEDILOL 12.5 MG (COREG) TABLET PO SCH (21:00)
[2018-04-09] MEDS ORDERED: TERAZOSIN 2 MG (HYTRIN) CAP PO SCH (21:00)
[2018-04-09] MEDS ORDERED: CALCIUM CARB + VIT D 600 MG (CALCARB + D) TAB PO SCH (21:00)
[2018-04-09] MEDS ORDERED: GABAPENTIN 100 MG (NEURONTIN) CAP PO SCH (21:00)
[2018-04-10] MEDS ORDERED: FUROSEMIDE 40 MG (LASIX) TAB PO SCH (07:00)
[2018-04-10] MEDS ORDERED: MULTIVIT W/MINERALS TAB (THERAGRAN M) PO SCH (07:00)
[2018-04-10] MEDS ORDERED: amLODIPine 10 MG (NORVASC) TAB PO SCH (09:00)
[2018-04-10] MEDS ORDERED: CLOPIDOGREL 75 MG (PLAVIX) TABLET PO SCH (09:00)
[2018-04-10] MEDS ORDERED: FERROUS SULF 325 MG (IRON) TAB PO SCH (09:00)
[2018-04-10] MEDS ORDERED: ASPIRIN E.C. 81 MG (ECOTRIN) TAB PO SCH (09:00)
[2018-04-10] MEDS ORDERED: lisINopril 20 MG (PRINIVIL) TABLET PO SCH (09:00)
[2018-04-10] MEDS ORDERED: OMEGA 3 (FISH OIL) 1000 MG CAP PO SCH (09:00)
[2018-04-10] MEDS ORDERED: FLUTICASONE NASAL SPRAY (FLONASE) 16 GM BTL NS SCH (09:00)
[2018-04-10] MEDS ORDERED: ALLOPURINOL 100 MG (ZYLOPRIM) TAB PO SCH (09:00)
[2018-04-10] MEDS ORDERED: CYANOCOBALAMIN 500 MCG TAB (VITAMIN B-12) PO SCH (09:00)
[2018-04-10] MEDS ORDERED: [UNRECOGNIZED DRUG - OTHER] PO SCH (09:00)
[2018-04-10] MEDS ORDERED: FOLIC ACID 1 MG TAB PO SCH (09:00)
[2018-04-10] MEDS ORDERED: SERTRALINE HCL 12.5 MG PO SCH (09:00)
[2018-04-11] MEDS ORDERED: NS (IVPB) 50 ML ONE (09:21)
[2018-04-11] MEDS ORDERED: ceFAZolin 1,000 MG (ANCEF) VIAL ONE (09:21)
[2018-04-11] MEDS ORDERED: metroNIDAZOLE 500MG/100ML IVPB 100 ML ONE (09:22)
== END 2018-04-09 14:30 | DRG 534 ==
LOC: EDUNIT# 19:59 → ER 20:01 → 4TH 22:18
PROVIDERS: ADMIT Internal Medicine; ATTEND Internal Medicine
DX: S72.461A Displaced supracondylar fracture with intracondylar extension of lower end of right femur, initial encounter for closed fracture (principal); N30.00 Acute cystitis without hematuria; I12.9 Hypertensive chronic kidney disease with stage 1 through stage 4 chronic kidney disease, or unspecified chronic kidney disease; N18.4 Chronic kidney disease, stage 4 (severe); I42.9 Cardiomyopathy, unspecified; I69.351 Hemiplegia and hemiparesis following cerebral infarction affecting right dominant side; E87.5 Hyperkalemia; Z66 Do not resuscitate; Z68.41 Body mass index [BMI] 40.0-44.9, adult; I50.9 Heart failure, unspecified; D64.9 Anemia, unspecified; E86.0 Dehydration; J44.9 Chronic obstructive pulmonary disease, unspecified; I25.10 Atherosclerotic heart disease of native coronary artery without angina pectoris; E78.00 Pure hypercholesterolemia, unspecified; I73.9 Peripheral vascular disease, unspecified; E11.42 Type 2 diabetes mellitus with diabetic polyneuropathy; K21.9 Gastro-esophageal reflux disease without esophagitis; Z79.4 Long term (current) use of insulin; E66.9 Obesity, unspecified; F41.9 Anxiety disorder, unspecified; F32.9 Major depressive disorder, single episode, unspecified; Z95.2 Presence of prosthetic heart valve; Z87.891 Personal history of nicotine dependence; Z86.010 Personal history of colon polyps; W06.XXXA Fall from bed, initial encounter; Y92.129 Unspecified place in nursing home as the place of occurrence of the external cause
CPT/HCPCS: 36415; 70450; 71045; 72125; 73552; 73560; 80048; 80053; 81000; 82962; 83735; 85007; 85025; 85027; 86850; 86900; 86901; 86920; 87077; 87088; 87186; 96361; 96365; 96375

== ENCOUNTER 2018-05-15 08:40 | Inpatient (IN) | payer MEDICARE, OTHER, MEDICAID ==
[2018-05-15] VITALS (32 sets, daily range): BP systolic 96–127; BP diastolic 38–54
[~2018-05-15] VITALS: Ht 160 cm; Wt 74.2 kg
[~2018-05-15 08:40] MED LIST changes: +ACET-168 PO; +ACHD5005 PO; +ALLO100T PO; +CEFD300C3 PO; +DEXT15DR23 OP; +DIPH25TA65 PO; +EUCA50OI5 TP; +FENT1PAT57 TD; +FERR-65 PO; +FOLI1TAB24 PO; +GUAI118S37 PO; +LACT1CAP8 PO; +LOPE2TAB34 PO; +NF-FOSFPKT PO; +OMG1KC PO; +TRAM-42 PO
--- OUTSIDE RECORDS SUMMARY | 2018-05-15 08:47 | XMS REPORT | Clinical Summary ---
Author Author [facility] Organization [facility] Address Unknown Phone Unavailable Care Team Providers Care Link Trainer Maintenance Man Name Role Phone Abelardo Diane RN Unavailable Unavailable Olvin Pacheco MD Unavailable Louis Abbasi MD PCP Leona Altamirano RN Unavailable Unavailable Lisbet Saavedra PA-C Unavailable Source Comments Some departments are not documenting in the electronic medical record. If you do not see the information that you expected, contact Release of Information in the Health Information Management department at [phone] for further assistance in locating additional records.[facility] Allergies Active Allergy Reactions Severity Noted [...] daily with meals. Inject as per sliding scale: 60-150=0 units 151-200=4 units 201-250=6 units 251-300=8 units 301-350=10 units 351-400=12 units Above 400, call physician Menthol 5.8 mg lozg [...] valve stenosis, IDDM (insulin dependent diabetes mellitus) ([facility]), Essential hypertension, Chronic obstructive pulmonary disease, unspecified copd, unspecified chronic bronchitis type, Morbid obesity ([facility]), UTI (lower urinary tract infection), Chronic diastolic CHF (congestive heart failure) ([facility]), CKD (chronic kidney disease) stage 3, GFR 30-59 ml/min ([facility]), Coronary artery disease involving [place] coronary artery of [place] heart without angina pectoris, Arthritis, Acute diastolic HF (heart failure) ([facility]), Qulru-dn-wsnpdcg kidney injury ([facility]) polyethylene glycol 3350 Take 17 g by mouth daily. 3 Bottle 3 Active (GLYCOLAX; MIRALAX) 17 15 gram/dose powderIndications: Aortic stenosis, Aortic valve stenosis, IDDM (insulin dependent diabetes mellitus) ([facility]), Essential hypertension, Chronic obstructive pulmonary disease, unspecified copd, unspecified chronic bronchitis type, Morbid obesity ([facility]), UTI (lower urinary tract infection), Chronic diastolic CHF (congestive heart failure) ([facility]), CKD (chronic kidney disease) stage 3, GFR 30-59 ml/min ([facility]), Coronary artery disease involving grayling coronary artery of [place] heart without angina pectoris, Arthritis, Acute diastolic HF (heart failure) ([facility]), Erwoo-wd-lfaymzd kidney injury ([facility]) insulin aspart (NOVOLOG) Inject 6 Units into 3 box 3 06/26/20 Active 100 unit/mL area(s) as directed three 15 flexPENIndications: times daily with meals. Aortic stenosis, Aortic Take 6 units with lunch valve stenosis, IDDM and dinner (insulin dependent diabetes mellitus) ([facility]), Essential hypertension, Chronic obstructive pulmonary disease, unspecified copd, unspecified chronic bronchitis type, Morbid obesity ([facility]), UTI (lower urinary tract infection), Chronic diastolic CHF (congestive heart failure) ([facility]), CKD (chronic kidney disease) stage 3, GFR 30-59 ml/min ([facility]), Coronary artery disease involving grayling coronary artery of [place] heart without angina pectoris, Arthritis, Acute diastolic HF (heart failure) ([facility]), Vewzd-rz-tulekxr kidney injury ([facility]) insulin detemir(+) Inject 20 Units into 10 mL 12 06/26/20 Active (LEVEMIR) 100 unit/mL area(s) as directed at 15 solnIndications: Aortic bedtime daily. stenosis, Aortic valve stenosis, IDDM (insulin dependent diabetes mellitus) ([facility]), Essential hypertension, Chronic obstructive pulmonary disease, unspecified copd, unspecified chronic bronchitis type, Morbid obesity ([facility]), UTI (lower urinary tract infection), Chronic diastolic CHF (congestive heart failure) ([facility]), CKD (chronic kidney disease) stage 3, GFR 30-59 ml/min ([facility]), Coronary artery disease involving grayling coronary artery of [place] heart without angina pectoris, Arthritis, Acute diastolic HF (heart failure) ([facility]), Cmnil-xf-eulcjfy kidney injury ([facility]) carvedilol (COREG) 6.25 Take 1 Tab by mouth twice 180 Tab 3 07/31/20 Active mg tablet daily. 15 losartan-hydrochlorothiaz Take 1 Tab by mouth 90 Tab 3 11/16/19 Active chanelle (HYZAAR) 50-12.5 mg daily. 16 tabletIndications: Aortic stenosis Active Problems Problem Noted Date Chronic diastolic CHF (congestive heart failure) ([facility]) 06/26/2015 CKD (chronic kidney disease) stage 3, GFR 30-59 ml/min ([facility]) 06/26/2015 UTI (lower urinary tract infection) 06/21/2015 Acute diastolic HF (heart failure) ([facility]) 04/10/2015 Morbid obesity ([facility]) 04/10/2015 Yjadg-ov-ohnjtmp kidney injury (probable ATN) 04/10/2015 IDDM (insulin dependent diabetes mellitus) ([facility]) 03/29/2015 CAD (coronary artery disease) 03/29/2015 Overview: 03/30/15: Cath at [facility] - CAD. The LAD has a 90% eccentric mid vessel stenosis after the 1st septal with minimal disease elsewhere in the left coronary system. Successful intervention of the mid LAD, placing a 3.5 x 15 mm drug-eluting stent. HTN (hypertension) 03/29/2015 COPD (chronic obstructive pulmonary disease) ([facility]) 03/29/2015 Arthritis 03/29/2015 Aortic stenosis 03/28/2015 Family [...] - Oxygen Saturation 97% 11/16/2015 11:22 AM CONDITIONING COACH Inhaled Oxygen - - Concentration Weight 102.1 [...] SCREENING 1987 COLORECTAL CANCER 1997 SCREENING SHINGLES RECOMBINANT 1997 VACCINE (1 of 2) OSTEOPOROSIS SCREENING 02/05/2012 PNEUMONIA (PCV13/PPSV23) 02/05/2012 VACCINES (1 of 2 - PCV13) HBA1C 12/19/2015 06/20/2015 INFLUENZA VACCINE 07/19/2018 Results Not on filefrom Last 3 Months
[2018-05-15] MEDS ORDERED: NS IV 1000 ML 1,000 ML IV ONE ×3 (08:56→11:04)
[2018-05-15] MEDS ORDERED: PIPERACILLIN SODIUM/TAZOBACTAM 4.5 GM in NS (IVPB) 100 ML IV ONE (09:00)
[2018-05-15 09:07] LABS: BASOPHILS % (AUTO) 0 % (0-10); EOSINOPHILS % (AUTO) 0 % (0-10); HEMATOCRIT 24 % (35-52); HEMOGLOBIN 7.8 G/DL (11.5-16.0); LYMPHOCYTES # (AUTO) 0.5 X 10^3 (1.0-4.0); LYMPHOCYTES % (AUTO) 1 % (12-44); MEAN CORPUSCULAR HEMOGLOBIN 32 PG (25-34); MEAN CORPUSCULAR HGB CONC 33 G/DL (32-36); MEAN CORPUSCULAR VOLUME 97 FL (80-99); MEAN PLATELET VOLUME 10.8 FL (7.4-10.4); MONOCYTES # (AUTO) 1.4 X 10^3 (0.0-1.0); MONOCYTES % (AUTO) 4 % (0-12); NEUTROPHILS # (AUTO) 30.6 X 10^3 (1.8-7.8); NEUTROPHILS % (AUTO) 94 % (42-75); PLATELET COUNT 283 10^3/uL (130-400); RED BLOOD COUNT 2.48 10^6/uL (4.35-5.85); RED CELL DISTRIBUTION WIDTH 17.1 % (10.0-14.5)
[2018-05-15 09:11] LABS: WHITE BLOOD COUNT 32.4 10^3/uL (4.3-11.0)
[2018-05-15 09:24] LABS: BILIRUBIN,URINE NEGATIVE (NEGATIVE); CLARITY,URINE VERY CLOUDY; COLOR,URINE YELLOW; GLUCOSE, URINE (UA) NEGATIVE (NEGATIVE); KETONES,URINE NEGATIVE (NEGATIVE); LEUKOCYTE ESTERASE ,URINE 2+ (NEGATIVE); NITRITE,URINE NEGATIVE (NEGATIVE); PH,URINE 5 (5-9); PROTEIN,URINE 1+ (NEGATIVE); UROBILINOGEN,URINE NORMAL (NORMAL)
--- NOTE | 2018-05-15 09:26 | ED General ---
General Chief Complaint: Unresponsive Stated Complaint: SEPTIS Nursing Triage Note: Pt to ED from [facility]. half-way staff report pt is altered from her normal self and is not talkative this morning. half-way reports pt had 2 episodes of emesis last night, possibly tinged with blood and an episode of hypotension. Facility reports blood pressure 111/49 today. Pt has had recent inury to R leg and has been using fentanyl patch. Patch removed by shelter staff prior to transport. EMS reports pt is febrile and hypotensive w/ BP 70s over 40s. Pt not following commands and will not open eyes upon arrival to ED. Nursing Sepsis Screen: Possible Severe Sepsis Risk Source of Information: Family, Skilled Nursing Records, Old Records Exam Limitations: Physical Impairments (JONO COLLADO MD) History of Present Illness Date Seen by Provider: May 15, 2018 Time Seen by Provider: 08:42 Initial Comments This 73-year-old woman presents to the emergency room via EMS from the shelter where she was found to be minimally responsive this morning. According to family she has not been very well for the past few days. She has been receiving iron infusions and yesterday had to skip her iron infusion because of vomiting. She cannot feed herself last night according to her son. On arrival she is hypotensive, hypoxic and febrile. A 500 mL normal saline bag started by EMS. She is minimally responsive to physical stimuli and unresponsive to verbal stimuli. Patient has a right femur fracture that cannot be repaired due to her comorbidities and osteopenia/osteoporosis. She has had a recent UTI with a highly resistant Escherichia coli. Patient is not ambulatory and is dependent on wheelchair most of the time. Patient had questionable hematemesis last night. (JONO COLLADO MD) Allergies and Home Medications Allergies Coded Allergies: butorphanol (Verified Allergy, Unknown, 09/05/08) sotalol (Unverified Allergy, Unknown, 03/28/15) Home Medications Acetaminophen 500 Mg Tablet, 1,000 MG PO TID, (Reported) Allopurinol 100 Mg Tablet, 200 MG PO DAILY, (Reported) TAKES 2 (100MG) TABLETS Aspirin 81 Mg Tablet.dr, 81 MG PO DAILY, (Reported) B&C/FA/Zinc/Copper Oxide/Vit E 1 Each Tablet, 1 TAB PO DAILY, (Reported) Calcium Carbonate 300 Mg Tab.chew, 1,500 MG PO UD PRN for HEARTBURN, (Reported) Calcium Carbonate/Vitamin D3 1 Each Tablet, 1 TAB PO BID, (Reported) Carvedilol 12.5 Mg Tablet, 12.5 MG PO BID, (Reported) Clopidogrel Bisulfate 75 Mg Tablet, 75 MG PO DAILY, (Reported) Cyanocobalamin (Vitamin B-12) 500 Mcg Tablet, 500 MCG PO DAILY, (Reported) Dextran 70/Hypromellose 15 Ml Drops, 1 DROP OP BID, (Reported) Diphenhydramine HCl 25 Mg Tablet, 12.5 MG PO 1900, (Reported) TAKES 1/2 (25MG) TABLET Eucalyptus Oil/Menthol/Camphor 50 Gm Oint...g., TP UD PRN for CONGESTION, ( Reported) APPLY TO CHEST Fentanyl 1 Each Patch.td72, 25 MCG TD Q72H Prescribed by: ZAIRA SILVESTRE on 04/15/18 1016 Ferrous Sulfate 325 Mg Tablet, 325 MG PO DAILY, (Reported) Fluticasone Propionate 16 Gm [place].susp, 2 SPRAYS NS DAILY, (Reported) Folic Acid 1 Mg Tablet, 1 MG PO DAILY, (Reported) Fosfomycin Tromethamine 3 Gm Pack, 3 GM PO Q48H MIX WITH 4 OUNCES OF COLD WATER Prescribed by: ZAIRA SILVESTRE on 04/15/18 1016 Furosemide 80 Mg Tablet, 80 MG PO DAILY, (Reported) Gabapentin 100 Mg Capsule, 100 MG PO BID, (Reported) Guaifenesin/Dextromethorphan 118 Ml Syrup, 10 ML PO Q6H PRN for COUGH, (Reported ) Hydrocodone Bit/Acetaminophen 1 Tab Tab, 1 TAB PO Q6H Prescribed by: ZAIRA SILVESTRE on 04/15/18 1016 Insulin Aspart 100 Unit/1 Ml Susp, 6 UNITS SQ 1200,1700, (Reported) Insulin Aspart 100 Unit/1 Ml Susp, SQ AC, (Reported) BELOW 60 CALL PHYSICIAN 60-150 = 0 UNITS 151-200 = 4 UNITS 201-250 = 6 UNITS 251-300 = 8 UNITS 301-350 = 10 UNITS 351-400 = 12 UNITS ABOVE 400 CALL PHYSICIAN Insulin Detemir 100 Unit/1 Ml Insuln.pen, 26 UNITS SQ HS, (Reported) Lactobacillus Acidophilus 1 Each Capsule, 1 CAP PO BID, (Reported) Loperamide HCl 2 Mg Tablet, 2 MG PO Q6H PRN for DIARRHEA, (Reported) Multivitamin with Minerals 1 Each Tablet, 1 TAB PO DAILY, (Reported) [place] 3 Polyunsat Fatty Acids 1,000 Mg Cap, 2,000 MG PO DAILY, (Reported) Ondansetron HCl 4 Mg Tab, 4 MG PO Q8H PRN for NAUSEA/VOMITING-1ST LINE, ( Reported) Sennosides 8.6 Mg Tablet, 8.6 MG PO Q8H PRN for CONSTIPATION-5TH LINE, (Reported ) Sertraline HCl 25 Mg Tablet, 12.5 MG PO DAILY, (Reported) TAKES 1/2 (25MG) TABLET Simvastatin 20 Mg Tablet, 20 MG PO HS, (Reported) Terazosin HCl 2 Mg Capsule, 2 MG PO BID, (Reported) Tramadol HCl 50 Mg Tablet, 50 MG PO Q8H PRN for PAIN-MILD TO MODERATE, (Reported ) Patient Home Medication List Home Medication List Reviewed: Yes (JONO COLLADO MD) Review of Systems Constitutional: see HPI EENTM: no symptoms reported Respiratory: see HPI Cardiovascular: see HPI Gastrointestinal: see HPI Genitourinary: see HPI : No Musculoskeletal: see HPI Skin: no symptoms reported Psychiatric/Neurological: See HPI Hematologic/Lymphatic: No Symptoms Reported (JONO COLLADO MD) Past Tlanyeq-Imumfg-Hznjeg Hx Past Med/Social Hx: Reviewed Nursing Past Med/Soc Hx (JONO COLLADO MD) Patient Social History Alcohol Beverage of Choice: Wine Type Used: Cigarettes Former Smoker, Quit: Apr 14, 1980 Recent Foreign Travel: No Contact w/Someone Who Travel: No Recent Infectious Disease Expo: No Recent Hopitalizations: No (JONO COLLADO MD) Immunizations Up To Date PED Vaccines UTD: No Date of Pneumonia Vaccine: Aug 16, 2013 Date of Influenza Vaccine: Jul 27, 2017 (JONO COLLADO MD) Seasonal Allergies Seasonal Allergies: No (JONO COLLADO MD) Past Medical History Surgeries: Yes Cardiac, Hysterectomy, Orthopedic, Tonsillectomy, Valve Replacement Respiratory: No Pneumonia, COPD Currently Using CPAP: No Currently Using BIPAP: No Cardiac: Yes Cardiomyopathy, Chronic Edema/Swelling, Coronary Artery Disease, Heart Murmur, High Cholesterol, Hypertension, Peripheral Vascular, Valvular Heart Disease Neurological: Yes Neuropathy, Stroke, TIA Reproductive Disorders: No (total HYSTERECTOMY) Female Reproductive Disorders: Denies 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 Physical Exam-Suspected Sepsis Physical Exam Vital Signs Vital Signs - First Documented 05/15/18 05/15/18 08:46 08:48 Temp 100.2 Pulse 76 Resp 28 B/P (MAP) 95/56 (69) Pulse Ox 83 O2 Delivery OxyMask O2 Flow Rate 15.00 Capillary Refill : Less Than 3 Seconds Blood Pressure Mean: 69 Height, Weight, BMI Height: 5'3.00" Weight: 200lbs. 0.0oz. [id number]; 39.7 BMI Method:Estimated General Appearance: No Apparent Distress, Obese, Other (minimally responsive) HEENT: PERRL/EOMI, Normal ENT Inspection Neck: Normal Inspection Respiratory: No Accessory Muscle Use, No Respiratory Distress, Wheezing (subtle ) Cardiovascular: Regular Rate, Rhythm, Systolic Murmur Gastrointestinal: Normal Bowel Sounds, Non Tender, Soft Extremity: Normal Capillary Refill, Swelling, Other (right lower extremity in a brace for treatment of femur fracture) Neurologic/Psychiatric: Other (patient initially was minimally responsive. She did not respond to voice but did respond to some physical stimuli. Later in the ER visit she was more responsive to voice and even open her eyes and move her head around independently. No focal motor deficits were identified but patient was not following instructions which limited exam) Skin: normal color, warm/dry (JONO COLLADO MD) Vital Signs Vital Signs - First Documented 05/15/18 05/15/18 08:46 08:48 Temp 100.2 Pulse 76 Resp 28 B/P (MAP) 95/56 (69) Pulse Ox 83 O2 Delivery OxyMask O2 Flow Rate 15.00 (VALARIE HERRMANN APRN) Focused Exam Lactate Level 05/15/18 08:46: Lactic Acid Level 0.82 (JONO COLLADO MD) Lactate Level 05/15/18 08:46: Lactic Acid Level 0.82 (VALARIE HERRMANN APRN) Lactic Acid Level Laboratory Tests Test 05/15/18 08:46 Lactic Acid Level 0.82 MMOL/L (0.50-2.00) (JONO COLLADO MD) Lactic Acid Level Laboratory Tests Test 05/15/18 08:46 Lactic Acid Level 0.82 MMOL/L (0.50-2.00) (VALARIE HERRMANN APRN) Procedures/Interventions Lumen: triple Central Line Procedure: betadine prep Position: internal jugular (R) Anesthesia: Lidocaine Volume Anesthetic (ccs): 3 Complications: none Post Position: sutured, good blood return, position confirmed w/ CXR (VALARIE HERRMANN APRN) Progress/Results/Core Measures Suspected Sepsis Recent Fever Within 48 Hours: Yes Infection Criteria Present: Suspected New Infection New/Unexplained Altered Menta: Yes Sepsis Screen: Possible Severe Sepsis Risk SIRS Temperature:100.2 Pulse: 76 Respiratory Rate: 28 Laboratory Tests 05/15/18 08:46: White Blood Count 32.4*H Blood Pressure 95 /56 Mean: 69 05/15/18 08:46: Lactic Acid Level 0.82 Laboratory Tests 05/15/18 08:46: Creatinine 3.76H, INR Comment 1.4, Platelet Count 283, Total Bilirubin 0.3 (JONO COLLADO MD) SIRS Laboratory Tests 05/15/18 08:46: White Blood Count 32.4*H 05/15/18 08:46: Lactic Acid Level 0.82 Laboratory Tests 05/15/18 08:46: Creatinine 3.76H, INR Comment 1.4, Platelet Count 283, Total Bilirubin 0.3 (VALARIE HERRMANN APRN) Results/Orders Lab Results Laboratory Tests Test 05/15/18 08:46 05/15/18 08:53 05/15/18 09:15 05/15/18 11:18 Range/Units White Blood Count 32.4 *H 4.3-11.0 10^3/uL Red Blood Count 2.48 L 4.35-5.85 10^6/uL Hemoglobin 7.8 L 11.5-16.0 G/DL Hematocrit 24 L 35-52 % Mean Corpuscular Volume 97 80-99 FL Mean Corpuscular Hemoglobin 32 25-34 PG Mean Corpuscular Hemoglobin Concent 33 32-36 G/DL Red Cell Distribution Width 17.1 H 10.0-14.5 % Platelet Count 283 130-400 10^3/uL Mean Platelet Volume 10.8 H 7.4-10.4 FL Neutrophils (%) (Auto) 94 H 42-75 % Lymphocytes (%) (Auto) 1 L 12-44 % Monocytes (%) (Auto) 4 0-12 % Eosinophils (%) (Auto) 0 0-10 % Basophils (%) (Auto) 0 0-10 % Neutrophils # (Auto) 30.6 H 1.8-7.8 X 10^3 Lymphocytes # (Auto) 0.5 L 1.0-4.0 X 10^3 Monocytes # (Auto) 1.4 H 0.0-1.0 X 10^3 Eosinophils # (Auto) 0.0 0.0-0.3 10^3/uL Basophils # (Auto) 0.0 0.0-0.1 10^3/uL Neutrophils % (Manual) 91 % Lymphocytes % (Manual) 3 % Monocytes % (Manual) 4 % Band Neutrophils 2 % Hypochromasia MODERATE Anisocytosis MARKED Prothrombin Time 16.8 H 12.2-14.7 SEC INR Comment 1.4 0.8-1.4 Activated Partial Thromboplast Time 36 H 24-35 SEC Sodium Level 140 135-145 MMOL/L Potassium Level 5.8 H 3.6-5.0 MMOL/L Chloride Level 113 H 98-107 MMOL/L Carbon Dioxide Level 14 L 21-32 MMOL/L Anion Gap 13 5-14 MMOL/L Blood Urea Nitrogen 138 *H 7-18 MG/DL Creatinine 3.76 H 0.60-1.30 MG/DL Estimat Glomerular Filtration Rate 12 BUN/Creatinine Ratio 37 Glucose Level 162 H 70-105 MG/DL Lactic Acid Level 0.82 0.50-2.00 MMOL/L Calcium Level 9.0 8.5-10.1 MG/DL Total Bilirubin 0.3 0.1-1.0 MG/DL Aspartate Amino Transf (AST/SGOT) 34 5-34 U/L Alanine Aminotransferase (ALT/SGPT) 18 0-55 U/L Alkaline Phosphatase 86 40-136 U/L B-Type Natriuretic Peptide 128.7 H <100.0 PG/ML Total Protein 5.3 L 6.4-8.2 GM/DL Albumin 2.7 L 3.2-4.5 GM/DL Glucometer 184 H 169 H 70-110 MG/DL Urine Color YELLOW Urine Clarity VERY CLOUDY H Urine pH 5 5-9 Urine Specific [place] 1.015 L 1.016-1.022 Urine Protein 1+ H NEGATIVE Urine Glucose (UA) NEGATIVE NEGATIVE Urine Ketones NEGATIVE NEGATIVE Urine Nitrite NEGATIVE NEGATIVE Urine Bilirubin NEGATIVE NEGATIVE Urine Urobilinogen NORMAL NORMAL MG/DL Urine Leukocyte Esterase 2+ H NEGATIVE Urine RBC (Auto) NEGATIVE NEGATIVE Urine RBC NONE /HPF Urine WBC RARE /HPF Urine Squamous Epithelial Cells 5-10 /HPF Urine Crystals NONE /LPF Urine Bacteria LARGE H /HPF Urine Casts NONE /LPF Urine Mucus NEGATIVE /LPF Urine Yeast LARGE H /HPF Urine Culture Indicated NO My Orders Orders - JONO COLLADO MD Cbc With Automated Diff (05/15/18 08:56) Comprehensive Metabolic Panel (05/15/18 08:56) Blood Culture (05/15/18 08:56) Sputum Culture (05/15/18 08:56) Urinalysis (05/15/18 08:56) Urine Culture (05/15/18 08:56) Protime With Inr (05/15/18 08:56) Partial Thromboplastin Time (05/15/18 08:56) Chest 1 View, Ap/Pa Only (05/15/18 08:56) Saline Lock/Iv-Start (05/15/18 08:56) Saline Lock/Iv-Start (05/15/18 08:56) Vital Signs Adult Sepsis Patie Q15M (05/15/18 08:56) O2 (05/15/18 08:56) Remove Rings In Anticipation O (05/15/18 08:56) Lactic Acid Analyzer (05/15/18 08:56) Piperacillin Sodium/Tazobactam (Zosyn Vi (05/15/18 09:00) Saline Lock/Iv-Start (05/15/18 08:56) Ns Iv 1000 Ml (Sodium Chloride 0.9%) (05/15/18 08:56) BNP (05/15/18 08:56) Accucheck Stat ONCE (05/15/18 08:56) Mcghee Cath (05/15/18 08:56) I-Stat Bedside Testing (05/15/18 08:56) Manual Differential (05/15/18 08:46) Meropenem (Merrem 1000 Mg) (05/15/18 09:30) Vancomycin Injection (Vancomycin Injecti (05/15/18 09:30) Ondansetron Injection (Zofran Injectio (05/15/18 09:30) Albuterol/Ipra Inhalation Soln (Duoneb I (05/15/18 09:30) Svn Small Volume Nebulizer (05/15/18 09:28) Ns Iv 1000 Ml (Sodium Chloride 0.9%) (05/15/18 09:33) Red Cells Leukocytes Reduced (05/15/18 09:54) Type And Screen (05/15/18 09:54) Saline Lock/Iv-Start (05/15/18 11:04) Ns Iv 1000 Ml (Sodium Chloride 0.9%) (05/15/18 11:04) Ns (Ivpb) (Sodium Chloride 0.9%) (05/15/18 11:16) Norepinephrine (Levophed) (05/15/18 11:16) Medications Given in ED Current Medications Medications Dose Ordered Sig/Danisha Route Start Time Stop Time Status Last Admin Dose Admin Albuterol/ Ipratropium 3 ml ONCE ONCE INH 05/15/18 09:30 05/15/18 09:31 DC 05/15/18 10:01 3 ML Meropenem 1000 mg/ Sodium Chloride 100 ml @ 200 mls/hr ONCE ONCE IV 05/15/18 09:30 05/15/18 09:59 DC 05/15/18 10:01 200 MLS/HR Ondansetron HCl 4 mg ONCE ONCE IVP 05/15/18 09:30 05/15/18 09:31 DC 05/15/18 09:39 4 MG Sodium Chloride 1,000 ml @ 0 mls/hr Q0M ONCE IV 05/15/18 08:56 05/15/18 09:01 DC 05/15/18 09:44 1,000 MLS/HR Sodium Chloride 1,000 ml @ 0 mls/hr Q0M ONCE IV 05/15/18 09:33 05/15/18 09:35 DC 05/15/18 09:30 1,000 MLS/HR Vancomycin HCl 1000 mg/Sodium Chloride 250 ml @ 250 mls/hr ONCE ONCE IV 05/15/18 09:30 05/15/18 10:29 DC 05/15/18 10:01 250 MLS/HR Vital Signs/I&O 05/15/18 05/15/18 05/15/18 08:46 08:48 10:02 Temp 100.2 Pulse 76 Resp 28 B/P (MAP) 95/56 (69) Pulse Ox 83 83 97 O2 Delivery OxyMask Room Air OxyMask O2 Flow Rate 15.00 8.00 Capillary Refill : Less Than 3 Seconds Blood Pressure Mean: 69 (JONO COLLADO MD) Lab Results Laboratory Tests Test 05/15/18 08:46 05/15/18 08:53 05/15/18 09:15 05/15/18 11:18 Range/Units White Blood Count 32.4 *H 4.3-11.0 10^3/uL Red Blood Count 2.48 L 4.35-5.85 10^6/uL Hemoglobin 7.8 L 11.5-16.0 G/DL Hematocrit 24 L 35-52 % Mean Corpuscular Volume 97 80-99 FL Mean Corpuscular Hemoglobin 32 25-34 PG Mean Corpuscular Hemoglobin Concent 33 32-36 G/DL Red Cell Distribution Width 17.1 H 10.0-14.5 % Platelet Count 283 130-400 10^3/uL Mean Platelet Volume 10.8 H 7.4-10.4 FL Neutrophils (%) (Auto) 94 H 42-75 % Lymphocytes (%) (Auto) 1 L 12-44 % Monocytes (%) (Auto) 4 0-12 % Eosinophils (%) (Auto) 0 0-10 % Basophils (%) (Auto) 0 0-10 % Neutrophils # (Auto) 30.6 H 1.8-7.8 X 10^3 Lymphocytes # (Auto) 0.5 L 1.0-4.0 X 10^3 Monocytes # (Auto) 1.4 H 0.0-1.0 X 10^3 Eosinophils # (Auto) 0.0 0.0-0.3 10^3/uL Basophils # (Auto) 0.0 0.0-0.1 10^3/uL Neutrophils % (Manual) 91 % Lymphocytes % (Manual) 3 % Monocytes % (Manual) 4 % Band Neutrophils 2 % Hypochromasia MODERATE Anisocytosis MARKED Prothrombin Time 16.8 H 12.2-14.7 SEC INR Comment 1.4 0.8-1.4 Activated Partial Thromboplast Time 36 H 24-35 SEC Sodium Level 140 135-145 MMOL/L Potassium Level 5.8 H 3.6-5.0 MMOL/L Chloride Level 113 H 98-107 MMOL/L Carbon Dioxide Level 14 L 21-32 MMOL/L Anion Gap 13 5-14 MMOL/L Blood Urea Nitrogen 138 *H 7-18 MG/DL Creatinine 3.76 H 0.60-1.30 MG/DL Estimat Glomerular Filtration Rate 12 BUN/Creatinine Ratio 37 Glucose Level 162 H 70-105 MG/DL Lactic Acid Level 0.82 0.50-2.00 MMOL/L Calcium Level 9.0 8.5-10.1 MG/DL Total Bilirubin 0.3 0.1-1.0 MG/DL Aspartate Amino Transf (AST/SGOT) 34 5-34 U/L Alanine Aminotransferase (ALT/SGPT) 18 0-55 U/L Alkaline Phosphatase 86 40-136 U/L B-Type Natriuretic Peptide 128.7 H <100.0 PG/ML Total Protein 5.3 L 6.4-8.2 GM/DL Albumin 2.7 L 3.2-4.5 GM/DL Glucometer 184 H 169 H 70-110 MG/DL Urine Color YELLOW Urine Clarity VERY CLOUDY H Urine pH 5 5-9 Urine Specific [place] 1.015 L 1.016-1.022 Urine Protein 1+ H NEGATIVE Urine Glucose (UA) NEGATIVE NEGATIVE Urine Ketones NEGATIVE NEGATIVE Urine Nitrite NEGATIVE NEGATIVE Urine Bilirubin NEGATIVE NEGATIVE Urine Urobilinogen NORMAL NORMAL MG/DL Urine Leukocyte Esterase 2+ H NEGATIVE Urine RBC (Auto) NEGATIVE NEGATIVE Urine RBC NONE /HPF Urine WBC RARE /HPF Urine Squamous Epithelial Cells 5-10 /HPF Urine Crystals NONE /LPF Urine Bacteria LARGE H /HPF Urine Casts NONE /LPF Urine Mucus NEGATIVE /LPF Urine Yeast LARGE H /HPF Urine Culture Indicated NO My Orders Orders - VALARIE HERRMANN APRN Chest 1 View, Ap/Pa Only (05/15/18 10:55) Medications Given in ED Current Medications Medications Dose Ordered Sig/Danisha Route Start Time Stop Time Status Last Admin Dose Admin Albuterol/ Ipratropium 3 ml ONCE ONCE INH 05/15/18 09:30 05/15/18 09:31 DC 05/15/18 10:01 3 ML Meropenem 1000 mg/ Sodium Chloride 100 ml @ 200 mls/hr ONCE ONCE IV 05/15/18 09:30 05/15/18 09:59 DC 05/15/18 10:01 200 MLS/HR Ondansetron HCl 4 mg ONCE ONCE IVP 05/15/18 09:30 05/15/18 09:31 DC 05/15/18 09:39 4 MG Sodium Chloride 1,000 ml @ 0 mls/hr Q0M ONCE IV 05/15/18 08:56 05/15/18 09:01 DC 05/15/18 09:44 1,000 MLS/HR Sodium Chloride 1,000 ml @ 0 mls/hr Q0M ONCE IV 05/15/18 09:33 05/15/18 09:35 DC 05/15/18 09:30 1,000 MLS/HR Vancomycin HCl 1000 mg/Sodium Chloride 250 ml @ 250 mls/hr ONCE ONCE IV 05/15/18 09:30 05/15/18 10:29 DC 05/15/18 10:01 250 MLS/HR Vital Signs/I&O 05/15/18 05/15/18 05/15/18 08:46 08:48 10:02 Temp 100.2 Pulse 76 Resp 28 B/P (MAP) 95/56 (69) Pulse Ox 83 83 97 O2 Delivery OxyMask Room Air OxyMask O2 Flow Rate 15.00 8.00 (VALARIE HERRMANN APRN) Point of Care Testing Finger Stick Blood Glucose: 184 (JONO COLLADO MD) Progress Note #1: Time: 09:30 Progress Note Septic workup is in progress. Patient's blood pressure rebounded after 500 mL of normal saline bolus. Another 1000 mL of normal saline is being administered now. Antibiotic therapy will be initiated with meropenem and Vancomycin after review of urine culture from prior encounter. Dr. Silvestre is in the room assisting with assessment of patient. Chest x-ray demonstrates pneumonia. Patient respiratory status is being maintained on an Oximask. Family confirmed DO NOT RESUSCITATE status. Progress Note #2: Time: 09:49 Progress Note Patient is receiving continuous normal saline boluses in bilateral IVs. Meropenem and vancomycin will be started as soon as blood cultures are drawn. Patient is rather anemic and there was question of hematemesis. A crossmatchof 2 units, 1 to give and 1 to hold, will be ordered. A DuoNeb treatment is being given to help with respiratory status. Progress Note #3: Time: 11:13 Progress Note Patient's systolic blood pressure was 82 despite receiving 2500 mL of normal saline boluses. Another liter of IV fluids and Levophed drip are now being administered. An IJ central line was placed by Valarie Herrmann APRN. Progress Note #4: Time: 11:36 Progress Note Patient was transferred to the ICU. Chest x-ray after line placement was reviewed and line is in good position. Fingerstick blood sugar was 169. (JONO COLLADO MD) Diagnostic Imaging Diagonstic Imaging: Xray Plain Films/CT/US/NM/MRI: chest Comments Chest x-ray viewed by me and report reviewed. See report below: NAME: TOMÁS VELEZ [employer] REC#: [id number] PT STATUS: REG ER : 1945 PHYSICIAN: JONO COLLADO MD ADMIT DATE: 05/15/18/ER Draft Date of Exam:05/15/18 CHEST 1 VIEW, AP/PA ONLY EXAM: CHEST 1 VIEW, AP/PA ONLY INDICATION: Unresponsive. COMPARISON: Chest radiograph 04/14/2018. FINDINGS: Low lung volumes. Cardiac valve prosthesis. Calcified aorta. Diffuse airspace opacities throughout the right lung. No pleural effusion or pneumothorax. No acute osseous findings. IMPRESSION: Airspace consolidation throughout much of the right lung. Low lung volumes. Dictated on workstation # [id number] Dict: 05/15/18928 Trans: 05/15/18930 [facility] [id number] Interpreted by: RABIA CLAY MD Diagonstic Imaging: Xray Plain Films/CT/US/NM/MRI: chest Comments X-ray for line placement viewed by me and report reviewed. Line was in good position for use. See report below: NAME: [employer] REC#: [id number] PT STATUS: ADM IN : 1945 PHYSICIAN: VALARIE HERRMANN APRN ADMIT DATE: 05/15/18/ICU Signed Date of Exam: 05/15/18 CHEST 1 VIEW, AP/PA ONLY EXAM: CHEST 1 VIEW, AP/PA ONLY INDICATION: Central line placement. COMPARISON: Chest radiograph from earlier today. FINDINGS: New right IJ CVC tip low SVC. Persistent airspace consolidation scattered throughout the right lung. Low lung volumes accentuate the heart size and pulmonary vascularity. Calcified aorta. No pleural effusion or pneumothorax. Chronic rib fractures. No acute osseous findings. IMPRESSION: 1. New right IJ CVC tip low SVC. No pneumothorax. 2. Persistent airspace opacities in the right lung. Dictated by: Dictated on workstation # [id number] Dict: 05/15/18 1112 Trans: 05/15/18 1257 Interpreted by: RABIA CLAY MD Electronically signed by: RABIA CLAY MD 05/15/18 1257 (JONO COLLADO MD) Critical Care Note Critical Care Start Time: 08:42 Stop Time: 11:32 (JONO COLLADO MD) Departure Communication (Admissions) Time/Spoke to Admitting Phy: 09:30 Case was discussed with Dr. Silvestre. She provided admission orders. (JONO COLLADO MD) Impression Primary Impression: Septic shock Additional Impressions: Acute renal failure Qualified Codes: N17.9 - Acute kidney failure, unspecified Urinary tract infection Qualified Codes: N39.0 - Urinary tract infection, site not specified Pneumonia Qualified Codes: J18.9 - Pneumonia, unspecified organism Anemia Qualified Codes: D64.9 - Anemia, unspecified Vomiting Qualified Codes: R11.10 - Vomiting, unspecified Disposition: 09 ADMITTED INPATIENT Condition: Improved Admissions Decision to Admit Reason: Admit from ER (General) Decision to Admit/Date: May 15, 2018 Time/Decision to Admit Time: 08:45 (JONO COLLADO MD) Departure-Patient Inst. Referrals: KIARA ACEVES MD (PCP/Family) Primary Care Physician JONO COLLADO MD May 15, 2018 09:26 VALARIE HERRMANN APRN May 15, 2018 11:28
[2018-05-15 09:27] LABS: INR 1.4 (0.8-1.4); PROTHROMBIN TIME PATIENT 16.8 SEC (12.2-14.7)
[2018-05-15] MEDS ORDERED: VANCOMYCIN INJECTION 1,000 MG in NS (IVPB) 250 ML IV ONE (09:30)
[2018-05-15] MEDS ORDERED: ONDANSETRON 4 MG/2 ML (SDV) Z0FRAN IVP ONE (09:30)
[2018-05-15] MEDS ORDERED: MEROPENEM 1,000 MG in NS (IVPB) 100 ML IV ONE (09:30)
[2018-05-15] MEDS ORDERED: RT-ALBUTEROL/IPRATROPIUM 3 ML (DUONEB) VIAL INH ONE (09:30)
--- NOTE | 2018-05-15 09:32 | Diagnostic Imaging Report ---
EXAM: CHEST 1 VIEW, AP/PA ONLY INDICATION: Unresponsive. COMPARISON: Chest radiograph 04/14/2018. FINDINGS: Low lung volumes. Cardiac valve prosthesis. Calcified aorta. Diffuse airspace opacities throughout the right lung. No pleural effusion or pneumothorax. No acute osseous findings. IMPRESSION: Airspace consolidation throughout much of the right lung. Low lung volumes. Dictated by: Dictated on workstation # [id number]
[2018-05-15 09:35] LABS: BACTERIA,URINE LARGE /HPF; WBC,URINE RARE /HPF; YEAST,URINE LARGE /HPF
[2018-05-15 09:40] LABS: BAND NEUTROPHILS 2 %; LYMPHOCYTES % (MANUAL) 3 %; MONOCYTES % (MANUAL) 4 %; NEUTROPHILS % (MANUAL) 91 %
[2018-05-15 09:41] LABS: ANISOCYTOSIS MARKED; HYPOCHROMASIA MODERATE
--- NOTE | 2018-05-15 09:42 | History & Physical-Hospitalist ---
History of Present Illness HPI/Chief Complaint Pt is a 73yoCF with a PMH of peripheral arterial disease, distal femur fracture , DMII, aortic stenosis s/p TAVR in 2015, CHF, and HTN who presented to the ER due to altered mental status. Pt is unable to provide me any history and only moans to physical stimuli. All history is obtained from Benita at [facility]. Benita states that her symptoms started yesterday. She vomited once in at day surgery clinic where she was supposed to get IV Iron. Due to the vomited she did not get that and instead returned to the the [place]. She seemed normal at that time (around 1pm) and ate dinner and did well and then over night began to vomit and was hypotensive (BP 85/42). This morning she was more lethargic and would only respond to sternal rub from Benita prompting her to call for EMS evaluation. EMS reports that her SBP was in the 70s during transport. She was found to be hypotensive here as well with leukocytosis and urine was consistent with a UTI along with CXR revealing pneumonia. Central line was placed in the ER and she was admitted to the ICU for septic shock. Source: patient Exam Limitations: clinical condition Date Seen 05/15/18 Time Seen by Provider: 09:15 Attending Physician Zaira Silvestre MD PCP Louis Abbasi MD Referring Physician Date of Admission Home Medications & Allergies Home Medications Reviewed patient Home Medication Reconciliation performed by pharmacy medication reconciliations sterile technician and/or nursing. Patients Allergies have been reviewed. Allergies Allergies Coded Allergies butorphanol (Verified Allergy, Unknown, 09/05/08) sotalol (Unverified Allergy, Unknown, 03/28/15) Past [place]-Cakgfc-Ewmcqv Hx Past Med/Social Hx: Reviewed Nursing Past Med/Soc Hx Patient Social History Employed/Student: retired Alcohol Beverage of Choice: Wine Former Smoker, Quit: Apr 14, 1980 Type Used: Cigarettes Recent Foreign Travel: No Contact w/other who traveled: No Recent Hopitalizations: No Recent Infectious Disease Expo: No Immunizations Up To Date Pediatric: No Date of Pneumonia Vaccine: Aug 16, 2013 Date of Influenza Vaccine: Jul 27, 2017 Seasonal Allergies Seasonal Allergies: No Past Medical History Surgeries: Cardiac, Hysterectomy, Orthopedic, Tonsillectomy, Valve Replacement Currently Using CPAP: No Currently Using BIPAP: No Cardiac: Cardiomyopathy, Chronic Edema/Swelling, Coronary Artery Disease, Heart Murmur, High Cholesterol, Hypertension, Peripheral Vascular, Valvular Heart Disease Neurological: Neuropathy, Stroke, TIA Reproductive: No (total HYSTERECTOMY) Sexually Transmitted Disease: No HIV/AIDS: No Female Reproductive Disorders: Denies Hysterectomy Genitourinary: Renal Failure Gastrointestinal: Gastroesophageal Reflux, Polyps Musculoskeletal: Arthritis, Fractures Endocrine: Diabetes, Insulin dep HEENT: Cataract Loss of Vision: Denies Hearing Impairment: Denies Psychosocial: Anxiety, Depression Skin/Integumentary: Recent Skin Changes History of Blood Disorders: Yes Adverse Reaction to Blood [place]: No Family History Reviewed Nursing Family Hx Patient reports no known family medical history. No Pertinent Family Hx Review of Systems ROS-Unable to Obtain: due to clinical condition Constitutional: see HPI Physical Exam Physical Exam Vital Signs Vital Signs - First Documented 05/18/18 12:00 Temp 97.8 Capillary Refill : Less Than 3 Seconds Height, Weight, BMI Height: 5'3.00" Weight: 200lbs. 0.0oz. 90.459100cy; 39.7 BMI Method:Estimated General Appearance: Chronically ill, Mild Distress, Obese HEENT: PERRL/EOMI; No Scleral Icterus (L), No Scleral Icterus (R); Other (dry mucus membranes) Neck: Normal Inspection, Supple Respiratory: No Accessory Muscle Use, No Respiratory Distress, Decreased Breath Sounds Cardiovascular: Regular Rate, Rhythm, No Edema, No JVD, Systolic Murmur Gastrointestinal: Normal Bowel Sounds, Non Tender, Soft Extremity: No Calf Tenderness, No Pedal Edema, Slow Capillary Refill Neurologic/Psychiatric: Other (somnolent) Skin: Cool, Mottled Results Results/Procedures Labs Patient resulted labs reviewed. Imaging: Reviewed Imaging Films Assessment/Plan Admission Diagnosis Septic Shock Admission Status: Inpatient Order (span 2 midnights) Reason for Inpatient Admission: Septic SHock, ICU care, needs vasopressors Diagnosis/Problems Diagnosis/Problems (1) Septic shock Status: Acute Assessment & Plan: Tachypneic with Leukocytosis PNA apparent on CXR Urine consistent with UTI as well Refractory hypotension despite IVF resuscitation Central line placed in ER Will bolus with IBW calculation due to BMI >30 IBW 52kg thus IVF resuscitation would be 1560ml Has already received 2.5L between ER and EMS Previous cultures grew ESBL- will start on Merrem Will add Vanc as well Blood cultures drawn in ER Will get sputum culture if able (2) Renal failure Status: Acute Assessment & Plan: Baseline Creatinine 1.3 from 1 month ago 3.76 today Continue IV fluids Qualifiers: Renal failure chronicity: acute on chronic Acute renal failure type: unspecified Chronic kidney disease stage: stage 3 (moderate) Qualified Codes : N17.9 - Acute kidney failure, unspecified; N18.3 - Chronic kidney disease, stage 3 (moderate) (3) Hematemesis Status: Acute Assessment & Plan: Hematemesis noted by NH x2 yesterday On ASA and Plavix for CAD Will hold Surgery consulted, appreciate recs Type and cross ordered- will transfuse 1 unit and hold 1 Qualifiers: Nausea presence: with nausea Qualified Codes: K92.0 - Hematemesis (4) Aortic valve replaced Assessment & Plan: in 2015 Unsure if mechanical or bioprosthetic Hold on anticoagulation regardless due to hematemesis (5) Closed fracture of right distal femur Status: Acute Assessment & Plan: From previous discussion with Dr Canseco's PA- not a candidate for operative repair Brace in place Qualifiers: Encounter type: sequela Fracture morphology: unspecified fracture morphology Qualified Codes: S72.401S - Unspecified fracture of lower end of right femur, sequela (6) IDDM (insulin dependent diabetes mellitus) Status: Chronic Assessment & Plan: Will place on SSI A (7) CAD (coronary artery disease) Status: Chronic Assessment & Plan: Hold ASA and Plavix Qualifiers: Coronary Disease-Associated Artery/Lesion type: [place] artery [place] vs. transplanted heart: [place] heart Associated angina: without angina Qualified Codes: I25.10 - Atherosclerotic heart disease of [place] coronary artery without angina pectoris (8) Nausea & vomiting Status: Acute Assessment & Plan: Zofran prn Qualifiers: Vomiting type: unspecified Vomiting Intractability: unspecified Qualified Codes: R11.2 - Nausea with vomiting, unspecified (9) Counseling regarding end of life decision making Assessment & Plan: Discussed severity of illness with family Patient has previous DNR/DNI orders- family confirms she would still agree with that Ok for central line placement and pressors and BiPAP if needed Focused Exam Sepsis Stage: Septic Shock Possible Source: Pulmonary Lactate Level Time of Focused Exam: 09:30 Cardiovascular: Regular Rate, Rhythm, Systolic Murmur Capillary Refill: Greater Than 3 Seconds Peripheral Pulses: 1+ Dorsalis Pedis (R), 1+ Left Dors-Pedis (L) Skin: cool, mottled Lactic Acid Level Within 3hrs of presentation: Admin 30ml/kg IBW due to BMI>30, Admin ABX, Blood cultures prior to ABX's, Focus exam, Lactate level ZAIRA SILVESTRE MD May 15, 2018 09:42
[2018-05-15 09:48] LABS: ALBUMIN 2.7 GM/DL (3.2-4.5); BILIRUBIN,TOTAL 0.3 MG/DL (0.1-1.0); CREATININE SERUM 3.76 MG/DL (0.60-1.30); TOTAL PROTEIN 5.3 GM/DL (6.4-8.2)
[2018-05-15 09:50] LABS: POTASSIUM 5.8 MMOL/L (3.6-5.0)
[2018-05-15] MEDS ORDERED: ONDANSETRON 4 MG/2 ML (SDV) Z0FRAN IVP PRN (10:30)
[2018-05-15] MEDS ORDERED: inSUlin ASPART (NovoLOG) 1 UNIT/0.01 ML (CHARGE PER UNIT) SC SCH (11:00)
--- OUTSIDE RECORDS SUMMARY | 2018-05-15 11:06 | XMS REPORT | Clinical Summary ---
Author Author [facility] Organization [facility] Address Unknown Phone Unavailable Care Team Providers Care Hydraulic Jack Mechanic Name Role Phone Abelardo Diane RN Unavailable Unavailable Olvin Pacheco MD Unavailable Louis Abbasi MD PCP Leona Altamirano RN Unavailable Unavailable Lisbet Saavedra PA-C Unavailable Source Comments Some departments are not documenting in the electronic medical record. If you do not see the information that you expected, contact Release of Information in the Health Information Management department at [phone] for further assistance in locating additional records.[facility] Allergies Active Allergy Reactions Severity Noted [...] valve stenosis, IDDM (insulin dependent diabetes mellitus) ([facility]), Essential hypertension, Chronic obstructive pulmonary disease, unspecified copd, unspecified chronic bronchitis type, Morbid obesity ([facility]), UTI (lower urinary tract infection), Chronic diastolic CHF (congestive heart failure) ([facility]), CKD (chronic kidney disease) stage 3, GFR 30-59 ml/min ([facility]), Coronary artery disease involving [place] coronary artery of [place] heart without angina pectoris, Arthritis, Acute diastolic HF (heart failure) ([facility]), Ebyet-ev-pdabswk kidney injury ([facility]) polyethylene glycol 3350 Take 17 g by mouth daily. 3 Bottle 3 Active (GLYCOLAX; MIRALAX) 17 15 gram/dose powderIndications: Aortic stenosis, Aortic valve stenosis, IDDM (insulin dependent diabetes mellitus) ([facility]), Essential hypertension, Chronic obstructive pulmonary disease, unspecified copd, unspecified chronic bronchitis type, Morbid obesity ([facility]), UTI (lower urinary tract infection), Chronic diastolic CHF (congestive heart failure) ([facility]), CKD (chronic kidney disease) stage 3, GFR 30-59 ml/min ([facility]), Coronary artery disease involving [place] coronary artery of [place] heart without angina pectoris, Arthritis, Acute diastolic HF (heart failure) ([facility]), Taqcz-rn-hfygahc kidney injury ([facility]) insulin aspart (NOVOLOG) Inject 6 Units into 3 box 3 06/26/20 Active 100 unit/mL area(s) as directed three 15 flexPENIndications: times daily with meals. Aortic stenosis, Aortic Take 6 units with lunch valve stenosis, IDDM and dinner (insulin dependent diabetes mellitus) ([facility]), Essential hypertension, Chronic obstructive pulmonary disease, unspecified copd, unspecified chronic bronchitis type, Morbid obesity ([facility]), UTI (lower urinary tract infection), Chronic diastolic CHF (congestive heart failure) ([facility]), CKD (chronic kidney disease) stage 3, GFR 30-59 ml/min ([facility]), Coronary artery disease involving [place] coronary artery of [place] heart without angina pectoris, Arthritis, Acute diastolic HF (heart failure) ([facility]), Tggpn-vz-nqnfusu kidney injury ([facility]) insulin detemir(+) Inject 20 Units into 10 mL 12 06/26/20 Active (LEVEMIR) 100 unit/mL area(s) as directed at 15 solnIndications: Aortic bedtime daily. stenosis, Aortic valve stenosis, IDDM (insulin dependent diabetes mellitus) ([facility]), Essential hypertension, Chronic obstructive pulmonary disease, unspecified copd, unspecified chronic bronchitis type, Morbid obesity ([facility]), UTI (lower urinary tract infection), Chronic diastolic CHF (congestive heart failure) ([facility]), CKD (chronic kidney disease) stage 3, GFR 30-59 ml/min ([facility]), Coronary artery disease involving [place] coronary artery of [place] heart without angina pectoris, Arthritis, Acute diastolic HF (heart failure) ([facility]), Iqjio-na-iberiih kidney injury ([facility]) carvedilol (COREG) 6.25 Take 1 Tab by mouth twice 180 Tab 3 07/31/20 Active mg tablet daily. 15 losartan-hydrochlorothiaz Take 1 Tab by mouth 90 Tab 3 11/16/19 Active chanelle (HYZAAR) 50-12.5 mg daily. 16 tabletIndications: Aortic stenosis Active Problems Problem Noted Date Chronic diastolic CHF (congestive heart failure) ([facility]) 06/26/2015 CKD (chronic kidney disease) stage 3, GFR 30-59 ml/min ([facility]) 06/26/2015 UTI (lower urinary tract infection) 06/21/2015 Acute diastolic HF (heart failure) ([facility]) 04/10/2015 Morbid obesity ([facility]) 04/10/2015 Dgiur-zt-kdtufqt kidney injury (probable ATN) 04/10/2015 IDDM (insulin dependent diabetes mellitus) ([facility]) 03/29/2015 CAD (coronary artery disease) 03/29/2015 Overview: 03/30/15: Cath at [facility] - CAD. The LAD has a 90% eccentric mid vessel stenosis after the 1st septal with minimal disease elsewhere in the left coronary system. Successful intervention of the mid LAD, placing a 3.5 x 15 mm drug-eluting stent. HTN (hypertension) 03/29/2015 COPD (chronic obstructive pulmonary disease) ([facility]) 03/29/2015 Arthritis 03/29/2015 Aortic stenosis 03/28/2015 Family [...] - Oxygen Saturation 97% 11/16/2015 11:22 AM PRESS WRITER Inhaled Oxygen - - Concentration Weight 102.1 [...]
--- NOTE | 2018-05-15 11:15 | Diagnostic Imaging Report ---
EXAM: CHEST 1 VIEW, AP/PA ONLY INDICATION: Central line placement. COMPARISON: Chest radiograph from earlier today. FINDINGS: New right IJ CVC tip low SVC. Persistent airspace consolidation scattered throughout the right lung. Low lung volumes accentuate the heart size and pulmonary vascularity. Calcified aorta. No pleural effusion or pneumothorax. Chronic rib fractures. No acute osseous findings. IMPRESSION: 1. New right IJ CVC tip low SVC. No pneumothorax. 2. Persistent airspace opacities in the right lung. Dictated by: Dictated on workstation # [id number]
[2018-05-15] MEDS ORDERED: NS (IVPB) 250 ML ONE (11:16)
[2018-05-15] MEDS ORDERED: NOREPINEPHRINE 4 MG/4 ML (LEVOPHED) AMP IV ONE (11:16)
[2018-05-15] MEDS: NOREPINEPHRINE 4 MG in NS (IVPB) 250 ML IV SCH ×2 (11:26→21:14)
[2018-05-15] MEDS: NS IV 1000 ML 1,000 ML IV SCH ×4 (12:37→19:58)
[2018-05-15] MEDS ORDERED: NS IV 1000 ML 1,000 ML IV SCH (12:45)
[2018-05-15] MEDS ORDERED: VANCOMYCIN 750 MG/NS 250 ML IVPB IV NR ×2 (12:54)
[2018-05-15] MEDS: inSUlin ASPART (NovoLOG) 1 UNIT/0.01 ML (CHARGE PER UNIT) SC SCH (17:20)
[2018-05-15] MEDS: MEROPENEM 500 MG in NS (IVPB) 100 ML IV SCH (20:19)
[2018-05-16] VITALS (82 sets, daily range): BP systolic 14–141; BP diastolic 36–99
[2018-05-16] MEDS: NS IV 1000 ML 1,000 ML IV SCH ×3 (00:30→19:45)
[2018-05-16] MEDS: inSUlin ASPART (NovoLOG) 1 UNIT/0.01 ML (CHARGE PER UNIT) SC SCH ×5 (01:08→23:44)
[2018-05-16 04:16] LABS: BASOPHILS % (AUTO) 0 % (0-10); EOSINOPHILS % (AUTO) 0 % (0-10); HEMATOCRIT 27 % (35-52); HEMOGLOBIN 8.6 G/DL (11.5-16.0); LYMPHOCYTES # (AUTO) 1.1 X 10^3 (1.0-4.0); LYMPHOCYTES % (AUTO) 4 % (12-44); MEAN CORPUSCULAR HEMOGLOBIN 31 PG (25-34); MEAN CORPUSCULAR HGB CONC 32 G/DL (32-36); MEAN CORPUSCULAR VOLUME 97 FL (80-99); MEAN PLATELET VOLUME 10.3 FL (7.4-10.4); MONOCYTES # (AUTO) 1.3 X 10^3 (0.0-1.0); MONOCYTES % (AUTO) 4 % (0-12); NEUTROPHILS % (AUTO) 92 % (42-75); PLATELET COUNT 288 10^3/uL (130-400); RED BLOOD COUNT 2.78 10^6/uL (4.35-5.85); RED CELL DISTRIBUTION WIDTH 18.2 % (10.0-14.5)
[2018-05-16 04:20] LABS: WHITE BLOOD COUNT 30.5 10^3/uL (4.3-11.0)
[2018-05-16 04:42] LABS: CREATININE SERUM 3.1 MG/DL (0.60-1.30); POTASSIUM 5.1 MMOL/L (3.6-5.0)
[2018-05-16 04:43] LABS: CALCIUM 8.4 MG/DL (8.5-10.1); MAGNESIUM 2.4 MG/DL (1.8-2.4); PHOSPHORUS 5.5 MG/DL (2.3-4.7)
[2018-05-16] MEDS: POTASSIUM CL 10MEQ/50ML IVPB 50 ML IV SCH (04:43)
[2018-05-16] MEDS: KCL 20 MEQ TAB (K-DUR) PO SCH (04:44)
[2018-05-16] MEDS: MAGNESIUM 1 GM/100 ML IVPB 100 ML IV SCH (04:44)
[2018-05-16] MEDS: NOREPINEPHRINE 4 MG in NS (IVPB) 250 ML IV SCH ×3 (06:04→19:44)
[2018-05-16] MEDS ORDERED: NS IV 500 ML 500 ML ONE (08:07)
--- NOTE | 2018-05-16 08:38 | Progress Note-Hospitalist ---
Subjective HPI/CC On Admission Date Seen by Provider: May 16, 2018 Time Seen by Provider: 08:32 Pt is a 73yoCF with a PMH of peripheral arterial disease, distal femur fracture , DMII, aortic stenosis s/p TAVR in 2014, CHF, and HTN who presented to the ER due to altered mental status. Pt is unable to provide me any history and only moans in physical stimuli. All history is obtained from Benita at [facility]. Benita states that her symptoms started yesterday. She vomited once in at day surgery clinic where she was supposed to get IV Iron. Due to the vomited she did not get that and instead returned to the the [place]. She seemed normal at that time (around 1pm) and ate dinner and did well and then over night began to vomit and was hypotensive (BP 85/42). This morning she was more lethargic and would only respond to sternal rub from Benita prompting her to call for EMS evaluation. EMS reports that her SBP was in the 70s during transport. Subjective/Events-last exam Pt more alert. Denies any complaints. Family at bedside. RN reports during bath this morning noticed bright red blood per rectum. Dr Araiza made aware. Focused Exam Lactate Level 05/15/18 08:46: Lactic Acid Level 0.82 Time of Focused Exam: 09:30 Objective Exam Vital Signs Vital Signs Date Time Temp Pulse Resp B/P (MAP) Pulse Ox O2 Delivery O2 Flow Rate FiO2 05/16/18 08:00 98.4 05/16/18 06:45 78 12 117/43 (67) 97 OxyMask 2.00 Capillary Refill : Greater Than 3 Seconds General Appearance: No Apparent Distress, Chronically ill Respiratory: No Respiratory Distress, Decreased Breath Sounds Cardiovascular: Regular Rate, Rhythm, Systolic Murmur Gastrointestinal: Normal Bowel Sounds, Non Tender, Soft Extremity: No Pedal Edema, Other (right leg in brace) Neurologic/Psychiatric: Alert Skin: Mottled Results/Procedures Lab Laboratory Tests 05/15/18 08:46 05/16/18 04:05 Patient resulted labs reviewed. Imaging: Reviewed Imaging Films Assessment/Plan Assessment and Plan Assess & Plan/Chief Complaint Septic Shock Diagnosis/Problems Diagnosis/Problems (1) Septic shock Status: Acute Assessment & Plan: PNA apparent on CXR Urine consistent with UTI as well Remains on Levophed Previous cultures grew ESBL- will start on Merrem Continue Vanc for PNA- await MRSA screen Blood cultures drawn in ER- pending Will get sputum culture if able (2) Bright red blood per rectum Status: Acute Assessment & Plan: New this AM s/p 1 unit pRBCs yesterday WIll transfuse another unit today Dr Araiza consulted and aware- plans to see soon (3) Renal failure Status: Acute Assessment & Plan: Baseline Creatinine 1.3 from 1 month ago 3.76 yesterday to 3.1 Continue IV fluids Mild hyperkalemia Qualifiers: Renal failure chronicity: acute on chronic Acute renal failure type: unspecified Chronic kidney disease stage: stage 3 (moderate) Qualified Codes : N17.9 - Acute kidney failure, unspecified; N18.3 - Chronic kidney disease, stage 3 (moderate) (4) Hematemesis Status: Acute Assessment & Plan: Hematemesis noted by NH x2 yesterday On ASA and Plavix for CAD-Will hold Surgery consulted, appreciate recs Qualifiers: Nausea presence: with nausea Qualified Codes: K92.0 - Hematemesis (5) Aortic valve replaced Assessment & Plan: in 2015 Unsure if mechanical or bioprosthetic Hold on anticoagulation regardless due to hematemesis (6) Closed fracture of right distal femur Status: Acute Assessment & Plan: From previous discussion with Dr Canseco's PA- not a candidate for operative repair Brace in place Qualifiers: Encounter type: sequela Fracture morphology: unspecified fracture morphology Qualified Codes: S72.401S - Unspecified fracture of lower end of right femur, sequela (7) IDDM (insulin dependent diabetes mellitus) Status: Chronic Assessment & Plan: Will place on SSI A (8) CAD (coronary artery disease) Status: Chronic Assessment & Plan: Hold ASA and Plavix Qualifiers: Coronary Disease-Associated Artery/Lesion type: [place] artery [place] vs. transplanted heart: [place] heart Associated angina: without angina Qualified Codes: I25.10 - Atherosclerotic heart disease of [place] coronary artery without angina pectoris (9) Nausea & vomiting Status: Acute Assessment & Plan: Zofran prn Qualifiers: Vomiting type: unspecified Vomiting Intractability: unspecified Qualified Codes: R11.2 - Nausea with vomiting, unspecified (10) Counseling regarding end of life decision making Assessment & Plan: Discussed severity of illness with family again today with new onset BRBPR Not ready for comfort measures at this time Patient has previous DNR/DNI orders- family confirms she would still agree with that Ok for central line placement and pressors and BiPAP if needed Clinical Quality Measures DVT/VTE Risk/Contraindication: Risk Factor Score Per Nursin RFS Level Per Nursing on Admit: 4+=Very High ZAIRA MAZARIEGOS MD May 16, 2018 08:38
--- NOTE | 2018-05-16 08:43 | Diagnostic Imaging Report ---
INDICATION: Dyspnea Upright portable AP view of the chest is obtained. Since the examination of one day earlier, there has been worsening of diffuse airspace disease likely due to pulmonary edema although superimposed pneumonia is not excluded. There is cardiomegaly. No pneumothorax or definite pleural fluid is identified. IMPRESSION: Worsening bilateral pulmonary edema or developing pneumonia. Radiographic followup would be of use. Dictated by: Dictated on workstation # [id number]
[2018-05-16] MEDS ORDERED: TROUGH ORDER-PHARMACY XX NR (09:00)
[2018-05-16] MEDS ORDERED: NS IV 500 ML 500 ML IV ONE (09:00)
[2018-05-16] MEDS ORDERED: ALLO100T PO (09:03)
[2018-05-16] MEDS ORDERED: AMLO10TA2 PO (09:03)
[2018-05-16] MEDS ORDERED: LISI-552 PO (09:03)
[2018-05-16] MEDS ORDERED: OMEP20CA12 PO (09:05)
[2018-05-16] MEDS ORDERED: DEXT15DR23 OU (09:11)
[2018-05-16] MEDS ORDERED: FENT1PAT6 TD (09:13)
[2018-05-16] MEDS ORDERED: ACET650S15 RC (09:17)
[2018-05-16] MEDS: MEROPENEM 500 MG in NS (IVPB) 100 ML IV SCH ×2 (09:17→20:55)
[2018-05-16] MEDS ORDERED: CALC500T7 PO (09:20)
[2018-05-16] MEDS ORDERED: CALC-308 PO (09:20)
[2018-05-16] MEDS ORDERED: HYDR-3812 PO (09:22)
[2018-05-16] MEDS ORDERED: MAGN400O7 PO (09:23)
[2018-05-16] MEDS: fentaNYL INJECTION 100 MCG/2 ML AMP IVP PRN ×6 (10:22→23:44)
[2018-05-16] MEDS: VANCOMYCIN INJECTION 1,500 MG in NS IV 500 ML 500 ML IV SCH (10:28)
--- NOTE | 2018-05-16 11:15 | Consultation ---
History of Present Illness History of Present Illness Patient Consulted On(johanna/time) 05/16/18 11:13 Date Seen by Provider: May 16, 2018 Time Seen by Provider: 11:13 Reason for Visit: GI bleeding, for endoscopy History of Present Illness This lady was brought emergency room with severe pneumonia and possibly UTI marker elevation of white cell count. During the visit, hematemesis was reported benign to see regarding an upper endoscopy. Early this morning, the nursing staff reported noticing rectal bleeding as well. She has remained hemodynamically stable, requiring 2 units of blood transfusion. She has multiple comorbidities including anticoagulant therapy Allergies and Home Medications Allergies Coded Allergies: butorphanol (Verified Allergy, Unknown, 09/05/08) sotalol (Unverified Allergy, Unknown, 03/28/15) Home Medications Acetaminophen 500 Mg Tablet, 1,000 MG PO TID, (Reported) Acetaminophen 650 Mg Supp.rect, 650 MG RC Q6H PRN for TEMPERATURE GREATER THAN 101, (Reported) Allopurinol 100 Mg Tablet, 100 MG PO DAILY, (Reported) Amlodipine Besylate 10 Mg Tablet, 10 MG PO DAILY, (Reported) Aspirin 81 Mg Tablet.dr, 81 MG PO DAILY, (Reported) B&C/FA/Zinc/Copper Oxide/Vit E 1 Each Tablet, 1 TAB PO DAILY, (Reported) Calcium Carbonate 500 Mg Tab.chew, 1,500 MG PO PRN PRN for HEARTBURN, (Reported) Calcium Carbonate/Vitamin D3 1 Each Tablet, 1 TAB PO BID, (Reported) Carvedilol 12.5 Mg Tablet, 12.5 MG PO BID, (Reported) Clopidogrel Bisulfate 75 Mg Tablet, 75 MG PO DAILY, (Reported) Cyanocobalamin (Vitamin B-12) 500 Mcg Tablet, 500 MCG PO DAILY, (Reported) Dextran 70/Hypromellose 15 Ml Drops, 1 DROP OU BID, (Reported) Diphenhydramine HCl 25 Mg Tablet, 12.5 MG PO 1900, (Reported) TAKES 1/2 (25MG) TABLET Eucalyptus Oil/Menthol/Camphor 50 Gm Oint...g., TP UD PRN for CONGESTION, ( Reported) APPLY TO CHEST Fentanyl 1 Each Patch.td72, 12 MCG TD Q72H, (Reported) Ferrous Sulfate 325 Mg Tablet, 325 MG PO DAILY, (Reported) Fluticasone Propionate 16 Gm [place].susp, 2 SPRAYS NS DAILY, (Reported) Folic Acid 1 Mg Tablet, 1 MG PO DAILY, (Reported) Furosemide 80 Mg Tablet, 80 MG PO DAILY, (Reported) Gabapentin 100 Mg Capsule, 100 MG PO BID, (Reported) Guaifenesin/Dextromethorphan 118 Ml Syrup, 10 ML PO Q6H PRN for COUGH, (Reported ) Hydrocodone/Acetaminophen 1 Each Tablet, 1 EACH PO Q6H PRN for PAIN-MILD TO MODERATE, (Reported) Insulin Aspart 100 Unit/1 Ml Susp, 6 UNITS SQ 1200,1700, (Reported) Insulin Aspart 100 Unit/1 Ml Susp, SQ AC, (Reported) BELOW 60 CALL PHYSICIAN 60-150 = 0 UNITS 151-200 = 4 UNITS 201-250 = 6 UNITS 251-300 = 8 UNITS 301-350 = 10 UNITS 351-400 = 12 UNITS ABOVE 400 CALL PHYSICIAN Insulin Detemir 100 Unit/1 Ml Insuln.pen, 26 UNITS SQ HS, (Reported) Lactobacillus Acidophilus 1 Each Capsule, 1 CAP PO BID, (Reported) Lisinopril 20 Mg Tablet, 20 MG PO DAILY, (Reported) Loperamide HCl 2 Mg Tablet, 2 MG PO Q6H PRN for DIARRHEA, (Reported) Magnesium Hydroxide 400 Mg/5 Ml Oral.susp, 30 ML PO DAILY PRN for CONSTIPATION- 1ST LINE, (Reported) Multivitamin with Minerals 1 Each Tablet, 1 TAB PO DAILY, (Reported) [place] 3 Polyunsat Fatty Acids 1,000 Mg Cap, 2,000 MG PO DAILY, (Reported) Omeprazole 20 Mg Capsule.dr, 40 MG PO DAILY, (Reported) Ondansetron HCl 4 Mg Tab, 4 MG PO Q8H PRN for NAUSEA/VOMITING-1ST LINE, ( Reported) Sennosides 8.6 Mg Tablet, 8.6 MG PO Q8H PRN for CONSTIPATION-5TH LINE, (Reported ) Sertraline HCl 25 Mg Tablet, 12.5 MG PO DAILY, (Reported) TAKES 1/2 (25MG) TABLET Simvastatin 20 Mg Tablet, 20 MG PO HS, (Reported) Terazosin HCl 2 Mg Capsule, 2 MG PO BID, (Reported) Tramadol HCl 50 Mg Tablet, 50 MG PO Q8H PRN for PAIN-MILD TO MODERATE, (Reported ) Patient Home Medication List Home Medication List Reviewed: Yes Past Swdpplw-Buktyh-Nwobpb Hx Past Med/Social Hx: Reviewed Nursing Past Med/Soc Hx Patient Social History Alcohol Use: Denies Use Number of Drinks Today: Alcohol Beverage of Choice: Wine Recreational Drug Use: No Smoking Status: Former Smoker Type Used: Cigarettes Former Smoker, Quit: Apr 14, 1980 Recent Foreign Travel: No Contact w/Someone Who Travel: No Recent Infectious Disease Expo: No Recent Hopitalizations: No Physical Abuse: No Sexual Abuse: No Immunizations Up To Date Tetanus Booster (TDap): Unknown PED Vaccines UTD: No Date of Pneumonia Vaccine: Aug 16, 2013 Date of Influenza Vaccine: Jul 27, 2017 Seasonal Allergies Seasonal Allergies: No Past Medical History Surgeries: Yes (aortic valve, peripheral stents) Cardiac, Hysterectomy, Orthopedic, Tonsillectomy, Valve Replacement Respiratory: Yes Pneumonia, COPD Currently Using CPAP: No Currently Using BIPAP: No Cardiac: Yes Cardiomyopathy, Chronic Edema/Swelling, Coronary Artery Disease, Heart Murmur, High Cholesterol, Hypertension, Peripheral Vascular, Valvular Heart Disease Neurological: Yes Neuropathy, Stroke, TIA Reproductive Disorders: No (total HYSTERECTOMY) Female Reproductive Disorders: 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 Physical Exam-General Problems Physical Exam Vital Signs Vital Signs - First Documented 05/15/18 05/15/18 08:46 08:48 Temp 100.2 Pulse 76 Resp 28 B/P (MAP) 95/56 (69) Pulse Ox 83 O2 Delivery OxyMask O2 Flow Rate 15.00 Capillary Refill : Greater Than 3 Seconds General Appearance: moderate distress Cardiovascular: regular rate, rhythm Gastrointestinal: non tender, soft Rectal: deferred Assessment/Plan Assessment/Plan Admission Diagnosis/Plan Lady with severe pneumonia, leukocytosis and urinary tract infection. Antibiotic therapy, Plavix be held for less than 24 hours. GI bleeding. Reasonable to perform an upper endoscopy. I have reviewed colonoscopy from July 2017, conforming hemorrhoids. Therefore, the role of colonoscopy at this point is rather limited. Admission Status: Inpatient Order (span 2 midnights) Clinical Quality Measures DVT/VTE Risk/Contraindication: Risk Factor Score Per Nursin RFS Level Per Nursing on Admit: 4+=Very High RAMON SIFUENTES MD May 16, 2018 11:15 am
[2018-05-16] MEDS ORDERED: EPINEPHrine INJECTION 1 MG/ML AMP ONE (11:40)
[2018-05-16] MEDS ORDERED: proPOfol 200 MG/20 ML (DIPRIVAN) VIAL IV ONE (11:46)
[2018-05-16] MEDS ORDERED: GLYCOPYRROLATE 0.2 MG/ML (ROBINUL) 2 ML VIAL ONE (11:47)
--- NOTE | 2018-05-16 12:05 | Endo Procedure Record ---
Endo Procedure Report Date of Procedure Last Colonoscopy: Yes May 16, 2018 Surgeon (s) RAMON SIFUENTES MD Post Procedure/Op Diagnosis Esophagus: Severe esophagitis extending from 20 centimeters distally with surface ulceration, possibly due to candidiasis Stomach: Multiple shallow erosions without any active bleeding Duodenum: Severe duodenitis involving the proximal part. Procedure Performed Upper GI endoscopy Description of Procedure Anesthesia Type: Conscious Sedation Specimen(s) collected/removed None Description of the Procedure Indication for the procedure: This lady has been admitted with severe pneumonia and GI bleeding. She has been on antiplatelet therapy until 24 hours ago. She remained hemodynamically stable. It was felt reasonable to perform an upper endoscopy. Informed consent was obtained after reviewing the procedure in detail. Description of procedure: She was monitored in the intensive care unit and conscious sedation achieved by our SENIOR DATA QUALITY ANALYST. The flexible gastroscope was introduced down the esophagus, past the stomach, into the proximal duodenum. Findings: Esophagus: Severe esophagitis with surface ulceration extending from 40 cm onwards. It is likely that this is due to candidiasis. Stomach: Multiple, nonbleeding, shallow erosions involving the distal stomach. Duodenum: Changes of severe duodenitis along the first part. She tolerated the procedure reasonably well and remained stable Impression: GI bleeding due to a combination of esophagitis and gastric erosions. No active bleeding noticed. We'll use nystatin and proton pump millimeters. Note: Since colonoscopy was performed in July 2017, revealing hemorrhoids, at this point, it is reasonable to withhold colonoscopy. Copy Copies To 1: KIARA ACEVES MD Copies To 2: ZAIRA MAZARIEGOS MD, XAVIER M MD May 16, 2018 12:05 pm
[2018-05-16] MEDS: PANTOPRAZOLE 40 MG/10 ML (PROTONIX) VIAL IV SCH ×2 (12:41→20:54)
[2018-05-16] MEDS ORDERED: KETAMINE HCL 100 MG/ML 5 ML VIAL IJ ONE (12:57)
[2018-05-16] MEDS ORDERED: MAGNESIUM CITRATE 300 ML BTL PO ONE (15:30)
[2018-05-16 16:10] LABS: HEMOGLOBIN 8.1 G/DL (11.5-16.0)
[2018-05-16] MEDS: NYSTATIN ORAL SUSP 5 ML UDC PO SCH ×2 (17:56→23:43)
[2018-05-17] VITALS (36 sets, daily range): BP systolic 98–147; BP diastolic 38–74
[2018-05-17] MEDS: fentaNYL INJECTION 100 MCG/2 ML AMP IVP PRN ×4 (01:08→06:45)
[2018-05-17] MEDS: NOREPINEPHRINE 4 MG in NS (IVPB) 250 ML IV SCH ×2 (02:35→14:45)
[2018-05-17] MEDS: NS IV 1000 ML 1,000 ML IV SCH ×3 (02:35→17:44)
[2018-05-17 03:13] LABS: BASOPHILS % (AUTO) 0 % (0-10); EOSINOPHILS # (AUTO) 0.1 10^3/uL (0.0-0.3); EOSINOPHILS % (AUTO) 0 % (0-10); HEMATOCRIT 23 % (35-52); HEMOGLOBIN 7.5 G/DL (11.5-16.0); LYMPHOCYTES % (AUTO) 5 % (12-44); MEAN CORPUSCULAR HEMOGLOBIN 32 PG (25-34); MEAN CORPUSCULAR HGB CONC 33 G/DL (32-36); MEAN CORPUSCULAR VOLUME 96 FL (80-99); MEAN PLATELET VOLUME 10.1 FL (7.4-10.4); MONOCYTES % (AUTO) 5 % (0-12); NEUTROPHILS % (AUTO) 90 % (42-75); PLATELET COUNT 241 10^3/uL (130-400); RED BLOOD COUNT 2.38 10^6/uL (4.35-5.85); RED CELL DISTRIBUTION WIDTH 18.5 % (10.0-14.5)
[2018-05-17 03:34] LABS: ALBUMIN 2.5 GM/DL (3.2-4.5); BILIRUBIN,TOTAL 0.4 MG/DL (0.1-1.0); CALCIUM 8.3 MG/DL (8.5-10.1); CREATININE SERUM 2.85 MG/DL (0.60-1.30); MAGNESIUM 2.3 MG/DL (1.8-2.4); PHOSPHORUS 4.9 MG/DL (2.3-4.7); POTASSIUM 5.1 MMOL/L (3.6-5.0)
[2018-05-17] MEDS: inSUlin ASPART (NovoLOG) 1 UNIT/0.01 ML (CHARGE PER UNIT) SC SCH ×3 (06:13→17:43)
[2018-05-17] MEDS: MAGNESIUM 1 GM/100 ML IVPB 100 ML IV SCH (06:13)
[2018-05-17] MEDS: KCL 20 MEQ TAB (K-DUR) PO SCH (06:13)
[2018-05-17] MEDS: POTASSIUM CL 10MEQ/50ML IVPB 50 ML IV SCH (06:13)
[2018-05-17] MEDS: NYSTATIN ORAL SUSP 5 ML UDC PO SCH ×3 (06:45→17:04)
--- NOTE | 2018-05-17 07:15 | Diagnostic Imaging Report ---
PATIENT HISTORY: Dyspnea. TECHNIQUE: Single frontal view of the chest COMPARISON: 05/16/2018 FINDINGS: Lung volumes are low. There are airspace opacities in the lungs bilaterally. Aeration on the right appears stable. Aeration in the left upper lobe appears mildly improved. There is stable mild cardiomegaly. The right jugular line tip appears stable. No pneumothorax or pleural effusion is seen. There are degenerative changes in the shoulders and spine. There is an old right-sided rib fracture. IMPRESSION: 1. Low lung volumes with persistent bilateral airspace opacities. There appears to be mildly improved aeration in the left upper lobe. Dictated by: Dictated on workstation # [id number]
[2018-05-17] MEDS: MEROPENEM 500 MG in NS (IVPB) 100 ML IV SCH ×2 (08:37→20:33)
[2018-05-17] MEDS: PANTOPRAZOLE 40 MG/10 ML (PROTONIX) VIAL IV SCH ×2 (08:37→20:34)
[2018-05-17] MEDS: VANCOMYCIN INJECTION 1,500 MG in NS IV 500 ML 500 ML IV SCH (09:15)
--- NOTE | 2018-05-17 15:40 | Progress Note-Hospitalist ---
Progress Note Progress Notes/Assess & Plan Date Seen 05/17/18 Time Seen by Provider: 15:00 Assessment & Plan The patient is a 73-year-old white female known to me from previous admissions. She was admitted on 05/15 after [facility] She was poorly alert at that time with a white blood count of 32, 400 it was also noted that her creatinine had been elevated over previous admission with a 3.76 at admission and presently 2.85 with hydration and antibiotic therapy. Repeat CBC showed a white count of 20,000 today and there has been no reported fever. In addition to the elevation of the creatinine the BUN was noted at admission to be 138 and is presently 122 she has had evidence of GI bleeding which would explain the disproportionate increase of BUN as compared to the creatinine. She did not attempt to answer any questions but her eyes did not open. Physical exam: The patient appeared quite puffy about the face and extremities. Lungs were distant but clear and SaO2 is on oxygen by nasal cannula were in the 90s. CV was poorly heard but regular. Family members were in the room and her condition was discussed. It was Allowed that relative to sepsis, there have been some signs of improvement. The apparent GI bleeding is of additional concern although the hemoglobin has been stable. The general consensus has been from orthopedics that her condition and the anatomy of her femur fracture are such that repair is not possible and would risk operative Impression: Severe sepsis/ . Right-sided pneumonia. 3.acute on chronic renal failure. 4.GI bleed/severe esophagitis. 5.recent history femur fracture Plan: Continue IV fluids and antibiotics Condition: Extremely guarded Focused Exam Lactate Level 05/15/18 08:46: Lactic Acid Level 0.82 Time of Focused Exam: 09:30 EVAN SAUNDERS MD May 17, 2018 15:40
[2018-05-17] MEDS ORDERED: morphine INJ 4 MG/ML 1 ML (VIAL/SYRINGE) IVP PRN ×2 (17:15)
[2018-05-18] VITALS (17 sets, daily range): BP systolic 105–175; BP diastolic 49–88
[2018-05-18] MEDS: NYSTATIN ORAL SUSP 5 ML UDC PO SCH ×2 (00:04→05:45)
[2018-05-18] MEDS: NS IV 1000 ML 1,000 ML IV SCH (00:04)
[2018-05-18] MEDS: inSUlin ASPART (NovoLOG) 1 UNIT/0.01 ML (CHARGE PER UNIT) SC SCH ×2 (00:08→05:47)
[2018-05-18] MEDS ORDERED: guaiFENesin/CODEINE (ROBITUSSIN AC) 10ML UDC PO PRN (02:30)
[2018-05-18] MEDS ORDERED: RT-ALBUTEROL/IPRATROPIUM 3 ML (DUONEB) VIAL IH PRN (02:30)
[2018-05-18 02:45] LABS: BASOPHILS % (AUTO) 0 % (0-10); EOSINOPHILS # (AUTO) 0.1 10^3/uL (0.0-0.3); EOSINOPHILS % (AUTO) 1 % (0-10); HEMATOCRIT 22 % (35-52); LYMPHOCYTES # (AUTO) 0.7 X 10^3 (1.0-4.0); LYMPHOCYTES % (AUTO) 5 % (12-44); MEAN CORPUSCULAR HEMOGLOBIN 31 PG (25-34); MEAN CORPUSCULAR HGB CONC 32 G/DL (32-36); MEAN CORPUSCULAR VOLUME 97 FL (80-99); MONOCYTES # (AUTO) 0.8 X 10^3 (0.0-1.0); MONOCYTES % (AUTO) 6 % (0-12); NEUTROPHILS # (AUTO) 11.9 X 10^3 (1.8-7.8); NEUTROPHILS % (AUTO) 88 % (42-75); PLATELET COUNT 193 10^3/uL (130-400); RED BLOOD COUNT 2.29 10^6/uL (4.35-5.85); RED CELL DISTRIBUTION WIDTH 18.7 % (10.0-14.5); WHITE BLOOD COUNT 13.5 10^3/uL (4.3-11.0)
[2018-05-18 03:07] LABS: ALBUMIN 2.6 GM/DL (3.2-4.5); BILIRUBIN,TOTAL 0.4 MG/DL (0.1-1.0); CALCIUM 8.5 MG/DL (8.5-10.1); CREATININE SERUM 2.44 MG/DL (0.60-1.30); MAGNESIUM 2.8 MG/DL (1.8-2.4); PHOSPHORUS 4.1 MG/DL (2.3-4.7); POTASSIUM 5.1 MMOL/L (3.6-5.0)
[2018-05-18 04:28] LABS: ABG BASE EXCESS -15.5 MMOL/L (-2.5-2.5); ABG OXYGEN SATURATION 93 % (94-100); ABG PCO2 29 MMHG (35-45); ABG PO2 64 MMHG (79-93)
[2018-05-18 04:31] LABS: ALLENS TEST YES-POS; INSPIRED O2 3L; VENTILATOR NO
[2018-05-18 04:32] LABS: PATIENT TEMP 97.9
[2018-05-18] MEDS ORDERED: SODIUM BICARB 8.4% 50 MEQ/50 ML (ABBOTT) SYR ONE (04:48)
[2018-05-18] MEDS ORDERED: D5W 1000 ML IV SOLUTION 1,000 ML ONE (04:48)
[2018-05-18] MEDS ORDERED: SODIUM BICARBONATE 8.4% VIAL 150 MEQ in WATER FOR INJECTION, STERILE 1,000 ML IV SCH ×2 (05:30→13:00)
[2018-05-18] MEDS: POTASSIUM CL 10MEQ/50ML IVPB 50 ML IV SCH (05:44)
[2018-05-18] MEDS: MAGNESIUM 1 GM/100 ML IVPB 100 ML IV SCH (05:45)
[2018-05-18] MEDS: KCL 20 MEQ TAB (K-DUR) PO SCH (05:45)
[2018-05-18] MEDS ORDERED: SODIUM BICARBONATE 8.4% VIAL 150 MEQ in D5W 1000 ML IV SOLUTION 1,000 ML IV ONE (06:00)
--- NOTE | 2018-05-18 07:49 | Diagnostic Imaging Report ---
Indication: Dyspnea. Comparison made with prior examination of 05/17/2018. Findings: There is persistent bilateral airspace disease. Some underlying central pulmonary venous congestion cannot be excluded. Cardiomegaly. There is no pleural effusion or pneumothorax. Right internal jugular central venous catheter remains in place. Impression: Bilateral airspace disease. Some underlying central pulmonary venous congestion cannot be excluded. Recommend clinical correlation. Cardiomegaly. Dictated by: Dictated on workstation # [id number]
[2018-05-18] MEDS: PANTOPRAZOLE 40 MG/10 ML (PROTONIX) VIAL IV SCH (08:45)
[2018-05-18] MEDS: MEROPENEM 500 MG in NS (IVPB) 100 ML IV SCH (08:45)
[2018-05-18] MEDS ORDERED: TROUGH ORDER-PHARMACY XX NR (09:00)
[2018-05-18] MEDS ORDERED: morphine INJ 4 MG/ML 1 ML (VIAL/SYRINGE) IVP PRN ×3 (11:00→13:30)
[2018-05-18] MEDS: morphine INJ 4 MG/ML 1 ML (VIAL/SYRINGE) IVP PRN ×5 (13:36→22:09)
--- NOTE | 2018-05-18 14:21 | Progress Note-Hospitalist ---
Progress Note Progress Notes/Assess & Plan Date Seen 05/18/18 Time Seen by Provider: 14:16 Assessment & Plan The patient has shown no evidence of improvement. 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 Her morphine was adjusted and this appears to have helped as her respirations fell from a rate of nearly 50 TO 12- 15 following this. She did not respond to my voice or touch. The family had come to an agreement and informed nurse Ludwin Urias that they wished her to be made palliative care status, which appears clearly reasonable. Physical exam she is deeply unresponsive. Her respirations are 15 and clear. CV shows a controlled rate and a grade 2 systolic murmur heard at the right and left second intercostal space and along the left sternal border. Abdomen is obese. Extremities show firm edema to palpation. Impression: Septic shock. 2.apparent pneumonia. 3.metabolic acidosis Prognosis terminal. Note: today's white count has fallen to 13,500. Hemoglobin has held steady at 7. Blood gas showed a pH of 7.2 with a PCO2 of 29 and a PO2 of 64. Focused Exam Lactate Level 05/18/18 04:13: Lactic Acid Level 0.52 Time of Focused Exam: 09:30 EVAN SAUNDERS MD May 18, 2018 14:21
[2018-05-19] MEDS: morphine INJ 4 MG/ML 1 ML (VIAL/SYRINGE) IVP PRN ×10 (00:17→22:06)
[2018-05-19 07:00] VITALS: BP 133/60
[2018-05-19 08:00] VITALS: BP 174/82
--- NOTE | 2018-05-19 10:44 | Progress Note-Hospitalist ---
Subjective HPI/CC On Admission Date Seen by Provider: May 19, 2018 Time Seen by Provider: 10:00 Pt is a 73yoCF with a PMH of peripheral arterial disease, distal femur fracture , DMII, aortic stenosis s/p TAVR in 2015, CHF, and HTN who presented to the ER due to altered mental status. Pt is unable to provide me any history and only moans in physical stimuli. All history is obtained from Benita at [facility]. Benita states that her symptoms started yesterday. She vomited once in at day surgery clinic where she was supposed to get IV Iron. Due to the vomited she did not get that and instead returned to the the [place]. She seemed normal at that time (around 1pm) and ate dinner and did well and then over night began to vomit and was hypotensive (BP 85/42). This morning she was more lethargic and would only respond to sternal rub from Benita prompting her to call for EMS evaluation. EMS reports that her SBP was in the 70s during transport. Subjective/Events-last exam Pt end of life status Family at bedside and has no concerns. Checked meds. Focused Exam Lactate Level 05/18/18 04:13: Lactic Acid Level 0.52 Time of Focused Exam: 09:30 Objective Exam Vital Signs Vital Signs Date Time Temp Pulse Resp B/P (MAP) Pulse Ox O2 Delivery O2 Flow Rate FiO2 05/19/18 12:00 Room Air 05/19/18 08:00 85 13 174/82 (112) 94 05/19/18 08:00 97.5 05/18/18 16:00 0.00 Capillary Refill : Greater Than 3 Seconds General Appearance: Other (unresponsive) Respiratory: Lungs Clear Cardiovascular: Regular Rate, Rhythm Results/Procedures Lab Patient resulted labs reviewed. Imaging: Reviewed Imaging Films Assessment/Plan Assessment and Plan Assess & Plan/Chief Complaint End of life status Plan: Comfort care Diagnosis/Problems Diagnosis/Problems (1) End of life care Status: Acute Clinical Quality Measures DVT/VTE Risk/Contraindication: Risk Factor Score Per Nursin RFS Level Per Nursing on Admit: 4+=Very High ALYSE MCADAMS DO May 19, 2018 10:44
[2018-05-19] MEDS ORDERED: SALIVA STIMULANT MOUTH SPRAY (BIOTENE) 1.5 OZ MM PRN (13:15)
[2018-05-19] MEDS: LORazepam INJ 2 MG/ML (ATIVAN) VIAL IVP PRN ×3 (14:26→22:06)
[2018-05-20] MEDS: LORazepam INJ 2 MG/ML (ATIVAN) VIAL IVP PRN ×4 (00:52→08:31)
[2018-05-20] MEDS: morphine INJ 4 MG/ML 1 ML (VIAL/SYRINGE) IVP PRN ×4 (02:08→08:29)
[2018-05-20] MEDS ORDERED: morphine PCA 30 MG/30 ML VIAL IV PRN (10:00)
--- NOTE | 2018-05-20 10:04 | Progress Note-Hospitalist ---
Subjective HPI/CC On Admission Date Seen by Provider: May 20, 2018 Time Seen by Provider: 10:00 Pt is a 73yoCF with a PMH of peripheral arterial disease, distal femur fracture , DMII, aortic stenosis s/p TAVR in 2015, CHF, and HTN who presented to the ER due to altered mental status. Pt is unable to provide me any history and only moans in physical stimuli. All history is obtained from Benita at [facility]. Benita states that her symptoms started yesterday. She vomited once in at day surgery clinic where she was supposed to get IV Iron. Due to the vomited she did not get that and instead returned to the [place]. She seemed normal at that time (around 1pm) and ate dinner and did well and then over night began to vomit and was hypotensive (BP 85/42). This morning she was more lethargic and would only respond to sternal rub from Benita prompting her to call for EMS evaluation. EMS reports that her SBP was in the 70s during transport. 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 Imaging: Reviewed Imaging Films Assessment/Plan Assessment and Plan Assess & Plan/Chief Complaint End of life status Plan: Comfort care Diagnosis/Problems Diagnosis/Problems (1) End of life care Status: Acute Clinical Quality Measures DVT/VTE Risk/Contraindication: Risk Factor Score Per Nursin RFS Level Per Nursing on Admit: 4+=Very High ALYSE MCADAMS DO May 20, 2018 10:04
[2018-05-20] MEDS ORDERED: NS IV 1000 ML 1,000 ML IV SCH (10:15)
[2018-05-20] MEDS: LORazepam INJ 2 MG/ML (ATIVAN) VIAL IVP SCH ×2 (10:36→12:39)
--- NOTE | 2018-05-20 14:22 | Discharge Summary-Hospitalist ---
Diagnosis/Chief Complaint Date of Admission May 15, 2018 at 10:41 Date of Discharge Admission Diagnosis Septic Shock Discharge Diagnosis (1) End of life care Status: Acute (2) Septic shock Status: Acute (3) Renal failure Status: Acute (4) CHF (congestive heart failure) Status: Chronic (5) Poor prognosis Status: Chronic Discharge Summary Discharge Physical Exam Allergies: Coded Allergies: butorphanol (Verified Allergy, Unknown, 09/05/08) sotalol (Unverified Allergy, Unknown, 03/28/15) Vitals & I&Os Vital Signs Date Time Temp Pulse Resp B/P (MAP) Pulse Ox O2 Delivery O2 Flow Rate FiO2 05/20/18 10:40 20 05/20/18 08:30 Room Air 05/19/18 08:00 85 174/82 (112) 94 05/19/18 08:00 97.5 05/18/18 16:00 0.00 General Appearance: Other (decreased) Hospital Course Hospital course: patient was admitted in septic shock although she had a very poor prognosis 2 months prior and was recommended for Hospice. Pt was given septic shock protocol fluids and abx but end organ damage in acute critical illness overcame the patient and was placed on comfort care and succumbed on 05/20 at 1400 hours. Family was at the bedside. Labs (last 24 hrs) Microbiology 05/15/18 Blood Culture - Final, Complete Staph, Coag Neg (OFFICE AGENT) See Comments 05/15/18 MRSA Screen - Final, Complete MRSA not isolated 05/15/18 Urine Culture - Final, Complete Klebsiella pneumoniae Sent To [facility] Patient resulted labs reviewed. Imaging: Reviewed Imaging Films Discussion & Recommendations Discharge Planning: <30 minutes discharge planning Discharge Home Medications: Active Scripts Active Reported Milk of Magnesia (Magnesium Hydroxide) 400 Mg/5 Ml Oral.susp 30 Ml PO DAILY PRN Hydrocodone-Acetamin 5-325 mg (Hydrocodone/Acetaminophen) 1 Each Tablet 1 Each PO Q6H PRN Calcium (Calcium Carbonate) 500 Mg Tab.chew 1,500 Mg PO PRN PRN Acetaminophen 650 Mg Supp.rect 650 Mg RC Q6H PRN Fentanyl Patch 12 MCG (Fentanyl) 1 Each Patch.td72 12 Mcg TD Q72H Natural Balance Tears Eye Drop (Dextran 70/Hypromellose) 15 Ml Drops 1 Drop OU BID Omeprazole 20 Mg Capsule.dr 40 Mg PO DAILY Amlodipine Besylate 10 Mg Tablet 10 Mg PO DAILY Lisinopril 20 Mg Tablet 20 Mg PO DAILY Allopurinol 100 Mg Tablet 100 Mg PO DAILY Tramadol HCl 50 Mg Tablet 50 Mg PO Q8H PRN Zofran (Ondansetron HCl) 4 Mg Tab 4 Mg PO Q8H PRN Vicks Vaporub Ointment (Eucalyptus Oil/Menthol/Camphor) 50 Gm Oint...g. TP UD PRN APPLY TO CHEST Tussin Dm Syrup (Guaifenesin/Dextromethorphan) 118 Ml Syrup 10 Ml PO Q6H PRN Folic Acid 1 Mg Tablet 1 Mg PO DAILY Benadryl Allergy (Diphenhydramine HCl) 25 Mg Tablet 12.5 Mg PO 1900 TAKES 1/2 (25MG) TABLET Novolog (Insulin Aspart) 100 Unit/1 Ml Susp SQ AC BELOW 60 CALL PHYSICIAN 60-150 = 0 UNITS 151-200 = 4 UNITS 201-250 = 6 UNITS 251-300 = 8 UNITS 301-350 = 10 UNITS 351-400 = 12 UNITS ABOVE 400 CALL PHYSICIAN Acidophilus (Lactobacillus Acidophilus) 1 Each Capsule 1 Cap PO BID Acetaminophen Extra Strength (Acetaminophen) 500 Mg Tablet 1,000 Mg PO TID Loperamide (Loperamide HCl) 2 Mg Tablet 2 Mg PO Q6H PRN Fish Oil 1,000 mg Capsule ([place] 3 Polyunsat Fatty Acids) 1,000 Mg Cap 2,000 Mg PO DAILY Feosol (Ferrous Sulfate) 325 Mg Tablet 325 Mg PO DAILY Terazosin HCl 2 Mg Capsule 2 Mg PO BID Fluticasone Propionate 16 Gm [place].susp 2 Sprays NS DAILY Sertraline HCl 25 Mg Tablet 12.5 Mg PO DAILY TAKES 1/2 (25MG) TABLET Novolog (Insulin Aspart) 100 Unit/1 Ml Susp 6 Units SQ 1200,1700 Levemir Flextouch (Insulin Detemir) 100 Unit/1 Ml Insuln.pen 26 Units SQ HS Vitamin B-12 (Cyanocobalamin (Vitamin B-12)) 500 Mcg Tablet 500 Mcg PO DAILY Stress B-Complex Tablet (B&C/FA/Zinc/Copper Oxide/Vit E) 1 Each Tablet 1 Tab PO DAILY Simvastatin 20 Mg Tablet 20 Mg PO HS Clopidogrel (Clopidogrel Bisulfate) 75 Mg Tablet 75 Mg PO DAILY Furosemide 80 Mg Tablet 80 Mg PO DAILY Hair, Skin & Nails (Multivitamin with Minerals) 1 Each Tablet 1 Tab PO DAILY Gabapentin 100 Mg Capsule 100 Mg PO BID Calcium 600 + Vit D 200 Tablet (Calcium Carbonate/Vitamin D3) 1 Each Tablet 1 Tab PO BID Senna (Sennosides) 8.6 Mg Tablet 8.6 Mg PO Q8H PRN Coreg (Carvedilol) 12.5 Mg Tablet 12.5 Mg PO BID Aspirin EC (Aspirin) 81 Mg Tablet.dr 81 Mg PO DAILY Instructions to patient/family Please see electronic discharge instructions given to patient. Clinical Quality Measures DVT/VTE Risk/Contraindication: Risk Factor Score Per Nursin RFS Level Per Nursing on Admit: 4+=Very High Comfort Measures/ Type of Care: Comfort Measures Problem Qualifiers (1) Renal failure: Renal failure chronicity: acute on chronic Acute renal failure type: unspecified Chronic kidney disease stage: stage 3 (moderate) Qualified Codes : N17.9 - Acute kidney failure, unspecified; N18.3 - Chronic kidney disease, stage 3 (moderate) ALYSE MCADAMS DO May 20, 2018 14:22
== END 2018-05-20 15:48 | disposition expired | DRG 871 ==
LOC: EDUNIT# 08:40 → ER 08:42 → ICU 10:41 → UNDOADMIN 10:41 → 4TH 05-19 14:50
PROVIDERS: ADMIT Family Medicine; ATTEND Family Medicine
PROC: 0DJ08ZZ Inspection of Upper Intestinal Tract, Via Natural or Artificial Opening Endoscopic (ICD-10-PCS; principal; 2018-05-16 11:50)
DX: A41.9 Sepsis, unspecified organism (principal); R65.20 Severe sepsis without septic shock; N39.0 Urinary tract infection, site not specified; J18.9 Pneumonia, unspecified organism; N17.9 Acute kidney failure, unspecified; J44.0 Chronic obstructive pulmonary disease with (acute) lower respiratory infection; K22.11 Ulcer of esophagus with bleeding; Z66 Do not resuscitate; Z51.5 Encounter for palliative care; K25.4 Chronic or unspecified gastric ulcer with hemorrhage; M80.051A Age-related osteoporosis with current pathological fracture, right femur, initial encounter for fracture; I42.9 Cardiomyopathy, unspecified; B37.81 Candidal esophagitis; K29.80 Duodenitis without bleeding; I25.10 Atherosclerotic heart disease of native coronary artery without angina pectoris; I13.10 Hypertensive heart and chronic kidney disease without heart failure, with stage 1 through stage 4 chronic kidney disease, or unspecified chronic kidney disease; I50.9 Heart failure, unspecified; N18.3 Chronic kidney disease, stage 3 (moderate); E11.40 Type 2 diabetes mellitus with diabetic neuropathy, unspecified; E11.51 Type 2 diabetes mellitus with diabetic peripheral angiopathy without gangrene; M85.851 Other specified disorders of bone density and structure, right thigh; D64.9 Anemia, unspecified; E66.9 Obesity, unspecified; F41.9 Anxiety disorder, unspecified; F32.9 Major depressive disorder, single episode, unspecified; Z95.2 Presence of prosthetic heart valve; Z79.4 Long term (current) use of insulin; Z86.73 Personal history of transient ischemic attack (TIA), and cerebral infarction without residual deficits; Z68.39 Body mass index [BMI] 39.0-39.9, adult; Z87.891 Personal history of nicotine dependence
CPT/HCPCS: 36415; 36556; 36600; 51702; 71045; 80048; 80053; 80202; 81000; 82805; 82962; 83605; 83735; 83880; 84100; 85007; 85014; 85018; 85025; 85027; 85610; 85730; 86850; 86900; 86901; 86920; 87040; 87077; 87081; 87088; 87186; 94640; 94664; 96361; 96365; 96375